=== PATIENT | female | born 1950 | race Caucasian/White ===

== ENCOUNTER → 2018-03-15 15:01 | Outpatient (CLI) | payer MEDICARE, OTHER, SELFPAY ==
--- NOTE | 2018-03-15 | DI.US.S_ITS ---
PROCEDURE: US CAROTID DOPPLER BI INDICATIONS: TRANSIENT VISION LOSS IN RIGHT EYE TECHNIQUE: Color and pulse Doppler interrogation was performed of both carotid systems, with image documentation and velocity measurements. COMPARISON: None. FINDINGS: Stenosis calculations are based on SRU (Society of Radiologists in Ultrasound) criteria. Right side: Brachial blood pressure: 118/75 mm Hg. Common carotid artery peak systolic velocity: 104 cm/sec. Internal carotid artery peak systolic velocity: 109 cm/sec. Internal carotid artery end diastolic velocity: 35 cm/sec. External carotid artery peak systolic velocity: 75 cm/sec. ICA/CCA peak systolic ratio: 1.04. Peter scale imaging description: No plaque Percent internal carotid artery stenosis: None. Vertebral artery: Flow direction is antegrade. Left side: Brachial blood pressure: 119/70 mm Hg. Common carotid artery peak systolic velocity: 88 cm/sec. Internal carotid artery peak systolic velocity: 108 cm/sec. Internal carotid artery end diastolic velocity: 28 cm/sec. External carotid artery peak systolic velocity: 94 cm/sec. ICA/CCA peak systolic ratio: 1.22. Peter scale imaging description: No plaque Percent internal carotid artery stenosis: None. Vertebral artery: Flow direction is antegrade. IMPRESSION: No ICA stenosis. Dictated by: Johnathan Orta M.D. on 03/15/2018 at 16:11 Approved by: Johnathan Orta M.D. on 03/15/2018 at 16:13
== END ==
PROVIDERS: Family Provider Family Medicine; PCP Family Medicine; Visit Provider Ophthalmology
DX: H53.121 Transient visual loss, right eye (principal)
CPT/HCPCS: 93880

== ENCOUNTER 2018-03-21 10:08 | Emergency (ER) | payer MEDICARE, OTHER, SELFPAY ==
[2018-03-21 10:10] VITALS: BP 127/70; PULSE 67; RESP 14; TEMP 36.1; O2SAT 100; BMI 22.1
--- NOTE | 2018-03-21 10:23 | PC.NURSE ---
Called Dr. Novoa office ([facility] [phone]) for more information. Spoke Cheo FAUSTIN: Elevated D-Dimer 1.47 (normal < 0.5).
[2018-03-21 10:30] VITALS: BP 118/69; O2SAT 100
--- NOTE | 2018-03-21 11:08 | PC.NURSE ---
Discussed w/ Dr. Gipson. No indicated for ultrasound / labs at this time. Indication is for head CT. Discussed w/ patient who agreed w/ plan of care. Pt continues w/ no acute distress, pain complaints.
--- NOTE | 2018-03-21 11:12 | DI.CT.S_ITS ---
PROCEDURE: CT HEAD/BRAIN WO CON INDICATIONS: headache on Left side, vision loss on Right 3 days ago, now resolved TECHNIQUE: Noncontrast 4.5 mm thick angled axial sections acquired from the foramen magnum to the vertex, with coronal and sagittal reformats. For radiation dose reduction, the following was used: automated exposure control, adjustment of mA and/or kV according to patient size. COMPARISON: None. FINDINGS: Image quality: Excellent. CSF spaces: Basal cisterns are patent. No extra-axial fluid collections. Ventricles are normal in size and shape. Brain: No midline shift. No intracranial masses or hemorrhage. Peter-white matter interface is normal. Skull and face: Calvarium and visualized facial bones are intact, without suspicious lesions. Sinuses: Visualized sinuses and mastoids are clear. IMPRESSION: Normal for age, source of current headache and vision change symptoms is not seen. Dictated by: Ted Weldon M.D. on 03/21/2018 at 11:22 Approved by: Ted Weldon M.D. on 03/21/2018 at 11:23
[2018-03-21 12:00] VITALS: BP 114/70; PULSE 62; O2SAT 100
--- NOTE | 2018-03-21 12:49 | ED.RECABL ---
HPI - Recheck/Abnormal Lab/Rx General Chief Complaint: Recheck/Abnormal Lab/Rx Stated Complaint: HIGH DVT, STATES NEED TO BE EVAL FOR STROKE Time Seen by Provider: 03/21/18 10:56 Source: patient Mode of arrival: ambulatory Limitations: no limitations History of Present Illness HPI narrative: Patient comes to the emergency department after experiencing acute visual loss about a week and half ago. She states that at the time, it was so a curtain came down part way over her right visual field superiorly. She states that she could still see except for that portion of her vision. She states the symptoms lasted about 4 min and then resolved spontaneously. She states that she spoke to her as soon as the symptoms started, and that her initial words stuttered. However, after that, she was able to speak normally. Patient denies any other neurologic symptoms same time. She did not have a headache at that time, though she has had intermittent stabbing headaches in her left adventist. She states that she has not been ill with anything else and has had no other symptoms since. She has been out hiking with her and has feeling good. She has a history of retinal detachment, and when saw her client relationship executive who examined her and felt that her exam was normal. This was the day after the incident. Patient states that the following day, she went saw her primary doctor, and labs were drawn. She also got a carotid Doppler per order of her client relationship executive, and that this was negative. Patient states she was called by her doctor today, stating that her D-dimer was elevated and she should come to the emergency department get checked out. Patient denies any pain in her calves. No swelling. She has not been short of breath and has had no chest pain. The patient has no DVT history. She is not a smoker and has had no long periods of immobilization recently. She has been active in hiking, as noted above. Patient states she occasionally feels a little irregularity to her heart rhythm, sometimes for as long as 10 or 20 min, but then this goes away on its own. She is not known to be in atrial fibrillation chronically. No other complaints at this time. Patient is not a diabetic and has no history of hypertension or hyperlipidemia. Related Data Home Medications Medication Instructions Recorded Confirmed mirtazapine 45 mg PO QPM 03/21/18 03/21/18 multivit with min-folic acid 1 tab PO DAILY 03/21/18 03/21/18 [Adult Multivitamin Gummies] Allergies Allergy/AdvReac Type Severity Reaction Status Date / Time meperidine [From Demerol] Allergy Intermediate Vomiting Verified 03/21/18 10:15 prednisone AdvReac Intermediate Shakiness Verified 03/21/18 10:15 Review of Systems Constitutional Denies chills, Denies fever(s), Reports headache(s), Denies lethargy and Denies weakness Eyes Denies change in vision, Denies eye discharge, Denies irritation and Denies loss of vision ENT Ears, Nose, Mouth, and Throat: Denies change in voice, Reports headache(s), Denies neck pain and Denies sore throat Cardiovascular Denies chest pain, Denies irregular heart rhythm, Denies lightheadedness, Denies palpitations, Denies dyspnea, Denies dyspnea on exertion and Denies orthopnea Respiratory Denies cough, Denies dyspnea, Denies dyspnea on exertion and Denies wheezing Gastrointestinal Gastrointestinal: Denies abdominal pain, Denies change in bowel habits, Denies diarrhea, Denies nausea and Denies vomiting Genitourinary Denies hematuria, Denies flank pain, Denies urinary incontinence and Denies urinary urgency Musculoskeletal Denies neck pain Integumentary/Breasts Denies pruritus, Denies erythema, Denies rash and Denies wounds Neurologic Denies confusion, Reports headache(s), Denies loss of vision and Denies weakness Psychiatric Denies anxiety, Denies confusion, Denies depression, Denies homicidal ideation and Denies suicidal ideation Endocrine Denies palpitations Hematologic/Lymphatic Denies easy bruising Allergic/Immunologic Denies wheezing [facility] Medical History Emphysema of lung (Acute) Epilepsy with partial complex seizures (Acute) Social History Smoking Status: Never smoker Exam Initial Vital Signs Initial Vital Signs: Vital Signs Temperature 96.9 F L 03/21/18 10:10 Pulse Rate 67 03/21/18 10:10 Respiratory Rate 14 03/21/18 10:10 Blood Pressure 127/70 03/21/18 10:10 Pulse Oximetry 100 03/21/18 10:10 Const General: cooperative and well developed Nutritional Appearance: well nourished Orientation: alert, awake, oriented x3 and not confused [facility] Head: normocephalic and atraumatic Ears: external ears normal Nose: external nose normal and No nasal discharge Face and sinus: face symmetric and No dry mucous membranes Mouth: oral mucosae normal and moist mucous membranes Teeth and gingiva: dentition normal Eyes General: appearance normal, both eyes and all related structures Eyelids: eyelids normal Conjunctivae: conjunctivae normal Sclera: sclerae normal Pupils: PERRL EOM: EOM intact bilaterally Neck Neck: normal visual inspection, trachea midline, No lymphadenopathy, No midline deformity and No JVD Lymphatic: No lymphedema Chest Chest: normal inspection of the chest Resp Effort & Inspection: normal respiratory effort, able to speak in complete sentences, no respiratory distress and no use of accessory muscles Auscultation: clear to auscultation bilaterally, no rales, no rhonchi and no wheezes Cardio Rate: regular rate Rhythm: regular rhythm Heart Sounds: no click, no gallops, no murmurs and no rubs Pulses: normal peripheral pulses GI Inspection: non-distended Palpation: soft, no hepatosplenomegaly, No guarding, No pulsatile mass and No tender Auscultation: normal bowel sounds Back/Spine/Pelvis Back: No CVA tenderness Cervical Spine: cervical ROM normal and No pain with cervical ROM Thoracic/Lumbar Spine: thoracic and lumbar spine normal to inspection Skin General: no rashes or lesions noted, No jaundice and No petechiae Neuro General: alert, oriented x3, gait normal and no focal motor deficits Speech: speech normal Extrem General: full ROM, no clubbing, cyanosis or edema, no pedal edema and no calf tenderness Psych Appearance: well kempt Mental Status: mental status grossly normal Attitude: cooperative Thought Content: normal and suicidality Judgment: judgment good Course Course Narrative: The patient was completely asymptomatic here in the emergency department. She did not have any symptoms whatsoever indicative of a DVT, and I did not feel that the mildly elevated D-dimer at 1.47, from her primary doctor's office, needed to be clarified at this time. I did send the patient for CT scan of the brain, which was unremarkable. I discussed at length with the patient and her the approach to the question of a TIA, mainly with attempting to find a potential source, and prevented further events. She has already had her carotid Doppler, which was unremarkable, and she has a normal heart rhythm on examination. Patient should follow up for an echocardiogram however to complete the appropriate workup. I have also discussed with her that I would it would be advisable, at least for now, to start a baby aspirin daily for prevention of further ischemic events, if that is what this episode represents. Patient is overall extremely low risk, and I feel she is stable for discharge home. Patient will follow up with her primary care physician as an outpatient. We have discussed the usual indications for return. Orders Ordered: ED Orders 03/21/18 11:12 CT head/brain wo con Stat Vital Signs - 8 hr 03/21/18 10:10 03/21/18 10:30 03/21/18 12:00 Temperature 96.9 F L Pulse Rate 67 62 Respiratory Rate 14 Blood Pressure 127/70 Blood Pressure [Left Arm] 118/69 114/70 Pulse Oximetry 100 100 100 MDM - Recheck/Abnormal Lab/Rx Medical Records Attestation: I reviewed the patient's medical records. Imaging Data CT scan - head: Attestation: I personally reviewed and interpreted this imaging study as follows: My impression: Negative Radiologist's impression: [place] [address] CT Scan Report Signed Patient: LYLE MCCULOLUGH R#: [id number] : 1950cct:[id number] Age/Sex: 68 / FDate of Service: 03/21/18 Loc: ED Accession Number: [id number] Procedure: CT head/brain wo con Ordering Provider: Janice Gipson MD PROCEDURE: CT HEAD/BRAIN WO CON INDICATIONS: headache on Left side, vision loss on Right 3 days ago, now resolved TECHNIQUE: Noncontrast 4.5 mm thick angled axial sections acquired from the foramen magnum to the vertex, with coronal and sagittal reformats. For radiation dose reduction, the following was used: automated exposure control, adjustment of mA and/or kV according to patient size. COMPARISON: None. FINDINGS: Image quality: Excellent. CSF spaces: Basal cisterns are patent. No extra-axial fluid collections. Ventricles are normal in size and shape. Brain: No midline shift. No intracranial masses or hemorrhage. Peter-white matter interface is normal. Skull and face: Calvarium and visualized facial bones are intact, without suspicious lesions. Sinuses: Visualized sinuses and mastoids are clear. IMPRESSION: Normal for age, source of current headache and vision change symptoms is not seen. Dictated by: Ted Weldon M.D. on 03/21/2018 at 11:22 Approved by: Ted Weldon M.D. on 03/21/2018 at 11:23 Discharge Plan Departure Patient Disposition: Home Clinical Impression: Headache, Visual changes Discharge Date/Time: 03/21/18 12:58 Instructions: DI for Headache, DI for Visual Field Disturbances Activity Restrictions/Additional Instructions: Your head CT looks good. There is no evidence of a stroke or other abnormality. It is not clear what caused your visual changes last week. This could represent a transient stroke, or could be unrelated to any kind of stroke. As we have discussed, the most important aspects to address in the question of stroke are any potential underlying cause, and prevention of further events. You have already had the carotid ultrasound, which looks good. You should talk to your doctor about having an echocardiogram done. This is an ultrasound which in part can tell us whether you have any clot or plaque along the wall of the heart which could break off and caused your to have further strokes. For prevention, an aspirin a day would be effective. If you have further episodes like this, please return to the Emergency Department without delay. Prescriptions: No Action mirtazapine 45 mg Tablet 45 mg PO QPM RF: 0 multivit with min-folic acid [Adult Multivitamin Gummies] 200 mcg Tablet,Chewable 1 tab PO DAILY RF: 0 Referrals: Micheal Bynum MD [Primary Care Provider] -
== END 2018-03-21 12:58 | disposition home or self-care (01) ==
PROVIDERS: Emergency Provider Emergency Medicine; Family Provider Family Medicine; PCP Family Medicine
DX: R51 Headache (principal); H53.9 Unspecified visual disturbance
CPT/HCPCS: 70450; 99282; 99284

== ENCOUNTER → 2018-04-05 08:52 | Outpatient (CLI) | payer MEDICARE, OTHER, SELFPAY ==
--- NOTE | 2018-04-05 | DI.ECHO.S_ITS ---
[facility] +---------+ : : [address] [place] [address] : : : : [id number] : : : : Phone: [phone] Echocardiogram Report + + :Name: LYLE MCCULLOUGH Study Date: 04/05/2018 Height: 69 in : :[facility] Weight: 150 lb : : Gender: Female BSA: 1.8 m2 : :: 1950 Age: 68 yrs BP: 128/70 mmHg: :Reason For Study: TIA : : Performed By: Shania Chung : :Referring: PORSCHE HAMPTON G : + + Interpretation Summary Normal sinus rhythm. Normal LV size, wall thickness, wall motion and LV systolic function. Aortic sclerosis without stenosis. Otherwise no significant valvular abnormalities. Normal chamber sizes. No evidence of PFO; no source of embolism identirifed. Procedure: A two-dimensional transthoracic echocardiogram with color flow and Doppler was performed. The study quality was technically good. There is no prior echocardiogram noted for this patient. The patient was in normal sinus rhythm during the exam. The patient had occasional PVCs during the exam. Left Ventricle: The left ventricle is normal in size, wall thickness, and systolic function without any focal wall motion abnormalities. The ejection fraction is estimated to be 60-65%. Diastolic parameters suggest probable normal left ventricular diastolic function and normal filling pressures. Right Ventricle: The right ventricle grossly appears normal in size with probable normal systolic function. Atria: The left atrial size is normal. Right atrial size is normal. Injection of contrast documented no interatrial shunt. Mitral Valve: The mitral valve is normal in structure but abnormal in function. There is mild to moderate mitral regurgitation. Aortic Valve: The aortic valve is trileaflet. The aortic valve opens well. The aortic valve is mildly calcified. No aortic regurgitation is present. Tricuspid Valve: The tricuspid valve is normal in structure and function. There is a trace or physiologic amount of tricuspid regurgitation. The right ventricular systolic pressure is estimated to be at least 27 mmHg based on an estimated right atrial pressure of 8 mm Hg. Pulmonic Valve: The pulmonic valve is normal in structure and function. There is trace pulmonic regurgitation. Great Vessels: The aortic root is normal size. The ascending aorta is normal in size. The IVC is dilated (diameter is greater than 2.1 cm) yet it collapses greater than 50% with a sniff. This suggests a right atrial pressure of 8 mm Hg. Pericardium/ Pleura There is a trivial pericardial effusion noted. There is no pleural effusion. MMode/2D Measurements & Calculations LVIDd: 5.5 cm Ao root diam: 3.3 cm LVIDs: 3.7 cm Aortic Jxn: 2.8 cm FS: 32.0 % asc Aorta Diam: 3.4 cm EPSS: 0.49 cm IVSd: 0.61 cm LVPWd: 0.85 cm LV freitas. diameter/BSA (cm/m^2): 3.0 LV sys. diameter/BSA (cm/m^2): 2.0 LA dimension: 3.7 cm RA long axis: 5.2 cm LA A2 area: 20.5 cm2 RA area: 20.2 cm2 LA A4 area: 20.0 cm2 RA vol: 66.7 ml LA length (vol): 5.5 cm RA : 36.5 ml/m2 LA vol: 63.5 ml IVC diam: 2.1 cm LA vol index: 34.7 ml/m2 Doppler Measurements & Calculations Ao V2 max: 172.6 cm/sec MV E max dick: 86.5 cm/sec Ao V2 mean: 116.2 cm/sec MV A max dick: 61.8 cm/sec Ao max P.9 mmHg MV E/A: 1.4 Ao mean P.2 mmHg Med Peak E' Dick: 8.5 cm/sec Ao V2 VTI: 39.9 cm E/E' med: 10.1 Lat Peak E' Dick: 14.4 cm/sec E/E' lat: 6.0 E/e' average: 8.1 MV dec time: 0.18 sec MV P1/2t: 54.0 msec MR ERO: 0.16 cm2 TR max dick: 218.4 cm/sec MV P1/2t max dick: 86.0 cm/sec TR max P.1 mmHg MVA(P1/2t): 4.1 cm2 PA V2 max: 84.7 cm/sec PA V2 mean: 55.2 cm/sec PA mean P.5 mmHg PA Accel Time: 0.16 sec MR flow rate: 86.2 cm3/sec MR PISA radius: 0.59 cm Electronically signed by: Keisha Dunn M.D. on Reading Physician:04/06/2018 07:58 AM
== END ==
PROVIDERS: Family Provider Family Medicine; PCP Family Medicine; Visit Provider Family Medicine
DX: I08.0 Rheumatic disorders of both mitral and aortic valves (principal); G45.9 Transient cerebral ischemic attack, unspecified; R00.2 Palpitations
CPT/HCPCS: 93306

== ENCOUNTER → 2018-04-11 11:27 | Outpatient (CLI) | payer MEDICARE, OTHER, SELFPAY ==
--- NOTE | 2018-04-11 | DI.MG.S_ITS ---
BILATERAL DIGITAL SCREENING MAMMOGRAM 3D/2D WITH CAD: 04/11/2018 CLINICAL: Routine screening. Comparison is made to exam dated: 02/21/2017 mammogram - [facility]. The tissue of both breasts is heterogeneously dense. This may lower the sensitivity of mammography. Current study was also evaluated with a Computer Aided Detection (CAD) system. No significant masses, calcifications, or other findings are seen in either breast. There has been no significant interval change. IMPRESSION: NEGATIVE There is no mammographic evidence of malignancy. A 1 year screening mammogram is recommended. This exam was interpreted at Station ID: [id number]. NOTE: For mammograms, a report in lay terms will be sent to the patient. Approximately 15% of breast malignancies will not be visualized mammographically. In the management of a palpable breast mass, a negative mammogram must not discourage biopsy of a clinically suspicious lesion. Electronically Signed By: Nohemi llamas/bo:04/11/2018 13:19:08 letter sent: Normal Exam ACR BI-RADS Category 1: Negative [id number]
== END ==
PROVIDERS: PCP Family Medicine; Visit Provider Family Medicine
DX: Z12.31 Encounter for screening mammogram for malignant neoplasm of breast (principal)
CPT/HCPCS: 77063; 77067

== ENCOUNTER 2018-11-03 06:28 | Emergency (ER) | payer MEDICARE, OTHER, SELFPAY ==
[2018-11-03 06:39] VITALS: BP 140/61; PULSE 82; RESP 17; TEMP 36.6; O2SAT 100; BMI 22.1
[2018-11-03 07:04] LABS: Add Manual Diff / Slide Review NO; Basophils Absolute Auto 0 /uL (0-100); Basophils Percent Auto 0.6 % (0-2); Eosinophils Absolute Auto 200 /uL (0-450); Eosinophils Percent Auto 3.1 % (2-4); Hematocrit 40.1 % (36-46); Hemoglobin 13.9 g/dL (12.0-16.0); Lymphocytes Absolute Auto 1000 /uL (1100-4500); Lymphocytes Percent Auto 20.1 % (25-40); Mean Corpuscular HGB Conc 34.7 % (30-36); Mean Corpuscular Hemoglobin 30.2 PG (26-34); Mean Corpuscular Volume 87.1 fL (80-100); Monocytes Absolute Auto 300 /uL (0-900); Monocytes Percent Auto 5.1 % (3-14); Neutrophils Absolute Auto 3700 /uL (1500-7000); Neutrophils Percent Auto 71.1 % (50-75); Platelet Count 213 X10^3/uL (150-400); Red Blood Cell Count 4.61 X10^6/uL (4.0-5.2); Red Cell Distribution Width 13.7 % (11.6-14.8); White Blood Cell Count 5.1 X10^3/uL (4.5-11.0)
--- NOTE | 2018-11-03 07:09 | ED_ITS ---
HPI - Arrhythmia/Palpitations General Chief Complaint: Arrhythmia/Palpitations Stated Complaint: heart flutterings, HBP Time Seen by Provider: 11/03/18 06:37 Source: patient Mode of arrival: ambulatory Limitations: no limitations History of Present Illness HPI narrative: The patient is a 68-year-old female with history of TIA who presents with heart palpitations. She says she woke up around 3:00 a.m. feeling fluttering in her chest. She had no shortness of breath no dizziness no lightheadedness no pain no nausea no weakness numbness or tingling. She says it lasted for a few hours and stopped just prior to her arrival in the emergency department. She says she has previously had a Holter monitor but nothing was found. She was worried because her blood pressure was elevated with a systolic of 160 at home. It has now come down to 140 in the emergency department. She denies any other symptoms and overall feels back to normal. MD complaint: palpitations Duration: now resolved Context: occurred during rest Related Data Home Medications Medication Instructions Recorded Confirmed mirtazapine 45 mg PO QPM 03/21/18 03/21/18 multivit with min-folic acid 1 tab PO DAILY 03/21/18 03/21/18 [Adult Multivitamin Gummies] albuterol sulfate 90 mcg/actuation 1 puff INHALATION Q6H PRN 10/23/18 10/23/18 aerosol inhaler aspirin 81 mg tablet,delayed 81 mg PO DAILY 10/23/18 10/23/18 release Previous Rx's Medication Instructions Recorded varicella-zoster [id number] (PF) 50 0.5 ml IM ONCE #1 each 10/23/18 mcg/0.5 mL IM susp, kit Allergies Allergy/AdvReac Type Severity Reaction Status Date / Time meperidine [From Demerol] Allergy Intermediate Vomiting Verified 03/21/18 10:15 lactase [From Dairy Aid] AdvReac Intermediate Gastrointestinal Verified 10/23/18 09:44 Upset prednisone AdvReac Intermediate Shakiness Verified 03/21/18 10:15 Review of Systems Review of Systems Narrative: GENERAL: Denies chills, fatigue, malaise, fever, sweats, travel HEENT: Denies sinus pain, ear pain, sore throat, difficulty swallowing, neck pain RESPIRATORY: Denies dyspnea, cough, wheezing, hemoptysis, sputum. CARDIOVASCULAR: She HPI GASTROINTESTINAL: Denies nausea, vomiting, abdominal pain, diarrhea, constipation, melena. : Denies dysuria, frequency, incontinence, hematuria, urinary retention, flank pain. MUSCULOSKELETAL: Denies weakness, joint pain, or bony pain SKIN: No rash, no erythema, no pruritus NEUROLOGIC: Denies weakness, dizziness, headache, numbness, change in speech, confusion PSYCHIATRIC: No concerning psychosocial issues. 12 point review of systems is negative except for those stated above and HPI [facility], [facility] Medical History Emphysema of lung (Acute) Epilepsy with partial complex seizures (Resolved) TIA (transient ischemic attack) (Acute) Social History Smoking Status: Never smoker Social History Smoking Status: Never smoker Exam Initial Vital Signs Initial Vital Signs: Vital Signs Temperature 97.9 F 11/03/18 06:39 Pulse Rate 82 11/03/18 06:39 Respiratory Rate 17 11/03/18 06:39 Blood Pressure 140/61 11/03/18 06:39 Pulse Oximetry 100 11/03/18 06:39 GENERAL: [Well-appearing, well-nourished] and in [no acute] distress. HEENT: Head atraumatic,EOMI, pupils reactive, face symmetric, [moist] mucous membranes CARDIOVASCULAR: Regular rate and rhythm without murmurs, rubs or gallops. RESPIRATORY: Breath sounds equal bilaterally, no wheezes rales or rhonchi. ABDOMEN: Soft, nontender. Normoactive bowel sounds all 4 quadrants. No guarding or rebound. : No CVA tenderness EXTREMITIES: Normal range of motion, no clubbing or edema. Neurovascularly intact NEUROLOGICAL: Alert and oriented x4.Normal gait and speech. Cranial nerves II through XII grossly intact. SKIN: Warm, dry, no laceration, no petechiae, no rashes or lesions. Course Orders Ordered: ED Orders 11/03/18 06:35 EKG-12 Lead Stat 11/03/18 06:47 Basic Metabolic Panel Stat Complete Blood Count AUTO DIFF Stat Magnesium Stat Thyroid Stimulating Hormone Stat Troponin & CK Cardiac Panel Stat Vital Signs Vital signs: Vital Signs - 8 hr 11/03/18 06:39 11/03/18 08:05 Temperature 97.9 F Pulse Rate 82 66 Respiratory Rate 17 18 Blood Pressure 140/61 116/68 Pulse Oximetry 100 100 MDM - Arrhythmia/Palpitations Lab Data Attestation: I reviewed the patient's lab results. Result diagrams: 11/03/18 06:47 11/03/18 06:47 Labs: Lab Results 11/03/18 11/03/18 11/03/18 Range/Units 06:47 06:47 06:47 WBC 5.1 (4.5-11.0) X10^3/uL RBC 4.61 (4.0-5.2) X10^6/uL Hgb 13.9 (12.0-16.0) g/dL Hct 40.1 (36-46) % MCV 87.1 (80-100) fL MCH 30.2 (26-34) PG MCHC 34.7 (30-36) % RDW 13.7 (11.6-14.8) % Plt Count 213 (150-400) X10^3/uL Neut % (Auto) 71.1 (50-75) % Lymph % (Auto) 20.1 L (25-40) % [place] % (Auto) 5.1 (3-14) % Eos % (Auto) 3.1 (2-4) % Baso % (Auto) 0.6 (0-2) % Neut # (Auto) 3700 (8517-0455) /uL Lymph # (Auto) 1000 L (6512-5171) /uL [place] # (Auto) 300 (0-900) /uL Eos # (Auto) 200 (0-450) /uL Baso # (Auto) 0 (0-100) /uL Sodium 143 (137-145) mmol/L Potassium 4.1 (3.4-5.1) mmol/L Chloride 106 (98-107) mmol/L Carbon Dioxide 29 (22-32) mmol/L BUN 13 (7-17) mg/dL Creatinine 0.80 (0.52-1.04) mg/dL Estimated GFR > 60.0 (>60) mL/min BUN/Creatinine Ratio 16.3 (6-22) Glucose 108 (80-110) mg/dL Calcium 9.4 (8.4-10.2) mg/dL Magnesium 1.9 (1.6-2.3) mg/dL Total Creatine Kinase 48 (30-135) U/L CK-MB (CK-2) TNP CK-MB (CK-2) Rel Index TNP Troponin I < 0.012 (0.01-0.034) ng/mL TSH 6.26 H (0.47-4.68) uIU/mL ECG Data Attestation: I personally reviewed and interpreted this ECG as follows: Prior ECG tracings: not available for review Interpretation: Normal sinus rhythm rate 72 p.r. interval [address] changes artifact noted in V4 and V5 MDM Narrative Medical decision making narrative: Patient no longer has symptoms. Her electrolytes and blood work are reassuring. I did recommend that with history of TIA and possible paroxysmal atrial fibrillation she continue her aspirin and have a Holter monitor. Discharge Plan Departure Patient Disposition: Home Clinical Impression: Palpitations Discharge Date/Time: 11/03/18 08:05 Instructions: DI for Palpitations Activity Restrictions/Additional Instructions: *You have been diagnosed with palpitations *What to do: With history of TIA and symptoms of palpitations. I do strongly recommend that you talk to her PCP about a Holter monitor to monitor your heart rhythm. *Continue to take medications as directed *Follow up with your primary care provider in 2-3 days *Return to ER if you should have palpitations, dizziness, lightheadedness, weakness or any new, worsening or concerning symptoms Prescriptions: No Action aspirin [Aspirin Low Dose] 81 mg tablet,delayed release (DR/EC) 81 mg PO DAILY RF: 0 albuterol sulfate [ProAir HFA] 90 mcg/actuation HFA aerosol inhaler 1 puff INHALATION Q6H PRNRF: 0 Shingrix (PF) 50 mcg/0.5 mL suspension for reconstitution 0.5 ml IM ONCE Qty: 1 RF: 1 mirtazapine 45 mg Tablet 45 mg PO QPM RF: 0 multivit with min-folic acid [Adult Multivitamin Gummies] 200 mcg Tablet,Chewable 1 tab PO DAILY RF: 0 Referrals: Michaelle Willingham MD [Primary Care Provider] -
[2018-11-03 07:12] LABS: BUN Creatinine Ratio 16.3 (6-22); Blood Urea Nitrogen 13 mg/dL (7-17); Calcium 9.4 mg/dL (8.4-10.2); Carbon Dioxide 29 mmol/L (22-32); Chloride 106 mmol/L (98-107); Creatine Kinase 48 U/L (30-135); Estimated Glomerular Filt Rate > 60.0 mL/min (>60); Glucose 108 mg/dL (80-110); HEMOLYSIS < 15 (0-50); Magnesium 1.9 mg/dL (1.6-2.3); Potassium 4.1 mmol/L (3.4-5.1); Sodium 143 mmol/L (137-145)
[2018-11-03 07:29] LABS: Troponin I < 0.012 ng/mL (0.01-0.034)
[2018-11-03 07:50] LABS: Thyroid Stimulating Hormone 6.26 uIU/mL (0.47-4.68)
--- NOTE | 2018-11-03 08:04 | PC.NURSE ---
Patient reports my blood pressure is normal now and I'm not having any palpitations any more. She requests to go home, I let her know we are awaiting bloodwork.
[2018-11-03 08:05] VITALS: BP 116/68; PULSE 66; RESP 18; O2SAT 100
== END 2018-11-03 08:05 | disposition home or self-care (01) ==
PROVIDERS: Emergency Medicine; Emergency Provider Emergency Medicine; PCP Hospitalist
DX: R00.2 Palpitations (principal)
CPT/HCPCS: 36415; 80048; 82550; 83735; 84443; 84484; 85025; 93005; 99283; 99284

== ENCOUNTER → 2019-01-07 07:13 | Outpatient (CLI) | payer MEDICARE, OTHER, SELFPAY ==
[2019-01-07 08:13] LABS: Add Manual Diff / Slide Review NO; Basophils Absolute Auto 0 /uL (0-100); Basophils Percent Auto 0.5 % (0-2); Eosinophils Absolute Auto 100 /uL (0-450); Eosinophils Percent Auto 2.7 % (2-4); Hematocrit 40.3 % (36-46); Hemoglobin 13.6 g/dL (12.0-16.0); Lymphocytes Absolute Auto 1200 /uL (1100-4500); Mean Corpuscular HGB Conc 33.7 % (30-36); Mean Corpuscular Hemoglobin 29.6 PG (26-34); Mean Corpuscular Volume 87.7 fL (80-100); Monocytes Absolute Auto 300 /uL (0-900); Monocytes Percent Auto 5.7 % (3-14); Neutrophils Absolute Auto 3000 /uL (1500-7000); Neutrophils Percent Auto 65.1 % (50-75); Platelet Count 217 X10^3/uL (150-400); Red Cell Distribution Width 13.7 % (11.6-14.8); White Blood Cell Count 4.6 X10^3/uL (4.5-11.0)
[2019-01-07 08:31] LABS: Alanine Aminotransferase 17 IU/L (<35); Albumin 4.1 g/dL (3.5-5.0); Albumin Globulin Ratio 1.5 (1.0-2.8); Alkaline Phosphatase 102 U/L (38-126); Aspartate Aminotransferase 26 IU/L (14-36); BUN Creatinine Ratio 15.6 (6-22); Bilirubin Total 0.6 mg/dL (0.2-1.3); Blood Urea Nitrogen 14 mg/dL (7-17); Calcium 9.4 mg/dL (8.4-10.2); Carbon Dioxide 34 mmol/L (22-32); Chloride 104 mmol/L (98-107); Cholesterol 183 mg/dL (140-199); Estimated Glomerular Filt Rate > 60.0 mL/min (>60); Globulin 2.8 g/dL (1.7-4.1); Glucose 94 mg/dL (80-110); HDL Cholesterol 51 mg/dL (40-60); HEMOLYSIS < 15 (0-50); LDL Cholesterol Calculated 118 mg/dL (<100); Potassium 4.1 mmol/L (3.4-5.1); Sodium 141 mmol/L (137-145); Total Protein 6.9 g/dL (6.3-8.2); Triglycerides 68 mg/dL (35-150)
== END ==
PROVIDERS: PCP Hospitalist; Visit Provider Hospitalist
DX: G62.9 Polyneuropathy, unspecified (principal)
CPT/HCPCS: 36415; 80053; 80061; 84443; 85025

== ENCOUNTER → 2019-01-28 15:31 | Outpatient (CLI) | payer MEDICARE, OTHER, SELFPAY ==
--- NOTE | 2019-01-28 15:34 | DI.RAD.S_ITS ---
PROCEDURE: XR ANKLE LT MIN 3V INDICATIONS: s/p fall, r/o fracture left foot TECHNIQUE: 3 views of the ankle were acquired. COMPARISON: None. FINDINGS: Bones: No fractures or dislocations. Ankle mortise is normally aligned. No suspicious bony lesions. Soft tissues: No tibiotalar joint effusion. Achilles tendon appears normal. IMPRESSION: No trauma found, source of pain is not seen. Dictated by: Ted Weldon M.D. on 01/28/2019 at 16:23 Approved by: Ted Weldon M.D. on 01/28/2019 at 16:23
== END ==
PROVIDERS: Visit Provider Nurse Practitioner
DX: M79.672 Pain in left foot (principal)
CPT/HCPCS: 73610

== ENCOUNTER → 2019-01-31 06:30 | Outpatient (CLI) | payer MEDICARE, OTHER, SELFPAY ==
--- NOTE | 2019-01-31 06:33 | DI.MRI.S_ITS ---
PROCEDURE: MR FOOT LT WO/W CON INDICATIONS: ankle sprain, foot pain, edema and bruising s/p fall TECHNIQUE: Noncontrast sagittal T1 spin echo and T2 fast spin echo with fat saturation, long-axis T1 spin echo and T2 fast spin echo with fat saturation; short-axis T1 spin echo, proton density fast spin echo, and T2 fast spin echo with fat saturation through the forefoot. Post-contrast short axis, long axis, and sagittal T1 spin echo with fat saturation through the forefoot. COMPARISON: None. FINDINGS: Image quality: Excellent. Bones and joints: There is marrow edema involving the visualized portion of the distal and inferior portion of the talus, adjacent lateral portion of navicular bone, distal and superior portion of the calcaneus and superior portion of adjacent cuboid bone. No evidence of marrow edema is seen in the metatarsal bones phalanges. No discrete fracture lines are seen in the above area of edema. No suspicious intraosseous lesion. Mild forefoot joint osteoarthritic changes are seen. No suspicious osseous enhancement. Soft tissues: There is mild soft tissue edema involving dorsal and lateral aspect of mid foot and hindfoot as well as visualized portion of the ankle soft tissue. No discrete drainable fluid collection is seen. No suspicious soft tissue enhancement. The visualized plantar foot muscles demonstrate normal signal and bulk. Visualized flexor and extensor tendons appear intact, without tenosynovitis. The distal insertions of the peroneus brevis and longus tendons appear intact. The principal Lisfranc ligament appears intact. No soft tissue ganglion cysts or bursal fluid collections. Sagittal images demonstrate no evidence for plantar plate tears. IMPRESSION: 1. No definite fracture or dislocation is seen in forefoot and visualized portion of mid foot. 2. Suggestion of bony contusion involving the visualized portion of distal talus and calcaneus as well as adjacent navicular bone and the proximal cuboid. 3. Soft tissue swelling along dorsal aspect of mid foot and hindfoot. No drainable fluid collection. No soft tissue mass or area of abnormal enhancement. 4. Mild forefoot joint osteoarthritis. Lisfranc ligament and joint is intact. Dictated by: Aakash Henning M.D. on 01/31/2019 at 9:09 Approved by: Aakash Henning M.D. on 01/31/2019 at 9:20
--- NOTE | 2019-01-31 06:33 | DI.MRI.S_ITS ---
PROCEDURE: MR ANKLE LT WO/W CON INDICATIONS: ankle edema, pain and bruising s/p fall TECHNIQUE: Noncontrast sagittal T1 spin echo and T2 fast spin echo with fat saturation, axial proton density fast spin echo and T2 fast spin echo with fat saturation, axial T1 spin echo with fat saturation, coronal T1 spin echo and T2 fast spin echo with fat saturation through the ankle/hindfoot. Post-contrast axial, coronal, and sagittal T1 spin echo with fat saturation through the ankle/hindfoot. COMPARISON: [facility], CR, XR ANKLE LT MIN 3V, 01/28/2019, 15:39. FINDINGS: Image quality: Excellent. Bones and joints: No suspicious osseous enhancement. There is marrow edema involving distal portion of superior and inferior talus adjacent to talonavicular joint. Mild edema involving distal and superior portion of calcaneus adjacent to the subtalar joint is also seen. There is also mild marrow edema involving proximal and superior portion of the cuboid and proximal/inferior portion of navicular bone. There is linear calcified fragment adjacent to superior and lateral aspect of distal talus suggestive of avulsion injury in this area. No other fracture line or displaced fragment is seen. Ankle soft tissue swelling is noted particularly over anterior lateral aspect of ankle joint. No discrete drainable fluid collection. Medial structures: The posterior tibialis, flexor digitorum longus, and flexor hallucis longus tendons are intact. The posterior tibial neurovascular bundle appears normal within the tarsal tunnel, without extrinsic mass effect. The deep layer (anterior and posterior tibiotalar ligaments) and superficial layer (tibionavicular, tibiospring, and tibiocalcaneal ligaments) of the deltoid ligament appear normal. The spring ligament components (superomedial calcaneonavicular, medioplantar oblique calcaneonavicular, and inferoplantar longitudinal ligaments) are intact. Lateral structures: The anterior talofibular, calcaneofibular, and posterior talofibular ligaments appear intact. More superiorly, the anterior and posterior tibiofibular ligaments appear intact, as is the intermalleolar ligament. The tibiofibular syndesmosis is normal in width at 2 mm or less. The peroneus longus and brevis tendons demonstrate normal location and morphology. Adjacent bony peroneal tubercle and retrotrochlear prominence are normal in size. The sinus tarsi demonstrates normal fatty signal, without edema, fibrosis, or cyst formation. Visualized sinus tarsi components (cervical ligament, interosseous talocalcaneal ligament, roots of the inferior extensor retinaculum) appear normal. The calcaneonavicular and calcaneocuboid components of the bifurcate ligament appear intact. The dorsal calcaneocuboid ligament appears intact. Anterior structures: The tibialis anterior, extensor hallucis longus, and extensor digitorum longus tendons appear intact. The dorsal talonavicular ligament is attenuated and thickened in appearance with surrounding edema suggestive of sprain/partial thickness tear. Posterior and plantar structures: Achilles tendon is intact. Medial and lateral bands of the plantar fascia are of normal thickness. No abductor digiti quinti muscle atrophy to suggest Mullins neuropathy. IMPRESSION: 1. Finding is suggestive of bony contusion involving osseous structures adjacent to anterior portion of the subtalar joint as well as talonavicular joint and calcaneocuboid joint. Suggestion of avulsion injury involving superior and lateral periphery of distal talus with a slightly displaced curvilinear fragment. Adjacent soft tissue edema and swelling is also seen. 2. Suggestion of sprain/low to moderate grade partial-thickness tear involving the dorsal talonavicular ligament. 3. No other fracture or dislocation is seen. Rest of the ankle tendons and ligaments are grossly intact Dictated by: Aakash Henning M.D. on 01/31/2019 at 9:20 Approved by: Aakash Henning M.D. on 01/31/2019 at 9:40
== END ==
PROVIDERS: PCP Orthopaedic Surgery Foot and Ankle Surgery; Visit Provider Nurse Practitioner
DX: S93.402A Sprain of unspecified ligament of left ankle, initial encounter (principal); S90.32XA Contusion of left foot, initial encounter; M79.672 Pain in left foot; M19.072 Primary osteoarthritis, left ankle and foot; M79.89 Other specified soft tissue disorders; W19.XXXA Unspecified fall, initial encounter
CPT/HCPCS: 73720; 73723; A9579

== ENCOUNTER 2019-02-22 20:42 | Emergency (ER) | payer MEDICARE, OTHER, SELFPAY ==
[2019-02-22 20:42] VITALS: BP 121/84; PULSE 64; RESP 18; TEMP 36.7; O2SAT 98
--- NOTE | 2019-02-22 20:51 | DI.RAD.S_ITS ---
PROCEDURE: XR ANKLE LT MIN 3V INDICATIONS: pain after injury, known recent fracture TECHNIQUE: 3 views of the ankle were acquired. COMPARISON: [facility], CR, XR FOOT 3 VIEWS WEIGHT BEARING LEFT, 02/05/2019, 14:23. [facility], CR, XR FOOT LT MIN 3V, 02/22/2019, 21:00. [facility], MR, MR ANKLE LT WO/W CON, 01/31/2019, 7:27. [facility], CR, XR ANKLE LT MIN 3V, 01/28/2019, 15:39. FINDINGS: Bones: There is an avulsion fracture of the superior aspect of the distal talus with interval partial healing. No dislocations. Ankle mortise is normally aligned. No suspicious bony lesions. Soft tissues: No tibiotalar joint effusion. Achilles tendon appears normal. IMPRESSION: 1. No acute abnormalities. 2. Healing fracture of superior aspect of the distal talus. Dictated by: Mike Leslie M.D. on 02/22/2019 at 21:46 Approved by: Mike Leslie M.D. on 02/22/2019 at 21:51
--- NOTE | 2019-02-22 20:51 | DI.RAD.S_ITS ---
PROCEDURE: XR FOOT LT MIN 3V INDICATIONS: pain, recent fracture TECHNIQUE: 3 views of the foot were acquired. COMPARISON: [facility], MR, MR FOOT LT WO/W CON, 01/31/2019, 7:03. [facility], MR, MR ANKLE LT WO/W CON, 01/31/2019, 7:27. [facility], CR, XR ANKLE LT MIN 3V, 02/22/2019, 21:08. [facility], CR, XR FOOT 3 VIEWS WEIGHT BEARING LEFT, 02/05/2019, 14:23. FINDINGS: Bones: No acute fractures or dislocations. Mild cortical thickening in the medial aspect of the second tarsal, suspicious for an old bob stress fracture. Mild degenerative joint disease in first tarsometatarsal joint multiple interphalangeal joints. No suspicious bony lesions. Soft tissues: No tibiotalar joint effusion. Achilles tendon appears normal. IMPRESSION: 1. No acute fracture or dislocation. 2. Probably old bob stress fracture of the second metatarsal shaft. 3. Degenerative joint disease. Dictated by: Mike Lelsie M.D. on 02/22/2019 at 21:39 Approved by: Mike Leslie M.D. on 02/22/2019 at 21:46
[2019-02-22 20:53] VITALS: PULSE 78
--- NOTE | 2019-02-23 06:19 | ED.LOWEXIN ---
HPI - Extremity Injury (Lower) General Chief Complaint: Extremity Injury, Lower Stated Complaint: LEFT FOOT INJURY Time Seen by Provider: 02/22/19 20:44 Source: patient Mode of arrival: other Limitations: no limitations History of Present Illness HPI Narrative: 69-year-old female nonsmoker with a history of GERD presents with her and a chief complaint of left foot pain after stepping awkwardly on some stairs just prior to arrival. Five weeks ago the patient suffered a nondisplaced talar fracture and has been in a walking boot. She was walking up steep steps and was unable to lead with her right foot as she was instructed, in doing so she put significant force through her left foot and now has pain. She denies any high velocity traumas. She denies any knee or hip pain. She denies any numbness, tingling or weakness. Her pain is worse with ambulation MD complaint: foot injury Type of Injury: unknown Place: home Severity: moderate Relieving factors: immobilization Exacerbating factors: weight bearing Context: walking Associated symptoms: able to partially bear weight Related Data Home Medications Medication Instructions Recorded Confirmed mirtazapine 45 mg PO QPM 03/21/18 01/28/19 multivit with min-folic acid 1 tab PO DAILY 03/21/18 01/28/19 [Adult Multivitamin Gummies] albuterol sulfate 90 mcg/actuation 1 puff INHALATION Q6H PRN 10/23/18 01/28/19 aerosol inhaler aspirin 81 mg tablet,delayed 81 mg PO DAILY 10/23/18 01/28/19 release Previous Rx's Medication Instructions Recorded varicella-zoster gE-AS01B (PF) 50 0.5 ml IM ONCE #1 each 10/23/18 mcg/0.5 mL IM susp, kit dexlansoprazole 30 mg 30 mg PO DAILY #30 cap 01/28/19 capsule,biphase delayed release esomeprazole magnesium 20 mg 20 mg PO DAILY #30 cap 01/28/19 capsule,delayed release Allergies Allergy/AdvReac Type Severity Reaction Status Date / Time meperidine [From Demerol] Allergy Intermediate Vomiting Verified 02/22/19 20:52 lactase [From Dairy Aid] AdvReac Intermediate Gastrointestinal Verified 02/22/19 20:52 Upset prednisone AdvReac Intermediate Shakiness Verified 02/22/19 20:52 Review of Systems Constitutional Constitutional: Denies chills, Denies fatigue, Denies fever(s), Denies frequent falls, Denies lethargy and Denies weakness Eyes Eyes: Denies change in vision, Denies eye discharge, Denies irritation and Denies loss of vision ENT Ears, Nose, Mouth, and Throat: Denies change in voice, Denies dizziness, Denies neck pain, Denies sore throat and Denies throat swelling Cardiovascular Cardiovascular: Denies chest pain, Denies irregular heart rhythm, Denies lightheadedness, Denies palpitations, Denies dyspnea, Denies dyspnea on exertion and Denies orthopnea Respiratory Respiratory: Denies cough, Denies dyspnea, Denies dyspnea on exertion and Denies wheezing Gastrointestinal Gastrointestinal: Denies abdominal pain, Denies change in bowel habits, Denies diarrhea, Denies nausea and Denies vomiting Genitourinary Genitourinary: Denies hematuria, Denies flank pain, Denies urinary incontinence and Denies urinary urgency Musculoskeletal Musculoskeletal: Denies back pain, Reports joint swelling, Reports limited range of motion, Denies muscle weakness, Denies neck pain, Denies numbness and Denies tingling Integumentary/Breasts Skin/Breast: Denies pruritus, Denies erythema, Denies rash and Denies wounds Neurologic Neurologic: Denies behavioral changes, Denies confusion, Denies dizziness, Denies frequent falls, Denies loss of vision, Denies numbness, Denies tingling and Denies weakness Psychiatric Psychiatric: Denies anxiety, Denies behavioral changes, Denies confusion, Denies depression, Denies homicidal ideation and Denies suicidal ideation Endocrine Endocrine: Denies fatigue, Denies flushing and Denies palpitations Hematologic/Lymphatic Hematologic/Lymphatic: Denies easy bruising Allergic/Immunologic Allergic/Immunologic: Denies urticaria, Denies throat swelling and Denies wheezing Patient History Medical History Chicken pox (Resolved) Dairy allergy (Chronic ~2013) Depression (Chronic ~2011) Emphysema of lung (Chronic ~2009) Epilepsy with partial complex seizures (Resolved) Gastric ulcer (Resolved) GERD (gastroesophageal reflux disease) (Acute) Measles (Resolved) Mumps (Resolved) Ovarian cyst (Chronic ~1978) Retinal detachment (Chronic) Seizures (Inactive ~1989) Skin cancer (Chronic ~1989) TIA (transient ischemic attack) (Acute) Surgical History Anesthesia (Resolved) History of Achilles tendon repair (Resolved ~1963) History of appendectomy (Resolved) History of section (Resolved ~1980) History of hysterectomy (Resolved) History of tonsillectomy (Resolved) Family History Father Congestive heart failure History of heart disease Stroke Mother Cancer Mental health problem Grandmother Congestive heart failure History of heart disease Stroke Social History Smoking Status: Never smoker Smoking Status: Never smoker alcohol intake frequency: 0-2 drinks per day Substance Use Type: does not use Exam Narrative Exam Narrative: GEN: AOx3 and in mild distress EYES: Pupils are equal, round, and reactive to light and accommodation. Extraoccular muscles are intact bilaterally. There is no subconjunctival hemorrhage or exudate. CHEST: Lungs are clear to auscultation bilaterally and free of wheezes, rales, or rhonchi. Heart rate is regular rhythm, there are no murmurs, clicks, rubs, or gallops. There is no chest wall tenderness. ABD: Abdomen is soft and nontender. There is no guarding or rebound. Bowel sounds are normal in all 4 quadrants. There is no mass or organomegaly. EXT: full but painful range of motion of left foot and ankle with mild swelling. Closed, isolated a neurovascularly intact. Cap refill less than 2 seconds SKIN: Warm, pink, and dry. No erythema or rash Initial Vital Signs Initial Vital Signs: Vital Signs Temperature 98.1 F 02/22/19 20:42 Pulse Rate 64 02/22/19 20:42 Respiratory Rate 18 02/22/19 20:42 Blood Pressure 121/84 02/22/19 20:42 Pulse Oximetry 98 02/22/19 20:42 MDM - Extremity Injury (Lower) Imaging Data Extremity x-ray #1: Radiologist's Impression: Luz Maria Cason 69 F [address] [address] XRay Report Signed Patient: Luz Maria Cason#: [id number] : [id number]:[id number] Age/Sex: 69 / FDate of Service: 02/22/19 Loc: ED Accession Number: [id number] Procedure: XR foot LT min 3V Ordering Provider: Kenyon Holland D.O. PROCEDURE: XR FOOT LT MIN 3V INDICATIONS: pain, recent fracture TECHNIQUE: 3 views of the foot were acquired. COMPARISON: [facility], MR, MR FOOT LT WO/W CON, 01/31/2019, 7:03. [facility], MR, MR ANKLE LT WO/W CON, 01/31/2019, 7:27. [facility], CR, XR ANKLE LT MIN 3V, 02/22/2019, 21:08. [facility], CR, XR FOOT 3 VIEWS WEIGHT BEARING LEFT, 02/05/2019, 14:23. FINDINGS: Bones: No acute fractures or dislocations. Mild cortical thickening in the medial aspect of the second tarsal, suspicious for an old bob stress fracture. Mild degenerative joint disease in first tarsometatarsal joint multiple interphalangeal joints. No suspicious bony lesions. Soft tissues: No tibiotalar joint effusion. Achilles tendon appears normal. IMPRESSION: 1. No acute fracture or dislocation. 2. Probably old bob stress fracture of the second metatarsal shaft. 3. Degenerative joint disease. Dictated by: Mike Leslie M.D. on 02/22/2019 at 21:39 Approved by: Mike Leslie M.D. on 02/22/2019 at 21:46 Extremity x-ray #2: Radiologist's Impression: Chart Viewer Diagnostics DATE TYPE STATUS AUTHOR Hx 02/22/19 20:51 Leonidas Leslie 02/22/19 20:51 Leonidas Leslie 01/31/19 06:33 Aakash Henning 01/31/19 06:33 Aakash Henning 01/28/19 15:34 Ted Weldon 04/11/18 00:00 Nohemi Negro 04/05/18 00:00 Keisha Dunn 03/21/18 11:12 Ted Wledon 03/15/18 00:00 Johnathan Orta Barbara J 69, 1950 [facility], [facility] 70.307kg Extremity Injury, Lower Search Chart No Data to Display Vomiting Gastrointestinal Upset Shakiness ONSET ~2013 ~2011 ~1978 ~2019 ~1989 ~200902/22/19 20:53 Luz Maria Cason 69 F [address] [address] XRay Report Signed Patient: Luz Maria Cason JMR#: [id number] : [id number]:[id number] Age/Sex: 69 / FDate of Service: 02/22/19 Loc: ED Accession Number: [id number] Procedure: XR ankle LT min 3V Ordering Provider: Kenyon Holland D.O. PROCEDURE: XR ANKLE LT MIN 3V INDICATIONS: pain after injury, known recent fracture TECHNIQUE: 3 views of the ankle were acquired. COMPARISON: [facility], CR, XR FOOT 3 VIEWS WEIGHT BEARING LEFT, 02/05/2019, 14:23. [facility], CR, XR FOOT LT MIN 3V, 02/22/2019, 21:00. [facility], MR, MR ANKLE LT WO/W CON, 01/31/2019, 7:27. [facility], CR, XR ANKLE LT MIN 3V, 01/28/2019, 15:39. FINDINGS: Bones: There is an avulsion fracture of the superior aspect of the distal talus with interval partial healing. No dislocations. Ankle mortise is normally aligned. No suspicious bony lesions. Soft tissues: No tibiotalar joint effusion. Achilles tendon appears normal. IMPRESSION: 1. No acute abnormalities. 2. Healing fracture of superior aspect of the distal talus. Dictated by: Mike Leslie M.D. on 02/22/2019 at 21:46 Approved by: Mike Leslie M.D. on 02/22/2019 at 21:51 Discharge Plan Departure Patient Disposition: Home Clinical Impression: Ankle pain Qualifiers: Chronicity: acute Laterality: left Qualified Code(s): M25.572 - Pain in left ankle and joints of left foot Discharge Date/Time: 02/22/19 22:39 Activity Restrictions/Additional Instructions: *You have been diagnosed with [ankle pain, likely soft tissue injury] *What to do: *Take medications as directed *Follow up with your orthopedic provider in 2-3 days, call for an appointment. Let them know you were seen in the Emergency Department and that we ask that you be seen in follow up *Return to ER if you should have any new, worsening or concerning symptoms Prescriptions: No Action aspirin [Aspirin Low Dose] 81 mg tablet,delayed release (DR/EC) 81 mg PO DAILY RF: 0 albuterol sulfate [ProAir HFA] 90 mcg/actuation HFA aerosol inhaler 1 puff INHALATION Q6H PRNRF: 0 Shingrix (PF) 50 mcg/0.5 mL suspension for reconstitution 0.5 ml IM ONCE Qty: 1 RF: 1 dexlansoprazole 30 mg capsule,biphase delayed releas 30 mg PO DAILY Qty: 30 RF: 2 esomeprazole magnesium 20 mg capsule,delayed release(DR/EC) 20 mg PO DAILY Qty: 30 RF: 2 mirtazapine 45 mg Tablet 45 mg PO QPM RF: 0 multivit with min-folic acid [Adult Multivitamin Gummies] 200 mcg Tablet,Chewable 1 tab PO DAILY RF: 0 Referrals: Estefania Zuniga MD [Primary Care Provider] -
== END 2019-02-22 22:39 | disposition home or self-care (01) ==
PROVIDERS: Emergency Provider Emergency Medicine; PCP Orthopaedic Surgery Foot and Ankle Surgery
DX: M25.572 Pain in left ankle and joints of left foot (principal); X50.1XXA Overexertion from prolonged static or awkward postures, initial encounter
CPT/HCPCS: 73610; 73630; 99282; 99283

== ENCOUNTER → 2019-03-06 06:36 | Outpatient (CLI) | payer MEDICARE, OTHER, SELFPAY ==
--- NOTE | 2019-03-06 06:39 | DI.MRI.S_ITS ---
PROCEDURE: MR ANKLE LT WO CON INDICATIONS: Progression and left ankle and foot pain after traumatic inj TECHNIQUE: Noncontrast sagittal T1 spin echo and T2 fast spin echo with fat saturation, axial proton density fast spin echo and T2 fast spin echo with fat saturation, coronal T1 spin echo and T2 fast spin echo with fat saturation through the ankle/hindfoot. COMPARISON: [facility], MR, MR ANKLE LT WO/W CON, 01/31/2019, 7:27. FINDINGS: Image quality: Excellent. Bones and joints: No discrete fracture line however marrow edema is present within the anterior calcaneal process. Tibiotalar joint degeneration. There is also subtalar mild degenerative change. Osteochondral defect no evidence of hindfoot coalition. Small tibiotalar and subtalar joint effusions. Medial structures: The posterior tibialis, flexor digitorum longus, and flexor hallucis longus tendons are intact. There is minimal fluid adjacent to tibialis and flexor digitorum longus tendons The posterior tibial neurovascular bundle appears normal within the tarsal tunnel, without extrinsic mass effect. The deep layer (anterior and posterior tibiotalar ligaments) and superficial layer (tibionavicular, tibiospring, and tibiocalcaneal ligaments) of the deltoid ligament appear normal. The spring ligament components (superomedial calcaneonavicular, medioplantar oblique calcaneonavicular, and inferoplantar longitudinal ligaments) are intact. Circumferential subcutaneous edema about the hindfoot and midfoot. Lateral structures: The anterior talofibular, calcaneofibular, and posterior talofibular ligaments appear intact. More superiorly, the anterior and posterior tibiofibular ligaments appear intact, as is the intermalleolar ligament. The tibiofibular syndesmosis is normal in width at 2 mm or less. The peroneus longus and brevis tendons demonstrate normal location and morphology. There is minimal peroneal tenosynovitis Adjacent bony peroneal tubercle and retrotrochlear prominence are normal in size. The sinus tarsi demonstrates normal fatty signal, without edema, fibrosis, or cyst formation. Visualized sinus tarsi components (cervical ligament, interosseous talocalcaneal ligament, roots of the inferior extensor retinaculum) appear normal. The calcaneonavicular and calcaneocuboid components of the bifurcate ligament appear intact. The dorsal calcaneocuboid ligament appears intact. Anterior structures: The tibialis anterior, extensor hallucis longus, and extensor digitorum longus tendons appear intact. The dorsal talonavicular ligament appears less thickened. Posterior and plantar structures: Mild distal Achilles tendinopathy at the insertion. These findings are age-indeterminate Medial and lateral bands of the plantar fascia are of normal thickness. Mild isolated abductor digiti quinti muscle atrophy to suggest Mullins neuropathy. IMPRESSION: Mild edema within the anterior calcaneus as before. No discrete fracture line seen. Overall, this remains mildly improved and there could be superimposed reactive marrow edema to chronic hindfoot joint degeneration (versus resolving acute injury) Decreased thickening of the dorsal talonavicular ligament since the prior study Circumferential subcutaneous cellulitis and edema but the hindfoot and midfoot. 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 Dictated by: Johnathan Orta M.D. on 03/06/2019 at 10:25 Approved by: Johnathan Orta M.D. on 03/06/2019 at 10:39
== END ==
PROVIDERS: PCP Family Medicine; Visit Provider Family Medicine
DX: M25.572 Pain in left ankle and joints of left foot (principal); M65.872 Other synovitis and tenosynovitis, left ankle and foot; L03.116 Cellulitis of left lower limb; R60.0 Localized edema
CPT/HCPCS: 73721

== ENCOUNTER → 2019-03-25 16:19 | Outpatient (CLI) | payer MEDICARE, OTHER, SELFPAY ==
--- NOTE | 2019-03-25 | DI.MRI.S_ITS ---
PROCEDURE: MRFOOT LT WO CON INDICATIONS: Pain in left foot TECHNIQUE: Noncontrast sagittal T1 spin echo and T2 fast spin echo with fat saturation, long-axis T1 spin echo and T2 fast spin echo with fat saturation, short-axis T1 spin echo and T2 fast spin echo with fat saturation through the forefoot. COMPARISON: [facility], MR, MR ANKLE LT WO/W CON, 01/31/2019, 7:27. [facility], MR, MR FOOT LT WO/W CON, 01/31/2019, 7:03. [facility], CR, XR FOOT LT MIN 3V, 02/22/2019, 21:00. FINDINGS: Image quality: Excellent. Bones and joints: No bone marrow contusions or metatarsal stress fractures. Previously described hindfoot marrow edema appears improved. There is perhaps minimal residual edema present within the anterior process of the calcaneus. The sesamoid bones appear in expected positions, without internal edema. Diffuse interphalangeal and first metatarsophalangeal joint degeneration. No intraosseous lesions. Soft tissues: Plantar subcutaneous edema present at the level of the first metatarsal head There is improved appearance of the dorsal talonavicular ligament in keeping with resolved sprain. Hindfoot and midfoot joint degeneration, chronic. Diffuse chronic atrophy of the intrinsic muscles of the feet. Circumferential hindfoot subcutaneous edema, nonspecific. Visualized flexor and extensor tendons appear intact, without tenosynovitis. The distal insertions of the peroneus brevis and longus tendons appear intact. The principal Lisfranc ligament appears intact. Sagittal images demonstrate no evidence for plantar plate tears. IMPRESSION: Improved appearance of the dorsal talonavicular ligament in keeping with resolved sprain. Nonspecific mild circumferential subcutaneous edema. Plantar subcutaneous edema present at the level of the first metatarsal head, potentially this could represent an adventitial bursitis. This may be stable to slightly progressed since the prior study. Dictated by: Johnathan Orta M.D. on 03/26/2019 at 11:12 Approved by: Johnathan Orta M.D. on 03/26/2019 at 11:23
== END ==
PROVIDERS: PCP Family Medicine; Visit Provider Orthopaedic Surgery Foot and Ankle Surgery
DX: M79.672 Pain in left foot (principal); M25.475 Effusion, left foot
CPT/HCPCS: 73718

== ENCOUNTER → 2019-05-23 18:13 | Outpatient (CLI) | payer MEDICARE, OTHER, SELFPAY | PROVIDERS: PCP Family Medicine; Visit Provider Physician Assistant | DX: R30.0 Dysuria (principal) | CPT/HCPCS: 87086 ==

== ENCOUNTER → 2019-07-01 13:38 | Outpatient (CLI) | payer MEDICARE, OTHER, SELFPAY ==
[2019-07-01 14:47] LABS: Alanine Aminotransferase 14 IU/L (<35); Albumin 4.4 g/dL (3.5-5.0); Albumin Globulin Ratio 1.4 (1.0-2.8); Alkaline Phosphatase 84 U/L (38-126); Aspartate Aminotransferase 22 IU/L (14-36); BUN Creatinine Ratio 17.1 (6-22); Bilirubin Total 0.3 mg/dL (0.2-1.3); Blood Urea Nitrogen 14 mg/dL (7-17); Calcium 9.6 mg/dL (8.4-10.2); Carbon Dioxide 29 mmol/L (22-32); Chloride 102 mmol/L (98-107); Creatine Kinase 24 U/L (30-135); Estimated Glomerular Filt Rate > 60.0 mL/min (>60); Globulin 3.1 g/dL (1.7-4.1); Glucose 145 mg/dL (80-110); HEMOLYSIS < 15 (0-50); Potassium 4.5 mmol/L (3.4-5.1); Sodium 139 mmol/L (137-145); Total Protein 7.5 g/dL (6.3-8.2)
[2019-07-01 14:50] LABS: Erythrocyte Sedimentation Rate 5 MM/HR (0-20)
[2019-07-01 15:10] LABS: Free T4, Direct Thyroxine 1.04 ng/dL (0.78-2.19)
[2019-07-01 15:24] LABS: Thyroid Stimulating Hormone 2.37 uIU/mL (0.47-4.68)
== END ==
PROVIDERS: PCP Family Medicine; Referring Provider Family Medicine; Visit Provider Family Medicine
DX: M62.81 Muscle weakness (generalized) (principal)
CPT/HCPCS: 36415; 80053; 82550; 84439; 84443; 85651

== ENCOUNTER → 2019-07-08 15:01 | Outpatient (CLI) | payer MEDICARE, OTHER, SELFPAY ==
--- NOTE | 2019-07-08 15:03 | DI.CT.S_ITS ---
PROCEDURE: CT HEAD/BRAIN WO CON INDICATIONS: Back Pain, Hand Tremors TECHNIQUE: Noncontrast 4.5 mm thick angled axial sections acquired from the foramen magnum to the vertex, with coronal and sagittal reformats. For radiation dose reduction, the following was used: automated exposure control, adjustment of mA and/or kV according to patient size. COMPARISON: [facility], CT, CT HEAD/BRAIN WO CON, 03/21/2018, 11:05. FINDINGS: Image quality: Excellent. CSF spaces: Basal cisterns are patent. No extra-axial fluid collections. The ventricles are symmetric in size and shape. Brain: No intracranial bleeds or masses. There is cerebral volume loss for age, with resultant ventricular and sulcal prominence. There are periventricular and deep white matter chronic small vessel ischemic changes. There is intracranial internal carotid artery atherosclerosis. Skull and face: Calvarium and visualized facial bones appear intact, without suspicious lesions. Sinuses: Visualized sinuses and mastoids are clear. IMPRESSION: Unremarkable intracranial study for age. Stable from prior. Dictated by: Lei Hoff M.D. on 07/08/2019 at 14:17 Approved by: Lei Hoff M.D. on 07/08/2019 at 14:18
== END ==
PROVIDERS: PCP Family Medicine; Referring Provider Family Medicine; Visit Provider Family Medicine
DX: R25.1 Tremor, unspecified (principal); M54.9 Dorsalgia, unspecified; I65.29 Occlusion and stenosis of unspecified carotid artery
CPT/HCPCS: 70450

== ENCOUNTER → 2019-09-25 15:19 | Outpatient (CLI) | payer MEDICARE, OTHER, SELFPAY ==
[2019-09-25 16:38] LABS: Free T4, Direct Thyroxine 0.83 ng/dL (0.78-2.19)
[2019-09-25 16:52] LABS: Thyroid Stimulating Hormone 3.87 uIU/mL (0.47-4.68)
[2019-09-25 17:10] LABS: Vitamin B12 Reflex MMA if <400 707 pg/mL (239-931)
[2019-09-27 12:11] LABS: Albumin 3.5 g/dL (2.9-4.4); Alpha-1-Globulin 0.2 g/dL (0.0-0.4); Alpha-2-Globulin 0.7 g/dL (0.4-1.0); Gamma Globulin 1.1 g/dL (0.4-1.8); Protein, Total 6.5 g/dL (6.0-8.5)
== END ==
PROVIDERS: PCP Family Medicine; Referring Provider Psychiatry & Neurology Neurology; Visit Provider Psychiatry & Neurology Neurology
DX: G60.9 Hereditary and idiopathic neuropathy, unspecified (principal)
CPT/HCPCS: 36415; 82607; 84155; 84165; 84439; 84443

== ENCOUNTER → 2020-01-02 14:23 | Outpatient (CLI) | payer MEDICARE, OTHER, SELFPAY ==
--- NOTE | 2020-01-02 | DI.MG.S_ITS ---
BILATERAL DIGITAL SCREENING MAMMOGRAM 3D/2D WITH CAD: 01/02/2020 CLINICAL: Routine screening. Family history of breast cancer. Comparison is made to exams dated: 04/11/2018 mammogram - [facility], 02/21/2017 mammogram, and 11/25/2015 mammogram - [facility]. The tissue of both breasts is heterogeneously dense. This may lower the sensitivity of mammography. Current study was also evaluated with a Computer Aided Detection (CAD) system. No significant masses, calcifications, or other findings are seen in either breast. There has been no significant interval change. IMPRESSION: NEGATIVE There is no mammographic evidence of malignancy. A 1 year screening mammogram is recommended. This exam was interpreted at Station ID: [id number]. NOTE: For mammograms, a report in lay terms will be sent to the patient. Approximately 15% of breast malignancies will not be visualized mammographically. In the management of a palpable breast mass, a negative mammogram must not discourage biopsy of a clinically suspicious lesion. Electronically Signed By: Olga Lidia thomas/bo:01/02/2020 15:11:01 letter sent: Normal Exam ACR BI-RADS Category 1: Negative [id number]
== END ==
PROVIDERS: PCP Family Medicine; Referring Provider Family Medicine; Visit Provider Family Medicine
DX: Z12.31 Encounter for screening mammogram for malignant neoplasm of breast (principal); Z80.3 Family history of malignant neoplasm of breast
CPT/HCPCS: 77063; 77067

== ENCOUNTER 2020-06-24 10:22 | Observation (INO) | payer MEDICARE, OTHER, SELFPAY ==
[2020-06-24] VITALS (9 sets, daily range): BP systolic 102–153; BP diastolic 58–72; PULSE 63–80; RESP 16–20; TEMP 36.5–37.4; O2SAT 97–99; BMI 23.5
--- NOTE | 2020-06-24 | DI.ECHO.S_ITS ---
[facility] +---------+ : : [address] : : : : [id number] : : : : Phone: [phone]+ Echocardiogram Report + + :Name: LYLE MCCULLOUGH Study Date: 06/25/2020 Height: 69 in : :[facility] ReadingLocation: Weight: 159 lb : : Gender: Female BSA: 1.9 m2 : :: 1950 Age: 70 yrs BP: 125/66 mmHg: :Reason For Study: R/O EMBOLIC SOURCE : :Ordering Physician: ESPERANZA, : :GEOVANNA Performed By: Sybil Lowe : :Referring: GEOVANNA MATA : + + Interpretation Summary The ejection fraction is estimated to be 50-55%. There is mild mitral regurgitation. The right ventricular systolic pressure is estimated to be at least 27 mmHg based on an estimated right atrial pressure of 3 mm Hg. The ascending aorta is mildly enlarged. Procedure: A two-dimensional transthoracic echocardiogram with color flow and Doppler was performed. The study quality was technically adequate. Comparison is made with the echocardiogram of 04/05/2018. The patient was in sinus rhythm with heart rates between 59-73 bpm during the exam. Left Ventricle: The left ventricle is normal in size and wall thickness. The ejection fraction is estimated to be 50-55%. Left ventricular wall motion is normal. Diastolic parameters suggest probable normal left ventricular diastolic function and normal filling pressures. Right Ventricle: The right ventricle is normal in size and function. Atria: Both atria are normal in size. There is no Doppler evidence for an interatrial shunt. Mitral Valve: The mitral valve leaflets appear borderline thickened, but open well. There is mild mitral regurgitation. Aortic Valve: The aortic valve is slightly calcified. The aortic valve opens well. There is no aortic valve stenosis. No aortic regurgitation is present. Tricuspid Valve: The tricuspid valve is normal in structure and function. There is trace tricuspid regurgitation. The right ventricular systolic pressure is estimated to be at least 27 mmHg based on an estimated right atrial pressure of 3 mm Hg. Pulmonic Valve: The pulmonic valve is not well seen, but is grossly normal. There is no pulmonic valvular regurgitation. Great Vessels: The aortic root is normal size. The ascending aorta is mildly enlarged. The IVC is of normal diameter and collapses greater than 50% with a sniff. This suggests a low right atrial pressure of 3 mm Hg. Pericardium/ Pleura There is no pericardial effusion. There is no pleural effusion. MMode/2D Measurements & Calculations LVIDd: 5.1 cm LVOT diam: 2.0 cm LVIDs: 3.8 cm Ao root diam: 3.1 cm FS: 24.5 % asc Aorta Diam: 3.6 cm EPSS: 0.25 cm IVSd: 0.60 cm LVPWd: 0.76 cm LV rfeitas. diameter/BSA (cm/m^2): 2.7 LV sys. diameter/BSA (cm/m^2): 2.0 LA A2 area: 21.2 cm2 RA long axis: 5.5 cm LA A4 area: 19.5 cm2 RA area: 20.5 cm2 LA length (vol): 6.2 cm RA vol: 64.7 ml LA vol: 56.6 ml RA : 34.6 ml/m2 LA vol index: 30.2 ml/m2 IVC diam: 1.6 cm RVD1 (basal): 2.7 cm TAPSE: 2.5 cm Doppler Measurements & Calculations Ao V2 max: 130.3 cm/sec LVOT Max Dick: 115.9 cm/sec Ao V2 mean: 97.5 cm/sec LV V1 max P.4 mmHg Ao max P.8 mmHg LV V1 VTI: 27.5 cm Ao mean P.1 mmHg ZEE(I,D): 2.7 cm2 Ao V2 VTI: 32.3 cm ZEE(V,D): 2.8 cm2 sev ratio: 0.85 ZEE indexed to BSA (cm^2/m^2): 1.5 MV E max dick: 72.8 cm/sec TR max dick: 244.3 cm/sec MV A max dick: 80.5 cm/sec TR max P.9 mmHg MV E/A: 0.91 PA V2 max: 90.6 cm/sec Med Peak E' Dick: 5.5 cm/sec PA V2 mean: 61.9 cm/sec E/E' med: 13.2 PA mean P.8 mmHg Lat Peak E' Dick: 10.7 cm/sec PA pr(Accel): 27.6 mmHg E/E' lat: 6.8 E/e' average: 10.0 MV dec time: 0.14 sec SV(LVOT): 88.0 ml Reading Physician:09:02 AM
--- NOTE | 2020-06-24 10:34 | DI.CT.S_ITS ---
PROCEDURE: CT HEAD/BRAIN WO CON INDICATIONS: neuro, vision change TECHNIQUE: Noncontrast 4.5 mm thick angled axial sections acquired from the foramen magnum to the vertex, with coronal and sagittal reformats. For radiation dose reduction, the following was used: automated exposure control, adjustment of mA and/or kV according to patient size. COMPARISON: None. FINDINGS: Image quality: Excellent. CSF spaces: Basal cisterns are patent. No extra-axial fluid collections. Ventricles are normal in size and shape. Brain: No midline shift. No intracranial masses or hemorrhage. Peter-white matter interface is normal. Skull and face: Calvarium and visualized facial bones are intact, without suspicious lesions. Sinuses: Visualized sinuses and mastoids are clear. IMPRESSION: No acute intracranial finding. Dictated by: Vasile Faria M.D. on 06/24/2020 at 10:46 Approved by: Vasile Faria M.D. on 06/24/2020 at 10:50
[2020-06-24 11:01] LABS: Add Manual Diff / Slide Review NO; Basophils Absolute Auto 0 /uL (0-100); Basophils Percent Auto 0.6 % (0-2); Eosinophils Absolute Auto 100 /uL (0-450); Eosinophils Percent Auto 2.1 % (2-4); Hematocrit 38.1 % (36-46); Hemoglobin 13.1 g/dL (12.0-16.0); Lymphocytes Absolute Auto 1400 /uL (1100-4500); Lymphocytes Percent Auto 29.4 % (25-40); Mean Corpuscular HGB Conc 34.5 % (30-36); Mean Corpuscular Hemoglobin 30.4 PG (26-34); Mean Corpuscular Volume 88.2 fL (80-100); Monocytes Absolute Auto 300 /uL (0-900); Monocytes Percent Auto 5.6 % (3-14); Neutrophils Absolute Auto 2900 /uL (1500-7000); Neutrophils Percent Auto 62.3 % (50-75); Platelet Count 242 X10^3/uL (150-400); Red Blood Cell Count 4.32 X10^6/uL (4.0-5.2); Red Cell Distribution Width 13.7 % (11.6-14.8); White Blood Cell Count 4.7 X10^3/uL (4.5-11.0)
[2020-06-24 11:08] LABS: Prothrombin Time 11.4 SECONDS (10.1-12.7)
[2020-06-24 11:11] LABS: PTT Partial Thromboplastin Tim 33 SECONDS (26.4-36.2)
--- NOTE | 2020-06-24 11:12 | PC.NURSE ---
pt reports that she got a wave in my head and then she suddenly lost vision in 1/2 of her right eye. states it resolved in 30 seconds. reports history of tia.
[2020-06-24 11:14] LABS: BUN Creatinine Ratio 13.8 (6-22); Blood Urea Nitrogen 11 mg/dL (7-17); Calcium 9.3 mg/dL (8.4-10.2); Carbon Dioxide 32 mmol/L (22-32); Chloride 104 mmol/L (98-107); Creatine Kinase 30 U/L (30-135); Estimated Glomerular Filt Rate > 60.0 mL/min (>60); Glucose 133 mg/dL (80-110); HEMOLYSIS < 15 (0-50); Potassium 3.9 mmol/L (3.4-5.1); Sodium 139 mmol/L (137-145)
[2020-06-24 11:25] LABS: Troponin I < 0.012 ng/mL (0.01-0.034)
--- NOTE | 2020-06-24 11:42 | ED.NEUROSD ---
HPI - Neuro Symptoms/Deficit General Chief Complaint: Neuro Symptoms/Deficit Stated Complaint: TIA IN RIGHT EYE 25 MIN AGO Time Seen by Provider: 06/24/20 10:35 Source: patient Mode of arrival: Ambulatory Limitations: no limitations History of Present Illness HPI Narrative: 70-year-old female here for evaluation of vision disturbance of the right eye. States that approximately 30 minutes prior to arrival here in the emergency department she had a complete loss of vision in the upper middle portion of her right eye. States that it lasted a few minutes and then completely resolved. She has had similar symptoms in the past. The 1st time was about 3 years ago where she lost complete vision in her upper vision of her right eye. She was seen here in the emergency department and had what sounds like an outpatient workup for TIA and was told everything was okay. She is not taking any medications because of that. Several times since then she has had very similar symptoms that brought her to the emergency department today. The only difference is that today she had a headache associated with the symptoms. At the time my evaluation her vision and her headache have all returned to normal. She is afebrile. No neck pain. The last episode that happened was about 5 weeks ago. She saw her human resources file clerk. The human resources file clerk recommended she come to the emergency department which she declined to come. On Anticoagulants: No Related Data Home Medications Medication Instructions Recorded Confirmed multivit with min-folic acid 1 tab PO DAILY 03/21/18 06/24/20 [Adult Multivitamin Gummies] albuterol sulfate 90 mcg/actuation 1 puff INHALATION Q6H PRN 10/23/18 06/24/20 aerosol inhaler aspirin 81 mg tablet,delayed 81 mg PO DAILY 10/23/18 06/24/20 release pregabalin 50 mg capsule 50 mg PO DAILY 09/25/19 06/24/20 acetaminophen 325 mg tablet 325 mg PO Q4-6H PRN tab 06/02/20 06/24/20 cholecalciferol (vitamin D3) 25 25 mcg PO DAILY 06/02/20 06/24/20 mcg (1,000 unit) capsule diclofenac sodium 1 % topical gel 1 ea TOPICAL DIRECTED PRN 06/02/20 06/24/20 Previous Rx's Medication Instructions Recorded mirtazapine 45 mg tablet 45 mg PO BEDTIME #90 tab 06/02/20 Allergies Allergy/AdvReac Type Severity Reaction Status Date / Time fluoxetine Allergy Severe muscle Verified 09/25/19 14:55 weakness codeine Allergy Intermediate Painful Verified 06/05/20 11:05 Bloating meperidine [From Demerol] Allergy Intermediate Vomiting Verified 09/25/19 14:54 lactase [From Dairy Aid] AdvReac Intermediate Gastrointestinal Verified 09/25/19 14:54 Upset prednisone AdvReac Intermediate Shakiness Verified 09/25/19 14:54 Review of Systems Constitutional Constitutional: Denies fatigue, Denies fever(s), Denies frequent falls and Reports headache(s) Eyes Eyes: Reports change in vision, Denies diplopia and Denies eye pain ENT Ears, Nose, Mouth, and Throat: Denies vertigo, Denies dizziness, Reports headache(s), Denies disequilibrium and Denies sore throat Cardiovascular Cardiovascular: Denies chest pain, Denies syncope and Denies dyspnea Respiratory Respiratory: Denies cough and Denies dyspnea Gastrointestinal Gastrointestinal: Denies abdominal pain, Denies nausea and Denies vomiting Genitourinary Genitourinary: Denies dysuria Genitourinary: Denies dysuria Musculoskeletal Musculoskeletal: Denies arthralgias and Denies myalgias Integumentary/Breasts Skin/Breast: Denies rash Neurologic Neurologic: Denies behavioral changes, Denies vertigo, Denies dizziness, Denies syncope, Denies frequent falls, Reports headache(s), Denies convulsions and Denies disequilibrium Psychiatric Psychiatric: Denies anxiety and Denies behavioral changes Endocrine Endocrine: Denies fatigue Hematologic/Lymphatic On Anticoagulants: No Allergic/Immunologic Allergic/Immunologic: Denies urticaria Patient History Medical History Actinic keratosis Chicken pox Dairy allergy (~2013) Depression (~2011) Emphysema of lung (~2009) Epilepsy with partial complex seizures Gastric ulcer GERD (gastroesophageal reflux disease) Measles Mumps Muscle weakness (generalized) Ovarian cyst (~1978) Retinal detachment Seborrheic keratosis Seizures (~1989) Skin cancer (~1989) TIA (transient ischemic attack) Surgical History Anesthesia History of Achilles tendon repair (~1963) History of appendectomy History of section (~1980) History of hysterectomy History of tonsillectomy Family History Father Congestive heart failure History of heart disease Stroke Mother Cancer Mental health problem Grandmother Congestive heart failure History of heart disease Stroke Social History household members: spouse Smoking Status: Never smoker second hand exposure: Yes (ages 0-18 ) alcohol intake: former substance use type: does not use Smoking Status: Never smoker alcohol intake frequency: 0-2 drinks per day Substance Use Type: does not use Exam Initial Vital Signs Initial Vital Signs: Vital Signs Temperature 97.7 F 06/24/20 10:25 Pulse Rate 80 06/24/20 10:25 Respiratory Rate 18 06/24/20 10:25 Blood Pressure 144/70 H 06/24/20 10:25 Pulse Oximetry 98 06/24/20 10:25 Const General: cooperative, comfortable, well developed and well groomed Limitations: mental status not altered HENMT Head: normal to inspection and normocephalic Eyes General: appearance normal, both eyes and all related structures Eyelids: eyelids normal Conjunctivae: conjunctivae normal Pupils: PERRL EOM: EOM intact bilaterally Neck Lymphatic: No lymphadenopathy Chest Chest: No tenderness Resp Effort & Inspection: normal respiratory effort Auscultation: clear to auscultation bilaterally Cardio Rate: regular rate Rhythm: regular rhythm GI Inspection: non-distended Palpation: soft Skin Lesions: no lesions Rashes: no rashes Neuro General: patient alert, patient awake and patient oriented x3 Cranial Nerves: CN's II-XI intact bilaterally Cognition: normal cognition Speech: speech normal Gait: normal gait Motor: muscle tone normal throughout Sensory Exam: no sensory deficits noted Extrem General: normal to inspection and capillary refill normal Psych Appearance: grossly normal and well kempt Scores GCS [place] coma scale eye opening: Spontaneous [place] coma scale verbal response: Orientated [place] coma scale motor response: Obey commands [place] coma scale total score: 15 Course Orders Ordered: ED Orders 06/24/20 10:34 CT head/brain wo con Stat 06/24/20 10:36 EKG-12 Lead Stat 06/24/20 10:50 Basic Metabolic Panel Stat Complete Blood Count AUTO DIFF Stat Partial Thromboplastin Time Stat Prothrombin Time INR Stat Troponin & CK Cardiac Panel Stat 06/24/20 12:30 COVID19 - ADMIT (BREAD AND PASTRY BAKER swab/PCR) Stat Discontinued Medications Aspirin (Aspirin 81 Mg Chew Tab) 324 mg PO NOW ONE Stop: 06/24/20 12:25 Last Admin: 06/24/20 12:38 Dose: 324 mg Documented by: NEAL Vital Signs Vital signs: Vital Signs - 8 hr 06/24/20 10:25 06/24/20 11:56 06/24/20 11:57 Temperature 97.7 F Pulse Rate 80 63 Respiratory Rate 18 Blood Pressure 144/70 H 144/65 H Pulse Oximetry 98 97 98 06/24/20 12:00 06/24/20 12:30 06/24/20 13:00 Temperature Pulse Rate 68 69 71 Respiratory Rate 20 18 Blood Pressure 153/71 H 152/72 H 131/64 Pulse Oximetry 99 98 97 MDM - Neuro Symptoms/Deficit Lab Data Attestation: I reviewed the patient's lab results. Result diagrams: 06/24/20 10:50 06/24/20 10:50 Labs: Lab Results 06/24/20 06/24/20 06/24/20 Range/Units 10:50 10:50 10:50 WBC 4.7 (4.5-11.0) X10^3/uL RBC 4.32 (4.0-5.2) X10^6/uL Hgb 13.1 (12.0-16.0) g/dL Hct 38.1 (36-46) % MCV 88.2 (80-100) fL MCH 30.4 (26-34) PG MCHC 34.5 (30-36) % RDW 13.7 (11.6-14.8) % Plt Count 242 (150-400) X10^3/uL Neut % (Auto) 62.3 (50-75) % Lymph % (Auto) 29.4 (25-40) % [place] % (Auto) 5.6 (3-14) % Eos % (Auto) 2.1 (2-4) % Baso % (Auto) 0.6 (0-2) % Neut # (Auto) 2900 (5765-4826) /uL Lymph # (Auto) 1400 (6219-3970) /uL [place] # (Auto) 300 (0-900) /uL Eos # (Auto) 100 (0-450) /uL Baso # (Auto) 0 (0-100) /uL PT 11.4 (10.1-12.7) SECONDS INR 1.0 (0.9-1.3) APTT 33 (26.4-36.2) SECONDS Sodium 139 (137-145) mmol/L Potassium 3.9 (3.4-5.1) mmol/L Chloride 104 (98-107) mmol/L Carbon Dioxide 32 (22-32) mmol/L BUN 11 (7-17) mg/dL Creatinine 0.80 (0.52-1.04) mg/dL Estimated GFR > 60.0 (>60) mL/min BUN/Creatinine Ratio 13.8 (6-22) Glucose 133 H (80-110) mg/dL Calcium 9.3 (8.4-10.2) mg/dL Total Creatine Kinase 30 (30-135) U/L CK-MB (CK-2) TNP CK-MB (CK-2) Rel Index TNP Troponin I < 0.012 (0.01-0.034) ng/mL SARS-CoV-2 (PCR) (Negative) 06/24/20 Range/Units 12:30 WBC (4.5-11.0) X10^3/uL RBC (4.0-5.2) X10^6/uL Hgb (12.0-16.0) g/dL Hct (36-46) % MCV (80-100) fL MCH (26-34) PG MCHC (30-36) % RDW (11.6-14.8) % Plt Count (150-400) X10^3/uL Neut % (Auto) (50-75) % Lymph % (Auto) (25-40) % [place] % (Auto) (3-14) % Eos % (Auto) (2-4) % Baso % (Auto) (0-2) % Neut # (Auto) (7341-2353) /uL Lymph # (Auto) (4880-2451) /uL [place] # (Auto) (0-900) /uL Eos # (Auto) (0-450) /uL Baso # (Auto) (0-100) /uL PT (10.1-12.7) SECONDS INR (0.9-1.3) APTT (26.4-36.2) SECONDS Sodium (137-145) mmol/L Potassium (3.4-5.1) mmol/L Chloride (98-107) mmol/L Carbon Dioxide (22-32) mmol/L BUN (7-17) mg/dL Creatinine (0.52-1.04) mg/dL Estimated GFR (>60) mL/min BUN/Creatinine Ratio (6-22) Glucose (80-110) mg/dL Calcium (8.4-10.2) mg/dL Total Creatine Kinase (30-135) U/L CK-MB (CK-2) CK-MB (CK-2) Rel Index Troponin I (0.01-0.034) ng/mL SARS-CoV-2 (PCR) Negative (Negative) Imaging Data CT scan - head: Radiologist's Impression: [address] [id number] Scan ReportSigned Patient: Luz Maria Cason JMR#: [id number]: 1950cct:[id number]/Sex: 70 / FDate of Service: 06/24/20Loc: EDAccession Number: [id number] Procedure: CT head/brain wo con Ordering Provider: Thomas Puga D.O. PROCEDURE: CT HEAD/BRAIN WO CON INDICATIONS: neuro, vision change TECHNIQUE: Noncontrast 4.5 mm thick angled axial sections acquired from the foramen magnum to the vertex, with coronal and sagittal reformats. For radiation dose reduction, the following was used: automated exposure control, adjustment of mA and/or kV according to patient size. COMPARISON: None. FINDINGS: Image quality: Excellent. CSF spaces: Basal cisterns are patent. No extra-axial fluid collections. Ventricles are normal in size and shape. Brain: No midline shift. No intracranial masses or hemorrhage. Peter-white matter interface is normal. Skull and face: Calvarium and visualized facial bones are intact, without suspicious lesions. Sinuses: Visualized sinuses and mastoids are clear. IMPRESSION: No acute intracranial finding. Dictated by: Vasile Faria M.D. on 06/24/2020 at 10:46 Approved by: Vasile Faria M.D. on 06/24/2020 at 10:50 ECG Data Attestation: I personally reviewed and interpreted this ECG as follows: Prior ECG tracings: not available for review Interpretation: Sinus rhythm Ventricular rate of 68 Normal axis Normal QRS Normal QTC No ST T wave changes MDM Narrative Medical decision making narrative: Patient is completely asymptomatic. I did discuss the case with Dr. Smith who is her human resources file clerk to remembers the patient and stated that he did recommend she come to the emergency department when the symptoms happened several weeks ago. I do have concern for TIA given her presentation. Discussed the case with Dr. vaca with Internal Medicine who will admit for further evaluation and treatment. Discussed the admission with the patient. She expressed understanding as well. Discharge Plan Departure Patient Disposition: Admitted as Observation Clinical Impression: TIA (transient ischemic attack) Admit Date/Time: 06/24/20 13:49 Admit Provider: Darleen Vaca
[2020-06-24] MEDS: ASPIRIN 81 MG CHEW TAB 324 MG PO (12:38)
[2020-06-24 13:26] LABS: COVID19 - ADMIT (NP swab/PCR) Negative (Negative)
--- NOTE | 2020-06-24 15:31 | PC.NURSE ---
Shift Summary Patient received up to the unit at 1410, alert and oriented, ambulatory. Denies any visual deficits. NIH score of zero. Vital signs stable, lung and heart sounds WDL.
--- NOTE | 2020-06-24 16:20 | DI.MRI.S_ITS ---
PROCEDURE: MR STROKE Pre- and post-contrast brain MRI, non-contrast brain MR angiogram, pre- and postcontrast neck MR angiogram INDICATIONS: r/o stroke TECHNIQUE: Brain: Noncontrast axial T1 spin echo, axial T2 fast spin echo, sagittal and axial FLAIR, coronal T2 fast spin echo, axial gradient echo, axial diffusion and ADC through the brain. After the administration of contrast, axial 3D VIBE of the cranial vasculature and brain. Brain MRA: Non-contrast 3-D time of flight MR angiogram, with multiple ndazqlq-lefjsizft-axbqosxlrs (MIP) reformats performed. Neck MRA: Axial and sagittal TruFISP through the neck. Coronal dynamic MR angiogram during administration of contrast in the arterial and venous phases, with 3-dimenstional kvhxcyv-kmfevfiip-lbxfqpsxab (MIP) reformats constructed from subtraction images. COMPARISON: None. FINDINGS: BRAIN: CSF spaces: Ventricles are grossly unremarkable. Basal cisterns are patent. No extra-axial fluid collections. Brain: No midline shift. No intracranial bleeds or masses. Peter-white matter interface appears intact. No acute ischemia. No abnormal enhancement. Skull and face: Calvarium and facial bones appear intact. Orbits appear normal. Sinuses: Sinuses and mastoids are clear. HEAD MR ANGIOGRAPHY: Anterior circulation: Intracranial internal carotid arteries (ICA): Patent. Anterior cerebral arteries (MAURICE): Patent. Middle cerebral arteries (MCA): Patent. No aneurysms are seen. Posterior circulation: Visualized portions of the vertebral arteries: Patent. Basilar artery: Patent. Posterior cerebral arteries (STACK CLERK): Patent. No aneurysms are seen. NECK MR ANGIOGRAPHY: Carotid system: Origins of the common carotid arteries (CCA) appear patent. Common carotid arteries (CCA): Patent. Internal carotid arteries (ICA): Patent. Posterior circulation: The origins of the vertebral arteries both appear widely patent. Extracranial portions of both vertebral arteries: Patent. Basilar artery: Patent. Soft tissues: Visualized neck soft tissues demonstrate no suspicious abnormalities. Bones: No suspicious bony lesions. Cervical spondylosis and facet arthropathy. IMPRESSION: BRAIN MRI: No evidence of acute ischemia. No acute intracranial signal abnormality or enhancement. BRAIN MR ANGIOGRAM: No focal intracranial stenosis or occlusion NECK MR ANGIOGRAM: Negative examination as above Dictated by: Johnathan Orta M.D. on 06/25/2020 at 12:04 Approved by: Johnathan Orta M.D. on 06/25/2020 at 12:10
[2020-06-24 16:46] LABS: Cholesterol 185 mg/dL (140-199); HDL Cholesterol 45 mg/dL (40-60); LDL Cholesterol Calculated 99 mg/dL (<100); Triglycerides 207 mg/dL (35-150)
--- NOTE | 2020-06-24 18:03 | P.HP_ITS ---
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 The patient had an episode several years ago where she lost vision like a curtain coming down over her eye about 5 years ago that completely resolved. Five weeks ago she had another episode where she had blurring of the vision which then resolved. This was communicated to her television news producer who recommended that she come into the hospital for evaluation. The patient deferred evaluation at that time. Today she noted when standing she lost vision out of the left upper quadrant of the right eye. The patient had a shooting electrical pain over the eye with some mild headache associated which made her afraid such that she came into the hospital for evaluation she denies any blurring of her vision, double vision, speech abnormality, slurred speech, weakness, numbness or tingling. The patient presented to the emergency room for evaluation. At the time she arrived to the emergency room her NIH stroke scale score was 0. She had a head CT which was negative. Of note the patient previously was placed on a baby aspirin daily for treatment of her TIA. This was discontinued 2 weeks ago following her most surgery on her nose that she had excessive bleeding. The patient is admitted to this hospital at this time for evaluation of a probable TIA. Patient History Medical History Actinic keratosis Chicken pox Dairy allergy (~2013) Depression (~2011) Emphysema of lung (~2009) Epilepsy with partial complex seizures Gastric ulcer GERD (gastroesophageal reflux disease) Measles Mumps Muscle weakness (generalized) Ovarian cyst (~1978) Retinal detachment Seborrheic keratosis Seizures (~1989) Skin cancer (~1989) TIA (transient ischemic attack) Surgical History Anesthesia History of Achilles tendon repair (~1963) History of appendectomy History of section (~1980) History of hysterectomy History of tonsillectomy Family & Social History Family History Father Congestive heart failure History of heart disease Stroke Mother Cancer Mental health problem Grandmother Congestive heart failure History of heart disease Stroke Social History: household members spouse Prior Living Arrangements House Safety & Behavioral: Feels Safe in Current Yes Environment Been Physically Hurt or No Threatened By a Person Suicidal Ideation Description None Suicide Plan Description No Plan Tobacco & Substance use: Smoking Status Never smoker alcohol intake former alcohol intake frequency 0-2 drinks per day Substance Use Type does not use Meds Home Medications and Allergies Home Medications Medication Instructions Recorded Confirmed Type multivit with min-folic acid 1 tab PO DAILY 03/21/18 06/24/20 History [Adult Multivitamin Gummies] albuterol sulfate 90 mcg/actuation 1 puff INHALATION Q6H PRN 10/23/18 06/24/20 History aerosol inhaler aspirin 81 mg tablet,delayed 81 mg PO DAILY 10/23/18 06/24/20 History release pregabalin 50 mg capsule 50 mg PO DAILY 09/25/19 06/24/20 History acetaminophen 325 mg tablet 325 mg PO Q4-6H PRN tab 06/02/20 06/24/20 History cholecalciferol (vitamin D3) 25 25 mcg PO DAILY 06/02/20 06/24/20 History mcg (1,000 unit) capsule diclofenac sodium 1 % topical gel 1 ea TOPICAL DIRECTED PRN 06/02/20 06/24/20 History mirtazapine 45 mg tablet 45 mg PO BEDTIME #90 tab 06/02/20 06/24/20 Rx Allergies Allergy/AdvReac Type Severity Reaction Status Date / Time fluoxetine Allergy Severe muscle Verified 09/25/19 14:55 weakness codeine Allergy Intermediate Painful Verified 06/05/20 11:05 Bloating meperidine [From Demerol] Allergy Intermediate Vomiting Verified 09/25/19 14:54 lactase [From Dairy Aid] AdvReac Intermediate Gastrointestinal Verified 09/25/19 14:54 Upset prednisone AdvReac Intermediate Shakiness Verified 09/25/19 14:54 Review of Systems Review of Systems ROS: Yes All systems reviewed with the patient and are negative except as otherwise documented Exam Vital Signs (past 8 hours): - 06/24/20 10:25 06/24/20 11:56 06/24/20 11:57 Temperature 97.7 F Pulse Rate 80 63 Respiratory Rate 18 Blood Pressure 144/70 H 144/65 H Pulse Oximetry 98 97 98 06/24/20 12:00 06/24/20 12:30 06/24/20 13:00 Temperature Pulse Rate 68 69 71 Respiratory Rate 20 18 Blood Pressure 153/71 H 152/72 H 131/64 Pulse Oximetry 99 98 97 06/24/20 14:10 06/24/20 16:02 Temperature 99.3 F 98.6 F Pulse Rate 69 65 Respiratory Rate 20 16 Blood Pressure 115/63 129/62 Pulse Oximetry 98 97 Oxygen Delivery Method Room Air Oxygen Flow Rate 0 Narrative Exam Narrative: Pleasant female lying in bed in no obvious distress HEENT: Normocephalic atraumatic, extraocular muscles are intact, oropharynx is clear, neck is supple, there is no adenopathy, no carotid bruits noted Lungs: Clear to auscultation Cardiac exam: Regular rate and rhythm normal S1-S2 with a 2/6 systolic ejection Abdomen: Soft nontender nondistended Extremities: No edema Neuro exam: Cranial nerves 2-12 are intact, strength is symmetric and equal, sensations grossly intact, [id number] is intact gait is not assessed Patient's NIH stroke scale score is 0 Psychiatric exam: Patient is awake alert she has no delusions, and no hallucination Objective Labs Result Diagrams: 06/24/20 10:50 06/24/20 10:50 Labs: Laboratory Results - last 24 hr 06/24/20 06/24/20 06/24/20 10:50 10:50 10:50 WBC 4.7 RBC 4.32 Hgb 13.1 Hct 38.1 MCV 88.2 MCH 30.4 MCHC 34.5 RDW 13.7 Plt Count 242 Neut % (Auto) 62.3 Lymph % (Auto) 29.4 [place] % (Auto) 5.6 Eos % (Auto) 2.1 Baso % (Auto) 0.6 Neut # (Auto) 2900 Lymph # (Auto) 1400 [place] # (Auto) 300 Eos # (Auto) 100 Baso # (Auto) 0 PT 11.4 INR 1.0 APTT 33 Sodium 139 Potassium 3.9 Chloride 104 Carbon Dioxide 32 BUN 11 Creatinine 0.80 Estimated GFR > 60.0 BUN/Creatinine Ratio 13.8 Glucose 133 H Calcium 9.3 Total Creatine Kinase 30 CK-MB (CK-2) TNP CK-MB (CK-2) Rel Index TNP Troponin I < 0.012 Triglycerides Cholesterol LDL Cholesterol, Calc HDL Cholesterol SARS-CoV-2 (PCR) 06/24/20 06/24/20 10:50 12:30 WBC RBC Hgb Hct MCV MCH MCHC RDW Plt Count Neut % (Auto) Lymph % (Auto) [place] % (Auto) Eos % (Auto) Baso % (Auto) Neut # (Auto) Lymph # (Auto) [place] # (Auto) Eos # (Auto) Baso # (Auto) PT INR APTT Sodium Potassium Chloride Carbon Dioxide BUN Creatinine Estimated GFR BUN/Creatinine Ratio Glucose Calcium Total Creatine Kinase CK-MB (CK-2) CK-MB (CK-2) Rel Index Troponin I Triglycerides 207 H Cholesterol 185 LDL Cholesterol, Calc 99 HDL Cholesterol 45 SARS-CoV-2 (PCR) Negative Assessment & Plan Assessment & Plan narrative: Impression 1. 70-year-old female admitted to the hospital for abrupt onset visual field cut out of the right eye. History is highly suggestive of a TIA -patient with prior history of TIA previously on aspirin which was discontinued 2 weeks ago -head CT in the emergency department is negative for any intracranial abnormality -patient's blood pressure is well controlled -will start her on a statin, atorvastatin 20 mg at night -patient will continue on an aspirin 81 mg per day, in addition to Plavix 75 mg per day, given her NIH score is less than 4 -will obtain a brain MRI tomorrow to rule out stroke -will obtain a cardiac echo to rule out embolic focus -patient will be referred to Cardiology for a ZIO patch as an outpatient to look for arrhythmias 2. Left foot neuropathy -will continue her Lyrica 3. Patient indicates she is DNR DNI, will note that her record, her as noted in her record is her current surrogate decision maker Patient is admitted under observation status as it is expected she will be discharged tomorrow following the results of her test Quality VTE Deep Vein Thrombosis/Pulmonary Embolism Present on Admission: No MIPS - Admit I confirm the patient?s Advance Care Plan is present, Code status is documented, Surrogate decision maker is in patient?s record [If Yes, STOP here]: Yes
[2020-06-24] MEDS: ATORVASTATIN 20 MG TABLET PO (20:08)
[2020-06-25 00:09] VITALS: BP 131/67; PULSE 85; RESP 16; TEMP 35.8; O2SAT 97
[2020-06-25 04:57] VITALS: BP 125/66; RESP 16; TEMP 35.9; O2SAT 99
[2020-06-25 08:00] VITALS: BP 128/64; PULSE 75; RESP 16; TEMP 37.2; O2SAT 100
[2020-06-25] MEDS: ENOXAPARIN 40 MG/0.4 ML SYRINGE SUBCUT (09:06)
[2020-06-25] MEDS: CLOPIDOGREL 75 MG TABLET PO (09:08)
[2020-06-25] MEDS: ASPIRIN EC 81 MG TABLET PO (09:09)
--- NOTE | 2020-06-25 09:21 | CM.DANOTE ---
DCP: Case received, EMR reviewed and met with patient. Introduced self and role. Was able to obtain information from patient regarding her baseline activity status and some medical history prior to hospitalization. DCP assessment completed with information currently available. Patient is a 70 year old female who admitted yesterday afternoon to the care of the hospitalist team. PCP: Dr. Burgos. Payer: confirmed: Medicare/[facility]. Patient came to the hospital via private vehicle secondary to having some visual loss in her right eye. Patient is here for a TIA work up. Her opthomologist encouraged patient to come to the hospital. Met with patient in her room. She is alert and oriented, pleasant. She was sitting up in bed. Patient indicated, this has happened to her before, not the first time. She indicated that she is not having the symptoms now. Patient is independent at her baseline. She resides in [place] with her spouse, [place]. Patient will be having an MRI today. P: DCP to continue to follow for any needs. Patient will be working with P.T, O.T, as well as speech, and getting an MRI today. Vi Mondragon RN/Body And Fender Mechanic Apprentice
--- NOTE | 2020-06-25 10:04 | ST.IPSCREEN ---
Order received for ST. Nursing reported pt is able to eat meals without difficulty and is speaking clearly without s/sx of dysarthria or aphasia. Visited with pt who confirmed the same. Pt reported that her only symptom was visual, which has apparently resolved. Pt declined ST assessment. Will discharge order
--- NOTE | 2020-06-25 12:03 | PT-IP ANOTE ---
Spoke with RN and with pt and her . Pt has been mobilizing independently in her room. She does report one fall while hiking recently but denies any other falls. Occulomotor and vestibular screen were grossly normal. NIH score has been stable at zero since admit. PT discussed with hospitalist who agreed no need for skilled therapy. Will discharge orders.
--- NOTE | 2020-06-25 12:14 | OT.IP.EVAL ---
Past Medical History (Last Reviewed 06/24/20 @ 18:08 by Darleen Vaca MD) Actinic keratosis Chicken pox Dairy allergy (~2013) Depression (~2011) Emphysema of lung (~2009) Epilepsy with partial complex seizures Gastric ulcer GERD (gastroesophageal reflux disease) Measles Mumps Muscle weakness (generalized) Ovarian cyst (~1978) Retinal detachment Seborrheic keratosis Seizures (~1989) Skin cancer (~1989) TIA (transient ischemic attack) Surgical History (Last Reviewed 06/24/20 @ 18:08 by Darleen Vaca MD) Anesthesia History of Achilles tendon repair (~1963) History of appendectomy History of section (~1980) History of hysterectomy History of tonsillectomy Occupational Therapy Inpatient Evaluation/Re-Eval M1 PT/OT-IP Prior Functional Status Start: 06/25/20 17:31 Freq: NEEDED Status: Active Protocol: Document 06/25/20 17:31 [facility] (Rec: 06/25/20 17:49 [facility] [id number]) Medical Review Prior Functional Status Diet/Fluid Consistency Regular Communication Independent. Mobility and Gait Independent with no devices. Activities of Daily Living and IADL's Pt states was completely independent with all ADl , IADl and drives. Social History Household Members spouse Living Arrangements House Number of Stairs To Enter/Railing? Zero steps to get into the house. Home Environment Standard Height Toilet,Walk in Shower Home Equipment Front Wheel Walker,Straight Cane,Crutches,Manual Wheelchair M2 OT-IP Current Condition Start: 06/25/20 17:31 Freq: Status: Active Protocol: Document 06/25/20 17:31 [facility] (Rec: 06/25/20 17:49 [facility] [id number]) Occupational Therapy Current Condition Current Condition Evaluation Date 06/25/20 Treatment Diagnosis TIA Diagnosis Onset Date 06/24/20 M3 OT- IP Subjective and Pain Start: 06/25/20 17:31 Freq: Status: Active Protocol: Document 06/25/20 17:31 [facility] (Rec: 06/25/20 17:49 [facility] [id number]) OT- Subjective Occupational Therapy Visit Type Type Initial Evaluation Visit Start Time 11:44 Visit Stop Time 12:14 Total Visit Minutes 30 Occupational Therapy Visit Comments Patient Comments Pt initially not wanting to do OT eval and then after encouragement from her agreed. Patient/Caregiver Goals To go home. OT Pain Assessment Pain When Pain Assessed At Rest Pain Present Pain Present Denied Pain M4 OT- IP ADL's Start: 06/25/20 17:31 Freq: Status: Active Protocol: Document 06/25/20 17:31 [facility] (Rec: 06/25/20 17:49 [facility] [id number]) OT ADL-Grooming General Evaluation Grooming Ability Independent OT ADL-Dressing General Eval Upper Body Dressing Ability Independent OT ADL-Toileting General Evaluation Toileting Ability Independent OT ADL-Bathing Comments OT Bathing Comments Pt states to shower at home. M5 OT- IP IADL's Start: 06/25/20 17:31 Freq: Status: Active Protocol: Document 06/25/20 17:31 [facility] (Rec: 06/25/20 17:49 [facility] [id number]) OT-Instrumental Activities of Daily Living Home Safety Awareness Awareness of Need for Assistance at Home Good Awareness Ability to Problem Solve Emergency Able to Problem Solve Situations Medication Management Medication Management Comments Pt's states to provide supervision as needed. Money Management Money Management Comments Pt's states to provide supervision as needed. Driving Driving Concerns Identified Regarding Safety M6 OT- IP Functional Cognition Start: 06/25/20 17:31 Freq: Status: Active Protocol: Document 06/25/20 17:31 [facility] (Rec: 06/25/20 17:49 [facility] [id number]) Cognitive Factors Limiting Selfcare Function Cognitive Ability Level of Alertness Alert Patient Orientation Name,Age,Birthday,Month,Date, Year,Day of Week,Place, Situation Attention Span Ability Capable of Focused Attention, Capable of Sustained Attention Ability to Follow Commands Able to Follow Multi-Step Commands Memory Description No Deficits Noted Safety Awareness No Deficits Noted Problem Solving Ability Unable to Identify Errors Executive Function Ability Unable to Switch Focus,Unable to Filter Distractions,Unable to Remember Details Cognitive Comments Cognitive Assessment Comments Pt tends to get distracted and needing cues to focus. Pt having difficulty to read chart with 4 variables to look up her percentile for 9 hole peg test and needing cues for accuracy. Pt scored 98 second on [place] [employer] Part B and also 2 cues to recall the directions, pt score is below 20% for her age. Pt score indicated moderate impairment for visual attention, speed of processing, executive functioning, and mental flexibility. Pt states did not sleep well last night which may also be affecting her mental abilities. Pt's aware of suggestion to hold off on driving until feeling better . OT- Vision and Hearing OT- Hearing Assessment OT- Hearing Assessment WFL OT- Vision Assessment Visual Acuity WFL Visual Attentiveness WFL Occular Pursuits WFL Visual Convergence WFL Visual Parker WFL M7 OT- IP Mobility and Balance Start: 06/25/20 17:31 Freq: Status: Active Protocol: Document 06/25/20 17:31 [facility] (Rec: 06/25/20 17:49 [facility] [id number]) OT-Transfer Assessment Sit to and From Stand Sit to and from Stand Independent OT- Gait Assessment Gait Gait Assistance Required: Independent OT- Balance Assessment Sitting Balance and Reactions Static Sitting Balance Ability Normal Dynamic Sitting Balance Ability Normal Standing Balance and Reactions Static Standing Balance Ability Normal Dynamic Standing Balance Ability Good M8 OT- IP Objective Assessments Start: 06/25/20 17:31 Freq: Status: Active Protocol: Document 06/25/20 17:31 [facility] (Rec: 06/25/20 17:49 [facility] [id number]) OT Gross Range of Motion Upper Extremity Range of Motion Assessment Within Functional Limits OT Strength Upper Extremity Strength Assessment Within Functional Limits OT- Coordination Assessment Upper Extremity Finger to Nose Test Right UE Impaired Comments Coordination Comments Slightly impaired due to not wanting to touch the surgical site on her nose with her right index, however able to do so accurately with her left index finger. Right hand 20 seconds and left hand 22.5 seconds for 9 hole Peg Test which is the 75th percentile. OT-Muscle Tone Assessment Muscle Tone WNL Yes M9 OT- IP Assessment and Plan Start: 06/25/20 17:31 Freq: Status: Active Protocol: Document 06/25/20 17:31 [facility] (Rec: 06/25/20 17:49 [facility] [id number]) OT Summary Assessment and Plan Potential Rehabilitation Potential Excellent Analytic Complexity at Evaluation Low Summary OT Impairments Functional Cognition Progress Towards Goals Progressing Toward Goals Assessment Summary Pt low complexity and main barriers are decreased focus and trouble with high level cognitive function. Pt educated to try to stay more focus, be more accurate in her information given to help with her overall safety. Pt and have good understanding for all needs and looking to go home today. Discharge Recommendations OT Discharge Recommendations Home with Assistance Transportation Needs at Discharge Private Vehicle
--- NOTE | 2020-06-25 12:48 | PM.DS.1 ---
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 The patient had an episode several years ago where she lost vision like a curtain coming down over her eye about 5 years ago that completely resolved. Five weeks ago she had another episode where she had blurring of the vision which then resolved. This was communicated to her bilingual recruiter who recommended that she come into the hospital for evaluation. The patient deferred evaluation at that time. Today she noted when standing she lost vision out of the left upper quadrant of the right eye. The patient had a shooting electrical pain over the eye with some mild headache associated which made her afraid such that she came into the hospital for evaluation she denies any blurring of her vision, double vision, speech abnormality, slurred speech, weakness, numbness or tingling. The patient presented to the emergency room for evaluation. At the time she arrived to the emergency room her NIH stroke scale score was 0. She had a head CT which was negative. Of note the patient previously was placed on a baby aspirin daily for treatment of her TIA. This was discontinued 2 weeks ago following her most surgery on her nose that she had excessive bleeding. The patient is admitted to this hospital at this time for evaluation of a probable TIA. Discharge Providers Provider Date of admission: 06/24/20 13:49 Discharge Date: 06/25/20 Primary care physician: Chip Burgos DO Consults: 06/24/20 16:20 Consult to Discharge Planning Routine Comment: Consult to Occupational Therapy Evaluate & Treat Comment: Physician Instructions: Evaluate and treat Consult to Physical Therapy Evaluate & Treat Comment: Physician Instructions: Evaluate and Treat Consult to Speech Therapy Evaluate & Treat Comment: Physician Instructions: Evaluate and treat Discharge provider: Darleen Vaca MD Summary Hospital Course Discharge Diagnosis: 1. Transient ischemic attack 2. Recent Mohs surgery Hospital Course: Patient was admitted to the hospital for evaluation of a right eye left field cut. She underwent head MRI which was negative for an acute stroke. BRAIN MRI: No evidence of acute ischemia. No acute intracranial signal abnormality or enhancement. BRAIN MR ANGIOGRAM: No focal intracranial stenosis or occlusion NECK MR ANGIOGRAM: Negative examination as above Cardiac echo was obtained which revealed he ejection fraction is estimated to be 50-55%. There is mild mitral regurgitation. The right ventricular systolic pressure is estimated to be at least 27 mmHg based on an estimated right atrial pressure of 3 mm Hg. The ascending aorta is mildly enlarged. Patient was placed on aspirin and Plavix. She was also placed on a statin. She had no further visual symptoms. Her NIH stroke scale score remained in 0. The patient did have elevated blood pressure on admission. Subsequent blood pressures were within normal limit. Patient was advised to follow-up with her primary care provider. She will check her blood pressures at home and will follow-up regarding further treatment if indicated. She is deemed appropriate for discharge and discharged home. Status at Discharge Cognitive/behavioral status at discharge: oriented Functional status at discharge: independent ambulation Overall status at discharge: patient is back to baseline Exam Vital Signs (past 8 hours): - 06/25/20 04:57 06/25/20 08:00 Temperature 96.6 F L 98.9 F Pulse Rate 75 Respiratory Rate 16 16 Blood Pressure 125/66 128/64 Pulse Oximetry 99 100 Oxygen Delivery Method Room Air Oxygen Flow Rate 0 Narrative Exam Narrative: Pleasant female resting comfortably in no obvious distress Lungs: Clear to auscultation Cardiac exam: Regular rate and rhythm normal S1-S2 NIH stroke scale score is 0 Objective Labs Result Diagrams: 06/24/20 10:50 06/24/20 10:50 Labs: Laboratory Results - last 24 hr 06/24/20 06/24/20 10:50 12:30 Triglycerides 207 H Cholesterol 185 LDL Cholesterol, Calc 99 HDL Cholesterol 45 SARS-CoV-2 (PCR) Negative [facility] Medical History Actinic keratosis Chicken pox Dairy allergy (~2013) Depression (~2011) Emphysema of lung (~2009) Epilepsy with partial complex seizures Gastric ulcer GERD (gastroesophageal reflux disease) Measles Mumps Muscle weakness (generalized) Ovarian cyst (~1978) Retinal detachment Seborrheic keratosis Seizures (~1989) Skin cancer (~1989) TIA (transient ischemic attack) Surgical History Anesthesia History of Achilles tendon repair (~1963) History of appendectomy History of section (~1980) History of hysterectomy History of tonsillectomy Family History Father Congestive heart failure History of heart disease Stroke Mother Cancer Mental health problem Grandmother Congestive heart failure History of heart disease Stroke Social History household members: spouse Smoking Status: Never smoker second hand exposure: Yes (ages 0-18 ) alcohol intake: former substance use type: does not use Discharge Assessment & Plan Assessment and Plan Assessment: Transient ischemic attack, resolved Plan of Treatment: Medications as prescribed Follow-up with Dr. Alvarado in as an output to discuss repeat ZIO or loop recorder Discharge Plan Discharge Plan Patient Disposition: Home Discharge orders & Medications Prescriptions: New atorvastatin [Lipitor] 20 mg Tablet 20 mg PO BEDTIME Qty: 30 RF: 0 clopidogrel 75 mg Tablet 75 mg PO DAILY Qty: 21 RF: 0 Continued diclofenac sodium 1 % gel 1 ea topical DIRECTED PRN (Reason: Pain (Scale Score 1-3)) RF: 0 acetaminophen [Tylenol] 325 mg tablet 325 mg PO Q4-6H PRN (Reason: Pain (Scale Score 1-3)) RF: 0 cholecalciferol (vitamin D3) 25 mcg (1,000 unit) capsule 25 mcg PO DAILY RF: 0 mirtazapine 45 mg tablet 45 mg PO BEDTIME Qty: 90 RF: 0 aspirin [Aspirin Low Dose] 81 mg tablet,delayed release (DR/EC) 81 mg PO DAILY RF: 0 albuterol sulfate [ProAir HFA] 90 mcg/actuation HFA aerosol inhaler 1 puff INHALATION Q6H PRN (Reason: Shortness Of Breath) RF: 0 pregabalin 50 mg capsule 50 mg PO DAILY RF: 0 Adult Multivitamin Gummies 200 mcg Tablet,Chewable 1 tab PO DAILY RF: 0 Follow up/Referrals: Chip Burgos DO [Primary Care Provider] - Discharge Health Status Multidrug resistant organism: No MDRO Diet/Activity/Treatments Diet: Low-sodium and Low-cholesterol Discharge Data Primary Care Provider: Chip Burgos Attending Provider: Darleen Vaca VTE Deep Vein Thrombosis/Pulmonary Embolism Present on Admission: No
--- NOTE | 2020-06-25 13:38 | PC.NURSE ---
pt discharged to home following mri and review of new rx- discharged to home at this time
== END 2020-06-25 13:30 | disposition home or self-care (01) ==
LOC: ED 12:45 → ICU 14:17
PROVIDERS: Admitting Provider Internal Medicine; Emergency Provider Emergency Medicine; PCP Family Medicine; Referring Provider Emergency Medicine; Visit Provider Internal Medicine
DX: G45.9 Transient cerebral ischemic attack, unspecified (principal); G62.9 Polyneuropathy, unspecified; J45.909 Unspecified asthma, uncomplicated; Z20.822 Contact with and (suspected) exposure to COVID-19
CPT/HCPCS: 36415; 70450; 70548; 70553; 80048; 80061; 82550; 84484; 85025; 85610; 85730; 87635; 93005; 93306; 96372; 97165; 97530; 99284; 99285; C9803; G0378; J1650

== ENCOUNTER → 2020-07-01 15:05 | Outpatient (CLI) | payer MEDICARE, OTHER, SELFPAY ==
[2020-06-24 14:04] VITALS: BMI 23.5
[2020-07-01 16:58] LABS: Cholesterol 124 mg/dL (140-199); HDL Cholesterol 54 mg/dL (40-60); LDL Cholesterol Calculated 61 mg/dL (<100); Triglycerides 46 mg/dL (35-150)
== END ==
PROVIDERS: PCP Family Medicine; Referring Provider Registered Nurse; Visit Provider Registered Nurse
DX: E78.5 Hyperlipidemia, unspecified (principal)
CPT/HCPCS: 36415; 80061

== ENCOUNTER → 2020-07-22 11:36 | Outpatient (CLI) | payer MEDICARE, OTHER, SELFPAY ==
[2020-06-24 14:04] VITALS: BMI 23.5
--- NOTE | 2020-08-26 09:47 | P.HOLT.S_ITS ---
Freelance Web Designer Report Referral & Results Date Patient Seen: 07/22/20 Requesting provider: Chip Burgos Indication: Arrhythmia Duration of monitoring (days): 10 Diary information: There were 11 patient triggered events and 9 patient diary entries All of these patient events were associated variably with sinus rhythm, PACs, atrial fibrillation, and SVT Data: Minimum heart rate identified was 44 beats per minute at 01:00 on 08/04/2020 Maximum sinus heart rate was 96 beats per minute at 19:14 on 08/01/2020 Maximum overall heart rate was 171 beats per minute at 11:59 on 07/31/2020 during a run of ventricular tachycardia Approximately 6.3% of identified beats were supraventricular ectopic in origin which would classify them as frequent Less than 1% of identified beats were ventricular ectopic in origin which would classify them as rare Atrial fibrillation was present comprising about 3% of identified beats. Heart rate during these events 56-130 beats per minute There were 39 runs of SVT, some of these may be atrial fibrillation instead with artifact affecting the ability to differentiate. The longest run of SVT was 17 beats at a rate of 104 beats per minute which suggest perhaps atrial tachycardia rather than true SVT There is also 1 episode of a 4 beat run of nonsustained monomorphic ventricular tachycardia Impression: 10 day monitor tech showing rare nonsustained ventricular tachycardia as well as a limited burden of atrial fibrillation with at times inadequate rate control. Patient also with fairly rare and very brief runs of SVT
== END ==
PROVIDERS: PCP Family Medicine; Referring Provider Family Medicine; Visit Provider Family Medicine
DX: I49.9 Cardiac arrhythmia, unspecified (principal); G45.9 Transient cerebral ischemic attack, unspecified
CPT/HCPCS: 93246; 93248

== ENCOUNTER 2020-09-25 00:24 | Emergency (ER) | payer MEDICARE, OTHER, SELFPAY ==
[2020-06-24 14:04] VITALS: BMI 23.5
[2020-09-25 00:34] VITALS: BP 138/81; PULSE 134; RESP 20; O2SAT 99; BMI 23.3
--- NOTE | 2020-09-25 00:34 | DI.RAD.S_ITS ---
PROCEDURE: XR CHEST 1V INDICATIONS: chest pain TECHNIQUE: One view of the chest was acquired. COMPARISON: None. FINDINGS: Surgical changes and devices: None. Lungs and pleura: Lungs are clear. No pleural effusions or pneumothorax. Mediastinum: Mediastinal contours appear normal. Heart size is normal. Bones and chest wall: No suspicious bony lesions. Overlying soft tissues appear unremarkable. IMPRESSION: Normal for age, source of current chest pain symptoms is not seen. Dictated by: Ted Weldon M.D. on 09/25/2020 at 8:24 Approved by: Ted Weldon M.D. on 09/25/2020 at 8:24
[2020-09-25 01:00] VITALS: BP 134/64; PULSE 73; RESP 10; O2SAT 98
[2020-09-25 01:09] LABS: Add Manual Diff / Slide Review NO; Basophils Absolute Auto 0 /uL (0-100); Basophils Percent Auto 0.6 % (0-2); Eosinophils Absolute Auto 200 /uL (0-450); Eosinophils Percent Auto 4.2 % (2-4); Hematocrit 40.4 % (36-46); Hemoglobin 13.2 g/dL (12.0-16.0); Lymphocytes Absolute Auto 2200 /uL (1100-4500); Lymphocytes Percent Auto 38.9 % (25-40); Mean Corpuscular HGB Conc 32.8 % (30-36); Mean Corpuscular Hemoglobin 29.4 PG (26-34); Mean Corpuscular Volume 89.6 fL (80-100); Monocytes Absolute Auto 400 /uL (0-900); Monocytes Percent Auto 6.9 % (3-14); Neutrophils Absolute Auto 2700 /uL (1500-7000); Neutrophils Percent Auto 49.4 % (50-75); Platelet Count 196 X10^3/uL (150-400); Red Cell Distribution Width 13.6 % (11.6-14.8); White Blood Cell Count 5.5 X10^3/uL (4.5-11.0)
[2020-09-25 01:18] LABS: Alanine Aminotransferase 27 IU/L (<35); Albumin 3.9 g/dL (3.5-5.0); Albumin Globulin Ratio 1.3 (1.0-2.8); Alkaline Phosphatase 129 U/L (38-126); Aspartate Aminotransferase 32 IU/L (14-36); Bilirubin Total 0.4 mg/dL (0.2-1.3); Blood Urea Nitrogen 16 mg/dL (7-17); Calcium 9.7 mg/dL (8.4-10.2); Carbon Dioxide 28 mmol/L (22-32); Chloride 108 mmol/L (98-107); Creatine Kinase 55 U/L (30-135); Estimated Glomerular Filt Rate > 60.0 mL/min (>60); Glucose 106 mg/dL (80-110); HEMOLYSIS 16 (0-50); Lipase 64 U/L (23-300); Sodium 141 mmol/L (137-145); Total Protein 6.9 g/dL (6.3-8.2)
[2020-09-25 01:29] LABS: Troponin I < 0.012 ng/mL (0.01-0.034)
[2020-09-25 01:30] VITALS: BP 119/69; PULSE 75; RESP 14; O2SAT 94
[2020-09-25 02:04] LABS: COVID19 - ADMIT (NP swab/PCR) Negative (Negative)
--- NOTE | 2020-09-25 02:42 | ED.ARRPALP ---
HPI - Arrhythmia/Palpitations General Chief Complaint: Arrhythmia/Palpitations Stated Complaint: AFIB Time Seen by Provider: 09/25/20 02:21 Source: patient Mode of arrival: Ambulatory Limitations: no limitations History of Present Illness HPI narrative: 70-year-old woman presents after developing an abrupt pain in her left side at 10:00 p.m. this night followed by ?a roiling heart?. She is suspected of having paroxysmal atrial fibrillation however this is never been actually documented. She is currently on baby aspirin. 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 She has an appointment scheduled with her regulatory compliance specialist on October 01 to discuss all of these issues. At this point she complains that her heart feels like it is palpitating but it does not actually hurt. She has got no orthopnea, dyspnea, vomiting, nausea, diaphoresis, cough, diarrhea. Related Data Home Medications Medication Instructions Recorded Confirmed multivitamin with minerals-folic 1 tab PO DAILY 03/21/18 06/24/20 acid 200 mcg chewable tablet (Adult Multivitamin Gummies) albuterol sulfate 90 mcg/actuation 1 puff INHALATION Q6H PRN 10/23/18 06/24/20 aerosol inhaler (ProAir HFA) aspirin 81 mg tablet,delayed 81 mg PO DAILY 10/23/18 06/24/20 release (Aspirin Low Dose) pregabalin 50 mg capsule 50 mg PO DAILY 09/25/19 06/24/20 acetaminophen 325 mg tablet 325 mg PO Q4-6H PRN tab 06/02/20 06/24/20 (Tylenol) cholecalciferol (vitamin D3) 25 25 mcg PO DAILY 06/02/20 06/24/20 mcg (1,000 unit) capsule diclofenac sodium 1 % topical gel 1 ea TOPICAL DIRECTED PRN 06/02/20 06/24/20 Previous Rx's Medication Instructions Recorded clopidogrel 75 mg tablet 75 mg PO DAILY #21 tab 06/25/20 atorvastatin 20 mg tablet (Lipitor) 20 mg PO BEDTIME #30 tab 08/19/20 mirtazapine 45 mg tablet 45 mg PO BEDTIME #90 tab 09/21/20 Allergies Allergy/AdvReac Type Severity Reaction Status Date / Time fluoxetine Allergy Severe muscle Verified 09/25/20 00:33 weakness codeine Allergy Intermediate Painful Verified 09/25/20 00:33 Bloating meperidine [From Demerol] Allergy Intermediate Vomiting Verified 09/25/20 00:33 lactase [From Dairy Aid] AdvReac Intermediate Gastrointestinal Verified 09/25/20 00:33 Upset prednisone AdvReac Intermediate Shakiness Verified 09/25/20 00:33 Review of Systems Review of Systems Narrative: Remainder of complete review of systems is otherwise unremarkable except for that included in the HPI. Patient History Medical History Actinic keratosis Arrhythmia Chicken pox Dairy allergy (~2013) Depression (~2011) Emphysema of lung (~2009) Epilepsy with partial complex seizures Gastric ulcer GERD (gastroesophageal reflux disease) Measles Mumps Muscle weakness (generalized) Ovarian cyst (~1978) Retinal detachment Seborrheic keratosis Seizures (~1989) Skin cancer (~1989) TIA (transient ischemic attack) Surgical History Anesthesia History of Achilles tendon repair (~1963) History of appendectomy History of section (~1980) History of hysterectomy History of tonsillectomy Family History Father Congestive heart failure History of heart disease Stroke Mother Cancer Mental health problem Grandmother Congestive heart failure History of heart disease Stroke Social History household members: spouse Smoking Status: Never smoker second hand exposure: Yes (ages 0-18 ) alcohol intake: former substance use type: does not use Smoking Status: Never smoker alcohol intake frequency: 0-2 drinks per day Substance Use Type: does not use Exam Narrative Exam Narrative: General: Healthy appearing, in no acute distress. Able to give a complete and coherent history. Well-nourished well-developed HEENT: Moist mucous membranes, normal sclera with reactive pupils, Neck: No JVD, supple Respiratory: Lungs are clear to auscultation, no wheezing no rales no rhonchi. Full and symmetrical air movement Cardiac: Regular rate and rhythm no murmurs no bruits Abdomen: Soft, nontender, good bowel tones, no flank pain Skin: Warm and dry, no rashes Neurologic: Grossly neurologically intact with no obvious asymmetries or abnormalities Extremities: No trauma, well perfused Psych: Cooperative, appropriate insight and affect Initial Vital Signs Initial Vital Signs: Vital Signs Pulse Rate 134 H 09/25/20 00:34 Respiratory Rate 20 09/25/20 00:34 Blood Pressure 138/81 09/25/20 00:34 Pulse Oximetry 99 09/25/20 00:34 Course Orders Ordered: ED Orders 09/25/20 00:34 XR chest 1V Stat EKG-12 Lead Stat 09/25/20 00:45 Complete Blood Count AUTO DIFF Stat Comprehensive Metabolic Panel Stat Lipase Stat Magnesium Stat Troponin & CK Cardiac Panel Stat 09/25/20 00:50 COVID19 - ADMIT (CAREER GUIDANCE COUNSELOR swab/PCR) Stat Vital Signs Vital signs: Vital Signs - 8 hr 09/25/20 00:34 Pulse Rate 134 H Respiratory Rate 20 Blood Pressure 138/81 Pulse Oximetry 99 MDM - Arrhythmia/Palpitations Medical Records Medical records narrative: 70-year-old woman with atrial flutter at a rate of 129 beats per minute. At 1:00 a.m. she has another abrupt pain on the left side and spontaneously converts to sinus rhythm. Repeat EKG shows sinus rhythm with no acute ischemic changes. Labs are reassuring no evidence of acute coronary disease. We did discuss anticoagulation. She has had this discussion with doctors previously. This point will have her continue with aspirin and continue the anticoagulation discussion with her regulatory compliance specialist in a week. No additional changes to medications at this time. She is safe for home discharge Lab Data Result diagrams: 09/25/20 00:45 09/25/20 00:45 Labs: Lab Results 09/25/20 09/25/20 09/25/20 Range/Units 00:45 00:45 00:50 WBC 5.5 (4.5-11.0) X10^3/uL RBC 4.50 (4.0-5.2) X10^6/uL Hgb 13.2 (12.0-16.0) g/dL Hct 40.4 (36-46) % MCV 89.6 (80-100) fL MCH 29.4 (26-34) PG MCHC 32.8 (30-36) % RDW 13.6 (11.6-14.8) % Plt Count 196 (150-400) X10^3/uL Neut % (Auto) 49.4 L (50-75) % Lymph % (Auto) 38.9 (25-40) % [place]hin % (Auto) 6.9 (3-14) % Eos % (Auto) 4.2 H (2-4) % Baso % (Auto) 0.6 (0-2) % Neut # (Auto) 2700 (3613-4474) /uL Lymph # (Auto) 2200 (2453-9259) /uL [place] # (Auto) 400 (0-900) /uL Eos # (Auto) 200 (0-450) /uL Baso # (Auto) 0 (0-100) /uL Sodium 141 (137-145) mmol/L Potassium 4.0 (3.4-5.1) mmol/L Chloride 108 H (98-107) mmol/L Carbon Dioxide 28 (22-32) mmol/L BUN 16 (7-17) mg/dL Creatinine 0.84 (0.52-1.04) mg/dL Estimated GFR > 60.0 (>60) mL/min BUN/Creatinine Ratio 19.0 (6-22) Glucose 106 (80-110) mg/dL Calcium 9.7 (8.4-10.2) mg/dL Magnesium 2.0 (1.6-2.3) mg/dL Total Bilirubin 0.4 (0.2-1.3) mg/dL AST 32 (14-36) IU/L ALT 27 (<35) IU/L Alkaline Phosphatase 129 H (38-126) U/L Total Creatine Kinase 55 (30-135) U/L CK-MB (CK-2) TNP CK-MB (CK-2) Rel Index TNP Troponin I < 0.012 (0.01-0.034) ng/mL Total Protein 6.9 (6.3-8.2) g/dL Albumin 3.9 (3.5-5.0) g/dL Globulin 3.0 (1.7-4.1) g/dL Albumin/Globulin Ratio 1.3 (1.0-2.8) Lipase 64 (23-300) U/L SARS-CoV-2 (PCR) Negative (Negative) MDM Narrative Medical decision making narrative: 70-year-old woman with history of TIA x3 involving her right eye only with of suspected history of paroxysmal atrial fibrillation presents with palpitations and atrial flutter appreciated on EKG at a rate of 140. It was an abrupt onset at 10:00 p.m. and an abrupt auto conversion at 12:57 a.m.. She felt a twinge of pain along her left side concurrent with conversion back to sinus rhythm. Labs and chest x-ray are reassuring. No evidence of ischemia. Her VENKATESH score is 2. That is because of the I involved TIA. With previous discussions with primary care physician's decision has been to continue with aspirin. She had been on Plavix but had excessive bleeding with this and would prefer not go back to that. She does have an already scheduled appointment with a regulatory compliance specialist on October 01 to discuss possibility/probability now confirmed presence of paroxysmal atrial fibrillation. Will give her copies of lab work as well as atrial fibrillation EKG, telemetry strips with conversion and post-conversion EKG for her to share with her regulatory compliance specialist. She is safe for home discharge Discharge Plan Departure Patient Disposition: Home Clinical Impression: Atrial flutter, paroxysmal Instructions: DI for Atrial Flutter Activity Restrictions/Additional Instructions: Thank you for coming in today It looks like urine atrial flutter for approximately 3 hours at a rate of 140 today. You spontaneously converted back to normal sinus rhythm and remained in normal sinus rhythm at this time. Your lab work was very reassuring and there is no evidence of infection, anemia, heart attack or other concerning findings. I have given you copies of your lab work and EKGs along with the telemetry strips showing your spontaneous cardioversion. Please share all of these with your regulatory compliance specialist your appointment on October 01. At this time, please continue your aspirin and you will need to discuss with your regulatory compliance specialist your stroke risk and which type of anticoagulation is going to be most appropriate for you to continue to keep your stroke risk as low as possible If you notice recurrent episodes of atrial fibrillation that last longer than an hour to, please return to the ER for further evaluation I wish you the best Prescriptions: No Action atorvastatin [Lipitor] 20 mg tablet 20 mg PO BEDTIME Qty: 30 RF: 2 mirtazapine 45 mg tablet 45 mg PO BEDTIME Qty: 90 RF: 2 diclofenac sodium 1 % gel 1 ea topical DIRECTED PRN (Reason: Pain (Scale Score 1-3)) RF: 0 acetaminophen [Tylenol] 325 mg tablet 325 mg PO Q4-6H PRN (Reason: Pain (Scale Score 1-3)) RF: 0 cholecalciferol (vitamin D3) 25 mcg (1,000 unit) capsule 25 mcg PO DAILY RF: 0 aspirin [Aspirin Low Dose] 81 mg tablet,delayed release (DR/EC) 81 mg PO DAILY RF: 0 albuterol sulfate [ProAir HFA] 90 mcg/actuation HFA aerosol inhaler 1 puff INHALATION Q6H PRN (Reason: Shortness Of Breath) RF: 0 pregabalin 50 mg capsule 50 mg PO DAILY RF: 0 Adult Multivitamin Gummies 200 mcg Tablet,Chewable 1 tab PO DAILY RF: 0 clopidogrel 75 mg Tablet 75 mg PO DAILY Qty: 21 RF: 0 Referrals: Chip Burgos, [Primary Care Provider] -
[2020-09-25 02:55] VITALS: BP 115/67; PULSE 71; RESP 16; O2SAT 94
== END 2020-09-25 03:30 | disposition home or self-care (01) ==
PROVIDERS: Emergency Provider Emergency Medicine; PCP Family Medicine
DX: I48.92 Unspecified atrial flutter (principal); R07.9 Chest pain, unspecified; Z20.822 Contact with and (suspected) exposure to COVID-19
CPT/HCPCS: 36415; 71045; 80053; 82550; 83690; 83735; 84484; 85025; 87635; 93005; 99284; C9803

== ENCOUNTER → 2020-10-02 07:29 | Outpatient (CLI) | payer MEDICARE, OTHER, SELFPAY ==
[2020-06-24 14:04] VITALS: BMI 23.5
[2020-10-02 09:35] LABS: Cholesterol 126 mg/dL (140-199); HDL Cholesterol 59 mg/dL (40-60); LDL Cholesterol Calculated 55 mg/dL (<100); Triglycerides 62 mg/dL (35-150)
[2020-10-02 10:08] LABS: TSH w/ Reflex to FT4 3.12 uIU/mL (0.47-4.68)
== END ==
PROVIDERS: PCP Family Medicine; Referring Provider Internal Medicine Cardiovascular Disease; Visit Provider Internal Medicine Cardiovascular Disease
DX: R00.2 Palpitations (principal); E78.5 Hyperlipidemia, unspecified; I48.0 Paroxysmal atrial fibrillation
CPT/HCPCS: 36415; 80061; 84443

== ENCOUNTER → 2021-02-17 07:12 | Outpatient (CLI) | payer MEDICARE, OTHER, SELFPAY ==
[2020-06-24 14:04] VITALS: BMI 23.5
--- NOTE | 2021-02-17 | DI.MG.S_ITS ---
BILATERAL DIGITAL SCREENING MAMMOGRAM 3D/2D WITH CAD: 02/17/2021 CLINICAL: Routine screening. Family history of breast cancer. Comparison is made to exams dated: 01/02/2020 mammogram, 04/11/2018 mammogram - [facility], and 02/21/2017 mammogram - [facility]. The tissue of both breasts is heterogeneously dense. This may lower the sensitivity of mammography. Current study was also evaluated with a Computer Aided Detection (CAD) system. No significant masses, calcifications, or other findings are seen in either breast. There has been no significant interval change. IMPRESSION: NEGATIVE There is no mammographic evidence of malignancy. A 1 year screening mammogram is recommended. This exam was interpreted at Station ID: [id number]. NOTE: For mammograms, a report in lay terms will be sent to the patient. Approximately 15% of breast malignancies will not be visualized mammographically. In the management of a palpable breast mass, a negative mammogram must not discourage biopsy of a clinically suspicious lesion. Electronically Signed By: Vasile Faria M.D., jr/bo:02/17/2021 12:09:09 letter sent: Normal Exam ACR BI-RADS Category 1: Negative 3341F
== END ==
PROVIDERS: PCP Family Medicine; Referring Provider Family Medicine; Visit Provider Family Medicine
DX: Z12.31 Encounter for screening mammogram for malignant neoplasm of breast (principal); Z80.3 Family history of malignant neoplasm of breast
CPT/HCPCS: 77063; 77067

== ENCOUNTER → 2021-05-17 09:41 | Outpatient (CLI) | payer MEDICARE, OTHER, SELFPAY ==
[2020-06-24 14:04] VITALS: BMI 23.5
--- NOTE | 2021-05-27 16:56 | P.HOLT.S_ITS ---
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 Referral & Results Date Patient Seen: 05/17/21 Requesting provider: Chip Burgos Indication: SVT Duration of monitoring (days): 7 Diary information: There were no patient events to review Data: Minimum heart rate identified was 43 beats per minute at 05:50 on 05/21/2021 Maximum sinus heart rate was 113 beats per minute at 14:08 on 05/18/2021 Maximum overall heart rate was 141 beats per minute at 18:34 on 05/22/2021 during a run of SVT Approximately 8.2% of identified beats were supraventricular ectopic in origin which would classify them as frequent Less than 1% of identified beats were ventricular ectopic in origin which would classify them as rare There were no pauses of 3 seconds or longer or episodes of atrial fibrillation were identified There were 16 runs of SVT fastest being a 15 beat run at a rate of 141 beats per minute which was also the longest run 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
== END ==
PROVIDERS: PCP Family Medicine; Referring Provider Family Medicine; Visit Provider Family Medicine
DX: I47.1 Supraventricular tachycardia (principal)
CPT/HCPCS: 93242; 93244

== ENCOUNTER → 2021-07-05 07:35 | Outpatient (CLI) | payer MEDICARE, OTHER, SELFPAY ==
[2020-06-24 14:04] VITALS: BMI 23.5
[2021-07-05 09:06] LABS: BUN Creatinine Ratio 12.2 (6-22); Blood Urea Nitrogen 12 mg/dL (7-17); Calcium 8.9 mg/dL (8.4-10.2); Carbon Dioxide 31 mmol/L (22-32); Chloride 105 mmol/L (98-107); Estimated Glomerular Filt Rate > 60 mL/min (>60); Glucose 94 mg/dL (80-110); HEMOLYSIS < 15 (0-50); Magnesium 1.9 mg/dL (1.6-2.3); Sodium 140 mmol/L (137-145)
== END ==
PROVIDERS: PCP Family Medicine; Referring Provider Internal Medicine Cardiovascular Disease; Visit Provider Internal Medicine Cardiovascular Disease
DX: I48.0 Paroxysmal atrial fibrillation (principal)
CPT/HCPCS: 36415; 80048; 83735

== ENCOUNTER → 2021-09-03 07:07 | Outpatient (CLI) | payer MEDICARE, OTHER, SELFPAY ==
[2020-06-24 14:04] VITALS: BMI 23.5
[2021-09-03 08:19] LABS: Alanine Aminotransferase 14 IU/L (<35); Albumin 3.8 g/dL (3.5-5.0); Albumin Globulin Ratio 1.5 (1.0-2.8); Alkaline Phosphatase 114 U/L (38-126); Aspartate Aminotransferase 23 IU/L (14-36); BUN Creatinine Ratio 11.8 (6-22); Bilirubin Total 0.5 mg/dL (0.2-1.3); Blood Urea Nitrogen 11 mg/dL (7-17); Calcium 8.9 mg/dL (8.4-10.2); Carbon Dioxide 31 mmol/L (22-32); Chloride 105 mmol/L (98-107); Cholesterol 174 mg/dL (140-199); Estimated Glomerular Filt Rate > 60 mL/min (>60); Globulin 2.6 g/dL (1.7-4.1); Glucose 91 mg/dL (80-110); HDL Cholesterol 48 mg/dL (40-60); HEMOLYSIS < 15 (0-50); LDL Cholesterol Calculated 106 mg/dL (<100); Potassium 3.7 mmol/L (3.4-5.1); Sodium 141 mmol/L (137-145); Total Protein 6.4 g/dL (6.3-8.2); Triglycerides 98 mg/dL (35-150)
== END ==
PROVIDERS: PCP Family Medicine; Referring Provider Internal Medicine Cardiovascular Disease; Visit Provider Internal Medicine Cardiovascular Disease
DX: G45.9 Transient cerebral ischemic attack, unspecified (principal); I48.0 Paroxysmal atrial fibrillation
CPT/HCPCS: 36415; 80053; 80061

== ENCOUNTER → 2021-11-15 07:10 | Outpatient (CLI) | payer MEDICARE, OTHER, SELFPAY ==
[2020-06-24 14:04] VITALS: BMI 23.5
== END ==
PROVIDERS: PCP Family Medicine; Visit Provider Student in an Organized Health Care Education/Training Program
DX: R30.0 Dysuria (principal)
CPT/HCPCS: 87086

== ENCOUNTER 2021-11-15 07:40 | Emergency (ER) | payer MEDICARE, OTHER, SELFPAY ==
[2020-06-24 14:04] VITALS: BMI 23.5
[2021-11-15 07:45] VITALS: BP 141/65; PULSE 81; RESP 18; TEMP 36.6; O2SAT 98; BMI 21.8
[2021-11-15 07:52] VITALS: BP 141/65; PULSE 79; O2SAT 98
--- NOTE | 2021-11-15 07:54 | DI.CT.S_ITS ---
PROCEDURE: CT ABDOMEN PELVIS W CON INDICATIONS: RIGHT LOWER QUADRANT PAIN TECHNIQUE: After the administration of intravenous contrast, axial sections acquired from the lung bases to the pubic symphysis. Coronal and sagittal reformats were performed. For radiation dose reduction, the following was used: automated exposure control, adjustment of mA and/or kV according to patient size. COMPARISON: None. FINDINGS: Image quality: Excellent. Lung bases: Minor right lung base scarring. Heart: Normal size heart. Small pericardial effusion. ABDOMEN: Liver: Unremarkable. Gallbladder: Surgically absent. Biliary ducts: Appropriate post cholecystectomy. Pancreas: Diminutive. Normal contour. Spleen: Normal size with two subcentimeter hypodensities, likely cysts. Adrenal Glands: No nodules. Kidneys and Ureters: Symmetric enhancement. No nephrolithiasis or hydronephrosis. No hydroureter. Stomach and Bowel: Increased quantity of solid stool throughout the redundant colon. Large quantity of solid stool in the rectum. There is moderate length segment of circumferential wall thickening in the proximal sigmoid colon without significant surrounding inflammatory change. No small bowel dilatation. The stomach is decompressed. Peritoneum: Trace fluid in the right posterior adnexa. No free intraperitoneal air. Ventral Wall: Tiny fat containing umbilical hernia. Abdominal Nodes: No retroperitoneal or mesenteric adenopathy by size criteria. Vessels: Aorta and inferior vena cava are normal in size. PELVIS: Pelvic Organs: Uterus and ovaries are absent. Bladder: Normal wall thickness. No stones. Pelvic Nodes: No enlarged lymph nodes. Miscellaneous: No hernias are seen. Bones: Mild L5-S1 disc degeneration. IMPRESSION: 1. Moderate colonic and rectal obstipation. 2. Circumferential wall thickening in the proximal sigmoid colon may indicate colitis, acute or chronic. No significant surrounding inflammatory change. Dictated by: Nohemi Negro M.D. on 11/15/2021 at 8:47 Approved by: Nohemi Negro M.D. on 11/15/2021 at 8:59
--- NOTE | 2021-11-15 07:58 | ED_ITS ---
HPI - General Adult General Chief complaint: Abdominal Pain Stated complaint: stomach pain x30 days [facility] sent her Time Seen by Provider: 11/15/21 07:45 Source: patient Mode of arrival: Ambulatory Limitations: no limitations History of Present Illness HPI narrative: Patient is a 71-year-old female who is here for evaluation of was initially described as right lower quadrant abdominal pain however after discussing with the patient seems to be more generalized abdominal pain. States it has been going on for the past month. Has had it every day. No change in bowel habits. No urinary symptoms. Symptoms do not change with having bowel movements or urinating. She is not having any nausea or vomiting. No fevers. States eating does help the symptoms somewhat. She does have a history of ?chronic ulcers? before a diagnosis of a specific food allergy. She went to the walk-in clinic because she thought maybe this was a urinary tract infection and was sent to the emergency department further evaluation Related Data Home Medications Medication Instructions Recorded Confirmed acetaminophen 325 mg tablet 325 mg PO Q4-6H PRN Pain (Scale 06/02/20 11/15/21 (Tylenol) Score 1-3) cholecalciferol (vitamin D3) 25 25 mcg PO DAILY 06/02/20 11/15/21 mcg (1,000 unit) capsule apixaban 5 mg tablet (Eliquis) 5 mg PO BID 10/02/20 11/15/21 multivit with 1 tab PO DAILY 11/23/20 11/15/21 pdogvtfl-xeto-ND-lutein 8 mg iron-400 mcg-300 mcg tablet (Centrum Silver Women) dexlansoprazole 60 mg 60 mg PO DAILY 11/15/21 11/15/21 capsule,biphase delayed release (Dexilant) Previous Rx's Medication Instructions Recorded albuterol sulfate 90 mcg/actuation 1 puff inhalation Q6H PRN 04/26/21 aerosol inhaler (ProAir HFA) Shortness Of Breath #8.5 grams mirtazapine 45 mg tablet See Rx Instructions .Route 09/09/21 .COMPLEX #90 tabs Allergies Allergy/AdvReac Type Severity Reaction Status Date / Time fluoxetine Allergy Severe muscle Verified 11/15/21 07:18 weakness codeine Allergy Intermediate Painful Verified 11/15/21 07:18 Bloating meperidine [From Demerol] Allergy Intermediate Vomiting Verified 11/15/21 07:18 lactase [From Dairy Aid] AdvReac Intermediate Gastrointestinal Verified 11/15/21 07:18 Upset prednisone AdvReac Intermediate Shakiness Verified 11/15/21 07:18 Review of Systems Constitutional Constitutional: Denies fever(s) Cardiovascular Cardiovascular: Denies chest pain and Denies dyspnea Respiratory Respiratory: Denies dyspnea Gastrointestinal Gastrointestinal: Reports abdominal pain, Denies change in bowel habits, Denies cramping, Denies diarrhea and Denies nausea Genitourinary Genitourinary: Denies dysuria Musculoskeletal Musculoskeletal: Reports back pain Integumentary/Breasts Skin/Breast: Denies rash Neurologic Neurologic: Reports system reviewed and no additional complaints, except as documented Hematologic/Lymphatic On Anticoagulants: No Patient History Medical History Actinic keratosis Arrhythmia Chicken pox Dairy allergy (~2013) Depression (~2011) Emphysema of lung (~2009) Epilepsy with partial complex seizures Gastric ulcer GERD (gastroesophageal reflux disease) Measles Mumps Muscle weakness (generalized) Ovarian cyst (~1978) Retinal detachment Seborrheic keratosis Seizures (~1989) Skin cancer (~1989) TIA (transient ischemic attack) Well adult exam Surgical History Anesthesia History of Achilles tendon repair (~1963) History of appendectomy History of section (~1980) History of hysterectomy History of tonsillectomy Family History Father Congestive heart failure History of heart disease Stroke Mother Cancer Mental health problem Grandmother Congestive heart failure History of heart disease Stroke Social History household members: spouse Smoking Status: Never smoker second hand exposure: Yes (ages 0-18 ) alcohol intake: former substance use type: does not use Smoking Status: Never smoker alcohol intake frequency: 0-2 drinks per day Substance Use Type: does not use Exam Initial Vital Signs Initial Vital Signs: Vital Signs Temperature 97.9 F 11/15/21 07:45 Pulse Rate 81 11/15/21 07:45 Respiratory Rate 18 11/15/21 07:45 Blood Pressure 141/65 H 11/15/21 07:45 Pulse Oximetry 98 11/15/21 07:45 Oxygen Delivery Method 11/15/21 07:45 Const General: cooperative and comfortable HENMT Head: normal to inspection and normocephalic Resp Effort & Inspection: normal respiratory effort Auscultation: clear to auscultation bilaterally Cardio Rate: regular rate Rhythm: regular rhythm GI Inspection: normal to inspection Palpation: soft, No firm and No guarding Back/Spine/Pelvis Back: No CVA tenderness Skin General: no rashes or lesions noted Neuro General: patient alert, patient awake and moves all extremities Extrem General: normal to inspection and capillary refill normal Psych Appearance: grossly normal and well kempt Course Orders Ordered: ED Orders 11/15/21 07:54 CT abdomen pelvis w con Stat 11/15/21 08:00 Complete Blood Count AUTO DIFF Stat Comprehensive Metabolic Panel Stat Lipase Stat Sodium Chloride (Normal Saline 0.9%) 1,000 mls @ 500 mls/hr IV BOLUS ONE Stop: 11/15/21 09:44 Last Admin: 11/15/21 08:33 Dose: 500 mls/hr Documented By: JOLIE Vital Signs Vital signs: Vital Signs - 8 hr 11/15/21 07:45 11/15/21 07:52 11/15/21 07:52 Temperature 97.9 F Pulse Rate 81 79 Respiratory Rate 18 Blood Pressure 141/65 H 141/65 H Pulse Oximetry 98 98 Oxygen Delivery Method Room Air 11/15/21 08:29 11/15/21 08:30 11/15/21 08:45 Temperature Pulse Rate 74 73 71 Respiratory Rate Blood Pressure Pulse Oximetry 98 99 99 Oxygen Delivery Method 11/15/21 08:45 11/15/21 09:00 11/15/21 09:00 Temperature Pulse Rate 70 Respiratory Rate Blood Pressure 124/62 121/64 Pulse Oximetry 99 Oxygen Delivery Method Medical Decision Making Lab Data Lab results reviewed: Yes I reviewed the patient's lab results. Result diagrams: 11/15/21 08:00 11/15/21 08:00 Labs: Lab Results 11/15/21 11/15/21 Range/Units 08:00 08:00 WBC 4.4 L (4.5-11.0) X10^3/uL RBC 4.40 (4.0-5.2) X10^6/uL Hgb 12.9 (12.0-16.0) g/dL Hct 37.7 (36-46) % MCV 85.7 (80-100) fL MCH 29.4 (26-34) PG MCHC 34.3 (30-36) % RDW 13.8 (11.6-14.8) % Plt Count 222 (150-400) X10^3/uL Neut % (Auto) 58.8 (50-75) % Lymph % (Auto) 31.1 (25-40) % [place] % (Auto) 6.0 (3-14) % Eos % (Auto) 3.1 (2-4) % Baso % (Auto) 1.0 (0-2) % Neut # (Auto) 2600 (7942-0721) /uL Lymph # (Auto) 1400 (9886-8972) /uL [place] # (Auto) 300 (0-900) /uL Eos # (Auto) 100 (0-450) /uL Baso # (Auto) 0 (0-100) /uL Sodium 138 (137-145) mmol/L Potassium 4.3 (3.4-5.1) mmol/L Chloride 104 (98-107) mmol/L Carbon Dioxide 27 (22-32) mmol/L BUN 10 (7-17) mg/dL Creatinine 0.86 (0.52-1.04) mg/dL Estimated GFR > 60 (>60) mL/min BUN/Creatinine Ratio 11.6 (6-22) Glucose 123 H (80-110) mg/dL Calcium 8.8 (8.4-10.2) mg/dL Total Bilirubin 0.6 (0.2-1.3) mg/dL AST 23 (14-36) IU/L ALT 14 (<35) IU/L Alkaline Phosphatase 100 (38-126) U/L Total Protein 6.9 (6.3-8.2) g/dL Albumin 3.8 (3.5-5.0) g/dL Globulin 3.1 (1.7-4.1) g/dL Albumin/Globulin Ratio 1.2 (1.0-2.8) Lipase 24 (23-300) U/L Imaging Data CT scan - abdomen/pelvis: Radiologist's Impression: [address] [address] [address] Scan Report Signed Patient: Luz Maria Cason MR#: [id number] : 1950 Acct:[id number] Age/Sex: 71 / F Date of Service: 11/15/21 Loc: ED Accession Number: [id number] ?? Procedure: CT abdomen pelvis w con Ordering Provider: Thomas Puga D.O. PROCEDURE:? CT ABDOMEN PELVIS W CON ? INDICATIONS:? RIGHT LOWER QUADRANT PAIN ? TECHNIQUE:? After the administration of intravenous contrast, axial sections acquired from the lung bases to the pubic symphysis.? Coronal and sagittal reformats were performed.? For radiation dose reduction, the following was used:? automated exposure control, adjustment of mA and/or kV according to patient size.? ? COMPARISON:? None. ? FINDINGS:? Image quality:? Excellent.? ? Lung bases:? Minor right lung base scarring. Heart:? Normal size heart.? Small pericardial effusion. ? ABDOMEN: Liver:? Unremarkable.? ? Gallbladder:? Surgically absent. Biliary ducts:? Appropriate post cholecystectomy. Pancreas:? Diminutive.? Normal contour. Spleen:? Normal size with two subcentimeter hypodensities, likely cysts. Adrenal Glands:? No nodules. Kidneys and Ureters: Symmetric enhancement.? No nephrolithiasis or hydronephrosis.? No hydroureter. ? Stomach and Bowel:? Increased quantity of solid stool throughout the redundant colon.? Large quantity of solid stool in the rectum.? There is moderate length segment of circumferential wall thickening in the proximal sigmoid colon without signif icant surrounding inflammatory change.? No small bowel dilatation.? The stomach is decompressed. Peritoneum:? Trace fluid in the right posterior adnexa.? No free intraperitoneal air. ? Ventral Wall: Tiny fat containing umbilical hernia.? Abdominal Nodes:? No retroperitoneal or mesenteric adenopathy by size criteria.? Vessels:? Aorta and inferior vena cava are normal in size.? ? PELVIS: Pelvic Organs:? Uterus and ovaries are absent. Bladder:? Normal wall thickness.? No stones. Pelvic Nodes: No enlarged lymph nodes.? Miscellaneous: No hernias are seen. ? ? ? Bones:? Mild L5-S1 disc degeneration. ? ? IMPRESSION:? ? 1. Moderate colonic and rectal obstipation. ? 2. Circumferential wall thickening in the proximal sigmoid colon may indicate colitis, acute or chronic.? No significant surrounding inflammatory change.? ? ? Dictated by: Nohemi Negro M.D. on 11/15/2021 at 8:47 ? ? Approved by: Nohemi Negro M.D. on 11/15/2021 at 8:59 MDM Narrative Medical decision making narrative: The CT scan today did not show any obvious cause of the patient's discomfort. She states she is having normal bowel movements. She is on a current GI regimen secondary to ulcerations in the past. We did discuss that this still could pote ntially be the cause of her issues. There is no indication for any antibiotics. No indication for surgical consultation. She has a follow-up with her primary doctor on Monday of this week. She was given return precautions. She expressed understanding and agreement. Discharge Plan Departure Patient Disposition: Home Clinical Impression: Abdominal pain Instructions: DI for Abdominal Pain-Adult Activity Restrictions/Additional Instructions: I do recommend that you continue to take all of your medications as directed and keep your follow-up appointment that you have with her primary doctor on Monday. Return to the emergency department for any new symptoms. Prescriptions: No Action dexlansoprazole [Dexilant] 60 mg capsule,biphase delayed releas 60 mg PO DAILY Eliquis 5 mg tablet 5 mg PO BID albuterol sulfate [ProAir HFA] 90 mcg/actuation HFA aerosol inhaler 1 puff INHALATION Q6H PRN (Reason: Shortness Of Breath) Qty: 8.5 1RF mirtazapine 45 mg tablet See Rx Instructions .ROUTE .COMPLEX Qty: 90 0RF Dose Instruction: TAKE ONE TABLET BY MOUTH AT BEDTIME Rx Instructions: TAKE ONE TABLET BY MOUTH AT BEDTIME acetaminophen [Tylenol] 325 mg tablet 325 mg PO Q4-6H PRN (Reason: Pain (Scale Score 1-3)) Rx Instructions: TAKES 1 TAB 3 TIMES DAILY cholecalciferol (vitamin D3) 25 mcg (1,000 unit) capsule 25 mcg PO DAILY Centrum Silver Women 8 mg iron-400 mcg-300 mcg tablet 1 tab PO DAILY Referrals: Chip Burgos DO [Primary Care Provider] -
[2021-11-15 08:04] LABS: Add Manual Diff / Slide Review NO; Basophils Absolute Auto 0 /uL (0-100); Eosinophils Absolute Auto 100 /uL (0-450); Eosinophils Percent Auto 3.1 % (2-4); Hematocrit 37.7 % (36-46); Hemoglobin 12.9 g/dL (12.0-16.0); Lymphocytes Absolute Auto 1400 /uL (1100-4500); Lymphocytes Percent Auto 31.1 % (25-40); Mean Corpuscular HGB Conc 34.3 % (30-36); Mean Corpuscular Hemoglobin 29.4 PG (26-34); Mean Corpuscular Volume 85.7 fL (80-100); Monocytes Absolute Auto 300 /uL (0-900); Neutrophils Absolute Auto 2600 /uL (1500-7000); Neutrophils Percent Auto 58.8 % (50-75); Platelet Count 222 X10^3/uL (150-400); Red Cell Distribution Width 13.8 % (11.6-14.8); White Blood Cell Count 4.4 X10^3/uL (4.5-11.0)
[2021-11-15 08:21] LABS: Alanine Aminotransferase 14 IU/L (<35); Albumin 3.8 g/dL (3.5-5.0); Albumin Globulin Ratio 1.2 (1.0-2.8); Alkaline Phosphatase 100 U/L (38-126); Aspartate Aminotransferase 23 IU/L (14-36); BUN Creatinine Ratio 11.6 (6-22); Bilirubin Total 0.6 mg/dL (0.2-1.3); Blood Urea Nitrogen 10 mg/dL (7-17); Calcium 8.8 mg/dL (8.4-10.2); Carbon Dioxide 27 mmol/L (22-32); Chloride 104 mmol/L (98-107); Estimated Glomerular Filt Rate > 60 mL/min (>60); Globulin 3.1 g/dL (1.7-4.1); Glucose 123 mg/dL (80-110); HEMOLYSIS 27 (0-50); Lipase 24 U/L (23-300); Potassium 4.3 mmol/L (3.4-5.1); Sodium 138 mmol/L (137-145); Total Protein 6.9 g/dL (6.3-8.2)
[2021-11-15 08:29] VITALS: PULSE 74; O2SAT 98
[2021-11-15 08:30] VITALS: PULSE 73; O2SAT 99
[2021-11-15] MEDS: SODIUM CHLORIDE 0.9% 1,000 ML 500 ML IV (08:33)
[2021-11-15 08:45] VITALS: BP 124/62; PULSE 71; O2SAT 99
[2021-11-15 09:00] VITALS: BP 121/64; PULSE 70; O2SAT 99
== END 2021-11-15 09:27 | disposition home or self-care (01) ==
PROVIDERS: Emergency Provider Emergency Medicine; PCP Family Medicine
DX: R10.84 Generalized abdominal pain (principal); R30.0 Dysuria
CPT/HCPCS: 36415; 74177; 80053; 83690; 85025; 87086; 99284

== ENCOUNTER 2022-01-03 13:51 | Emergency (ER) | payer MEDICARE, OTHER, SELFPAY ==
[2020-06-24 14:04] VITALS: BMI 23.5
[2022-01-03] VITALS (9 sets, daily range): BP systolic 127–146; BP diastolic 63–76; PULSE 62–81; RESP 13–29; TEMP 36.6; O2SAT 97–100; BMI 21.8
[2022-01-03 14:22] LABS: Add Manual Diff / Slide Review NO; Basophils Absolute Auto 0 /uL (0-100); Basophils Percent Auto 0.5 % (0-2); Eosinophils Absolute Auto 0 /uL (0-450); Eosinophils Percent Auto 0.2 % (2-4); Hematocrit 38.7 % (36-46); Hemoglobin 13.1 g/dL (12.0-16.0); Lymphocytes Absolute Auto 1500 /uL (1100-4500); Mean Corpuscular HGB Conc 33.9 % (30-36); Mean Corpuscular Hemoglobin 29.5 PG (26-34); Mean Corpuscular Volume 86.9 fL (80-100); Monocytes Absolute Auto 300 /uL (0-900); Neutrophils Absolute Auto 3600 /uL (1500-7000); Neutrophils Percent Auto 67.3 % (50-75); Platelet Count 239 X10^3/uL (150-400); Red Blood Cell Count 4.46 X10^6/uL (4.0-5.2); Red Cell Distribution Width 13.8 % (11.6-14.8); White Blood Cell Count 5.4 X10^3/uL (4.5-11.0)
[2022-01-03 14:28] LABS: INR 1.1 (0.9-1.3); Prothrombin Time 12.1 SECONDS (10.1-12.7)
[2022-01-03 14:33] LABS: Alanine Aminotransferase 17 IU/L (<35); Albumin 4.2 g/dL (3.5-5.0); Albumin Globulin Ratio 1.3 (1.0-2.8); Alkaline Phosphatase 119 U/L (38-126); Aspartate Aminotransferase 22 IU/L (14-36); BUN Creatinine Ratio 10.5 (6-22); Bilirubin Total 0.3 mg/dL (0.2-1.3); Blood Urea Nitrogen 9 mg/dL (7-17); Calcium 9.1 mg/dL (8.4-10.2); Carbon Dioxide 30 mmol/L (22-32); Chloride 102 mmol/L (98-107); Estimated Glomerular Filt Rate > 60 mL/min (>60); Globulin 3.2 g/dL (1.7-4.1); Glucose 133 mg/dL (80-110); HEMOLYSIS < 15 (0-50); Lipase 34 U/L (23-300); Potassium 3.8 mmol/L (3.4-5.1); Sodium 141 mmol/L (137-145); Total Protein 7.4 g/dL (6.3-8.2)
--- NOTE | 2022-01-03 15:23 | DI.CT.S_ITS ---
PROCEDURE: CT ABDOMEN PELVIS W CON INDICATIONS: Lower abd pain TECHNIQUE: After the administration of intravenous contrast, axial sections acquired from the lung bases to the pubic symphysis. Coronal and sagittal reformats were performed. For radiation dose reduction, the following was used: automated exposure control, adjustment of mA and/or kV according to patient size. COMPARISON: [facility], CT, CT ABDOMEN PELVIS W CON, 11/15/2021, 8:07. FINDINGS: Image quality: Excellent. Lung bases: Mild bibasilar scarring/atelectasis is again seen. Heart: No significant findings. ABDOMEN: Liver: Unremarkable. Gallbladder: Surgically absent. Biliary ducts: Unremarkable. Pancreas: Unremarkable. Spleen: Normal size with 2 tiny hypodensities unchanged from prior study and likely represent splenic cysts. Adrenal Glands: Unremarkable. Kidneys and Ureters: Bilateral kidneys are normal in size. No hydronephrosis or hydroureter. Stomach and Bowel: There is a small hiatal hernia. Diffuse gastric wall thickening is seen which may be due to under distension. Gastritis cannot be excluded. No definite gastric wall mass. There is no small bowel or colon wall thickening. No mesenteric fat stranding. Appendix is surgically absent. Moderate fecal stasis throughout the colon is seen extending to distal sigmoid colon. Peritoneum: No abnormal intraperitoneal fluid. No free air. Ventral Wall: No hernias. Abdominal Nodes: No retroperitoneal or mesenteric adenopathy by size criteria. Vessels: Aorta and inferior vena cava are normal in size. PELVIS: Pelvic Organs: Unremarkable. Bladder: Unremarkable. Pelvic Nodes: No enlarged lymph nodes. Miscellaneous: No hernias are seen. Bones: No suspicious bony lesions. No acute vertebral body compression fractures. Benign-appearing scar attic foci are noted in bilateral iliac bones unchanged from prior studies. IMPRESSION: 1. Moderate constipation. No gross small bowel or colon wall thickening is seen on the current study. No abscess collection. No free fluid or free air. 2. Small hiatal hernia with diffuse gastric wall thickening concerning for infectious or inflammatory gastritis. No definite gastric wall mass. 3. Other findings as above, not significantly changed from prior study. Dictated by: Aakash Henning M.D. on 01/03/2022 at 15:51 Approved by: Aakash Henning M.D. on 01/03/2022 at 15:58
--- NOTE | 2022-01-03 15:40 | ED.ABDPAIN ---
HPI - Abdominal Pain <Peggy Winkler PA-C - Last Filed: 01/03/22 16:45> General Chief Complaint: Abdominal Pain Stated Complaint: DR Burgos sent her for a scan of stomach Time Seen by Provider: 01/03/22 14:16 Mode of arrival: Family Vehicle History of Present Illness HPI narrative: 71-year-old female with past medical history peptic ulcer, cardiac arrhythmias, TIA, presents to the ED with 6 weeks of lower abdominal pain. Patient was seen in the ED 6 weeks ago for the same symptoms, CT showed constipation and colitis, discharged home. Patient was seen by a GI specialist last week, who asked her to follow-up with her PCP. Patient states that she is here today due to worsening lower abdominal pain since seeing the GI specialist last week, states that she is extremely constipated, had only 1 small bowel movement yesterday. Patient has tried MiraLax for 3 days with limited success. Patient denies fever, chills, nausea, vomiting, chest pain, shortness of breath, dysuria, lightheadedness, dizziness, syncope. Patient also endorses burning in the lower back. Patient spoke with her PCP Dr. Burgos earlier today, who advised her to come to the ED for a CT scan. Related Data Home Medications Medication Instructions Recorded Confirmed acetaminophen 325 mg tablet 325 mg PO Q4-6H PRN Pain (Scale 06/02/20 11/15/21 (Tylenol) Score 1-3) cholecalciferol (vitamin D3) 25 25 mcg PO DAILY 06/02/20 11/15/21 mcg (1,000 unit) capsule apixaban 5 mg tablet (Eliquis) 5 mg PO BID 10/02/20 11/15/21 multivit with 1 tab PO DAILY 11/23/20 11/15/21 [id number] 8 mg iron-400 mcg-300 mcg tablet (Centrum Silver Women) Previous Rx's Medication Instructions Recorded albuterol sulfate 90 mcg/actuation 1 puff inhalation Q6H PRN 04/26/21 aerosol inhaler (ProAir HFA) Shortness Of Breath #8.5 grams dexlansoprazole 60 mg 60 mg PO DAILY #90 caps 11/17/21 capsule,biphase delayed release (Dexilant) mirtazapine 45 mg tablet See Rx Instructions .Route 11/29/21 .COMPLEX #90 tabs Allergies Allergy/AdvReac Type Severity Reaction Status Date / Time fluoxetine Allergy Severe muscle Verified 01/03/22 14:03 weakness codeine Allergy Intermediate Painful Verified 01/03/22 14:03 Bloating meperidine [From Demerol] Allergy Intermediate Vomiting Verified 01/03/22 14:03 lactase [From Dairy Aid] AdvReac Intermediate Gastrointestinal Verified 01/03/22 14:03 Upset prednisone AdvReac Intermediate Shakiness Verified 01/03/22 14:03 Review of Systems <Peggy Winkler PA-C - Last Filed: 01/03/22 16:45> Review of Systems ROS Unobtainable: All systems reviewed & are unremarkable except as noted in HPI and below Constitutional Constitutional: Denies chills, Denies fatigue, Denies fever(s), Denies frequent falls, Denies lethargy and Denies weakness Eyes Eyes: Denies change in vision, Denies eye discharge, Denies irritation and Denies loss of vision ENT Ears, Nose, Mouth, and Throat: Denies change in voice, Denies dizziness, Denies neck pain, Denies sore throat and Denies throat swelling Cardiovascular Cardiovascular: Denies chest pain, Denies irregular heart rhythm, Denies lightheadedness, Denies palpitations, Denies dyspnea, Denies dyspnea on exertion and Denies orthopnea Respiratory Respiratory: Denies cough, Denies dyspnea, Denies dyspnea on exertion and Denies wheezing Gastrointestinal Gastrointestinal: Reports abdominal pain, Denies change in bowel habits, Reports constipation, Denies diarrhea, Denies nausea and Denies vomiting Genitourinary Genitourinary: Denies hematuria, Denies flank pain, Denies urinary incontinence and Denies urinary urgency Musculoskeletal Musculoskeletal: Denies back pain, Denies muscle weakness, Denies neck pain, Denies numbness and Denies tingling Integumentary/Breasts Skin/Breast: Denies pruritus, Denies erythema, Denies rash and Denies wounds Neurologic Neurologic: Denies behavioral changes, Denies confusion, Denies dizziness, Denies frequent falls, Denies loss of vision, Denies numbness, Denies tingling and Denies weakness Psychiatric Psychiatric: Denies anxiety, Denies behavioral changes, Denies confusion, Denies depression, Denies homicidal ideation and Denies suicidal ideation Endocrine Endocrine: Denies fatigue, Denies flushing and Denies palpitations Hematologic/Lymphatic Hematologic/Lymphatic: Denies easy bruising Allergic/Immunologic Allergic/Immunologic: Denies urticaria, Denies throat swelling and Denies wheezing Patient History <Peggy Winkler PA-C - Last Filed: 01/03/22 16:45> Medical History Actinic keratosis Arrhythmia Chicken pox Dairy allergy (~2013) Depression (~2011) Emphysema of lung (~2009) Epilepsy with partial complex seizures Gastric ulcer GERD (gastroesophageal reflux disease) Measles Mumps Muscle weakness (generalized) Ovarian cyst (~1978) Retinal detachment Seborrheic keratosis Seizures (~1989) Skin cancer (~1989) TIA (transient ischemic attack) Well adult exam Surgical History Anesthesia History of Achilles tendon repair (~1963) History of appendectomy History of section (~1980) History of hysterectomy History of tonsillectomy Family History Father Congestive heart failure History of heart disease Stroke Mother Cancer Mental health problem Grandmother Congestive heart failure History of heart disease Stroke Social History household members: spouse Smoking Status: Never smoker second hand exposure: Yes (ages 0-18 ) alcohol intake: former substance use type: does not use Smoking Status: Never smoker alcohol intake frequency: 0-2 drinks per day Substance Use Type: does not use Exam <Peggy Winkler PA-C - Last Filed: 01/03/22 16:45> Narrative Exam Narrative: Const General:?cooperative, healthy appearing and comfortable [facility] Head:?normal to inspection Ears:?hearing grossly normal bilaterally Nose:?external nose normal Face and sinus:?normal facial exam and sinuses nontender Mouth:?oral mucosae normal Throat:?posterior oropharynx normal Eyes General:?appearance normal, both eyes and all related structures Neck Neck:?normal visual inspection and no lymphadenopathy noted Resp Effort & Inspection:?normal respiratory effort Auscultation:?clear to auscultation bilaterally Cardio Rate:?regular rate Rhythm:?regular rhythm GI Abdomen is soft, nondistended, nontender to palpation. Mild right-sided CVA tenderness. Neuro General:?patient alert, patient awake and patient oriented x3 Initial Vital Signs Initial Vital Signs: Vital Signs Temperature 98 F 01/03/22 13:59 Pulse Rate 81 01/03/22 13:59 Respiratory Rate 16 01/03/22 13:59 Blood Pressure 131/76 01/03/22 13:59 Pulse Oximetry 100 01/03/22 13:59 Oxygen Delivery Method 01/03/22 13:59 <Thomas Puga DO - Last Filed: 01/03/22 17:55> Initial Vital Signs Initial Vital Signs: Vital Signs Temperature 98 F 01/03/22 13:59 Pulse Rate 81 01/03/22 13:59 Respiratory Rate 16 01/03/22 13:59 Blood Pressure 131/76 01/03/22 13:59 Pulse Oximetry 100 01/03/22 13:59 Oxygen Delivery Method 01/03/22 13:59 Course <Peggy Winkler PA-C - Last Filed: 01/03/22 16:45> Orders Ordered: ED Orders 01/03/22 14:03 EKG-12 Lead Stat 01/03/22 14:15 Complete Blood Count AUTO DIFF Stat Comprehensive Metabolic Panel Stat Lactate (Lactic Acid) Stat Lipase Stat Prothrombin Time INR Stat 01/03/22 15:23 CT abdomen pelvis w con Stat Discontinued Medications Ketorolac Tromethamine (Ketorolac 30 Mg/Ml Vial) 15 mg IV NOW ONE Stop: 01/03/22 15:28 Last Admin: 01/03/22 15:51 Dose: 15 mg Documented By: SB Vital Signs Vital signs: Vital Signs - 8 hr 01/03/22 13:59 01/03/22 14:38 01/03/22 14:39 Temperature 98 F Pulse Rate 81 72 Respiratory Rate 16 Blood Pressure 131/76 129/63 Pulse Oximetry 100 98 Oxygen Delivery Method Room Air 01/03/22 14:39 01/03/22 15:00 01/03/22 15:08 Temperature Pulse Rate 70 73 71 Respiratory Rate 29 H Blood Pressure Pulse Oximetry 98 100 100 Oxygen Delivery Method 01/03/22 15:08 01/03/22 15:30 01/03/22 15:30 Temperature Pulse Rate 65 Respiratory Rate Blood Pressure 142/75 H 127/67 Pulse Oximetry 97 Oxygen Delivery Method 01/03/22 15:55 01/03/22 15:55 01/03/22 16:00 Temperature Pulse Rate 62 Respiratory Rate 13 Blood Pressure 136/64 134/63 Pulse Oximetry 99 Oxygen Delivery Method 01/03/22 16:00 01/03/22 16:30 01/03/22 16:30 Temperature Pulse Rate 66 77 Respiratory Rate 27 H Blood Pressure 146/65 H Pulse Oximetry 99 98 Oxygen Delivery Method <Thomas Puga DO - Last Filed: 01/03/22 17:55> Orders Ordered: ED Orders 01/03/22 14:03 EKG-12 Lead Stat 01/03/22 14:15 Complete Blood Count AUTO DIFF Stat Comprehensive Metabolic Panel Stat Lactate (Lactic Acid) Stat Lipase Stat Prothrombin Time INR Stat 01/03/22 15:23 CT abdomen pelvis w con Stat Discontinued Medications Ketorolac Tromethamine (Ketorolac 30 Mg/Ml Vial) 15 mg IV NOW ONE Stop: 01/03/22 15:28 Last Admin: 01/03/22 15:51 Dose: 15 mg Documented By: SB Vital Signs Vital signs: Vital Signs - 8 hr 01/03/22 13:59 01/03/22 14:38 01/03/22 14:39 Temperature 98 F Pulse Rate 81 72 Respiratory Rate 16 Blood Pressure 131/76 129/63 Pulse Oximetry 100 98 Oxygen Delivery Method Room Air 01/03/22 14:39 01/03/22 15:00 01/03/22 15:08 Temperature Pulse Rate 70 73 71 Respiratory Rate 29 H Blood Pressure Pulse Oximetry 98 100 100 Oxygen Delivery Method 01/03/22 15:08 01/03/22 15:30 01/03/22 15:30 Temperature Pulse Rate 65 Respiratory Rate Blood Pressure 142/75 H 127/67 Pulse Oximetry 97 Oxygen Delivery Method 01/03/22 15:55 01/03/22 15:55 01/03/22 16:00 Temperature Pulse Rate 62 Respiratory Rate 13 Blood Pressure 136/64 134/63 Pulse Oximetry 99 Oxygen Delivery Method 01/03/22 16:00 01/03/22 16:30 01/03/22 16:30 Temperature Pulse Rate 66 77 Respiratory Rate 27 H Blood Pressure 146/65 H Pulse Oximetry 99 98 Oxygen Delivery Method MDM - Abdominal Pain <Peggy Winkler PA-C - Last Filed: 01/03/22 16:45> Lab Data Result diagrams: 01/03/22 14:15 01/03/22 14:15 Labs: Lab Results 01/03/22 01/03/22 01/03/22 Range/Units 14:15 14:15 14:15 WBC 5.4 (4.5-11.0) X10^3/uL RBC 4.46 (4.0-5.2) X10^6/uL Hgb 13.1 (12.0-16.0) g/dL Hct 38.7 (36-46) % MCV 86.9 (80-100) fL MCH 29.5 (26-34) PG MCHC 33.9 (30-36) % RDW 13.8 (11.6-14.8) % Plt Count 239 (150-400) X10^3/uL Neut % (Auto) 67.3 (50-75) % Lymph % (Auto) 27.0 (25-40) % [place] % (Auto) 5.0 (3-14) % Eos % (Auto) 0.2 L (2-4) % Baso % (Auto) 0.5 (0-2) % Neut # (Auto) 3600 (9860-0989) /uL Lymph # (Auto) 1500 (3083-5074) /uL [place] # (Auto) 300 (0-900) /uL Eos # (Auto) 0 (0-450) /uL Baso # (Auto) 0 (0-100) /uL PT 12.1 (10.1-12.7) SECONDS INR 1.1 (0.9-1.3) Sodium 141 (137-145) mmol/L Potassium 3.8 (3.4-5.1) mmol/L Chloride 102 (98-107) mmol/L Carbon Dioxide 30 (22-32) mmol/L BUN 9 (7-17) mg/dL Creatinine 0.86 (0.52-1.04) mg/dL Estimated GFR > 60 (>60) mL/min BUN/Creatinine Ratio 10.5 (6-22) Glucose 133 H (80-110) mg/dL Lactate (0.7-2.1) mmol/L Calcium 9.1 (8.4-10.2) mg/dL Total Bilirubin 0.3 (0.2-1.3) mg/dL AST 22 (14-36) IU/L ALT 17 (<35) IU/L Alkaline Phosphatase 119 (38-126) U/L Total Protein 7.4 (6.3-8.2) g/dL Albumin 4.2 (3.5-5.0) g/dL Globulin 3.2 (1.7-4.1) g/dL Albumin/Globulin Ratio 1.3 (1.0-2.8) Lipase 34 (23-300) U/L 01/03/22 Range/Units 14:15 WBC (4.5-11.0) X10^3/uL RBC (4.0-5.2) X10^6/uL Hgb (12.0-16.0) g/dL Hct (36-46) % MCV (80-100) fL MCH (26-34) PG MCHC (30-36) % RDW (11.6-14.8) % Plt Count (150-400) X10^3/uL Neut % (Auto) (50-75) % Lymph % (Auto) (25-40) % [place] % (Auto) (3-14) % Eos % (Auto) (2-4) % Baso % (Auto) (0-2) % Neut # (Auto) (9357-0107) /uL Lymph # (Auto) (9476-4493) /uL [place] # (Auto) (0-900) /uL Eos # (Auto) (0-450) /uL Baso # (Auto) (0-100) /uL PT (10.1-12.7) SECONDS INR (0.9-1.3) Sodium (137-145) mmol/L Potassium (3.4-5.1) mmol/L Chloride (98-107) mmol/L Carbon Dioxide (22-32) mmol/L BUN (7-17) mg/dL Creatinine (0.52-1.04) mg/dL Estimated GFR (>60) mL/min BUN/Creatinine Ratio (6-22) Glucose (80-110) mg/dL Lactate 1.3 (0.7-2.1) mmol/L Calcium (8.4-10.2) mg/dL Total Bilirubin (0.2-1.3) mg/dL AST (14-36) IU/L ALT (<35) IU/L Alkaline Phosphatase (38-126) U/L Total Protein (6.3-8.2) g/dL Albumin (3.5-5.0) g/dL Globulin (1.7-4.1) g/dL Albumin/Globulin Ratio (1.0-2.8) Lipase (23-300) U/L Point of care testing: Urine Dip Bedside Urine Glucose Negative Bedside Urine Bilirubin - Negative Bedside Urine Ketone - Negative Urine Specific [place] 1.005 Bedside Urine Occult Blood - Negative Bedside Urine pH 7.0 Bedside Urine Protein - Negative Bedside Urine Urobilinogen - Negative Bedside Urine Nitrite - Negative Bedside Urine Leukocytes - Negative Esterase Imaging Data CT scan - abdomen/pelvis: Radiologist's Impression: PROCEDURE:? CT ABDOMEN PELVIS W CON ? INDICATIONS:? Lower abd pain ? TECHNIQUE:? After the administration of intravenous contrast, axial sections acquired from the lung bases to the pubic symphysis.? Coronal and sagittal reformats were performed.? For radiation dose reduction, the following was used:? automated exposure control, adjustment of mA and/or kV according to patient size.? ? COMPARISON:? [facility], CT, CT ABDOMEN PELVIS W CON, 11/15/2021, 8:07. ? FINDINGS:? Image quality:? Excellent.? ? Lung bases:? Mild bibasilar scarring/atelectasis is again seen. Heart:? No significant findings. ? ABDOMEN: Liver:? Unremarkable.? ? Gallbladder:? Surgically absent. Biliary ducts:? Unremarkable.? ? Pancreas:? Unremarkable.? ? Spleen:? Normal size with 2 tiny hypodensities unchanged from prior study and likely represent splenic cysts.? ? Adrenal Glands:? Unremarkable.? ? Kidneys and Ureters:? Bilateral kidneys are normal in size.? No hydronephrosis or hydroureter. ? Stomach and Bowel:? There is a small hiatal hernia.? Diffuse gastric wall thickening is seen which may be due to under distension.? Gastritis cannot be excluded.? No definite gastric wall mass.? There is no small bowel or colon wall thickening.? No mesenteric fat stranding.? Appendix is surgically absent.? Moderate fecal stasis throughout the colon is seen extending to distal sigmoid colon. Peritoneum:? No abnormal intraperitoneal fluid.? No free air.? ? Ventral Wall: ? No hernias.? Abdominal Nodes:? No retroperitoneal or mesenteric adenopathy by size criteria.? Vessels:? Aorta and inferior vena cava are normal in size.? ? PELVIS: Pelvic Organs:? Unremarkable.? ? Bladder:? Unremarkable.? ? Pelvic Nodes: No enlarged lymph nodes.? Miscellaneous: No hernias are seen. ? ? ? Bones:? No suspicious bony lesions.? No acute vertebral body compression fractures.? Benign-appearing scar attic foci are noted in bilateral iliac bones unchanged from prior studies. ? ? IMPRESSION:? 1.? Moderate constipation.? No gross small bowel or colon wall thickening is seen on the current study.? No abscess collection.? No free fluid or free air. 2. Small hiatal hernia with diffuse gastric wall thickening concerning for infectious or inflammatory gastritis.? No definite gastric wall mass. 3. Other findings as above, not significantly changed from prior study.? ? ? Dictated by: Aakash Henning M.D. on 01/03/2022 at 15:51 ? ? Approved by: Aakash Henning M.D. on 01/03/2022 at 15:58 ? MDM Narrative Medical decision making narrative: 71-year-old female with past medical history peptic ulcer, cardiac arrhythmias, TIA, presents to the ED with 6 weeks of lower abdominal pain. Concern for constipation versus diverticulitis versus other intra-abdominal pathology versus UTI versus other. Will obtain labs, lactate, lipase, UA, CT abdomen pelvis. Will treat pain with ketorolac. Will reassess. Labs, urine within normal limits. CT shows moderate constipation, inguinal hernia, gastritis. Patient's symptoms likely due to the constipation. Recommend magnesium citrate, MiraLax for bowel regimen. ED return precautions discussed with patient. Patient verbalized understanding. <Thomas Puga DO - Last Filed: 01/03/22 17:55> Lab Data Labs: Lab Results 01/03/22 01/03/22 01/03/22 Range/Units 14:15 14:15 14:15 WBC 5.4 (4.5-11.0) X10^3/uL RBC 4.46 (4.0-5.2) X10^6/uL Hgb 13.1 (12.0-16.0) g/dL Hct 38.7 (36-46) % MCV 86.9 (80-100) fL MCH 29.5 (26-34) PG MCHC 33.9 (30-36) % RDW 13.8 (11.6-14.8) % Plt Count 239 (150-400) X10^3/uL Neut % (Auto) 67.3 (50-75) % Lymph % (Auto) 27.0 (25-40) % [place] % (Auto) 5.0 (3-14) % Eos % (Auto) 0.2 L (2-4) % Baso % (Auto) 0.5 (0-2) % Neut # (Auto) 3600 (9845-7637) /uL Lymph # (Auto) 1500 (5206-6499) /uL [place] # (Auto) 300 (0-900) /uL Eos # (Auto) 0 (0-450) /uL Baso # (Auto) 0 (0-100) /uL PT 12.1 (10.1-12.7) SECONDS INR 1.1 (0.9-1.3) Sodium 141 (137-145) mmol/L Potassium 3.8 (3.4-5.1) mmol/L Chloride 102 (98-107) mmol/L Carbon Dioxide 30 (22-32) mmol/L BUN 9 (7-17) mg/dL Creatinine 0.86 (0.52-1.04) mg/dL Estimated GFR > 60 (>60) mL/min BUN/Creatinine Ratio 10.5 (6-22) Glucose 133 H (80-110) mg/dL Lactate (0.7-2.1) mmol/L Calcium 9.1 (8.4-10.2) mg/dL Total Bilirubin 0.3 (0.2-1.3) mg/dL AST 22 (14-36) IU/L ALT 17 (<35) IU/L Alkaline Phosphatase 119 (38-126) U/L Total Protein 7.4 (6.3-8.2) g/dL Albumin 4.2 (3.5-5.0) g/dL Globulin 3.2 (1.7-4.1) g/dL Albumin/Globulin Ratio 1.3 (1.0-2.8) Lipase 34 (23-300) U/L 01/03/22 Range/Units 14:15 WBC (4.5-11.0) X10^3/uL RBC (4.0-5.2) X10^6/uL Hgb (12.0-16.0) g/dL Hct (36-46) % MCV (80-100) fL MCH (26-34) PG MCHC (30-36) % RDW (11.6-14.8) % Plt Count (150-400) X10^3/uL Neut % (Auto) (50-75) % Lymph % (Auto) (25-40) % [place] % (Auto) (3-14) % Eos % (Auto) (2-4) % Baso % (Auto) (0-2) % Neut # (Auto) (2439-2851) /uL Lymph # (Auto) (2943-9578) /uL [place] # (Auto) (0-900) /uL Eos # (Auto) (0-450) /uL Baso # (Auto) (0-100) /uL PT (10.1-12.7) SECONDS INR (0.9-1.3) Sodium (137-145) mmol/L Potassium (3.4-5.1) mmol/L Chloride (98-107) mmol/L Carbon Dioxide (22-32) mmol/L BUN (7-17) mg/dL Creatinine (0.52-1.04) mg/dL Estimated GFR (>60) mL/min BUN/Creatinine Ratio (6-22) Glucose (80-110) mg/dL Lactate 1.3 (0.7-2.1) mmol/L Calcium (8.4-10.2) mg/dL Total Bilirubin (0.2-1.3) mg/dL AST (14-36) IU/L ALT (<35) IU/L Alkaline Phosphatase (38-126) U/L Total Protein (6.3-8.2) g/dL Albumin (3.5-5.0) g/dL Globulin (1.7-4.1) g/dL Albumin/Globulin Ratio (1.0-2.8) Lipase (23-300) U/L Point of care testing: Urine Dip Bedside Urine Glucose Negative Bedside Urine Bilirubin - Negative Bedside Urine Ketone - Negative Urine Specific [place] 1.005 Bedside Urine Occult Blood - Negative Bedside Urine pH 7.0 Bedside Urine Protein - Negative Bedside Urine Urobilinogen - Negative Bedside Urine Nitrite - Negative Bedside Urine Leukocytes - Negative Esterase Discharge Plan Departure Patient Disposition: Home Clinical Impression: Abdominal pain Instructions: DI for Abdominal Pain-Adult, DI for Constipation Activity Restrictions/Additional Instructions: You were evaluated in the ED today for abdominal pain and constipation. Your labs, urine were normal. Your CT abdomen pelvis shows mild constipation, which may contribute her symptoms. CT also shows a hiatal hernia with some inflammation of the stomach which is gastritis, however this is not the cause of your symptoms. You may treat your constipation with magnesium citrate 300 mg. Please also continue taking the MiraLax daily. Please follow-up with your PCP and GI specialist for the hernia and gastritis. Return to the ED if your symptoms worsen, you experience uncontrollable vomiting, chest pain, shortness of breath. Prescriptions: No Action Eliquis 5 mg tablet 5 mg PO BID albuterol sulfate [ProAir HFA] 90 mcg/actuation HFA aerosol inhaler 1 puff INHALATION Q6H PRN (Reason: Shortness Of Breath) Qty: 8.5 1RF mirtazapine 45 mg tablet See Rx Instructions .ROUTE .COMPLEX Qty: 90 0RF Dose Instruction: TAKE ONE TABLET BY MOUTH AT BEDTIME Rx Instructions: TAKE ONE TABLET BY MOUTH AT BEDTIME acetaminophen [Tylenol] 325 mg tablet 325 mg PO Q4-6H PRN (Reason: Pain (Scale Score 1-3)) Rx Instructions: TAKES 1 TAB 3 TIMES DAILY cholecalciferol (vitamin D3) 25 mcg (1,000 unit) capsule 25 mcg PO DAILY dexlansoprazole [Dexilant] 60 mg capsule,biphase delayed releas 60 mg PO DAILY Qty: 90 3RF Centrum Silver Women 8 mg iron-400 mcg-300 mcg tablet 1 tab PO DAILY Referrals: Chip Burgos DO [Primary Care Provider] - Visit Report Forms: Patient Portal/API <Thomas Puga DO - Last Filed: 01/03/22 17:55> [facility] Dr Puga Co-Sign Statement: I was available for consultation during this patient's emergency department visit. This chart is signed by myself for administrative purposes only. I did not have direct contact with this patient during this visit. They were seen independently by the APC.
[2022-01-03] MEDS: KETOROLAC 30 MG/ML VIAL 15 MG IV (15:51)
[2022-01-03 16:00] LABS: Lactate (Lactic Acid) 1.3 mmol/L (0.7-2.1)
== END 2022-01-03 16:50 | disposition home or self-care (01) ==
PROVIDERS: Emergency Medicine; Emergency Provider Student in an Organized Health Care Education/Training Program; PCP Family Medicine
DX: R10.30 Lower abdominal pain, unspecified (principal); R94.31 Abnormal electrocardiogram [ECG] [EKG]
CPT/HCPCS: 36415; 74177; 80053; 81003; 83605; 83690; 85025; 85610; 93005; 93010; 96374; 99284; J1885; Q9967

== ENCOUNTER → 2022-02-08 09:09 | Outpatient (CLI) | payer MEDICARE, OTHER, SELFPAY ==
[2020-06-24 14:04] VITALS: BMI 23.5
[2022-02-08 11:02] LABS: COVID19 -Nasal RAPID Negative (Negative)
== END ==
PROVIDERS: PCP Family Medicine; Visit Provider Surgery
DX: Z01.812 Encounter for preprocedural laboratory examination (principal); Z20.822 Contact with and (suspected) exposure to COVID-19
CPT/HCPCS: 87635; C9803

== ENCOUNTER 2022-02-09 11:50 | Day surgery (SDC) | payer MEDICARE, OTHER, SELFPAY ==
[2020-06-24 14:04] VITALS: BMI 23.5
--- NOTE | 2022-02-09 | PATH_ITS ---
[facility] Accession Number: [id number] . 01 Material submitted: . cecum - CECAL POLYP . 01 Diagnosis: Cecal Polyp, Biopsy: Tubular adenoma. [facility] 02/11/2022 1431 Local . 01 Electronically signed: . Elizabeth Amaya MD, Pathologist NPI- [id number] . 01 Gross description: . CECAL POLYP: Received in formalin is 1 fragment(s) of flynn, soft tissue measuring 0.2 x 0.2 x 0.2 cm submitted entirely in 1 cassette(s) /DANIEL 02/10/2022 1833 Local . 01 Pathologist provided ICD-10: D12.0 . 01 CPT . 722056 Specimen Comment: A courtesy copy of this report has been sent to [phone] Performed at: 01 [facility] [address] [place] [address] [id number] MD Magnus Barrett MD Phone: [phone]
[2022-02-09 12:29] VITALS: BMI 20.5
[2022-02-09 12:33] VITALS: BP 115/71; PULSE 68; RESP 12; TEMP 36.5; O2SAT 100
[2022-02-09] MEDS: LACTATED RINGERS 1,000 ML 42 ML IV (12:56)
--- NOTE | 2022-02-09 13:22 | PM.HP.1 ---
History of Present Illness History of Present Illness Chief complaint: DX COLONOSCOPY W/POSS BX Narrative: Abdominal pain, history of gastric ulcers, abnormal CT Patient History Medical History Actinic keratosis Arrhythmia Chicken pox Dairy allergy (~2013) Depression (~2011) Emphysema of lung (~2009) Epilepsy with partial complex seizures Gastric ulcer GERD (gastroesophageal reflux disease) Measles Mumps Muscle weakness (generalized) Ovarian cyst (~1978) Retinal detachment Seborrheic keratosis Seizures (~1989) Skin cancer (~1989) TIA (transient ischemic attack) Well adult exam Surgical History Anesthesia History of Achilles tendon repair (~1963) History of appendectomy History of section (~1980) History of hysterectomy History of tonsillectomy Family & Social History Family History Father Congestive heart failure History of heart disease Stroke Mother Cancer Mental health problem Grandmother Congestive heart failure History of heart disease Stroke Social History: household members spouse Tobacco & Substance use: Smoking Status Never smoker alcohol intake former alcohol intake frequency 0-2 drinks per day Substance Use Type does not use Meds Home Medications and Allergies Home Medications Medication Instructions Recorded Confirmed Type acetaminophen 325 mg tablet 325 mg PO Q4-6H PRN Pain (Scale 06/02/20 02/09/22 History (Tylenol) Score 1-3) cholecalciferol (vitamin D3) 25 25 mcg PO DAILY 06/02/20 02/09/22 History mcg (1,000 unit) capsule apixaban 5 mg tablet (Eliquis) 5 mg PO BID 10/02/20 02/09/22 History multivit with 1 tab PO DAILY 11/23/20 02/09/22 History mexjpsce-ihdn-DE-lutein 8 mg iron-400 mcg-300 mcg tablet (Centrum Silver Women) albuterol sulfate 90 mcg/actuation 1 puff inhalation Q6H PRN 04/26/21 02/09/22 Rx aerosol inhaler (ProAir HFA) Shortness Of Breath #8.5 grams mirtazapine 45 mg tablet 45 mg PO DAILY 02/09/22 02/09/22 History Allergies Allergy/AdvReac Type Severity Reaction Status Date / Time fluoxetine Allergy Severe muscle Verified 02/09/22 12:27 weakness codeine Allergy Intermediate Painful Verified 02/09/22 12:27 Bloating meperidine [From Demerol] Allergy Intermediate Vomiting Verified 02/09/22 12:27 lactase [From Dairy Aid] AdvReac Intermediate Gastrointestinal Verified 02/09/22 12:27 Upset prednisone AdvReac Intermediate Shakiness Verified 02/09/22 12:27 Review of Systems Review of Systems Narrative: Negative Exam Vital Signs (past 8 hours): - 02/09/22 12:33 Temperature 97.7 F Pulse Rate 68 Respiratory Rate 12 Blood Pressure 115/71 Pulse Oximetry 100 Oxygen Delivery Method Room Air Oxygen Delivery Method Room Air Narrative Exam Narrative: Awake alert and oriented x3, pupils equal round reactive to light, oropharynx clear, heart regular rate and rhythm, lungs clear to auscultation bilaterally, abdomen nontender and nondistended, extremities without edema, no gross neurologic deficits noted Assessment & Plan Assessment & Plan narrative: History of gastric ulcers, abdominal pain, abnormal CT with thickening of sigmoid colon wall, change in bowel habits for EGD and colonoscopy today Time Spent With Patient Critical Care time: I spent a total of [] minutes of critical care time on this patient's care today; this time is exclusive of procedural time.
--- NOTE | 2022-02-09 13:30 | PM.OP.EGD ---
Operative Date/Time/Diagnoses Date of procedure: 02/09/22 Procedure & Clinicians Study performed: Diagnostic EGD Indications: Abdominal pain. History of gastric ulcers. Procedure Notes Procedure in detail: Prior to the procedure, history and physical was performed, and patient medications and allergies were reviewed. Preprocedure nursing history and assessment was reviewed. Patient identification and proposed procedure were verified by the physician and nurse in the procedure room. The physical status of the patient was reassessed after the procedure. After informed consent was obtained including risks, benefits, and alternatives, the scope was passed under direct vision. Throughout the procedure, the patient's blood pressure, pulse, and oxygen saturations were monitored continuously. The upper endoscope was introduced through the mouth and advanced to the 2nd portion of the duodenum. Retroflexion was performed in the stomach. The patient tolerated the procedure well. The entire examined esophagus was normal appearing. Z-line was regular and was located at 37 cm from the incisors. Hill grade II GE flap configuration. The entire examined stomach was normal appearing. First and 2nd portions of the duodenum were normal appearing. Impression: Normal appearing esophagus. Regular Z-line. Normal appearing stomach. Normal-appearing examined duodenum Complications: other (No complications. EBL 0) Post-procedure Plan for aftercare: Proceed with colonoscopy today Follow anti-reflux precautions
--- NOTE | 2022-02-09 13:49 | P.OP.COLON_ITS ---
Operative Date/Time/Diagnoses Date of procedure: 02/09/22 Procedure & Clinicians Study performed: Colonoscopy with snare polypectomy Indications: Abnormal CT scan colonic wall thickening at the sigmoid colon. History of constipation. Personal history of colon polyps. Last colonoscopy was done in 2017. Procedure Notes Procedure in detail: Prior to the procedure, history and physical was performed, and patient medications and allergies were reviewed. Preprocedure nursing history and assessment was reviewed. Patient identification and proposed procedure were verified by the physician and nurse in the procedure room. The physical status of the patient was reassessed after the procedure. After informed consent was obtained including risks, benefits, and alternatives, the scope was passed under direct vision. Throughout the procedure, the patient's blood pressure, pulse, and oxygen saturations were monitored continuously. The colonoscope was introdu jaleesa through the anus and advanced to the cecum as identified by the appendiceal orifice and ileocecal valve. The patient tolerated the procedure well. Bowel prep was deemed adequate to detect polyps greater than 5 mm. ANNA and perianal examinations were unremarkable. Retroflexion in the rectum revealed grade 1 internal hemorrhoids A 5 mm sessile polyp was detected in the cecum and was resected and retrieved Impression: Internal hemorrhoids 5 mm sessile polyp removed from the cecum Complications: other (EBL minimal. No complications) Post-procedure Plan for aftercare: Follow-up pathology results Repeat colonoscopy at a date to be determined based on pathology results Resume home medications Resume previous diet Patient has a contact number available for emergencies. The signs and symptoms of potential delayed complications were discussed with the patient. Return to normal activities tomorrow. Written discharge instructions were provided to the patient. Discharge home with escort
[2022-02-09 13:56] VITALS: BP 114/60; PULSE 54; RESP 12; O2SAT 99
[2022-02-09 14:01] VITALS: BP 122/63; PULSE 57; RESP 12; O2SAT 100
[2022-02-09 14:06] VITALS: BP 100/55; PULSE 58; RESP 14; TEMP 36.3; O2SAT 100
[2022-02-09 14:07] VITALS: BP 118/55; PULSE 56; RESP 14; TEMP 36.2; O2SAT 100
[2022-02-09 14:18] VITALS: BP 128/72; PULSE 59; RESP 12; TEMP 36.5; O2SAT 97
== END 2022-02-09 15:11 | disposition home or self-care (01) ==
PROVIDERS: PCP Family Medicine; Referring Provider Internal Medicine; Visit Provider Internal Medicine
PROC: 0DJD8ZZ Inspection of Lower Intestinal Tract, Via Natural or Artificial Opening Endoscopic (ICD-10-PCS; CPT 45378; principal; 2022-02-09 13:00)
PROC: 0DJ08ZZ Inspection of Upper Intestinal Tract, Via Natural or Artificial Opening Endoscopic (ICD-10-PCS; CPT 43235; 2022-02-09 13:00)
DX: R93.3 Abnormal findings on diagnostic imaging of other parts of digestive tract (principal); Z86.010 Personal history of colon polyps; K64.0 First degree hemorrhoids; D12.0 Benign neoplasm of cecum
CPT/HCPCS: 45385; J2704; J3010

== ENCOUNTER → 2022-02-18 10:57 | Outpatient (CLI) | payer MEDICARE, OTHER, SELFPAY ==
[2020-06-24 14:04] VITALS: BMI 23.5
--- NOTE | 2022-02-18 10:58 | DI.MG.S_ITS ---
BILATERAL DIGITAL SCREENING MAMMOGRAM 3D/2D WITH CAD: 02/18/2022 CLINICAL: Routine screening. Family history of breast cancer. Comparison is made to exams dated: 02/17/2021 mammogram, 01/02/2020 mammogram, 04/11/2018 mammogram - [facility], and 02/21/2017 mammogram - [facility]. Both breasts are heterogeneously dense, which may obscure small masses (category c / 51-75% glandular tissue). Current study was also evaluated with a Computer Aided Detection (CAD) system. No significant masses, calcifications, or other findings are seen in either breast. There has been no significant interval change. IMPRESSION: NEGATIVE There is no mammographic evidence of malignancy. A 1 year screening mammogram is recommended. Based on the Tyrer Cuzick model (a risk assessment model) the patient's lifetime risk is 10.0% and her 10 year risk is 6.9%. According to the ACR, ACS, and NCCN guidelines, an annual breast MRI exam along with mammogram is recommended if the patient's lifetime risk is 20% or greater. This exam was interpreted at Station ID: [id number]. NOTE: For mammograms, a report in lay terms will be sent to the patient. Approximately 15% of breast malignancies will not be visualized mammographically. In the management of a palpable breast mass, a negative mammogram must not discourage biopsy of a clinically suspicious lesion. Electronically Signed By: Isak [email or web address]/bo:02/18/2022 11:54:29 letter sent: Normal Exam ACR BI-RADS Category 1: Negative 3341F
== END ==
PROVIDERS: PCP Family Medicine; Referring Provider Family Medicine; Visit Provider Family Medicine
DX: Z12.31 Encounter for screening mammogram for malignant neoplasm of breast (principal); Z80.3 Family history of malignant neoplasm of breast
CPT/HCPCS: 77063; 77067

== ENCOUNTER → 2022-06-23 15:22 | Outpatient (CLI) | payer MEDICARE, OTHER, SELFPAY ==
[2020-06-24 14:04] VITALS: BMI 23.5
--- NOTE | 2022-07-05 07:58 | PM.PFT.1 ---
Pulmonary Function Test Referral & Results Date Patient Seen: 06/23/22 Results: The spirometry demonstrates an FVC of 3.70 L which is 103% of predicted. The FEV1 was measured at 2.35 L which is 86% of predicted. The FEV1/FVC ratio was 64 which is 83% of predicted. Following the administration of bronchodilator there was 34% improvement in FEF 25-75%. Lung volumes show an SVC of 3.66 L which is 109% of predicted. The diffusing capacity was measured at 22.07 which is 71% of predicted. No hemoglobin value was provided, so no correction for potential anemia could be made, if appropriate. The maximum voluntary ventilation was minimally reduced Interpretation: This study demonstrates possibly very mild obstructive lung disease based on reduction FEV1 as well as FEV1/FVC ratio. There is evidence of minimal benefit particularly small airway flow following bronchodilator administration Lung volumes are normal There is a mild reduction in diffusing capacity, suggesting the possibility of disease at the capillary alveolar level Clinical correlation suggested
== END ==
PROVIDERS: PCP Family Medicine; Referring Provider Family Medicine; Visit Provider Family Medicine
DX: J44.9 Chronic obstructive pulmonary disease, unspecified (principal); J98.8 Other specified respiratory disorders
CPT/HCPCS: 94060; 94726; 94729

== ENCOUNTER → 2022-10-17 10:26 | Outpatient (CLI) | payer MEDICARE, OTHER, SELFPAY ==
[2022-09-06 10:15] VITALS: BMI 23.5
--- NOTE | 2022-10-17 10:28 | DI.CT.S_ITS ---
PROCEDURE: CT CHEST WO CON INDICATIONS: emphysema TECHNIQUE: Noncontrast 5 mm thick sections acquired from the pulmonary apices to the posterior costophrenic angles. 1 mm lung window, 5 mm thick coronal and sagittal and 7 mm axial MIP reformats were then acquired. For radiation dose reduction, the following was used: automated exposure control, adjustment of mA and/or kV according to patient size. COMPARISON: None. FINDINGS: Image quality: Excellent. Lungs and pleura: Bibasilar atelectasis. Irregular nodularity in the right upper lobe measuring 1.1 cm (3/36). Additional sub 6 mm scattered pulmonary nodules, for example in the right upper lobe 3 mm nodule (3/90, MIP image 46), right upper lobe 2 mm nodule (3/97, MIP image 50), and left upper lobe 4 mm nodule (3/62, MIP image 30). No pleural effusions or pneumothorax. Central and peripheral airways are patent and normal in caliber. Mediastinum: Heart size is normal. No pericardial effusion. No mediastinal adenopathy by size criteria. Thoracic aorta and central pulmonary arteries are normal in size. Esophagus is normal in caliber. No hiatal hernia. Bones and chest wall: No suspicious bony lesions. Hyperdense focus in the T4 vertebral body, likely a bone island (6/37). No vertebral body compression fractures. No axillary or supraclavicular adenopathy by size criteria. Subcentimeter right thyroid gland nodule. No imaging follow-up is recommended. Abdomen: Visualized upper abdominal solid organs and bowel loops appear normal in the absence of contrast. IMPRESSION: No CT evidence of emphysematous changes in the lungs. Right upper lobe 1.1 cm irregular nodule. Additional sub 6 mm scattered pulmonary nodules as above. Recommend follow-up CT in 3 months to demonstrate stability. Approved by: Simi Fan M.D. on 10/17/2022 at 16:28
[2022-10-17 12:30] LABS: Hemoglobin A1C% w Est Avg Glu 5.2 % (4.0-6.0)
[2022-10-17 12:39] LABS: Alanine Aminotransferase 17 IU/L (<35); Albumin Globulin Ratio 1.5 (1.0-2.8); Alkaline Phosphatase 123 U/L (38-126); Aspartate Aminotransferase 24 IU/L (14-36); Bilirubin Total 0.5 mg/dL (0.2-1.3); Blood Urea Nitrogen 10 mg/dL (7-17); Calcium 9.4 mg/dL (8.4-10.2); Carbon Dioxide 28 mmol/L (22-32); Chloride 103 mmol/L (98-107); Estimated Glomerular Filt Rate > 60 mL/min (>60); Globulin 2.6 g/dL (1.7-4.1); Glucose 91 mg/dL (80-110); HEMOLYSIS < 15 (0-50); Potassium 4.1 mmol/L (3.4-5.1); Sodium 139 mmol/L (137-145); Total Protein 6.6 g/dL (6.3-8.2)
== END ==
PROVIDERS: PCP Family Medicine; Referring Provider Internal Medicine Sleep Medicine; Visit Provider Internal Medicine Sleep Medicine
DX: R73.9 Hyperglycemia, unspecified (principal); R91.8 Other nonspecific abnormal finding of lung field; C44.90 Unspecified malignant neoplasm of skin, unspecified; J45.909 Unspecified asthma, uncomplicated; Z86.010 Personal history of colon polyps
CPT/HCPCS: 36415; 71250; 80053; 83036

== ENCOUNTER → 2023-01-05 07:44 | Outpatient (CLI) | payer MEDICARE, OTHER, SELFPAY ==
[2022-09-06 10:15] VITALS: BMI 23.5
--- NOTE | 2023-01-05 07:45 | DI.CT.S_ITS ---
PROCEDURE: CT CHEST WO CON INDICATIONS: emphysema TECHNIQUE: Noncontrast 5 mm thick sections acquired from the pulmonary apices to the posterior costophrenic angles. 1 mm lung window, 5 mm thick coronal and sagittal and 7 mm axial MIP reformats were then acquired. For radiation dose reduction, the following was used: automated exposure control, adjustment of mA and/or kV according to patient size. COMPARISON: [facility], CT, CT CHEST WO CON, 10/17/2022, 10:47. FINDINGS: Image quality: Excellent. Lungs and pleura: Stable curvilinear nodule in the right upper lobe (series 3, image 30). Remaining sub 6 mm solid pulmonary nodules are unchanged. These include: -3 mm solid nodule, lateral right upper lobe (series 3, image 87). -3 mm solid nodule, anterior left upper lobe (series 3, image 62). Mediastinum: Heart size is normal. No pericardial effusion. No mediastinal adenopathy by size criteria. Thoracic aorta and central pulmonary arteries are normal in size. Esophagus is normal in caliber. No hiatal hernia. Bones and chest wall: No suspicious bony lesions. No vertebral body compression fractures. No axillary or supraclavicular adenopathy by size criteria. No thyroid nodules which require sonographic evaluation. Stable bone island in the T4 vertebral body. Abdomen: Visualized upper abdominal solid organs and bowel loops appear normal in the absence of contrast. IMPRESSION: Stable pulmonary nodules, including the curvilinear nodule within the right upper lobe. While this probably represents a developing scar complex, underlying malignancy still not excluded. Recommend follow-up in 6 months. Remaining remaining solid pulmonary nodules are also stable. Dictated by: Devendra Santana M.D. on 01/05/2023 at 9:18 Approved by: Devendra Santana M.D. on 01/05/2023 at 9:27
== END ==
PROVIDERS: PCP Family Medicine; Referring Provider Family Medicine; Visit Provider Family Medicine
DX: J43.9 Emphysema, unspecified (principal); R91.8 Other nonspecific abnormal finding of lung field
CPT/HCPCS: 71250

== ENCOUNTER 2023-02-21 22:40 | Emergency (ER) | payer MEDICARE, OTHER, SELFPAY ==
[2022-09-06 10:15] VITALS: BMI 23.5
[2023-02-21 22:45] VITALS: BP 156/67; PULSE 80; RESP 20; TEMP 37.1; O2SAT 96; BMI 22.8
--- NOTE | 2023-02-21 22:59 | DI.RAD.S_ITS ---
PROCEDURE: XR CHEST 1V INDICATIONS: cough with SBO TECHNIQUE: One view of the chest was acquired. COMPARISON: [facility], CR, XR CHEST 1V, 09/25/2020, 1:14. FINDINGS: Surgical changes and devices: None. Lungs and pleura: Streaky opacities in the right mid lung. No pleural effusions or pneumothorax. Mediastinum: Mediastinal contours appear normal. Heart size is normal. Bones and chest wall: No suspicious bony lesions. Overlying soft tissues appear unremarkable. IMPRESSION: Right mid lung streaky opacities may represent atelectasis versus aspiration. Dictated by: Simi Fan M.D. on 02/22/2023 at 0:05 Approved by: Simi Fan M.D. on 02/22/2023 at 0:06
[2023-02-21 23:42] LABS: Influenza A - CEPHEID Flu A NEGATIVE (NEGATIVE); Influenza B - CEPHEID Flu B NEGATIVE (NEGATIVE); Respiratory Syncytial Virus Negative (Negative)
[2023-02-21 23:45] LABS: COVID-19 CEPHEID 4-PLEX PCR Negative (Negative)
--- NOTE | 2023-02-22 00:39 | ED_ITS ---
HPI - General Adult General Chief complaint: Upper Respiratory Symptoms Stated complaint: cough Time Seen by Provider: 02/21/23 22:59 Source: patient Mode of arrival: Ambulatory History of Present Illness HPI narrative: Patient is a 73-year-old female. Has a history of COPD. Uses inhalers at home. 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 For the past 10 days she has had a productive cough. No fevers. Has had to use her inhalers multiple times at home without improvement. No recent travel. No chest pain. She is reporting more shortness of breath above baseline. Does not use home oxygen. Related Data Home Medications Medication Instructions Recorded Confirmed cholecalciferol (vitamin D3) 25 25 mcg PO DAILY 06/02/20 12/08/22 mcg (1,000 unit) capsule apixaban 5 mg tablet (Eliquis) 5 mg PO BID 10/02/20 12/08/22 cabkjlin-eesi-xvrm 8 mg-folic 400 1 tab PO DAILY 11/23/20 12/08/22 mcg-K 50 mcg-lutein 300 mcg tablet (Centrum Silver Women) lidocaine 4 % topical patch 1 patch topical DAILY PRN 06/16/22 12/08/22 Previous Rx's Medication Instructions Recorded levalbuterol tartrate 45 2 puff inhalation Q4-6H PRN 04/21/22 mcg/actuation aerosol inhaler shortness of breath or wheezing (Xopenex HFA) #15 grams mirtazapine 45 mg tablet 45 mg PO DAILY #90 tabs 08/29/22 inhalational spacing device #1 ea 01/03/23 benzonatate 100 mg capsule 200 mg (2 x 100 mg) PO BID PRN 02/18/23 cough #20 caps fluticasone propionate 50 1 spray intranasal Q12H #16 grams 02/18/23 mcg/actuation nasal spray,suspension (Flonase Allergy Relief) ipratropium bromide 42 mcg (0.06 2 spray intranasal TID 4 days #15 02/18/23 %) nasal spray mL azithromycin 250 mg tablet 250 mg PO DAILY 4 days #4 tabs 02/22/23 Allergies Allergy/AdvReac Type Severity Reaction Status Date / Time fluoxetine Allergy Severe muscle Verified 02/18/23 07:45 weakness codeine Allergy Intermediate Painful Verified 02/18/23 07:45 Bloating meperidine [From Demerol] Allergy Intermediate Vomiting Verified 02/18/23 07:45 lactase [From Dairy Aid] AdvReac Intermediate Gastrointestinal Verified 02/18/23 07:45 Upset prednisone AdvReac Intermediate Shakiness Verified 02/18/23 07:45 Review of Systems Constitutional Constitutional: Reports system reviewed and no additional complaints, except as documented Cardiovascular Cardiovascular: Reports system reviewed and no additional complaints, except as documented Respiratory Respiratory: Reports system reviewed and no additional complaints, except as documented Gastrointestinal Gastrointestinal: Reports system reviewed and no additional complaints, except as documented Integumentary/Breasts Skin/Breast: Reports system reviewed and no additional complaints, except as documented Hematologic/Lymphatic On Anticoagulants: No Patient History Medical History Lung nodule seen on imaging study History of colon polyps Hyperglycemia Well adult exam Arrhythmia Seborrheic keratosis Actinic keratosis Muscle weakness (generalized) GERD (gastroesophageal reflux disease) Dairy allergy (~2013) Depression (~2011) Seizures (~1989) Mumps Measles Chicken pox Retinal detachment Ovarian cyst (~1978) Gastric ulcer Skin cancer (~1989) TIA (transient ischemic attack) Emphysema of lung (~2009) Epilepsy with partial complex seizures Surgical History Anesthesia History of appendectomy History of Achilles tendon repair (~1963) History of section (~1980) History of tonsillectomy History of hysterectomy Family History Father Congestive heart failure History of heart disease Stroke Mother Cancer Mental health problem Grandmother Congestive heart failure History of heart disease Stroke Social History household members: spouse Smoking Status: Never smoker second hand exposure: Yes (ages 0-18 ) alcohol intake: former substance use type: does not use Smoking Status: Never smoker alcohol intake frequency: 0-2 drinks per day Substance Use Type: does not use Exam Initial Vital Signs Initial Vital Signs: Vital Signs Temperature 98.8 F 02/21/23 22:45 Pulse Rate 80 02/21/23 22:45 Respiratory Rate 20 02/21/23 22:45 Blood Pressure 156/67 H 02/21/23 22:45 Pulse Oximetry 96 02/21/23 22:45 Oxygen Delivery Method Room Air 02/21/23 22:45 Const General: cooperative and No ill appearing [facility] Head: normal to inspection Resp Effort & Inspection: cough, not labored and no respiratory distress Auscultation: rales, rhonchi and no wheezes Cardio Rate: regular rate Skin General: no rashes or lesions noted Neuro General: patient alert and patient awake Extrem General: No edema Course Orders Ordered: ED Orders 02/21/23 22:55 Covid-19 + FLU A/B + RSV - PCR Stat 02/21/23 22:59 XR chest 1V Stat Discontinued Medications Azithromycin (Azithromycin 250 Mg Tablet) 500 mg PO NOW ONE Stop: 02/22/23 00:39 Last Admin: 02/22/23 00:51 Dose: 500 mg Documented By: KATY Vital Signs Vital signs: Vital Signs - 8 hr 02/21/23 22:45 02/22/23 01:00 Temperature 98.8 F Pulse Rate 80 78 Respiratory Rate 20 18 Blood Pressure 156/67 H 148/64 H Pulse Oximetry 96 98 Oxygen Delivery Method Room Air Room Air Medical Decision Making Lab Data Lab results reviewed: Yes I reviewed the patient's lab results. Labs: Lab Results 02/21/23 Range/Units 22:55 SARS-CoV-2 (PCR) Negative (Negative) Influenza A (RT-PCR) Flu a negative (NEGATIVE) Influenza B (RT-PCR) Flu b negative (NEGATIVE) RSV (PCR) Negative (Negative) Imaging Data Chest x-ray: Radiologist's Impression: PROCEDURE: XR CHEST 1V INDICATIONS: cough with SBO TECHNIQUE: One view of the chest was acquired. COMPARISON: [facility], , XR CHEST 1V, 09/25/2020, 1:14. FINDINGS: Surgical changes and devices: None. Lungs and pleura: Streaky opacities in the right mid lung. No pleural effusions or pneumothorax. Mediastinum: Mediastinal contours appear normal. Heart size is normal. Bones and chest wall: No suspicious bony lesions. Overlying soft tissues appear unremarkable. IMPRESSION: Right mid lung streaky opacities may represent atelectasis versus aspiration. [facility] Narrative Medical decision making narrative: COVID/flu/RSV are negative. She does have a history of COPD. Has very coarse breath sounds. Subjective fevers, productive cough. Chest x-ray does not show a definitive consolidation however there were streaky opacities in the right lung. This is where most of her coarse breath sounds are located. She was unable to produce a sputum culture here in the ER. Given her presenting symptoms she clinically has pneumonia. Will treat with antibiotics. First dose given here in the ER. Will discharge patient home with return precautions. She expressed understanding and agreement. Discharge Plan Departure Patient Disposition: Home Clinical Impression: Pneumonia Instructions: DI for Pneumonia -- Adult Activity Restrictions/Additional Instructions: I do recommend that you take the antibiotics as directed. You can try [id number] expectorants to try to help with your cough. Contact your primary care doctor for a follow-up. Return to the emergency department for new symptoms. Prescriptions: New azithromycin 250 mg tablet 250 mg PO DAILY 4 Days Qty: 4 0RF Rx Instructions: start on day 2 of therapy No Action ipratropium bromide 42 mcg (0.06 %) spray,non-aerosol 2 spray intranasal TID 4 Days Qty: 15 0RF Rx Instructions: administer into each nostril fluticasone propionate [Flonase Allergy Relief] 50 mcg/actuation spray,suspension 1 spray intranasal Q12H Qty: 16 0RF Rx Instructions: administer into each nostril benzonatate 100 mg capsule 200 mg PO BID PRN (Reason: cough) Qty: 20 0RF Eliquis 5 mg tablet 5 mg PO BID levalbuterol tartrate [Xopenex HFA] 45 mcg/actuation HFA aerosol inhaler 2 puff inhalation Q4-6H PRN (Reason: shortness of breath or wheezing) Qty: 15 3RF mirtazapine 45 mg tablet 45 mg PO DAILY Qty: 90 1RF (DME) inhalational spacing device Spacer See Rx Instructions .Route Qty: 1 2RF Rx Instructions: Use spacer with albuterol inhaler cholecalciferol (vitamin D3) 25 mcg (1,000 unit) capsule 25 mcg PO DAILY Centrum Silver Women 8 mg iron-400 mcg-300 mcg tablet 1 tab PO DAILY lidocaine 4 % adhesive patch,medicated 1 patch topical DAILY PRN Referrals: Chip Burgos DO [Primary Care Provider] - Stand Alone Forms: Patient Portal/API
[2023-02-22] MEDS: AZITHROMYCIN 250 MG TABLET 500 MG PO (00:51)
[2023-02-22 01:00] VITALS: BP 148/64; PULSE 78; RESP 18; O2SAT 98
== END 2023-02-22 01:01 | disposition home or self-care (01) ==
PROVIDERS: Emergency Provider Emergency Medicine; PCP Family Medicine
DX: J18.9 Pneumonia, unspecified organism (principal); Z20.822 Contact with and (suspected) exposure to COVID-19
CPT/HCPCS: 0241U; 71045; 99283

== ENCOUNTER → 2023-02-24 13:51 | Outpatient (CLI) | payer MEDICARE, OTHER, SELFPAY ==
[2022-09-06 10:15] VITALS: BMI 23.5
--- NOTE | 2023-02-24 13:52 | DI.MG.S_ITS ---
BILATERAL DIGITAL SCREENING MAMMOGRAM 3D/2D WITH CAD: 02/24/2023 CLINICAL: Routine screening. Family history of breast cancer. Comparison is made to exams dated: 02/18/2022 mammogram, 02/17/2021 mammogram, and 01/02/2020 mammogram - [facility]. Both breasts are heterogeneously dense, which may obscure small masses (category c / 51-75% glandular tissue). Current study was also evaluated with a Computer Aided Detection (CAD) system. No significant masses, calcifications, or other findings are seen in either breast. There has been no significant interval change. IMPRESSION: NEGATIVE There is no mammographic evidence of malignancy. A 1 year screening mammogram is recommended. Based on the Tyrer Cuzick model (a risk assessment model) the patient's lifetime risk is 9.4% and her 10 year risk is 7.1%. According to the ACR, ACS, and NCCN guidelines, an annual breast MRI exam along with mammogram is recommended if the patient's lifetime risk is 20% or greater. This exam was interpreted at Station ID: [id number]. NOTE: For mammograms, a report in lay terms will be sent to the patient. Approximately 15% of breast malignancies will not be visualized mammographically. In the management of a palpable breast mass, a negative mammogram must not discourage biopsy of a clinically suspicious lesion. Electronically Signed By: Nakul rodas/bo:02/24/2023 14:22:20 letter sent: Normal Exam ACR BI-RADS Category 1: Negative [id number]
== END ==
PROVIDERS: PCP Family Medicine; Referring Provider Family Medicine; Visit Provider Family Medicine
DX: Z12.31 Encounter for screening mammogram for malignant neoplasm of breast (principal); Z80.3 Family history of malignant neoplasm of breast
CPT/HCPCS: 77063; 77067

== ENCOUNTER → 2023-05-17 07:05 | Outpatient (CLI) | payer MEDICARE, OTHER, SELFPAY ==
[2022-09-06 10:15] VITALS: BMI 23.5
[2023-05-17 08:13] LABS: BUN Creatinine Ratio 14.9 (6-22); Blood Urea Nitrogen 13 mg/dL (7-17); Calcium 9.1 mg/dL (8.4-10.2); Carbon Dioxide 30 mmol/L (22-32); Chloride 107 mmol/L (98-107); Estimated Glomerular Filt Rate > 60 mL/min (>60); Glucose 92 mg/dL (80-110); HEMOLYSIS < 15 (0-50); Potassium 4.3 mmol/L (3.4-5.1); Sodium 138 mmol/L (137-145)
== END ==
PROVIDERS: PCP Family Medicine; Referring Provider Internal Medicine Cardiovascular Disease; Visit Provider Internal Medicine Cardiovascular Disease
DX: I48.0 Paroxysmal atrial fibrillation (principal)
CPT/HCPCS: 36415; 80048

== ENCOUNTER → 2023-05-26 08:00 | Outpatient (CLI) | payer MEDICARE, OTHER, SELFPAY ==
[2022-09-06 10:15] VITALS: BMI 23.5
[2023-05-26 10:00] LABS: Glucose Fasting 101 mg/dL (80-110)
[2023-05-26 10:22] LABS: Glucose 1 Hour 209 mg/dL (70-170)
[2023-05-26 11:31] LABS: Glucose Tol Interpretation INTERPRETATION
[2023-05-26 11:56] LABS: Glucose 2 Hour 130 mg/dL (70-140)
[2023-05-26 12:35] LABS: Glucose 3 Hour 84 mg/dL (70-115)
[2023-05-27 08:15] LABS: Insulin Level Total 7.3 uIU/mL (2.6-24.9)
== END ==
PROVIDERS: PCP Family Medicine; Referring Provider Family Medicine; Visit Provider Family Medicine
DX: E16.2 Hypoglycemia, unspecified (principal)
CPT/HCPCS: 36415; 82951; 82952; 83525

== ENCOUNTER → 2023-06-06 12:49 | Outpatient (CLI) | payer OTHER, SELFPAY ==
[2022-09-06 10:15] VITALS: BMI 23.5
--- NOTE | 2023-06-12 10:36 | DIET.OUTPTC ---
Dietary Outpatient Consultation Note Consultation Date: 06/06/2023 Assessment: 73 y F experiencing hypoglycemia during and after exercise. Onelia reports hx of hypoglycemia for last 30 years, but episodes occurred with s/s and she was able to prevent and more easily treat incidences. Recently, she had sudden hypoglycemic episode at pulmonary rehab x2 resulting in change in consciousness/lightheadedness. PMH of COPD and asthma. In Feb 2023 she had pneumonia for 1 month. She reports being told to eat every 2 hours to help prevent hypo episodes, but this leaves her feeling bloated/overly full with feeling of recent weight gain. Experiences s/s of hypoglycemia when BG drops below 80 mg/dL. She uses meter to test BG: provided hx of episode for 05/23: -Morning fastin mg/dl -2 hours after breakfast: 102 mg/dl -22 minutes later 0.6 miles into hike- 65 mg/dl -s/s of hypoglycemia present -6 minutes later - 79 mg/dl -4 minutes later - 84 mg/dl -11 minutes later at conclusion of 1.3 mile hike - 102 mg/dl Dietary recall: 630a: 2 fruit servings, egg 830a: oatmeal, raisins, nuts OR toast and applesauce During 1st hike snack: 2 tbsp peanut butter, small beef stick, smoothie squeeze with 5 g fiber Lunch: meat sandwich w/ lettuce, 1/2 apple, handful of nuts, fruit During 2nd hike snack: same as 1st hike OR if no 2nd hike: no snack/no meals until dinner Dinner: various, cooks, meals with pro, carb, and veg or fruit Night snack: spoonful peanut butter Beverage: only water Noted in past when she has ice cream for dessert she experiences hyperglycemia, feels ill, and shortly after experienced s/s of hypoglycemia before returning to normal BG wo/ additional intake -similar to how she felt during glucose tolerance test. Physical Activity: 1 hike between 1-1.5 miles long- daily, 2nd hike similar in length or walk around block Allergies: Gluten-sensitivity and casein GI symptoms: denies N/V/C/D Ht: 5 ft 9 in Wt: 152 lb BMI: 23.5 UBW: 160-107# (73-77 kg) per pt report Labs: Glucose Tolerance Test: Fasting- 101/ 1h 209/ 2h 130/ 3h 84 on 05/26/23; pt reports s/s of hypoglycemia between hour 2 and 3. A1c: 5.2 10/17/22 Nutrition Diagnosis: Nutrition related knowledge deficit r/t increased severity and occurrence of hypoglycemia episodes as evidenced by pt report, diet recall, and BG log Interventions: 1. Provided MNT for prevention and treatment of hypoglycemia episodes during exercise and prevention of rapid spikes and drops with high CHO intake. -Including educ on types of CHO and actions of protein, fiber, and fat r/t to BG Goals: 1. Have a 4-8 oz drink of caloric sports drink, juice, or 1 glucose tablet (for 15-30 g carb) 10 minutes before beginning exercise. 2. Including protein and fiber source at breakfast 3. Incidences of hypoglycemia to be treated with 15 g of fast acting CHO, check of BG 15 minutes later, repeat if still <80 mg/dL, when BG return to >80 mg/dL, follow by protein based snack. Monitoring/Evaluations: hypoglycemic incidences, f/u with trial CGM if appropriate Electronically Signed by: Alla Troy 06/12/23 10:36 Clinical Dietitian [address] [address]
== END ==
PROVIDERS: PCP Family Medicine
DX: E16.2 Hypoglycemia, unspecified (principal); Z71.3 Dietary counseling and surveillance; Z68.23 Body mass index [BMI] 23.0-23.9, adult
CPT/HCPCS: 97802

== ENCOUNTER 2023-06-15 17:19 | Emergency (ER) | payer OTHER, SELFPAY ==
[2022-09-06 10:15] VITALS: BMI 23.5
[2023-06-15] VITALS (9 sets, daily range): BP systolic 116–144; BP diastolic 71–102; PULSE 70–136; RESP 10–28; TEMP 36.7; O2SAT 97–100; BMI 24.2
--- NOTE | 2023-06-15 17:33 | DI.RAD.S_ITS ---
PROCEDURE: XR CHEST 1V INDICATIONS: AFib TECHNIQUE: One view of the chest was acquired. COMPARISON: [facility], CR, XR CHEST 1V, 02/21/2023, 23:04. [facility], CR, XR CHEST 1V, 09/25/2020, 1:14. FINDINGS: Surgical changes and devices: None. Lungs and pleura: Lungs are clear. No pleural effusions or pneumothorax. Mediastinum: Mediastinal contours appear normal. Heart size is normal. Bones and chest wall: No suspicious bony lesions. Overlying soft tissues appear unremarkable. IMPRESSION: No acute cardiopulmonary abnormality is seen. Approved by: Sotero Alcaraz M.D. on 06/15/2023 at 18:34
[2023-06-15 18:07] LABS: Add Manual Diff / Slide Review NO; Basophils Absolute Auto 0 /uL (0-100); Basophils Percent Auto 0.5 % (0-2); Eosinophils Absolute Auto 100 /uL (0-450); Eosinophils Percent Auto 1.7 % (2-4); Hematocrit 39.4 % (36-46); Hemoglobin 13.3 g/dL (12.0-16.0); Lymphocytes Absolute Auto 1500 /uL (1100-4500); Lymphocytes Percent Auto 25.5 % (25-40); Mean Corpuscular HGB Conc 33.7 % (30-36); Mean Corpuscular Hemoglobin 29.6 PG (26-34); Mean Corpuscular Volume 87.9 fL (80-100); Monocytes Absolute Auto 300 /uL (0-900); Monocytes Percent Auto 5.2 % (3-14); Neutrophils Absolute Auto 3800 /uL (1500-7000); Neutrophils Percent Auto 67.1 % (50-75); Platelet Count 194 X10^3/uL (150-400); Red Blood Cell Count 4.48 X10^6/uL (4.0-5.2); Red Cell Distribution Width 14.6 % (11.6-14.8); White Blood Cell Count 5.7 X10^3/uL (4.5-11.0)
[2023-06-15 18:10] LABS: Alanine Aminotransferase 15 IU/L (<35); Albumin 4.3 g/dL (3.5-5.0); Albumin Globulin Ratio 1.6 (1.0-2.8); Alkaline Phosphatase 112 U/L (38-126); Aspartate Aminotransferase 24 IU/L (14-36); BUN Creatinine Ratio 17.8 (6-22); Bilirubin Total 0.4 mg/dL (0.2-1.3); Blood Urea Nitrogen 16 mg/dL (7-17); Calcium 9.3 mg/dL (8.4-10.2); Carbon Dioxide 31 mmol/L (22-32); Chloride 107 mmol/L (98-107); Creatine Kinase 55 U/L (30-135); Estimated Glomerular Filt Rate > 60 mL/min (>60); Globulin 2.7 g/dL (1.7-4.1); Glucose 121 mg/dL (80-110); HEMOLYSIS 19 (0-50); Lipase 52 U/L (23-300); Potassium 3.7 mmol/L (3.4-5.1); Sodium 140 mmol/L (137-145)
[2023-06-15] MEDS: SODIUM CHLORIDE 0.9% 1,000 ML 125 ML IV (18:17)
[2023-06-15] MEDS: dilTIAZem 5 MG/ML SDV 10 MG IV (18:18)
[2023-06-15 18:22] LABS: Troponin I < 0.012 ng/mL (0.01-0.034)
[2023-06-15 18:26] LABS: Bacteria Urine None Seen; Culture Indicated Urine Cult Not Indicated; RBC Urine None Seen (0-5/HPF); Squamous Epithelial Cell Urine None Seen (0-5/HPF); Urine Volume 10mL (spun); WBC Urine None Seen (0-5/HPF)
--- NOTE | 2023-06-15 18:33 | ED_ITS ---
HPI - Arrhythmia/Palpitations General Chief Complaint: Arrhythmia/Palpitations Stated Complaint: AFIB Time Seen by Provider: 06/15/23 17:33 Source: patient Mode of arrival: Ambulatory History of Present Illness HPI narrative: 73-year-old woman with a history of paroxysmal atrial fibrillation currently on apixaban presents complaining that she is in atrial fibrillation. Additional medical problems include COPD/asthma. She and her went for a hike this morning, she was doing some yd work this afternoon. She came in because she felt particularly tired and about 2:00 p.m. this afternoon noted that her heart was rapid and irregular. Aside from mild fatigue she isn't noticing any additional problems. Has not recently been having significant palpitations, edema, orthopnea. No recent viral infections. She has a follow up scheduled with her pharmaceutical scientist in 3 weeks. Related Data Home Medications Medication Instructions Recorded Confirmed cholecalciferol (vitamin D3) 25 25 mcg PO DAILY 06/02/20 05/19/23 mcg (1,000 unit) capsule apixaban 5 mg tablet (Eliquis) 5 mg PO BID 10/02/20 05/19/23 dedpawqh-arys-aksu 8 mg-folic 400 1 tab PO DAILY 11/23/20 05/19/23 mcg-K 50 mcg-lutein 300 mcg tablet (Centrum Silver Women) lidocaine 4 % topical patch 1 patch topical DAILY PRN 06/16/22 05/19/23 Previous Rx's Medication Instructions Recorded inhalational spacing device #1 ea 01/03/23 fluticasone propionate 50 1 spray intranasal Q12H #16 grams 02/18/23 mcg/actuation nasal spray,suspension (Flonase Allergy Relief) benzonatate 200 mg capsule 200 mg PO TID PRN cough #15 caps 02/28/23 prednisone 20 mg tablet 20 mg PO DAILY #5 tabs 02/28/23 mirtazapine 45 mg tablet 45 mg PO DAILY #90 tabs 03/10/23 levalbuterol tartrate 45 2 puff inhalation Q4-6H PRN 05/08/23 mcg/actuation aerosol inhaler shortness of breath or wheezing (Xopenex HFA) #15 grams Allergies Allergy/AdvReac Type Severity Reaction Status Date / Time fluoxetine Allergy Severe muscle Verified 05/19/23 11:53 weakness codeine Allergy Intermediate Painful Verified 05/19/23 11:53 Bloating meperidine [From Demerol] Allergy Intermediate Vomiting Verified 05/19/23 11:53 lactase [From Dairy Aid] AdvReac Intermediate Gastrointestinal Verified 05/19/23 11:53 Upset prednisone AdvReac Intermediate Shakiness Verified 05/19/23 11:53 Review of Systems Review of Systems Narrative: Pertinent positive and negative findings as per HPI Patient History Medical History (Updated 06/15/23 @ 21:35 by Yamileth Neff RN) Paroxysmal atrial fibrillation Allergy to perfume Hypoglycemia Lung nodule seen on imaging study History of colon polyps Hyperglycemia Well adult exam Seborrheic keratosis Actinic keratosis Muscle weakness (generalized) GERD (gastroesophageal reflux disease) Dairy allergy (~2013) Depression (~2011) Seizures (~1989) Mumps Measles Chicken pox Retinal detachment Ovarian cyst (~1978) Gastric ulcer Skin cancer (~1989) TIA (transient ischemic attack) Emphysema of lung (~2009) Epilepsy with partial complex seizures Surgical History Anesthesia History of appendectomy History of Achilles tendon repair (~1963) History of section (~1980) History of tonsillectomy History of hysterectomy Family History Father Congestive heart failure History of heart disease Stroke Mother Cancer Mental health problem Grandmother Congestive heart failure History of heart disease Stroke Social History household members: spouse Smoking Status: Never smoker second hand exposure: Yes (ages 0-18 ) alcohol intake: former substance use type: does not use Smoking Status: Never smoker alcohol intake frequency: 0-2 drinks per day Substance Use Type: does not use Exam Initial Vital Signs Initial Vital Signs: Vital Signs Temperature 98.1 F 06/15/23 17:32 Pulse Rate 134 H 06/15/23 17:32 Respiratory Rate 18 06/15/23 17:32 Blood Pressure 144/102 H 06/15/23 17:32 Pulse Oximetry 100 06/15/23 17:32 Oxygen Delivery Method Room Air 06/15/23 17:32 General: Healthy appearing, anxious and tearful but in no significant physical distress. Well-nourished well-developed HEENT: Moist mucous membranes, normal sclera with reactive pupils, Neck: No JVD, supple Respiratory: Lungs are clear to auscultation, no wheezing no rales no rhonchi. Full and symmetrical air movement Cardiac: Regular rate and rhythm no murmurs no bruits -patient converted to sinus rhythm as I walked into the room and we began our discussion Abdomen: Soft, nontender, good bowel tones, no flank pain Skin: Warm and dry, no rashes Neurologic: Grossly neurologically intact with no obvious asymmetries or abnormalities Extremities: No trauma, well perfused Psych: Cooperative, appropriate insight and affect Course Orders Ordered: ED Orders 06/15/23 20:38 EKG-12 Lead Stat Discontinued Medications Apixaban (Apixaban 5 Mg Tablet) 5 mg PO NOW ONE Stop: 06/15/23 20:39 Last Admin: 06/15/23 20:46 Dose: 5 mg Documented By: Diltiazem HCl (Diltiazem 5 Mg/Ml Sdv) 10 mg IV NOW ONE Stop: 06/15/23 17:35 Last Admin: 06/15/23 18:18 Dose: 10 mg Documented By: NORAH Sodium Chloride (Normal Saline 0.9%) 1,000 mls @ 125 mls/hr IV CONT CATHERINE Last Infusion: 06/15/23 21:34 Dose: Infused Documented By: Admin: 06/15/23 18:17 Dose: 125 mls/hr Documented By: NORAH Vital Signs Vital signs: Vital Signs - 8 hr 06/15/23 20:00 06/15/23 20:30 06/15/23 21:00 Pulse Rate 98 H 74 70 Respiratory Rate 22 28 H 14 Pulse Oximetry 99 99 97 Oxygen Delivery Method Room Air Room Air Room Air MDM - Arrhythmia/Palpitations Lab Data 06/15/23 17:29 06/15/23 17:29 Labs: Lab Results 06/15/23 06/15/23 Range/Units 17:29 18:00 WBC 5.7 (4.5-11.0) X10^3/uL RBC 4.48 (4.0-5.2) X10^6/uL Hgb 13.3 (12.0-16.0) g/dL Hct 39.4 (36-46) % MCV 87.9 (80-100) fL MCH 29.6 (26-34) PG MCHC 33.7 (30-36) % RDW 14.6 (11.6-14.8) % Plt Count 194 (150-400) X10^3/uL Neut % (Auto) 67.1 (50-75) % Lymph % (Auto) 25.5 (25-40) % Bath % (Auto) 5.2 (3-14) % Eos % (Auto) 1.7 L (2-4) % Baso % (Auto) 0.5 (0-2) % Neut # (Auto) 3800 (7905-2776) /uL Lymph # (Auto) 1500 (0420-2793) /uL Bath # (Auto) 300 (0-900) /uL Eos # (Auto) 100 (0-450) /uL Baso # (Auto) 0 (0-100) /uL Sodium 140 (137-145) mmol/L Potassium 3.7 (3.4-5.1) mmol/L Chloride 107 (98-107) mmol/L Carbon Dioxide 31 (22-32) mmol/L BUN 16 (7-17) mg/dL Creatinine 0.90 (0.52-1.04) mg/dL Estimated GFR > 60 (>60) mL/min BUN/Creatinine Ratio 17.8 (6-22) Glucose 121 H (80-110) mg/dL Calcium 9.3 (8.4-10.2) mg/dL Total Bilirubin 0.4 (0.2-1.3) mg/dL AST 24 (14-36) IU/L ALT 15 (<35) IU/L Alkaline Phosphatase 112 (38-126) U/L Total Creatine Kinase 55 (30-135) U/L Troponin I < 0.012 (0.01-0.034) ng/mL Total Protein 7.0 (6.3-8.2) g/dL Albumin 4.3 (3.5-5.0) g/dL Globulin 2.7 (1.7-4.1) g/dL Albumin/Globulin Ratio 1.6 (1.0-2.8) Lipase 52 (23-300) U/L Urine RBC None seen (0-5/HPF) Urine WBC None seen (0-5/HPF) Ur Squamous Epith Cells None seen (0-5/HPF) Urine Bacteria None seen (None) Ur Culture Indicated? Cult not indicated Vol Urine Centrifuged 10ml (spun) Point of Care Testing Glucose POC 94 Urine Dip Bedside Urine Glucose Negative Bedside Urine Bilirubin - Negative Bedside Urine Ketone - Negative Urine Specific [place] 1.010 Bedside Urine Occult Blood + Bedside Urine pH 6.0 Bedside Urine Protein - Negative Bedside Urine Urobilinogen - Negative Bedside Urine Nitrite - Negative Bedside Urine Leukocytes - Negative Esterase MDM Narrative Medical decision making narrative: CC: Recurrent atrial fibrillation Complicating co-morbidities: Currently on Eliquis, history of COPD, paroxysmal atrial fibrillation Data collected from: patient, Medical records reviewed: Primary care notes from May 18 and February 28 of this year are reviewed Differential considered: Recurrent paroxysmal atrial fibrillation, sinus tachycardia with unexplained etiology, acute coronary syndrome, pulmonary embolism, COPD exacerbation Exam documented above, pertinent findings include: Patient converted to sinus rhythm spontaneously at approximately 8:30 this evening. Her exam is otherwise benign Lab Test results independently reviewed as above. Pertinent findings: CBC is unremarkable with no evidence of leukocytosis or anemia Chemistries are reassuring. Normal renal function Troponin is undetectable Urine Independently reviewed EKG: EKG at 5:30 p.m. and repeat at 8:17 p.m. both show atrial fibrillation with rate at 125 and 101 respectively. No significant ischemic changes 21:24 sinus rhythm with PACs. No acute ischemic changes appreciated Imaging studies independently reviewed: Chest x-ray is unremarkable Treatments: Spontaneous conversion 8:30 p.m. Discussion: 73-year-old woman with a history of paroxysmal atrial fibrillation, anticoagulated. Symptoms started around 2 today converted spontaneously around 830 today. We will have her continue with all current medications including her apixaban. Repeat EKG shows sinus arrhythmia. No evidence of electrolyte abnormalities or acute coronary syndrome. No indication for additional workup, imaging studies or hospitalization today. Findings reviewed with the patient and her . She is safe for discharge at this Discharge Plan Departure Patient Disposition: Home Clinical Impression: AF (paroxysmal atrial fibrillation), Transient ischemic attack Instructions: DI for Atrial Fibrillation Activity Restrictions/Additional Instructions: Thank you for coming in today Your workup was actually quite reassuring. There was no evidence of heart attack, electrolyte abnormalities or other fixable reason for the approximately 6 hours of atrial fibrillation you experienced this afternoon. You did convert spontaneously to sinus rhythm with an occasional PAC. You need to continue your anticoagulation and I encourage you to keep your follow up with your pharmaceutical scientist as scheduled. If you find that you are getting worse or develop any new symptoms, please feel free to return to the emergency department for further evaluation. Prescriptions: No Action fluticasone propionate [Flonase Allergy Relief] 50 mcg/actuation spray,suspension 1 spray intranasal Q12H Qty: 16 0RF Rx Instructions: administer into each nostril Eliquis 5 mg tablet 5 mg PO BID (DME) inhalational spacing device Spacer See Rx Instructions .Route Qty: 1 2RF Rx Instructions: Use spacer with albuterol inhaler mirtazapine 45 mg tablet 45 mg PO DAILY Qty: 90 1RF levalbuterol tartrate [Xopenex HFA] 45 mcg/actuation HFA aerosol inhaler 2 puff inhalation Q4-6H PRN (Reason: shortness of breath or wheezing) Qty: 15 3RF cholecalciferol (vitamin D3) 25 mcg (1,000 unit) capsule 25 mcg PO DAILY Centrum Silver Women 8 mg iron-400 mcg-300 mcg tablet 1 tab PO DAILY lidocaine 4 % adhesive patch,medicated 1 patch topical DAILY PRN prednisone 20 mg tablet 20 mg PO DAILY Qty: 5 0RF Rx Instructions: take once daily for 5 days benzonatate 200 mg capsule 200 mg PO TID PRN (Reason: cough) Qty: 15 1RF Referrals: Chip Burgos DO [Primary Care Provider] - Stand Alone Forms: Patient Portal/API
[2023-06-15] MEDS: APIXABAN 5 MG TABLET PO (20:46)
== END 2023-06-15 21:35 | disposition home or self-care (01) ==
PROVIDERS: Emergency Medicine; Emergency Provider Emergency Medicine; PCP Family Medicine
DX: I48.0 Paroxysmal atrial fibrillation (principal); G45.9 Transient cerebral ischemic attack, unspecified; Z79.01 Long term (current) use of anticoagulants
CPT/HCPCS: 36415; 71045; 80053; 81003; 81015; 82550; 82962; 83690; 84484; 85025; 93005; 96374; 99284

== ENCOUNTER → 2024-02-12 13:53 | Outpatient (CLI) | payer OTHER, SELFPAY ==
[2023-08-04 18:36] VITALS: BMI 23.5
--- NOTE | 2024-02-20 08:32 | DIET.OUTPTC ---
Dietary Outpatient Consultation Note Consultation Date: 02/12/2024 Assessment: 74 y F referred to dietitian for hypoglycemia. Onelia reports continued struggles with BG. Visited the car manager who told her she is experiencing highs and then sudden drops within 30 minutes of eating to low 60s. Endo informed her to choose low glycemic index carbs and have balanced, small freq meals. Pt reports her vacuum tester cans want her to identify if she is having hypoglycemia at night that is contributing to her a-fib at night by using a CGM and doing a snack before bedtime. Note reviewed in chart. Dietary recall: B-oatmeal w/ water and nuts snack: smoothie squeeze with 5 g fiber OR nuts Lunch: meat sandwich w/ lettuce, 1/2 apple Dinner: various, cooks, soup with lots of vegetables but low in protein (<2 oz) Night snack: banana Beverage: only water Physical Activity: 1 hike between 1-1.5 miles long- daily Allergies: Gluten-sensitivity and casein Ht: 5 ft 9 in Wt: 160 lb BMI: 23.63 Labs: A1c: 5.2 10/17/22 Nutrition Diagnosis: Food and nutrition related knowledge deficit r/t needing help managing/preventing highs and drops in BG as evidenced by pt report Interventions: 1. Discussed meal components to help prevent highs and then BG drops including fibrous carbs, using range of 2-3 CHO servings at meals and 1-2 CHO servings at snacks, and appropriate protein intake at meals -Including label reading -Protein portion sized and grams protein appropriate daily and at meals/snacks 2. To help pt identify BG patterns and trends and prevent highs and subsequent drops in BG- Placed a sample CGM and reviewed all instructions -*emphasized to pt that when BG drops, can take BG using meter and if below 55, how to treat with rule of 15s. Discussed what to do if BG is in 60s. Reports that endo suspects that when her BG is in the 60s, it self corrects, and pt should avoid over treatment that leads to high BG again. Emphasized this with pt. Also discussed compression lows with CGM at night, pt can check with BG meter if CGM reading less than 55 and pt has no symptoms. 3. Brainstormed appropriate snack ideas for bedtime with 15-30 g CHO and protein pairing Monitoring/Evaluations: hypoglycemic incidences, f/u Feb. Electronically Signed by: Alla Troy 02/20/24 08:[address] [address]
== END ==
PROVIDERS: PCP Family Medicine; Referring Provider Family Medicine
DX: E16.2 Hypoglycemia, unspecified (principal); Z68.23 Body mass index [BMI] 23.0-23.9, adult; Z71.3 Dietary counseling and surveillance; I48.91 Unspecified atrial fibrillation
CPT/HCPCS: 97803

== ENCOUNTER → 2024-03-15 08:02 | Outpatient (CLI) | payer OTHER, MEDICARE, SELFPAY ==
[2023-08-04 18:36] VITALS: BMI 23.5
[2024-03-15 09:12] LABS: Add Manual Diff / Slide Review NO; Basophils Absolute Auto 0 /uL (0-100); Basophils Percent Auto 0.5 % (0-2); Eosinophils Absolute Auto 100 /uL (0-450); Eosinophils Percent Auto 2.3 % (2-4); Hematocrit 37.9 % (36-46); Hemoglobin 12.6 g/dL (12.0-16.0); Lymphocytes Absolute Auto 1300 /uL (1100-4500); Lymphocytes Percent Auto 26.9 % (25-40); Mean Corpuscular HGB Conc 33.2 % (30-36); Mean Corpuscular Hemoglobin 29.4 PG (26-34); Mean Corpuscular Volume 88.5 fL (80-100); Monocytes Absolute Auto 300 /uL (0-900); Monocytes Percent Auto 5.4 % (3-14); Neutrophils Absolute Auto 3100 /uL (1500-7000); Neutrophils Percent Auto 64.9 % (50-75); Platelet Count 220 X10^3/uL (150-400); Red Blood Cell Count 4.28 X10^6/uL (4.0-5.2); Red Cell Distribution Width 14.2 % (11.6-14.8); White Blood Cell Count 4.8 X10^3/uL (4.5-11.0)
[2024-03-15 09:15] LABS: Hemoglobin A1C% w Est Avg Glu 5.4 % (4.0-6.0)
[2024-03-15 09:28] LABS: Alanine Aminotransferase 18 IU/L (<35); Albumin 3.7 g/dL (3.5-5.0); Albumin Globulin Ratio 1.5 (1.0-2.8); Alkaline Phosphatase 95 U/L (38-126); Aspartate Aminotransferase 24 IU/L (14-36); BUN Creatinine Ratio 20.8 (6-22); Bilirubin Total 0.5 mg/dL (0.2-1.3); Blood Urea Nitrogen 21 mg/dL (7-17); Carbon Dioxide 28 mmol/L (22-32); Chloride 105 mmol/L (98-107); Cholesterol 156 mg/dL (140-199); Estimated Glomerular Filt Rate 59 mL/min (>60); Globulin 2.4 g/dL (1.7-4.1); Glucose 91 mg/dL (80-110); HDL Cholesterol 50 mg/dL (40-60); HEMOLYSIS < 15 (0-50); LDL Cholesterol Calculated 98 mg/dL (<100); Potassium 4.5 mmol/L (3.4-5.1); Sodium 138 mmol/L (137-145); Total Protein 6.1 g/dL (6.3-8.2); Triglycerides 40 mg/dL (35-150)
== END ==
LOC: LAB 08:04
PROVIDERS: PCP Family Medicine; Referring Provider Family Medicine; Visit Provider Family Medicine
DX: I49.9 Cardiac arrhythmia, unspecified (principal); E16.2 Hypoglycemia, unspecified; E78.5 Hyperlipidemia, unspecified
CPT/HCPCS: 36415; 80053; 80061; 83036; 85025

== ENCOUNTER → 2024-03-22 08:29 | Outpatient (CLI) | payer MEDICARE, OTHER, SELFPAY ==
[2023-08-04 18:36] VITALS: BMI 23.5
--- NOTE | 2024-03-22 08:31 | DI.MG.S_ITS ---
BILATERAL DIGITAL SCREENING MAMMOGRAM 3D/2D WITH CAD: 03/22/2024 CLINICAL: Routine screening. Family history of breast cancer. Comparison is made to exams dated: 02/24/2023 mammogram, 02/18/2022 mammogram, and 02/17/2021 mammogram - [facility]. The breasts are heterogeneously dense, which may obscure small masses (category c / 51-75% glandular tissue). Current study was also evaluated with a Computer Aided Detection (CAD) system. No significant masses, calcifications, or other findings are seen in either breast. There has been no significant interval change. IMPRESSION: NEGATIVE There is no mammographic evidence of malignancy. A 1 year screening mammogram is recommended. Based on the Tyrer Cuzick model (a risk assessment model) the patient's lifetime risk is 8.9% and her 10 year risk is 7.3%. According to the ACR, ACS, and NCCN guidelines, an annual breast MRI exam along with mammogram is recommended if the patient's lifetime risk is 20% or greater. This exam was interpreted at Station ID: [id number]. NOTE: For mammograms, a report in lay terms will be sent to the patient. Approximately 15% of breast malignancies will not be visualized mammographically. In the management of a palpable breast mass, a negative mammogram must not discourage biopsy of a clinically suspicious lesion. Electronically Signed By: Simi Fan M.D., Ph.D. maisha/bo:03/22/2024 13:38:54 letter sent: Normal Exam ACR BI-RADS Category 1: Negative
== END ==
PROVIDERS: PCP Family Medicine; Referring Provider Family Medicine; Visit Provider Family Medicine
DX: Z12.31 Encounter for screening mammogram for malignant neoplasm of breast (principal); Z80.3 Family history of malignant neoplasm of breast
CPT/HCPCS: 77063; 77067

== ENCOUNTER → 2024-03-25 09:40 | Outpatient (CLI) | payer MEDICARE, OTHER, SELFPAY ==
[2023-08-04 18:36] VITALS: BMI 23.5
--- NOTE | 2024-03-25 09:42 | DI.RAD.S_ITS ---
PROCEDURE: XR DEXA AXIAL SKELETON INDICATIONS: Osteoporosis screening COMPARISON: None. FINDINGS: Lumbar Spine: Bone mineral density 0.71 g/cm2, T score -3.1, Left Femoral Neck: Bone mineral density 0.59 g/cm2, T score -2.3. Left Hip: Bone mineral density 0.68 g/cm2, T score -2.2,. Fracture Risk Calculation (when applicable): Not applicable due to osteoporosis (T score greater or equal to -1.0 to: NORMAL) (T score from -1.1 to -2.4: OSTEOPENIA) (T score less than or equal to -2.5: OSTEOPOROSIS) IMPRESSION: Osteoporosis. Fracture risk is significantly increased. Follow-up guidelines as follows: Osteoporosis: Consider a repeat DEXA and Vertebral Fracture Assessment (VFA) exam in 2 years or sooner if medically necessary, to reassess this patient's status. Osteopenia: Consider a repeat DEXA in 2-3 years to reassess this patient's status, or if there is a new clinical indication. Normal: Consider a repeat DEXA in 5 years or sooner, or if there is a new clinical indication. All treatment decisions require clinical judgment and consideration of individual patient factors, including patient preferences, comorbidities, previous drug use, risk factors not captured in the FRAX model (e.g., frailty, falls, vitamin D deficiency, increased bone turnover, interval significant decline in bone density ) and possible under- or over-estimation of fracture risk by FRAX. In addition, the NOF Guide recommends that FDA-approved medical therapies be considered in postmenopausal women and men age >= 50 years with a: * Hip or vertebral (clinical or morphometric) fracture * T-score of <=-2.5 at the spine or hip * Ten-year fracture probability by FRAX of >= 3% for hip fracture or >=20% for major osteoporotic fracture. Dictated by: Nakul Smith M.D. on 03/25/2024 at 12:26 Approved by: Nakul Smith M.D. on 03/25/2024 at 12:27
== END ==
PROVIDERS: PCP Family Medicine; Referring Provider Family Medicine; Visit Provider Family Medicine
DX: M81.0 Age-related osteoporosis without current pathological fracture (principal); Z78.0 Asymptomatic menopausal state
CPT/HCPCS: 77080

== ENCOUNTER → 2024-06-20 08:17 | Outpatient (CLI) | payer MEDICARE, OTHER, SELFPAY ==
[2023-08-04 18:36] VITALS: BMI 23.5
[2024-06-20 10:45] LABS: Thyroid Stimulating Hormone 4.47 uIU/mL (0.47-4.68)
== END ==
PROVIDERS: PCP Family Medicine; Referring Provider Family Medicine; Visit Provider Family Medicine
DX: R93.89 Abnormal findings on diagnostic imaging of other specified body structures (principal)
CPT/HCPCS: 36415; 84443

== ENCOUNTER → 2024-06-24 09:39 | Outpatient (CLI) | payer MEDICARE, OTHER, SELFPAY ==
[2023-08-04 18:36] VITALS: BMI 23.5
[2024-06-24 10:32] LABS: Add Manual Diff / Slide Review NO; Basophils Absolute Auto 0 /uL (0-100); Basophils Percent Auto 0.6 % (0-2); Eosinophils Absolute Auto 100 /uL (0-450); Hematocrit 40.8 % (36-46); Hemoglobin 13.8 g/dL (12.0-16.0); Lymphocytes Absolute Auto 900 /uL (1100-4500); Lymphocytes Percent Auto 14.3 % (25-40); Mean Corpuscular HGB Conc 33.8 % (30-36); Mean Corpuscular Volume 88.7 fL (80-100); Monocytes Absolute Auto 200 /uL (0-900); Monocytes Percent Auto 3.7 % (3-14); Neutrophils Absolute Auto 5000 /uL (1500-7000); Neutrophils Percent Auto 79.4 % (50-75); Platelet Count 226 X10^3/uL (150-400); Red Blood Cell Count 4.59 X10^6/uL (4.0-5.2); Red Cell Distribution Width 13.8 % (11.6-14.8); White Blood Cell Count 6.3 X10^3/uL (4.5-11.0)
[2024-06-24 10:56] LABS: Alanine Aminotransferase 19 IU/L (<35); Albumin 4.2 g/dL (3.5-5.0); Albumin Globulin Ratio 1.4 (1.0-2.8); Alkaline Phosphatase 111 U/L (38-126); Aspartate Aminotransferase 27 IU/L (14-36); BUN Creatinine Ratio 13.5 (6-22); Bilirubin Total 0.4 mg/dL (0.2-1.3); Blood Urea Nitrogen 13 mg/dL (7-17); Calcium 9.2 mg/dL (8.4-10.2); Carbon Dioxide 25 mmol/L (22-32); Chloride 105 mmol/L (98-107); Estimated Glomerular Filt Rate > 60 mL/min (>60); Globulin 2.9 g/dL (1.7-4.1); Glucose 107 mg/dL (70-99); HEMOLYSIS < 15 (0-50); Potassium 4.4 mmol/L (3.4-5.1); Sodium 137 mmol/L (137-145); Total Protein 7.1 g/dL (6.3-8.2)
[2024-06-24 11:15] LABS: Vitamin D 25 Hydroxy (D3) 69.2 ng/mL (30.0-100.0)
[2024-06-25 11:43] LABS: Appearance Urine UA CLEAR; Bilirubin Urine UA NEGATIVE (NEGATIVE); Color Urine UA YELLOW; Glucose Urine UA NEGATIVE (Negative); Ketones Urine UA NEGATIVE (NEGATIVE); Leukocyte Esterase Urine UA NEGATIVE (NEGATIVE); Nitrite Urine UA NEGATIVE (Negative); Occult Blood Urine UA NEGATIVE (Negative); Protein Urine UA NEGATIVE (Negative); Specific Gravity Urine UA <=1.005 (1.000-1.035); Urobilinogen Urine UA 0.2 E.U./dL (0.2)
[2024-06-25 11:53] LABS: Bacteria Urine None Seen; Culture Indicated Urine Cult Not Indicated; RBC Urine 0-1/HPF (0-5/HPF); Squamous Epithelial Cell Urine None Seen (0-5/HPF); Urine Volume 10mL (spun); WBC Urine None Seen (0-5/HPF); pH Urine UA 5.5 (4.5-8.0)
== END ==
PROVIDERS: PCP Family Medicine; Referring Provider Family Medicine; Visit Provider Family Medicine
DX: I48.0 Paroxysmal atrial fibrillation (principal); M81.0 Age-related osteoporosis without current pathological fracture; E16.2 Hypoglycemia, unspecified; M62.81 Muscle weakness (generalized)
CPT/HCPCS: 36415; 80053; 81001; 82306; 85025

== ENCOUNTER → 2024-06-26 08:40 | Outpatient (CLI) | payer MEDICARE, OTHER, SELFPAY ==
[2023-08-04 18:36] VITALS: BMI 23.5
--- NOTE | 2024-06-26 08:41 | DI.US.S_ITS ---
PROCEDURE: US ABDOMEN COMPLETE INDICATIONS: hx ulcer TECHNIQUE: Real-time scanning was performed of the abdominal and retroperitoneal organs, with image documentation. COMPARISON: [facility], CT, CT ABDOMEN PELVIS W CON, 07/02/2024, 1:13. FINDINGS: Liver: Liver is normal in size and homogeneous in echotexture. Gallbladder: Surgically absent. Biliary ducts: Intrahepatic bile ducts are non-dilated. Extrahepatic bile duct caliber measures 4.9 mm. Normal is 6-7 mm or less in diameter, or 10 mm or less post-cholecystectomy. Pancreas: Pancreatic body cyst measuring 1.5 x 0.8 x 0.9 cm. Spleen: Spleen is normal in size and homogeneous in echotexture. Kidneys: Kidneys are normal in size and echotexture. Right kidney measures 9.8 cm long; left kidney measures 9.0 cm long. No hydronephrosis or nephrolithiasis. No solid masses. Aorta: Visualized aorta is normal in caliber at less than 3 cm. Iliacs: Proximal common iliac arteries are normal in caliber at less than 2.5 cm. IVC: Intrahepatic inferior vena cava is patent. Miscellaneous: No free abdominal fluid. IMPRESSION: Cyst in the body of the pancreas measuring up to 1.5 cm. May represent an IPMN. Recommend pancreatic protocol MRI for further evaluation. Dictated by: Kam La M.D. on 07/02/2024 at 9:58 Approved by: Kam La M.D. on 07/02/2024 at 10:01
== END ==
PROVIDERS: PCP Family Medicine; Referring Provider Family Medicine; Visit Provider Family Medicine
DX: K86.2 Cyst of pancreas (principal); R10.9 Unspecified abdominal pain; Z87.11 Personal history of peptic ulcer disease; Z90.49 Acquired absence of other specified parts of digestive tract
CPT/HCPCS: 76700

== ENCOUNTER 2024-06-26 16:20 | Emergency (ER) | payer MEDICARE, OTHER, SELFPAY ==
[2023-08-04 18:36] VITALS: BMI 23.5
[2024-06-26] VITALS (8 sets, daily range): BP systolic 114–146; BP diastolic 57–67; PULSE 62–76; RESP 9–26; TEMP 37.1; O2SAT 95–99; BMI 22.9
--- NOTE | 2024-06-26 16:34 | EKG_ITS ---
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
[2024-06-26 16:54] LABS: Add Manual Diff / Slide Review NO; Basophils Absolute Auto 0 /uL (0-100); Basophils Percent Auto 0.6 % (0-2); Eosinophils Absolute Auto 200 /uL (0-450); Eosinophils Percent Auto 2.9 % (2-4); Hematocrit 39.6 % (36-46); Hemoglobin 13.6 g/dL (12.0-16.0); Lymphocytes Absolute Auto 1800 /uL (1100-4500); Lymphocytes Percent Auto 28.3 % (25-40); Mean Corpuscular HGB Conc 34.3 % (30-36); Mean Corpuscular Hemoglobin 30.1 PG (26-34); Mean Corpuscular Volume 87.9 fL (80-100); Monocytes Absolute Auto 400 /uL (0-900); Monocytes Percent Auto 5.6 % (3-14); Neutrophils Absolute Auto 4000 /uL (1500-7000); Neutrophils Percent Auto 62.6 % (50-75); Platelet Count 241 X10^3/uL (150-400); Red Blood Cell Count 4.51 X10^6/uL (4.0-5.2); White Blood Cell Count 6.4 X10^3/uL (4.5-11.0)
[2024-06-26 17:03] LABS: Alanine Aminotransferase 18 IU/L (<35); Albumin 4.1 g/dL (3.5-5.0); Albumin Globulin Ratio 1.4 (1.0-2.8); Alkaline Phosphatase 106 U/L (38-126); Aspartate Aminotransferase 25 IU/L (14-36); Bilirubin Total 0.2 mg/dL (0.2-1.3); Blood Urea Nitrogen 16 mg/dL (7-17); Calcium 9.2 mg/dL (8.4-10.2); Carbon Dioxide 28 mmol/L (22-32); Chloride 105 mmol/L (98-107); Estimated Glomerular Filt Rate > 60 mL/min (>60); Globulin 2.9 g/dL (1.7-4.1); Glucose 110 mg/dL (70-99); HEMOLYSIS < 15 (0-50); Lipase 55 U/L (23-300); Potassium 4.3 mmol/L (3.4-5.1); Sodium 139 mmol/L (137-145)
[2024-06-26 19:23] LABS: Bacteria Urine Few (2-10); Culture Indicated Urine Cult Not Indicated; RBC Urine None Seen (0-5/HPF); Squamous Epithelial Cell Urine 1-5 /HPF (0-5/HPF); Urine Volume 10mL (spun); WBC Urine 0-1/HPF (0-5/HPF)
--- NOTE | 2024-06-26 19:32 | ED_ITS ---
HPI - Abdominal Pain General Chief Complaint: Abdominal Pain Stated Complaint: abd px Time Seen by Provider: 06/26/24 19:13 Source: patient Mode of arrival: Ambulatory History of Present Illness HPI narrative: 74-year-old female reports intermittent central abdominal discomfort, reported to her primary doctor who did outpatient labs and urinalysis and ordered ultrasound as an outpatient that was performed earlier today, during ultrasound apparently there was considerable discomfort left lateral abdomen, left lower quadrant. They are unaware of any specific diagnosis from the study. She is having increased pain. She does take Eliquis chronic anticoagulation. No black or red stools. Last bowel movement earlier today seemed unremarkable. No nausea or vomiting. No dysuria or frequency of urination. Denies injury falls new activities. Related Data Home Medications Medication Instructions Recorded Confirmed cholecalciferol (vitamin D3) 25 25 mcg PO DAILY 06/02/20 06/21/24 mcg (1,000 unit) capsule apixaban 5 mg tablet (Eliquis) 5 mg PO BID 10/02/20 06/21/24 ayikuona-qicl-wdxo 8 mg-folic 400 1 tab PO DAILY 11/23/20 06/21/24 mcg-K 50 mcg-lutein 300 mcg tablet (Centrum Silver Women) lidocaine 4 % topical patch 1 patch topical DAILY PRN 06/16/22 06/21/24 dexlansoprazole 30 mg 30 mg PO DAILY PRN 03/14/24 06/21/24 capsule,biphase delayed release lansoprazole 15 mg capsule,delayed 15 mg PO DAILY PRN 03/14/24 06/21/24 release metoprolol succinate 25 mg 25 mg PO DAILY 03/14/24 06/21/24 tablet,extended release 24 hr Previous Rx's Medication Instructions Recorded inhalational spacing device #1 ea 01/03/23 mirtazapine 45 mg tablet 45 mg PO DAILY #90 tabs 03/14/24 alendronate 70 mg tablet 70 mg PO QWEEK #30 tabs 04/01/24 levalbuterol tartrate 45 2 puff inhalation Q4-6H PRN 05/27/24 mcg/actuation aerosol inhaler shortness of breath or wheezing (Xopenex HFA) #15 grams Allergies Allergy/AdvReac Type Severity Reaction Status Date / Time fluoxetine Allergy Severe muscle Verified 06/21/24 07:24 weakness codeine Allergy Intermediate Painful Verified 06/21/24 07:24 Bloating meperidine [From Demerol] Allergy Intermediate Vomiting Verified 06/21/24 07:24 lactase [From Dairy Aid] AdvReac Intermediate Gastrointestinal Verified 06/21/24 07:24 Upset prednisone AdvReac Intermediate Shakiness Verified 06/21/24 07:24 Patient History Medical History (Updated 06/26/24 @ 22:12 by Arthur Chris MD) Left foot pain Left ankle pain Paroxysmal atrial fibrillation Allergy to perfume Hypoglycemia Lung nodule seen on imaging study History of colon polyps Hyperglycemia Seborrheic keratosis Actinic keratosis Muscle weakness (generalized) GERD (gastroesophageal reflux disease) Dairy allergy (~2013) Depression (~2011) Seizures (~1989) Mumps Measles Chicken pox Retinal detachment Ovarian cyst (~1978) Gastric ulcer Skin cancer (~1989) TIA (transient ischemic attack) Emphysema of lung (~2009) Epilepsy with partial complex seizures Surgical History Anesthesia History of appendectomy History of Achilles tendon repair (~1963) History of section (~1980) History of tonsillectomy History of hysterectomy Family History Father Congestive heart failure History of heart disease Stroke Mother Cancer Mental health problem Grandmother Congestive heart failure History of heart disease Stroke Social History household members: spouse Smoking Status: Never smoker second hand exposure: Yes (ages 0-18 ) alcohol intake: former substance use type: does not use Smoking Status: Never smoker alcohol intake frequency: 0-2 drinks per day Exam Narrative Exam Narrative: GENERAL: Well-developed patient, in mild distress. HEAD: Atraumatic. Normocephalic. EYES: Pupils equal round and reactive. Extraocular motions intact. No scleral icterus. No injection or drainage. ENT: Nose without bleeding, purulent drainage. Throat without erythema, tonsillar hypertrophy or exudate. Airway patent. NECK: Trachea midline. Non tender CARDIOVASCULAR: Regular rate and rhythm without murmurs, gallops, or rubs. RESPIRATORY: Clear to auscultation. Breath sounds equal bilaterally. No wheezes, rales, or rhonchi. GASTROINTESTINAL: Abdomen with some tenderness left lower quadrant left lateral mid axillary line, no skin rash vesicle changes. No ventral or lateral hernias visible or palpable. Nondistended. Active bowel tones without rushes or tinkles. EXTREMITIES: No edema or joint tenderness. BACK: Nontender without deformity or crepitance. No flank tenderness. NEURO: AOx3. Motor functions grossly nonfocal SKIN: No rash or erythema of visible areas Initial Vital Signs Initial Vital Signs: Vital Signs Temperature 98.7 F 06/26/24 16:27 Pulse Rate 74 06/26/24 16:27 Respiratory Rate 18 06/26/24 16:27 Blood Pressure 146/67 H 06/26/24 16:27 Pulse Oximetry 99 06/26/24 16:27 Oxygen Delivery Method Room Air 06/26/24 16:27 Course Orders Ordered: ED Orders 06/26/24 18:39 Urine Microscopic Stat 06/26/24 19:48 CT abdomen pelvis w con Stat Discontinued Medications Ketorolac Tromethamine (Ketorolac 30 Mg/Ml Vial) 15 mg IV NOW ONE Stop: 06/26/24 20:15 Last Admin: 06/26/24 20:33 Dose: 15 mg Documented By: ANAI Ondansetron HCl (Ondansetron 4 Mg/2 Ml Inj) 4 mg IV NOW PRN PRN Reason: Nausea And Vomiting Ondansetron HCl (Ondansetron 4 Mg Odt) 4 mg PO NOW PRN PRN Reason: Nausea And Vomiting Vital Signs Vital signs: Vital Signs - 8 hr 06/26/24 20:03 06/26/24 20:04 06/26/24 20:04 Pulse Rate 64 76 Respiratory Rate 26 H 19 Blood Pressure 139/67 Pulse Oximetry 98 98 Oxygen Delivery Method Room Air 06/26/24 20:30 06/26/24 20:30 06/26/24 21:02 Pulse Rate 67 Respiratory Rate 16 Blood Pressure 121/57 L 132/65 Pulse Oximetry 97 Oxygen Delivery Method 06/26/24 21:02 06/26/24 21:30 06/26/24 21:30 Pulse Rate 64 62 Respiratory Rate 18 15 Blood Pressure 125/65 Pulse Oximetry 98 96 Oxygen Delivery Method 06/26/24 22:00 06/26/24 22:00 06/26/24 22:12 Pulse Rate 62 Respiratory Rate 9 L Blood Pressure 114/65 124/67 Pulse Oximetry 95 Oxygen Delivery Method 06/26/24 22:12 Pulse Rate 73 Respiratory Rate 24 Blood Pressure Pulse Oximetry 97 Oxygen Delivery Method Room Air MDM - Abdominal Pain Lab Data Attestation: I reviewed the patient's lab results. Lab results narrative: White blood cell count 6400, hemoglobin 13.6, platelets adequate. Glucose 110 normal. Renal function normal. Electrolytes normal. Serum CO2 28 normal. Liver functions and lipase normal. UA negative. 06/26/24 16:40 06/26/24 16:40 Labs: Lab Results 06/26/24 06/26/24 Range/Units 16:40 18:39 WBC 6.4 (4.5-11.0) X10^3/uL RBC 4.51 (4.0-5.2) X10^6/uL Hgb 13.6 (12.0-16.0) g/dL Hct 39.6 (36-46) % MCV 87.9 (80-100) fL MCH 30.1 (26-34) PG MCHC 34.3 (30-36) % RDW 14.0 (11.6-14.8) % Plt Count 241 (150-400) X10^3/uL Neut % (Auto) 62.6 (50-75) % Lymph % (Auto) 28.3 (25-40) % Elliott % (Auto) 5.6 (3-14) % Eos % (Auto) 2.9 (2-4) % Baso % (Auto) 0.6 (0-2) % Neut # (Auto) 4000 (4966-2200) /uL Lymph # (Auto) 1800 (5097-6682) /uL Elliott # (Auto) 400 (0-900) /uL Eos # (Auto) 200 (0-450) /uL Baso # (Auto) 0 (0-100) /uL Sodium 139 (137-145) mmol/L Potassium 4.3 (3.4-5.1) mmol/L Chloride 105 (98-107) mmol/L Carbon Dioxide 28 (22-32) mmol/L BUN 16 (7-17) mg/dL Creatinine 0.89 (0.52-1.04) mg/dL Estimated GFR > 60 (>60) mL/min BUN/Creatinine Ratio 18.0 (6-22) Glucose 110 H (70-99) mg/dL Calcium 9.2 (8.4-10.2) mg/dL Total Bilirubin 0.2 (0.2-1.3) mg/dL AST 25 (14-36) IU/L ALT 18 (<35) IU/L Alkaline Phosphatase 106 (38-126) U/L Total Protein 7.0 (6.3-8.2) g/dL Albumin 4.1 (3.5-5.0) g/dL Globulin 2.9 (1.7-4.1) g/dL Albumin/Globulin Ratio 1.4 (1.0-2.8) Lipase 55 (23-300) U/L Urine RBC None seen (0-5/HPF) Urine WBC 0-1/hpf (0-5/HPF) Ur Squamous Epith Cells 1-5 /hpf (0-5/HPF) Urine Bacteria Few (2-10) H (None) Ur Culture Indicated? Cult not indicated Vol Urine Centrifuged 10ml (spun) Point of care testing: Urine Dip Bedside Urine Glucose Negative Bedside Urine Bilirubin - Negative Bedside Urine Ketone - Negative Urine Specific [place] 1.010 Bedside Urine Occult Blood +/- Bedside Urine pH 6.0 Bedside Urine Protein - Negative Bedside Urine Urobilinogen - Negative Bedside Urine Nitrite - Negative Bedside Urine Leukocytes - Negative Esterase Imaging Data CT scan - abdomen/pelvis: Radiologist's Impression: [place] [address] CT Scan Report Signed Patient: Luz Maria Cason MR#: [id number] : 1950 Acct:[id number] Age/Sex: 74 / F Date of Service: 06/26/24 Loc: ED Accession Number: [id number] Procedure: CT abdomen pelvis w con Ordering Provider: Arthur Chris MD PROCEDURE: CT ABDOMEN PELVIS W CON INDICATIONS: LLQ pain TECHNIQUE: After the administration of intravenous contrast, axial sections acquired from the lung bases to the pubic symphysis. Coronal and sagittal reformats were performed. For radiation dose reduction, the following was used: automated exposure control, adjustment of mA and/or kV according to patient size. COMPARISON: [facility], CT, CT CHEST WO CON, 01/05/2023, 8:03. [facility], CT, CT ABDOMEN PELVIS W CON, 01/03/2022, 16:37. FINDINGS: Image quality: Diagnostic. Lower Chest: Trace pericardial fluid. ABDOMEN: Liver: No solid mass. Gallbladder: Absent. Biliary ducts: No biliary dilation. Pancreas: Atrophic. Small cyst at the neck of the pancreas measuring 1 cm, (2/36), previously 0.6 cm in 2021. No ductal dilation. Spleen: Size is within normal limits. Small cysts or hemangiomas. Adrenal Glands: No adrenal nodules. Kidneys and Ureters: No hydronephrosis. No solid mass. No complex renal cystic lesion which requires follow up. Stomach and Bowel: Normal colonic caliber, without significant wall thickening. Prominent stool in the colon. The appendix is not seen. No diverticulitis. Peritoneum: No abnormal intraperitoneal fluid. No free air. Mass in the left abdomen anterior to the left kidney measuring 3.2 x 3.1 cm, (2/48), previously not seen. Question central necrosis. Ventral Wall: No significant ventral hernia. Abdominal Nodes: No retroperitoneal or mesenteric adenopathy by size criteria. Vessels: Aorta and inferior vena cava are normal in size. PELVIS: Pelvic Organs: Uterus is absent. Bladder: No bladder wall thickening, accounting for underdistention. Pelvic Nodes: No enlarged lymph nodes. Miscellaneous: No inguinal hernias are seen. Bones: No aggressive osseous abnormality. IMPRESSION: 1. No acute inflammatory process is identified. No free fluid. No diverticulitis. 2. Mass in the left abdomen measuring 3.2 cm. Suspicious for malignancy. Etiology is uncertain. 3. Prominent stool in the colon raises the possibility of constipation. 4. Small cyst at the neck of the pancreas measuring 1 cm, slightly increased. This could represent a small IPMN. Dictated by: Isak Stein M.D. on 06/26/2024 at 20:21 Approved by: Isak Stein M.D. on 06/26/2024 at 20:33 ECG Data Attestation: I personally reviewed and interpreted this ECG as follows: Interpretation: Normal sinus rhythm with PACs. Ventricular rate 71. No obvious ST segment elevation or depression changes. TX 150, QRS 68, QTC 436. [facility] Narrative Medical decision making narrative: 74-year-old female with intermittent central abdominal pain, prior hysterectomy and oophorectomy, left lateral abdominal pain, reportedly had ultrasound abdomen done here this morning but we could not locate any report, having left-sided discomfort at the time of the examination. Afebrile, sirs screen negative. Some tenderness left lower quadrant on my examination, without guarding or rebound tenderness, nondistended. DDx consider diverticulitis, colitis, ureteral stone, UTI, musculoskeletal, other. Screening labs unremarkable, urine dip negative. GFR favorable, patient would like to proceed with advanced imaging. CT abdomen and pelvis with IV contrast ordered. She would like pain medications, IV morphine/Zofran. Keep NPO. Records review: Attempted to find ultrasound abdomen reportedly done earlier today as an outpatient here, no report located. Patient was informed. Screening labs today CBC, CMP, lipase, urinalysis negative. CT abdomen and pelvis done, results pending CT shows no acute inflammatory change. Incidental mass left abdomen 3.2 cm suspicious for malignancy noted. Etiology unclear. Stool prominence noted, possible constipation. Small cysts neck of the pancreas 1 cm, slightly increased from comparison study. See radiology report. Copy of the report provided to patient and family. Abdominal mass discussed. Pancreatic cyst discussed. Unclear that either finding is related to her pain. Constipation noted on imaging, advised trial of OTC MiraLax for now. Follow up with PCP advised. Return precautions discussed. Discharged home with family. Discharge Plan Departure Patient Disposition: Home Clinical Impression: Abdominal pain, Constipation, Abdominal mass, Pancreas cyst Instructions: DI for Abdominal Pain-Adult Activity Restrictions/Additional Instructions: Abdominal pain predominantly left-sided with discomfort on examination. Screening labs including urinalysis negative. No fever. CT abdomen and pelvis was performed, no acute inflammatory process identified. Incidental finding noted of 3.2 cm mass in the left side of the abdomen, the radiologist's is concerned that this might look like it is a type of cancer, but unclear if so where it might be coming from, unclear if this is causing your pain but it is left-sided, no associated acute changes within the small mass within the mass or adjacent structures. Incidental finding also of small cyst in the neck of the pancreas, this is quite small 1 cm diameter, seems unlikely this is cause of your discomfort. There is prominent stool in the colon, constipation maybe a component of your discomfort. Trial of [id number] MiraLax laxative for now. Follow up with your regular doctor for follow up of the abdominal mass and cyst structures. And to review your symptoms after course of laxatives. Return earlier to this/nearest emergency department for any change worsening symptoms or any concerns prior. Prescriptions: No Action Eliquis 5 mg tablet 5 mg PO BID (DME) inhalational spacing device Spacer See Rx Instructions .Route Qty: 1 2RF Rx Instructions: Use spacer with albuterol inhaler levalbuterol tartrate [Xopenex HFA] 45 mcg/actuation HFA aerosol inhaler 2 puff inhalation Q4-6H PRN (Reason: shortness of breath or wheezing) Qty: 15 3RF cholecalciferol (vitamin D3) 25 mcg (1,000 unit) capsule 25 mcg PO DAILY alendronate 70 mg tablet 70 mg PO QWEEK Qty: 30 0RF Centrum Silver Women 8 mg iron-400 mcg-300 mcg tablet 1 tab PO DAILY lidocaine 4 % adhesive patch,medicated 1 patch topical DAILY PRN metoprolol succinate 25 mg tablet extended release 24 hr 25 mg PO DAILY dexlansoprazole 30 mg capsule,biphase delayed releas 30 mg PO DAILY PRN lansoprazole 15 mg capsule,delayed release(DR/EC) 15 mg PO DAILY PRN mirtazapine 45 mg tablet 45 mg PO DAILY Qty: 90 3RF Referrals: Gisselle Villafana DO [Primary Care Provider] - Stand Alone Forms: Patient Portal/API/Survey
--- NOTE | 2024-06-26 19:48 | DI.CT.S_ITS ---
PROCEDURE: CT ABDOMEN PELVIS W CON INDICATIONS: LLQ pain TECHNIQUE: After the administration of intravenous contrast, axial sections acquired from the lung bases to the pubic symphysis. Coronal and sagittal reformats were performed. For radiation dose reduction, the following was used: automated exposure control, adjustment of mA and/or kV according to patient size. COMPARISON: [facility], CT, CT CHEST WO CON, 01/05/2023, 8:03. [facility], CT, CT ABDOMEN PELVIS W CON, 01/03/2022, 16:37. FINDINGS: Image quality: Diagnostic. Lower Chest: Trace pericardial fluid. ABDOMEN: Liver: No solid mass. Gallbladder: Absent. Biliary ducts: No biliary dilation. Pancreas: Atrophic. Small cyst at the neck of the pancreas measuring 1 cm, (2/36), previously 0.6 cm in 2021. No ductal dilation. Spleen: Size is within normal limits. Small cysts or hemangiomas. Adrenal Glands: No adrenal nodules. Kidneys and Ureters: No hydronephrosis. No solid mass. No complex renal cystic lesion which requires follow up. Stomach and Bowel: Normal colonic caliber, without significant wall thickening. Prominent stool in the colon. The appendix is not seen. No diverticulitis. Peritoneum: No abnormal intraperitoneal fluid. No free air. Mass in the left abdomen anterior to the left kidney measuring 3.2 x 3.1 cm, (2/48), previously not seen. Question central necrosis. Ventral Wall: No significant ventral hernia. Abdominal Nodes: No retroperitoneal or mesenteric adenopathy by size criteria. Vessels: Aorta and inferior vena cava are normal in size. PELVIS: Pelvic Organs: Uterus is absent. Bladder: No bladder wall thickening, accounting for underdistention. Pelvic Nodes: No enlarged lymph nodes. Miscellaneous: No inguinal hernias are seen. Bones: No aggressive osseous abnormality. IMPRESSION: 1. No acute inflammatory process is identified. No free fluid. No diverticulitis. 2. Mass in the left abdomen measuring 3.2 cm. Suspicious for malignancy. Etiology is uncertain. 3. Prominent stool in the colon raises the possibility of constipation. 4. Small cyst at the neck of the pancreas measuring 1 cm, slightly increased. This could represent a small IPMN. Dictated by: Isak Stein M.D. on 06/26/2024 at 20:21 Approved by: Isak Stein M.D. on 06/26/2024 at 20:33
[2024-06-26] MEDS: KETOROLAC 30 MG/ML VIAL 15 MG IV (20:33)
== END 2024-06-26 22:31 | disposition home or self-care (01) ==
PROVIDERS: Emergency Medicine; Emergency Provider Emergency Medicine; PCP Family Medicine
DX: R10.32 Left lower quadrant pain (principal); K59.00 Constipation, unspecified; R19.09 Other intra-abdominal and pelvic swelling, mass and lump; K86.2 Cyst of pancreas; Z79.01 Long term (current) use of anticoagulants
CPT/HCPCS: 36415; 74177; 76700; 80053; 81003; 81015; 83690; 85025; 93005; 96374; 99284; J1885; Q9967

== ENCOUNTER 2024-07-01 19:42 | Observation (INO) | payer MEDICARE, OTHER, SELFPAY ==
[2023-08-04 18:36] VITALS: BMI 23.5
[2024-07-01 19:50] VITALS: BP 120/77; PULSE 80; RESP 18; TEMP 36.1; O2SAT 97; BMI 22.9
--- NOTE | 2024-07-01 20:07 | EKG_ITS ---
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
[2024-07-01 20:12] LABS: Add Manual Diff / Slide Review NO; Basophils Absolute Auto 0 /uL (0-100); Basophils Percent Auto 0.6 % (0-2); Eosinophils Absolute Auto 200 /uL (0-450); Eosinophils Percent Auto 3.4 % (2-4); Hematocrit 38.3 % (36-46); Hemoglobin 12.9 g/dL (12.0-16.0); Lymphocytes Absolute Auto 1900 /uL (1100-4500); Lymphocytes Percent Auto 29.4 % (25-40); Mean Corpuscular HGB Conc 33.7 % (30-36); Mean Corpuscular Hemoglobin 29.7 PG (26-34); Mean Corpuscular Volume 88.3 fL (80-100); Monocytes Absolute Auto 400 /uL (0-900); Monocytes Percent Auto 6.2 % (3-14); Neutrophils Absolute Auto 3900 /uL (1500-7000); Neutrophils Percent Auto 60.4 % (50-75); Platelet Count 234 X10^3/uL (150-400); Red Blood Cell Count 4.34 X10^6/uL (4.0-5.2); Red Cell Distribution Width 13.8 % (11.6-14.8); White Blood Cell Count 6.4 X10^3/uL (4.5-11.0)
[2024-07-01 20:18] LABS: Alanine Aminotransferase 19 IU/L (<35); Albumin 4.1 g/dL (3.5-5.0); Albumin Globulin Ratio 1.5 (1.0-2.8); Alkaline Phosphatase 95 U/L (38-126); Aspartate Aminotransferase 26 IU/L (14-36); BUN Creatinine Ratio 14.9 (6-22); Bilirubin Total 0.3 mg/dL (0.2-1.3); Blood Urea Nitrogen 15 mg/dL (7-17); Calcium 9.3 mg/dL (8.4-10.2); Carbon Dioxide 26 mmol/L (22-32); Chloride 104 mmol/L (98-107); Estimated Glomerular Filt Rate 59 mL/min (>60); Globulin 2.7 g/dL (1.7-4.1); Glucose 111 mg/dL (70-99); HEMOLYSIS < 15 (0-50); Lipase 55 U/L (23-300); Potassium 4.2 mmol/L (3.4-5.1); Sodium 136 mmol/L (137-145); Total Protein 6.8 g/dL (6.3-8.2)
[2024-07-01 23:36] VITALS: BP 143/65; PULSE 73; O2SAT 100
[2024-07-01] MEDS: HYDROMORPHONE 1 MG INJ IV (23:50)
--- NOTE | 2024-07-01 23:55 | ED_ITS ---
HPI - Abdominal Pain General Chief Complaint: Abdominal Pain Stated Complaint: abd pain Time Seen by Provider: 07/01/24 23:43 Source: patient and family Mode of arrival: Wheelchair History of Present Illness HPI narrative: 74-year-old female history of appendectomy, , hysterectomy, seizure, atrial fibrillation on Eliquis, presents with intermittent abdominal pain for few months now seen by the PCP recently for which he ordered an ultrasound. Pt continued to have increasing pain and then seen in the ER here most recently on June 26 for which abdominal mass was seen on ct scan. Patient had follow up with PCP who referred to surgery and now is referred as outpatient to [facility] for further workup. Patient last had a bowel movement 2 days ago with Dulcolax but has since had worsening pain today despite being on tramadol as needed for pain control. Pt is on eliquis for anticoagulation. Other than what is stated 14 point review of system is negative. Related Data Home Medications Medication Instructions Recorded Confirmed cholecalciferol (vitamin D3) 25 25 mcg PO DAILY 06/02/20 06/21/24 mcg (1,000 unit) capsule apixaban 5 mg tablet (Eliquis) 5 mg PO BID 10/02/20 06/21/24 [id number] 8 mg-folic 400 1 tab PO DAILY 11/23/20 06/21/24 mcg-K 50 mcg-lutein 300 mcg tablet (Centrum Silver Women) lidocaine 4 % topical patch 1 patch topical DAILY PRN 06/16/22 06/21/24 dexlansoprazole 30 mg 30 mg PO DAILY PRN 03/14/24 06/21/24 capsule,biphase delayed release lansoprazole 15 mg capsule,delayed 15 mg PO DAILY PRN 03/14/24 06/21/24 release metoprolol succinate 25 mg 25 mg PO DAILY 03/14/24 06/21/24 tablet,extended release 24 hr Previous Rx's Medication Instructions Recorded inhalational spacing device #1 ea 01/03/23 mirtazapine 45 mg tablet 45 mg PO DAILY #90 tabs 03/14/24 alendronate 70 mg tablet 70 mg PO QWEEK #30 tabs 04/01/24 levalbuterol tartrate 45 2 puff inhalation Q4-6H PRN 05/27/24 mcg/actuation aerosol inhaler shortness of breath or wheezing (Xopenex HFA) #15 grams Allergies Allergy/AdvReac Type Severity Reaction Status Date / Time fluoxetine AdvReac Severe muscle Verified 07/01/24 19:50 weakness codeine AdvReac Intermediate Painful Verified 07/01/24 19:50 Bloating lactase [From Dairy Aid] AdvReac Intermediate Gastrointestinal Verified 07/01/24 19:50 Upset meperidine [From Demerol] AdvReac Intermediate Vomiting Verified 07/01/24 19:50 prednisone AdvReac Intermediate Shakiness Verified 07/01/24 19:50 Review of Systems Review of Systems ROS Unobtainable: All systems reviewed & are unremarkable except as noted in HPI and below Patient History Medical History (Updated 07/02/24 @ 02:50 by Vishal Gonzáles DO) Left foot pain Left ankle pain Paroxysmal atrial fibrillation Allergy to perfume Hypoglycemia Lung nodule seen on imaging study History of colon polyps Hyperglycemia Seborrheic keratosis Actinic keratosis Muscle weakness (generalized) GERD (gastroesophageal reflux disease) Dairy allergy (~2013) Depression (~2011) Seizures (~1989) Mumps Measles Chicken pox Retinal detachment Ovarian cyst (~1978) Gastric ulcer Skin cancer (~1989) TIA (transient ischemic attack) Emphysema of lung (~2009) Epilepsy with partial complex seizures Surgical History Anesthesia History of appendectomy History of Achilles tendon repair (~1963) History of section (~1980) History of tonsillectomy History of hysterectomy Family History Father Congestive heart failure History of heart disease Stroke Mother Cancer Mental health problem Grandmother Congestive heart failure History of heart disease Stroke Social History household members: spouse second hand exposure: Yes (ages 0-18 ) alcohol intake: former substance use type: does not use alcohol intake frequency: 0-2 drinks per day Exam Narrative Exam Narrative: GENERAL: [74] year old patient appears stated age. Well-developed patient, in mild distress. HEAD: Atraumatic. Normocephalic. EYES: Pupils equal round and reactive. Extraocular motions intact. No scleral icterus. No injection or drainage. ENT: Nose without bleeding, purulent drainage. Throat without erythema, tonsillar hypertrophy or exudate. Airway patent. NECK: Trachea midline. Non tender CARDIOVASCULAR: Regular rate and rhythm without murmurs, gallops, or rubs. RESPIRATORY: Clear to auscultation. Breath sounds equal bilaterally. No wheezes, rales, or rhonchi. GASTROINTESTINAL: Abdomen firm, diffuse ttp but no r/r/g EXTREMITIES: No edema or joint tenderness. BACK: Nontender without deformity or crepitance. No flank tenderness. NEURO: AOx3. SKIN: No rash or erythema of visible areas Initial Vital Signs Initial Vital Signs: Vital Signs Temperature 97.0 F L 07/01/24 19:50 Pulse Rate 80 07/01/24 19:50 Respiratory Rate 18 07/01/24 19:50 Blood Pressure 120/77 07/01/24 19:50 Pulse Oximetry 97 07/01/24 19:50 Oxygen Delivery Method Room Air 07/01/24 19:50 Course Orders Ordered: ED Orders 07/01/24 19:55 EKG-12 Lead Stat 07/01/24 20:00 Complete Blood Count AUTO DIFF Stat Comprehensive Metabolic Panel Stat Lipase Stat 07/02/24 00:06 XR abdomen 3V Stat Ondansetron HCl (Ondansetron 4 Mg/2 Ml Inj) 4 mg IV NOW PRN PRN Reason: Nausea And Vomiting Ondansetron HCl (Ondansetron 4 Mg Odt) 4 mg PO NOW PRN PRN Reason: Nausea And Vomiting Discontinued Medications Hydromorphone HCl (Hydromorphone 1 Mg Inj) 1 mg IV NOW ONE Stop: 07/01/24 23:47 Last Admin: 07/01/24 23:50 Dose: 1 mg Documented By: ECHO Vital Signs Vital signs: Vital Signs - 8 hr 07/01/24 19:50 07/01/24 23:36 07/01/24 23:36 Temperature 97.0 F L Pulse Rate 80 73 Respiratory Rate 18 Blood Pressure 120/77 143/65 H Pulse Oximetry 97 100 Oxygen Delivery Method Room Air 07/02/24 00:00 07/02/24 00:00 Temperature Pulse Rate 73 Respiratory Rate 20 Blood Pressure 144/67 H Pulse Oximetry 100 Oxygen Delivery Method Room Air MDM - Abdominal Pain Lab Data 07/01/24 20:00 07/01/24 20:00 Labs: Lab Results 07/01/24 Range/Units 20:00 WBC 6.4 (4.5-11.0) X10^3/uL RBC 4.34 (4.0-5.2) X10^6/uL Hgb 12.9 (12.0-16.0) g/dL Hct 38.3 (36-46) % MCV 88.3 (80-100) fL MCH 29.7 (26-34) PG MCHC 33.7 (30-36) % RDW 13.8 (11.6-14.8) % Plt Count 234 (150-400) X10^3/uL Neut % (Auto) 60.4 (50-75) % Lymph % (Auto) 29.4 (25-40) % [place] % (Auto) 6.2 (3-14) % Eos % (Auto) 3.4 (2-4) % Baso % (Auto) 0.6 (0-2) % Neut # (Auto) 3900 (1357-5888) /uL Lymph # (Auto) 1900 (3420-2443) /uL [place] # (Auto) 400 (0-900) /uL Eos # (Auto) 200 (0-450) /uL Baso # (Auto) 0 (0-100) /uL Sodium 136 L (137-145) mmol/L Potassium 4.2 (3.4-5.1) mmol/L Chloride 104 (98-107) mmol/L Carbon Dioxide 26 (22-32) mmol/L BUN 15 (7-17) mg/dL Creatinine 1.01 (0.52-1.04) mg/dL Estimated GFR 59 L (>60) mL/min BUN/Creatinine Ratio 14.9 (6-22) Glucose 111 H (70-99) mg/dL Calcium 9.3 (8.4-10.2) mg/dL Total Bilirubin 0.3 (0.2-1.3) mg/dL AST 26 (14-36) IU/L ALT 19 (<35) IU/L Alkaline Phosphatase 95 (38-126) U/L Total Protein 6.8 (6.3-8.2) g/dL Albumin 4.1 (3.5-5.0) g/dL Globulin 2.7 (1.7-4.1) g/dL Albumin/Globulin Ratio 1.5 (1.0-2.8) Lipase 55 (23-300) U/L Point of care testing: Point of Care Testing Glucose POC 126 Urine Dip Bedside Urine Glucose Negative Bedside Urine Bilirubin - Negative Bedside Urine Ketone - Negative Urine Specific [place] 1.005 Bedside Urine Occult Blood +/- Bedside Urine pH 6.5 Bedside Urine Protein - Negative Bedside Urine Urobilinogen - Negative Bedside Urine Nitrite - Negative Bedside Urine Leukocytes - Negative Esterase Imaging Data CT scan - head: Radiologist's Impression: [place] [address] CT Scan Report Signed Patient: Luz Maria Cason MR#: [id number] : 1950 Acct:[id number] Age/Sex: 74 / F Date of Service: 07/02/24 Loc: ED Accession Number: [id number] Procedure: CT head/brain wo con Ordering Provider: Vishal Gonzáles D.O. PROCEDURE: CT HEAD/BRAIN WO CON INDICATIONS: altered mental status TECHNIQUE: Noncontrast 4.5 mm thick angled axial sections acquired from the foramen magnum to the vertex, with coronal and sagittal reformats. For radiation dose reduction, the following was used: automated exposure control, adjustment of mA and/or kV according to patient size. COMPARISON: None. FINDINGS: Image quality: Diagnostic. CSF spaces: Basal cisterns are patent. No extra-axial fluid collections. The ventricles are symmetric in size and shape. Brain: No intracranial bleeds or mass effect. There is cerebral volume loss, with resultant ventricular and sulcal prominence. There are periventricular and deep white matter chronic small vessel ischemic changes. There is intracranial internal carotid artery atherosclerosis. Skull and face: Calvarium and visualized facial bones appear intact, without suspicious lesions. Sinuses: Visualized sinuses and mastoids are clear. IMPRESSION: No acute intracranial pathology. Dictated by: Fran Soto M.D. on 07/02/2024 at 1:48 Approved by: Fran Soto M.D. on 07/02/2024 at 1:[address] [address] [address] Scan Report Signed Patient: Luz Maria Cason MR#: [id number] : 1950 Acct:[id number] Age/Sex: 74 / F Date of Service: 07/02/24 Loc: ED Accession Number: [id number] Procedure: CT abdomen pelvis w con Ordering Provider: Vishal Gonzáles D.O. PROCEDURE: CT ABDOMEN PELVIS W CON INDICATIONS: r/o pneumoperitoneum TECHNIQUE: After the administration of intravenous contrast, axial sections acquired from the lung bases to the pubic symphysis. Coronal and sagittal reformats were performed. For radiation dose reduction, the following was used: automated exposure control, adjustment of mA and/or kV according to patient size. COMPARISON: [facility], CT, CT ABDOMEN PELVIS W CON, 06/26/2024, 19:54. [facility], CT, CT ABDOMEN PELVIS W CON, 01/03/2022, 16:37. [facility], CT, CT ABDOMEN PELVIS W CON, 11/15/2021, 8:07. FINDINGS: Image quality: Diagnostic. Peritoneum: No pneumoperitoneum or ascites. Bones: No acute osseous abnormality. Diffuse osseous demineralization. No lytic or blastic lesion. Lower Chest: Left basilar subsegmental atelectasis. Liver: Normal in size and contour. Gallbladder: Surgically absent. Biliary tree: No intrahepatic or extrahepatic biliary ductal dilatation, accounting for post cholecystectomy state. Pancreas: Within normal limits. The previously mentioned pancreatic tail lesion is not well identified on this examination. Spleen: Normal in size and contour. Kidneys: No hydronephrosis or obstructive urolithiasis. Adrenals: No adrenal nodularity. Bladder: Normal in size and wall thickness. : No acute abnormality. Stomach: Normal in size and contour. Bowel: Mild stool burden. No bowel obstruction.. Appendix within normal limits. Lymph Nodes: Re-identified 2.9 cm superior mesenteric node with central hypodensity (2/76; 3/38). Otherwise, no mesenteric, retroperitoneal, or bilateral inguinal lymphadenopathy by size criteria. Vascular: No abdominal aortic aneurysm. The visualized arterial vasculature is patent. Mild atherosclerosis. Soft Tissues: No acute abnormality. IMPRESSION: 1. Pathologic 2.9 cm superior mesenteric node versus mass. The differential diagnosis would include lymphoma small as metastatic disease of unknown primary. Percutaneous sampling by interventional radiology could be considered, although the location may preclude viable sampling windows. 2. No pneumoperitoneum. 3. No other acute CT abnormality of the abdomen/pelvis. Dictated by: Fran Soto M.D. on 07/02/2024 at 1:53 Approved by: Fran Soto M.D. on 07/02/2024 at 2:02 [place] [address] CT Scan Report Signed Patient: Luz Maria Cason MR#: [id number] : 1950 Acct:[id number] Age/Sex: 74 / F Date of Service: 07/02/24 Loc: ED Accession Number: [id number] Procedure: CT head/brain wo con Ordering Provider: Vishal Gonzáles D.O. PROCEDURE: CT HEAD/BRAIN WO CON INDICATIONS: altered mental status TECHNIQUE: Noncontrast 4.5 mm thick angled axial sections acquired from the foramen magnum to the vertex, with coronal and sagittal reformats. For radiation dose reduction, the following was used: automated exposure control, adjustment of mA and/or kV according to patient size. COMPARISON: None. FINDINGS: Image quality: Diagnostic. CSF spaces: Basal cisterns are patent. No extra-axial fluid collections. The ventricles are symmetric in size and shape. Brain: No intracranial bleeds or mass effect. There is cerebral volume loss, with resultant ventricular and sulcal prominence. There are periventricular and deep white matter chronic small vessel ischemic changes. There is intracranial internal carotid artery atherosclerosis. Skull and face: Calvarium and visualized facial bones appear intact, without suspicious lesions. Sinuses: Visualized sinuses and mastoids are clear. IMPRESSION: No acute intracranial pathology. Dictated by: Fran Soto M.D. on 07/02/2024 at 1:48 Approved by: Fran Soto M.D. on 07/02/2024 at 1:48 ECG Data Interpretation: Afib HR 71 NC undetermined QRS 70 QT 422 Unchanged from 06/26/24 [facility] Narrative Medical decision making narrative: All lab work vital signs nurse triage note medication list previous ER visits and all imaging studies reviewed. CT scan abdomen and pelvis showed pathologic 2.9 cm superior mesenteric node versus mass. Differential diagnosis includes lymphoma small as metastatic disease of unknown primary. Percutaneous sampling by Interventional Cardiology to be considered. No pneumoperitoneum and no other acute CT abnormality of the abdomen pelvis. CT scan of the head showed no acute process. Patient received total of 1.5 mg Dilaudid and Tylenol p.o. here. During transfer back from Radiology suite while in the sitting position on the wheelchair patient had loss of consciousness whereby she was shaking her arms and leg very briefly but no bladder incontinence no tongue biting no rolling of the eyes as her eyes were closed. Patient was quickly placed on the stretcher with seizure pads in place and given a few sternal rubs for which she then came to but still lethargic and nonverbal briefly. On reexamination few minutes later she is now back to her baseline GCS of 15 nonfocal neuro exam. Differential diagnosis includes CVA, TIA, seizure, hypoglycemia, STEMI, NSTEMI, PE, side effect of pain medication. Case discussed with Dr. Burrell hospitalist who has graciously accepted patient for inpatient admission Discharge Plan Departure Patient Disposition: Admitted as Observation Clinical Impression: Syncope Qualifiers: Syncope type: unspecified Qualified Code(s): R55 - Syncope and collapse Abdominal mass Qualifiers: Abdominal location: generalized Qualified Code(s): R19.07 - Generalized intra- abdominal and pelvic swelling, mass and lump Prescriptions: No Action Eliquis 5 mg tablet 5 mg PO BID (DME) inhalational spacing device Spacer See Rx Instructions .Route Qty: 1 2RF Rx Instructions: Use spacer with albuterol inhaler levalbuterol tartrate [Xopenex HFA] 45 mcg/actuation HFA aerosol inhaler 2 puff inhalation Q4-6H PRN (Reason: shortness of breath or wheezing) Qty: 15 3RF cholecalciferol (vitamin D3) 25 mcg (1,000 unit) capsule 25 mcg PO DAILY alendronate 70 mg tablet 70 mg PO QWEEK Qty: 30 0RF Centrum Silver Women 8 mg iron-400 mcg-300 mcg tablet 1 tab PO DAILY lidocaine 4 % adhesive patch,medicated 1 patch topical DAILY PRN metoprolol succinate 25 mg tablet extended release 24 hr 25 mg PO DAILY dexlansoprazole 30 mg capsule,biphase delayed releas 30 mg PO DAILY PRN lansoprazole 15 mg capsule,delayed release(DR/EC) 15 mg PO DAILY PRN mirtazapine 45 mg tablet 45 mg PO DAILY Qty: 90 3RF Referrals: Gisselle Villafana, [Primary Care Provider] -
[2024-07-02] VITALS (9 sets, daily range): BP systolic 112–158; BP diastolic 58–72; PULSE 68–77; RESP 15–23; TEMP 36.2–36.4; O2SAT 92–100; BMI 22.9
--- NOTE | 2024-07-02 00:06 | DI.RAD.S_ITS ---
PROCEDURE: XR ABDOMEN 3V INDICATIONS: abd pain/nausea/mass/constipation TECHNIQUE: One view chest and two views of the abdomen were acquired. COMPARISON: [facility], CT, CT ABDOMEN PELVIS W CON, 06/26/2024, 19:54. FINDINGS: Surgical changes and devices: Implantable loop recorder device overlying the left heart silhouette. Right upper quadrant surgical clips. Chest: Lungs are clear. Heart size is normal. No pleural effusions. No pneumoperitoneum. Abdomen: Bowel gas pattern is normal. No suspicious calcifications. Visualized solid organ contours appear normal. Bones: Diffuse osseous demineralization. No suspicious bony lesions. IMPRESSION: No radiographic evidence of bowel obstruction. Evaluation for pneumoperitoneum limited in the supine position. Dictated by: Fran Soto M.D. on 07/02/2024 at 0:53 Approved by: Fran Soto M.D. on 07/02/2024 at 0:55
--- NOTE | 2024-07-02 00:53 | PC.NURSE ---
Called to room by materials technician who helped pt to BR via WC. Pt was in WC, all 4 limbs shaking, pt not responsive. at bedside reports hx seizures. Shaking stopped after approx 1 minute. Pt assisted to bed, seizure precautions initiated. Pt noted with period of decreased responsiveness, now more alert. Dr Gonzáles was called to bedside and is aware of above.
--- NOTE | 2024-07-02 01:01 | PC.NURSE ---
This nurse was told of what happened in previous note. This nurse in room after said seizure-like activity. Pt in room resting, alert and oriented x4. Says she is tired. VSS. Seizure precautions in place, no new orders at this time.
--- NOTE | 2024-07-02 01:04 | DI.CT.S_ITS ---
PROCEDURE: CT ABDOMEN PELVIS W CON INDICATIONS: r/o pneumoperitoneum TECHNIQUE: After the administration of intravenous contrast, axial sections acquired from the lung bases to the pubic symphysis. Coronal and sagittal reformats were performed. For radiation dose reduction, the following was used: automated exposure control, adjustment of mA and/or kV according to patient size. COMPARISON: [facility], CT, CT ABDOMEN PELVIS W CON, 06/26/2024, 19:54. [facility], CT, CT ABDOMEN PELVIS W CON, 01/03/2022, 16:37. [facility], CT, CT ABDOMEN PELVIS W CON, 11/15/2021, 8:07. FINDINGS: Image quality: Diagnostic. Peritoneum: No pneumoperitoneum or ascites. Bones: No acute osseous abnormality. Diffuse osseous demineralization. No lytic or blastic lesion. Lower Chest: Left basilar subsegmental atelectasis. Liver: Normal in size and contour. Gallbladder: Surgically absent. Biliary tree: No intrahepatic or extrahepatic biliary ductal dilatation, accounting for post cholecystectomy state. Pancreas: Within normal limits. The previously mentioned pancreatic tail lesion is not well identified on this examination. Spleen: Normal in size and contour. Kidneys: No hydronephrosis or obstructive urolithiasis. Adrenals: No adrenal nodularity. Bladder: Normal in size and wall thickness. : No acute abnormality. Stomach: Normal in size and contour. Bowel: Mild stool burden. No bowel obstruction.. Appendix within normal limits. Lymph Nodes: Re-identified 2.9 cm superior mesenteric node with central hypodensity (2/76; 3/38). Otherwise, no mesenteric, retroperitoneal, or bilateral inguinal lymphadenopathy by size criteria. Vascular: No abdominal aortic aneurysm. The visualized arterial vasculature is patent. Mild atherosclerosis. Soft Tissues: No acute abnormality. IMPRESSION: 1. Pathologic 2.9 cm superior mesenteric node versus mass. The differential diagnosis would include lymphoma small as metastatic disease of unknown primary. Percutaneous sampling by interventional radiology could be considered, although the location may preclude viable sampling windows. 2. No pneumoperitoneum. 3. No other acute CT abnormality of the abdomen/pelvis. Dictated by: Fran Soto M.D. on 07/02/2024 at 1:53 Approved by: Fran Soto M.D. on 07/02/2024 at 2:02
--- NOTE | 2024-07-02 01:04 | DI.CT.S_ITS ---
PROCEDURE: CT HEAD/BRAIN WO CON INDICATIONS: altered mental status TECHNIQUE: Noncontrast 4.5 mm thick angled axial sections acquired from the foramen magnum to the vertex, with coronal and sagittal reformats. For radiation dose reduction, the following was used: automated exposure control, adjustment of mA and/or kV according to patient size. COMPARISON: None. FINDINGS: Image quality: Diagnostic. CSF spaces: Basal cisterns are patent. No extra-axial fluid collections. The ventricles are symmetric in size and shape. Brain: No intracranial bleeds or mass effect. There is cerebral volume loss, with resultant ventricular and sulcal prominence. There are periventricular and deep white matter chronic small vessel ischemic changes. There is intracranial internal carotid artery atherosclerosis. Skull and face: Calvarium and visualized facial bones appear intact, without suspicious lesions. Sinuses: Visualized sinuses and mastoids are clear. IMPRESSION: No acute intracranial pathology. Dictated by: Fran Soto M.D. on 07/02/2024 at 1:48 Approved by: Fran Soto M.D. on 07/02/2024 at 1:48
--- NOTE | 2024-07-02 02:14 | EKG_ITS ---
[facility] [address] [place] [address] Test Date: 2024-07-02 Pat Name: Luz Maria Cason Department: [facility] Room: Gender: Female Laminator Preforms: PITER : 1950 Requested By: Order Number: [id number] Reading MD: Vishal Estrella MD Measurements Intervals [place] Rate: 71 P: OR: QRS: 52 QRSD: 70 T: 69 QT: 422 QTc: 458 Interpretive Statements Atrial fibrillation Nonspecific ST and T wave abnormality Electronically Signed On 07-02-2024 7:15:46 PDT by Vishal Estrella MD
[2024-07-02 02:38] LABS: Troponin I < 0.012 ng/mL (0.01-0.034)
--- NOTE | 2024-07-02 03:16 | P.HP_ITS ---
History of Present Illness History of Present Illness Chief complaint: abd pain Narrative: 74-year-old female with past medical history of appendectomy, , hysterectomy, seizure, atrial fibrillation on Eliquis presents with abdominal pain. Of note the patient had an abdominal mass per CT scan seen on June 27, 1999. Patient will be referred to surgery at [facility] for further workup and possible biopsy. The patient states that she is waiting for referral. However 24-hour the patient has been having increasing abdominal pain despite taking tramadol at home. The patient also states that she did not have a bowel monitor last 2 days despite being on Dulcolax. Otherwise the patient denies any fever, chills, nausea, vomiting, diarrhea, chest pain or shortness of breath. In the emergency room, the patient was hemodynamically stable without any signs of infection. The patient did have a repeat CT scan which showed no acute finding other than the known mass. The patient was about to be discharged on the way back from her CT the patient had a syncopal episode. No seizure-like activity per report and no postictal. However due to the syncopal episode our ER wanted to admit the patient for observation overnight. [facility] Medical History (Updated 07/02/24 @ 02:50 by Vishal Gonzáles, ) Left foot pain Left ankle pain Paroxysmal atrial fibrillation Allergy to perfume Hypoglycemia Lung nodule seen on imaging study History of colon polyps Hyperglycemia Seborrheic keratosis Actinic keratosis Muscle weakness (generalized) GERD (gastroesophageal reflux disease) Dairy allergy (~2013) Depression (~2011) Seizures (~1989) Mumps Measles Chicken pox Retinal detachment Ovarian cyst (~1978) Gastric ulcer Skin cancer (~1989) TIA (transient ischemic attack) Emphysema of lung (~2009) Epilepsy with partial complex seizures Surgical History Anesthesia History of appendectomy History of Achilles tendon repair (~1963) History of section (~1980) History of tonsillectomy History of hysterectomy Family History Father Congestive heart failure History of heart disease Stroke Mother Cancer Mental health problem Grandmother Congestive heart failure History of heart disease Stroke Social History household members: spouse second hand exposure: Yes (ages 0-18 ) alcohol intake: former substance use type: does not use Meds Home Medications and Allergies Home Medications Medication Instructions Recorded Confirmed Type cholecalciferol (vitamin D3) 25 25 mcg PO DAILY 06/02/20 06/21/24 History mcg (1,000 unit) capsule apixaban 5 mg tablet (Eliquis) 5 mg PO BID 10/02/20 06/21/24 History hbtstskq-enlc-yucw 8 mg-folic 400 1 tab PO DAILY 11/23/20 06/21/24 History mcg-K 50 mcg-lutein 300 mcg tablet (Centrum Silver Women) lidocaine 4 % topical patch 1 patch topical DAILY PRN 06/16/22 06/21/24 History inhalational spacing device #1 ea 01/03/23 06/21/24 Rx dexlansoprazole 30 mg 30 mg PO DAILY PRN 03/14/24 06/21/24 History capsule,biphase delayed release lansoprazole 15 mg capsule,delayed 15 mg PO DAILY PRN 03/14/24 06/21/24 History release metoprolol succinate 25 mg 25 mg PO DAILY 03/14/24 06/21/24 History tablet,extended release 24 hr mirtazapine 45 mg tablet 45 mg PO DAILY #90 tabs 03/14/24 06/21/24 Rx alendronate 70 mg tablet 70 mg PO QWEEK #30 tabs 04/01/24 06/21/24 Rx levalbuterol tartrate 45 2 puff inhalation Q4-6H PRN 05/27/24 06/21/24 Rx mcg/actuation aerosol inhaler shortness of breath or wheezing (Xopenex HFA) #15 grams Allergies Allergy/AdvReac Type Severity Reaction Status Date / Time fluoxetine AdvReac Severe muscle Verified 07/01/24 19:50 weakness codeine AdvReac Intermediate Painful Verified 07/01/24 19:50 Bloating lactase [From Dairy Aid] AdvReac Intermediate Gastrointestinal Verified 07/01/24 19:50 Upset meperidine [From Demerol] AdvReac Intermediate Vomiting Verified 07/01/24 19:50 prednisone AdvReac Intermediate Shakiness Verified 07/01/24 19:50 Review of Systems Review of Systems ROS: Yes All systems reviewed with the patient and are negative except as otherwise documented Exam Vital Signs (past 8 hours): - 07/01/24 19:50 07/01/24 23:36 07/01/24 23:36 Temperature 97.0 F L Pulse Rate 80 73 Respiratory Rate 18 Blood Pressure 120/77 143/65 H Pulse Oximetry 97 100 Oxygen Delivery Method Room Air 07/02/24 00:00 07/02/24 00:00 07/02/24 00:42 Temperature Pulse Rate 73 77 Respiratory Rate 20 Blood Pressure 144/67 H Pulse Oximetry 100 92 Oxygen Delivery Method Room Air 07/02/24 00:42 07/02/24 01:00 07/02/24 01:00 Temperature Pulse Rate 71 Respiratory Rate 23 Blood Pressure 158/72 H 133/63 Pulse Oximetry 93 Oxygen Delivery Method Room Air 07/02/24 01:31 07/02/24 02:00 07/02/24 02:30 Temperature Pulse Rate 71 69 Respiratory Rate 19 Blood Pressure 128/58 L Pulse Oximetry 99 100 Oxygen Delivery Method Room Air 07/02/24 02:30 07/02/24 03:00 07/02/24 03:00 Temperature Pulse Rate 70 68 Respiratory Rate 16 15 Blood Pressure 122/60 Pulse Oximetry 99 97 Oxygen Delivery Method Room Air Room Air Oxygen Delivery Method Room Air Narrative Exam Narrative: Physical Exam: GENERAL: The patient is not in any acute distressed. Awake and alert. HEENT: Nonicteric sclerae, PERRLA, EOMI. Oropharynx clear. Moist mucous membranes. Conjunctivae appear well perfused. HEART: Regular rate and rhythm without murmurs. No lower extremities edema. LUNGS: Clear to auscultation bilaterally. No wheezing, crackles or rhonchi ABDOMEN: Soft, positive bowel sounds, nontender. SKIN: No rash, no excessive bruising, petechiae, or purpura. NEUROLOGIC: AxO x 3. Cranial nerves II-XII intact without motor/sensory deficit. Objective Labs 07/01/24 20:00 07/01/24 20:00 Labs: Laboratory Results - last 24 hr 07/01/24 20:00 WBC 6.4 RBC 4.34 Hgb 12.9 Hct 38.3 MCV 88.3 MCH 29.7 MCHC 33.7 RDW 13.8 Plt Count 234 Neut % (Auto) 60.4 Lymph % (Auto) 29.4 Liberty % (Auto) 6.2 Eos % (Auto) 3.4 Baso % (Auto) 0.6 Neut # (Auto) 3900 Lymph # (Auto) 1900 [place] # (Auto) 400 Eos # (Auto) 200 Baso # (Auto) 0 Sodium 136 L Potassium 4.2 Chloride 104 Carbon Dioxide 26 BUN 15 Creatinine 1.01 Estimated GFR 59 L BUN/Creatinine Ratio 14.9 Glucose 111 H Calcium 9.3 Total Bilirubin 0.3 AST 26 ALT 19 Alkaline Phosphatase 95 Troponin I < 0.012 Total Protein 6.8 Albumin 4.1 Globulin 2.7 Albumin/Globulin Ratio 1.5 Lipase 55 Assessment & Plan Assessment & Plan narrative: 74-year-old female with past medical history of appendectomy, , hysterectomy, seizure, atrial fibrillation on Eliquis presents with abdominal pain. Of note the patient had an abdominal mass per CT scan seen on June 27, 1999. Patient will be referred to surgery at [facility] for further workup and possible biopsy. The patient states that she is waiting for referral. However 24-hour the patient has been having increasing abdominal pain despite taking tramadol at home. The patient also states that she did not have a bowel monitor last 2 days despite being on Dulcolax. Otherwise the patient denies any fever, chills, nausea, vomiting, diarrhea, chest pain or shortness of breath. In the emergency room, the patient was hemodynamically stable without any signs of infection. The patient did have a repeat CT scan which showed no acute finding other than the known mass. The patient was about to be discharged on the way back from her CT the patient had a syncopal episode. No seizure-like activity per report and no postictal. However due to the syncopal episode our ER wanted to admit the patient for observation overnight. Syncope. Admit the patient to medical telemetry under observation. No clear etiology. No arrhythmia seen. CT of the head is negative. IV fluid and monitor. For now. No seizure activity. Abdominal no abdominal mass. Continue to follow-up as outpatient as repeat CT scan of the abdomen showed no acute finding. Fluid control. Atrial fibrillation on Eliquis. Resume Eliquis and medication. DVT prophylaxis Eliquis. CODE STATUS full code. Disposition likely home in 1 to 2 days - As the provider of this telehealth evaluation, requested by the patient's evaluating physician, I attest that I introduced myself to the patient, provided my credentials and determined that telemedicine via a real-time, 2 way interactive audio and video platform is an appropriate and effective means of providing this service. - I reviewed the patient's chart and had a discussion with the member of the patient's treatment team. - The patient and I mutually agreed with continuation of this evaluation via telemedicine. The patient consented for the telemedicine evaluation. - This virtual encounter was taken place from [place]. The encounter was approximately 35 minutes. The nurse was present during the entire time of the encounter and was able to move the stethoscope in appropriate directions. The patient was evaluated at [facility]. Time-Based Coding :: [TOTAL MINUTES] spent with patient and on the chart (including review of chart, obtaining history, exam, reviewing outside data, placing orders, documenting exam and treatment plan, and counseling patient) on [DATE].
[2024-07-02] MEDS: LACTATED RINGERS 1,000 ML 75 ML IV (03:54)
[2024-07-02] MEDS: ONDANSETRON 4 MG/2 ML INJ IV (03:54)
[2024-07-02] MEDS: HYDROMORPHONE 0.5 MG INJ IV ×2 (04:02→06:59)
[2024-07-02] MEDS: HYDROCODONE/ACET 5/325 TABLET 1 TAB PO (04:20)
[2024-07-02 06:22] LABS: Add Manual Diff / Slide Review NO; Basophils Absolute Auto 0 /uL (0-100); Basophils Percent Auto 0.3 % (0-2); Eosinophils Absolute Auto 100 /uL (0-450); Eosinophils Percent Auto 1.3 % (2-4); Hematocrit 35.1 % (36-46); Lymphocytes Absolute Auto 1400 /uL (1100-4500); Lymphocytes Percent Auto 23.4 % (25-40); Mean Corpuscular Hemoglobin 30.1 PG (26-34); Mean Corpuscular Volume 88.3 fL (80-100); Monocytes Absolute Auto 400 /uL (0-900); Monocytes Percent Auto 6.4 % (3-14); Neutrophils Absolute Auto 4200 /uL (1500-7000); Neutrophils Percent Auto 68.6 % (50-75); Platelet Count 191 X10^3/uL (150-400); Red Blood Cell Count 3.98 X10^6/uL (4.0-5.2); Red Cell Distribution Width 13.5 % (11.6-14.8); White Blood Cell Count 6.1 X10^3/uL (4.5-11.0)
[2024-07-02 06:51] LABS: BUN Creatinine Ratio 14.1 (6-22); Blood Urea Nitrogen 12 mg/dL (7-17); Calcium 8.4 mg/dL (8.4-10.2); Carbon Dioxide 27 mmol/L (22-32); Chloride 106 mmol/L (98-107); Estimated Glomerular Filt Rate > 60 mL/min (>60); Glucose 97 mg/dL (70-99); HEMOLYSIS < 15 (0-50); Potassium 4.1 mmol/L (3.4-5.1); Sodium 136 mmol/L (137-145)
[2024-07-02] MEDS: APIXABAN 5 MG TABLET PO (09:33)
--- NOTE | 2024-07-02 10:05 | OT.IPNOTE ---
Per hospitalist okay to discharge therapy orders as not needed for pt at this time.
--- NOTE | 2024-07-02 10:29 | P.DS_ITS ---
History of Present Illness History of Present Illness Date Patient Seen: 07/02/24 Time Patient Seen: 10:29 Chief complaint: abd pain Narrative: Per admitting provider, 74-year-old female with past medical history of appendectomy, , hysterectomy, seizure, atrial fibrillation on Eliquis presents with abdominal pain. Of note the patient had an abdominal mass per CT scan seen on June 27, 1999. Patient will be referred to surgery at [facility] for further workup and possible biopsy. The patient states that she is waiting for referral. However 24-hour the patient has been having increasing abdominal pain despite taking tramadol at home. The patient also states that she did not have a bowel monitor last 2 days despite being on Dulcolax. Otherwise the patient denies any fever, chills, nausea, vomiting, diarrhea, chest pain or shortness of breath. In the emergency room, the patient was hemodynamically stable without any signs of infection. The patient did have a repeat CT scan which showed no acute finding other than the known mass. The patient was about to be discharged on the way back from her CT the patient had a syncopal episode. No seizure-like activity per report and no postictal. However due to the syncopal episode our ER wanted to admit the patient for observation overnight. Discharge Providers Provider Date of admission: 07/02/24 02:55 Discharge Date: 07/02/24 Primary care physician: Gisselle Villafana DO Consults: 07/02/24 02:35 Consult to Occupational Therapy Evaluate & Treat Comment: Physician Instructions: Evaluate and treat Consult to Physical Therapy Evaluate & Treat Comment: Physician Instructions: Evaluate and Treat 07/02/24 03:42 Consult to Dietitian, Adult Routine Comment: Reason For Exam: weight loss Discharge provider: Gurmeet Dominguez DO Summary Hospital Course Discharge Diagnosis: Syncope. POA. Abdominal mass, POA Chronic Atrial fibrillation on Eliquis, POA Hospital Course: 74-year-old female with past medical history of appendectomy, , hysterectomy, seizure, atrial fibrillation on Eliquis presents with abdominal pain, she has a known abdominal mass for which there is already a referral. After her CT scan she had an episode of syncope in the ER provider requested admission overnight. There was no clear etiology, but the patient did not have seizure activity. Telemetry was continued and there was no arrhythmias noted overnight. Her electrolytes were unremarkable, and the following morning she was asymptomatic with no abdominal pain and was tolerating a diet. It is suspected this was either vasovagal syncope or other benign etiology. She was discharged home, with recommendation to continue follow-up with the [facility] for ongoing evaluation and biopsy of her abdominal mass. Time Spent with Patient Time spent: Greater than 30 minutes Exam Vital Signs (past 8 hours): - 07/02/24 02:30 07/02/24 02:30 07/02/24 03:00 Temperature Pulse Rate 70 Respiratory Rate 16 Blood Pressure 128/58 L 122/60 Pulse Oximetry 99 Oxygen Delivery Method Room Air Oxygen Flow Rate 07/02/24 03:00 07/02/24 04:00 07/02/24 08:00 Temperature 97.2 F L 97.6 F Pulse Rate 68 71 72 Respiratory Rate 15 19 18 Blood Pressure 116/66 112/58 L Pulse Oximetry 97 99 99 Oxygen Delivery Method Room Air Oxygen Flow Rate 0 Oxygen Delivery Method Room Air Oxygen Flow Rate 0 Narrative Exam Narrative: Physical Exam: GENERAL: The patient is not in any acute distressed. Awake and alert. HEENT: Nonicteric sclerae, PERRLA, EOMI. Oropharynx clear. Moist mucous membranes. Conjunctivae appear well perfused. HEART: Regular rate and rhythm without murmurs. No lower extremities edema. LUNGS: Clear to auscultation bilaterally. No wheezing, crackles or rhonchi ABDOMEN: Soft, positive bowel sounds, nontender. SKIN: No rash, no excessive bruising, petechiae, or purpura. NEUROLOGIC: AxO x 3. Cranial nerves II-XII intact without motor/sensory deficit. Objective Labs 07/02/24 06:08 07/02/24 06:08 Labs: Laboratory Results - last 24 hr 07/01/24 07/02/24 20:00 06:08 WBC 6.4 6.1 RBC 4.34 3.98 L Hgb 12.9 12.0 Hct 38.3 35.1 L MCV 88.3 88.3 MCH 29.7 30.1 MCHC 33.7 34.0 RDW 13.8 13.5 Plt Count 234 191 Neut % (Auto) 60.4 68.6 Lymph % (Auto) 29.4 23.4 L George % (Auto) 6.2 6.4 Eos % (Auto) 3.4 1.3 L Baso % (Auto) 0.6 0.3 Neut # (Auto) 3900 4200 Lymph # (Auto) 1900 1400 George # (Auto) 400 400 Eos # (Auto) 200 100 Baso # (Auto) 0 0 Sodium 136 L 136 L Potassium 4.2 4.1 Chloride 104 106 Carbon Dioxide 26 27 BUN 15 12 Creatinine 1.01 0.85 Estimated GFR 59 L > 60 BUN/Creatinine Ratio 14.9 14.1 Glucose 111 H 97 Calcium 9.3 8.4 Total Bilirubin 0.3 AST 26 ALT 19 Alkaline Phosphatase 95 Troponin I < 0.012 Total Protein 6.8 Albumin 4.1 Globulin 2.7 Albumin/Globulin Ratio 1.5 Lipase 55 [facility] Medical History (Updated 07/02/24 @ 02:50 by Vishal Gonzáles DO) Left foot pain Left ankle pain Paroxysmal atrial fibrillation Allergy to perfume Hypoglycemia Lung nodule seen on imaging study History of colon polyps Hyperglycemia Seborrheic keratosis Actinic keratosis Muscle weakness (generalized) GERD (gastroesophageal reflux disease) Dairy allergy (~2013) Depression (~2011) Seizures (~1989) Mumps Measles Chicken pox Retinal detachment Ovarian cyst (~1978) Gastric ulcer Skin cancer (~1989) TIA (transient ischemic attack) Emphysema of lung (~2009) Epilepsy with partial complex seizures Surgical History Anesthesia History of appendectomy History of Achilles tendon repair (~1963) History of section (~1980) History of tonsillectomy History of hysterectomy Family History Father Congestive heart failure History of heart disease Stroke Mother Cancer Mental health problem Grandmother Congestive heart failure History of heart disease Stroke Social History household members: spouse second hand exposure: Yes (ages 0-18 ) alcohol intake: former substance use type: does not use Discharge Plan Discharge Plan Patient Disposition: Home Provider Discharge Comment: You were admitted to the hospital with abdominal pain any syncope. Reassuring evaluation with regards to syncope. Continue laxative therapies at home, continue dulcolax and miralax everyday. You can also add Sennakot (OTC) if no bowel movements. Dulcolax can be taken twice daily, miralax twice daily, and senna as well. Continue these twice per day until you start having bowel movements, then you can decrease down. Discharge orders & Medications Prescriptions: New tramadol 25 mg tablet 25 mg PO Q6H PRN (Reason: pain) 7 Days Qty: 20 0RF pantoprazole 40 mg tablet,delayed release (DR/EC) 40 mg PO BID 14 Days Qty: 28 0RF Continued Eliquis 5 mg tablet 5 mg PO BID (DME) inhalational spacing device Spacer See Rx Instructions .Route Qty: 1 2RF Rx Instructions: Use spacer with albuterol inhaler levalbuterol tartrate [Xopenex HFA] 45 mcg/actuation HFA aerosol inhaler 2 puff inhalation Q4-6H PRN (Reason: shortness of breath or wheezing) Qty: 15 3RF cholecalciferol (vitamin D3) 25 mcg (1,000 unit) capsule 25 mcg PO DAILY alendronate 70 mg tablet 70 mg PO QWEEK Qty: 30 0RF Centrum Silver Women 8 mg iron-400 mcg-300 mcg tablet 1 tab PO DAILY lidocaine 4 % adhesive patch,medicated 1 patch topical DAILY PRN metoprolol succinate 25 mg tablet extended release 24 hr 25 mg PO DAILY dexlansoprazole 30 mg capsule,biphase delayed releas 30 mg PO DAILY PRN mirtazapine 45 mg tablet 45 mg PO DAILY Qty: 90 3RF Discontinued lansoprazole 15 mg capsule,delayed release(DR/EC) 15 mg PO DAILY PRN Follow up/Referrals: Gisselle Villafana DO [Primary Care Provider] - Diet/Activity/Treatments Diet: Diet as Tolerated and Regular Activity: As tolerated, no restrictions. Visit Report/Discharge Packet Stand Alone Forms: Patient Portal/API, Stroke Signs & Symptoms Discharge Data Primary Care Provider: Gisselle Villafana Attending Provider: Jose Burrell Admit Date/Time: 07/02/24 02:55 Quality VTE Deep Vein Thrombosis/Pulmonary Embolism Present on Admission: No
--- NOTE | 2024-07-02 11:31 | PC.NURSE ---
D/c summary reviewed with pt. Discussed use of prescribed and OTC laxatives to help produce a bowel movement, and importance of staying hydrated. Discussed follow up care. IV and tele removed. Pt exited via w/c with RN to private vehicle.
--- NOTE | 2024-07-02 12:17 | CM.DANOTE ---
Initial DCP Assessment Visit Note Reviewed EMR and team rounds for status updates. VIDEO JOURNALIST was unable to meet with pt f/f, as she discharged prior to this assessment. Pt lives mod-independently with her spouse in their own home in [place]. She was medically cleared for home home d/c earlier this morning, and her spouse was able to transport her home. No CM d/c assistance needs were identified during her stay. Payor: Medicare PCP: Gisselle Villafana Pt is a 74 year-old F with a hx of seizures, Afib, presents with c/o abdominal pain. She states she has had increasing abd. pain for the last 2-months, which has become progressively worse over the last few days. She was seen here on 06/26/24 during which she had a CT scan that showed an abdominal mass. She has already been referred to the [facility] for further surgical workup/tx options. While she was being transferred from Radiology back to her room in the ED, she experienced a syncopal episode during which she was noted to have both her legs and arms shaking, however she remained continent and did not bite her tongue. The decision was made to not d/c home at the time, and to keep her in OBS overnight for further monitoring. Today pt remains at baseline, and was medically cleared to return home. [facility] will notify the TCM group of need for PCP f/u. Discharge Planning/Care Management CM Discharge Assessment Start: 07/02/24 02:57 Freq: Status: Discharge Protocol: Document 07/02/24 12:15 DPL (Rec: 07/02/24 12:17 DPL [id number]) Discharge Planning Assessment Assigned Ballistics Expert NAYELY Meyer Advance Directives? Yes Advance Directives on File Yes History Provided By Medical Record Has Patient been admitted in last 30 No days? Prior Living Arrangements House Household Members spouse Type of transporation used prior to Relies on Others admit Independent with ADL's No: modified independent Caregiver for Another No DME Already Rented / Owned Bath Bench,Elevated Toilet Seat Comment No identified home d/c needs at this time. Barriers to Discharge No Discharge Plan Home Transportation Arrangement Spouse Referrals Initiated None needed Whiteboard Updated in Patient Room with Yes name and ext. # of Ballistics Expert Review Status In Process Please Provide Date Initial DC 07/02/24 Assessment Was Performed
== END 2024-07-02 11:33 | disposition home or self-care (01) ==
LOC: ED 07-02 02:50 → AC 07-02 02:56
PROVIDERS: Admitting Provider Internal Medicine; Emergency Provider Family Medicine; PCP Family Medicine; Referring Provider Family Medicine; Visit Provider Internal Medicine
DX: R10.9 Unspecified abdominal pain (principal); I48.91 Unspecified atrial fibrillation; Z79.01 Long term (current) use of anticoagulants; R55 Syncope and collapse
CPT/HCPCS: 36415; 70450; 74021; 74177; 80048; 80053; 81003; 82962; 83690; 84484; 85025; 93005; 93010; 96374; 96375; 96376; 99284; G0378; J1171; J2405; Q9967

== ENCOUNTER 2024-07-03 12:43 | Emergency (ER) | payer MEDICARE, OTHER, SELFPAY ==
[2024-07-02 03:33] VITALS: BMI 22.9
[2024-07-03] VITALS (14 sets, daily range): BP systolic 100–150; BP diastolic 56–89; PULSE 51–91; RESP 14–30; TEMP 36.6; O2SAT 91–99; BMI 22.9
[2024-07-03 13:16] LABS: Add Manual Diff / Slide Review NO; Basophils Absolute Auto 100 /uL (0-100); Basophils Percent Auto 0.7 % (0-2); Eosinophils Absolute Auto 100 /uL (0-450); Eosinophils Percent Auto 1.2 % (2-4); Hematocrit 39.9 % (36-46); Hemoglobin 13.7 g/dL (12.0-16.0); Lymphocytes Absolute Auto 1300 /uL (1100-4500); Lymphocytes Percent Auto 16.6 % (25-40); Mean Corpuscular HGB Conc 34.4 % (30-36); Mean Corpuscular Hemoglobin 30.3 PG (26-34); Mean Corpuscular Volume 87.9 fL (80-100); Monocytes Absolute Auto 300 /uL (0-900); Monocytes Percent Auto 3.4 % (3-14); Neutrophils Absolute Auto 6000 /uL (1500-7000); Neutrophils Percent Auto 78.1 % (50-75); Platelet Count 233 X10^3/uL (150-400); Red Blood Cell Count 4.54 X10^6/uL (4.0-5.2); Red Cell Distribution Width 13.8 % (11.6-14.8); White Blood Cell Count 7.7 X10^3/uL (4.5-11.0)
[2024-07-03 13:19] LABS: Alanine Aminotransferase 43 IU/L (<35); Albumin 4.3 g/dL (3.5-5.0); Albumin Globulin Ratio 1.5 (1.0-2.8); Alkaline Phosphatase 112 U/L (38-126); Aspartate Aminotransferase 47 IU/L (14-36); BUN Creatinine Ratio 15.6 (6-22); Bilirubin Total 0.4 mg/dL (0.2-1.3); Blood Urea Nitrogen 14 mg/dL (7-17); Calcium 9.5 mg/dL (8.4-10.2); Carbon Dioxide 25 mmol/L (22-32); Chloride 103 mmol/L (98-107); Estimated Glomerular Filt Rate > 60 mL/min (>60); Globulin 2.9 g/dL (1.7-4.1); Glucose 135 mg/dL (70-99); HEMOLYSIS < 15 (0-50); Lipase 47 U/L (23-300); Potassium 4.2 mmol/L (3.4-5.1); Sodium 136 mmol/L (137-145); Total Protein 7.2 g/dL (6.3-8.2)
--- NOTE | 2024-07-03 13:21 | ED.GENADULT ---
HPI - General Adult General Chief complaint: Abdominal Pain Stated complaint: dying, possible Pancreatitis flare up Time Seen by Provider: 07/03/24 13:20 Source: patient Mode of arrival: Ambulatory History of Present Illness HPI narrative: Significant PMHx include: paroxysmal atrial fibrillation on Eliquis, depression, seizures, gastric ulcer, TIA, COPD, recent pancreatic cyst and recent 2.9cm mesenteric node vs. mass on imaging Luz Maria presented to the ER with worsening abdominal pain. She was seen two days ago for similar symptoms, and a CT scan at that time revealed a 2.9 cm nodule or mass in her abdomen. The pain is now more severe and extends across her entire left side and bilateral flank region. She reports nausea this morning but no vomiting. Her last bowel movement was 4-5 days ago, which is abnormal for her. She denies fever, diarrhea, or pain with urination. She has been taking tramadol for pain, which was prescribed during her previous visit. The severe pain has been present for two days, since June 26, but she mentions having abdominal pain for four months. Luz Maria also reports difficulty swallowing since last night, describing it as having to force the swallowing motion. She is experiencing shortness of breath, which is worse than usual and started today. She denies chest pain. Luz Maria has a history of atrial fibrillation and is currently taking Eliquis (apixaban) as a blood thinner. She is to be scheduled for a biopsy of the abdominal mass at the [facility] but has not received a callback yet. The patient expresses concern about the severity of her pain, noting it is unusual for her and has impacted her ability to hike, which she typically does daily. Related Data Home Medications Medication Instructions Recorded Confirmed cholecalciferol (vitamin D3) 25 25 mcg PO DAILY 06/02/20 06/21/24 mcg (1,000 unit) capsule apixaban 5 mg tablet (Eliquis) 5 mg PO BID 10/02/20 06/21/24 cirauthk-pxsw-jjaw 8 mg-folic 400 1 tab PO DAILY 11/23/20 06/21/24 mcg-K 50 mcg-lutein 300 mcg tablet (Centrum Silver Women) lidocaine 4 % topical patch 1 patch topical DAILY PRN 06/16/22 06/21/24 dexlansoprazole 30 mg 30 mg PO DAILY PRN 03/14/24 06/21/24 capsule,biphase delayed release metoprolol succinate 25 mg 25 mg PO DAILY 03/14/24 06/21/24 tablet,extended release 24 hr Previous Rx's Medication Instructions Recorded inhalational spacing device #1 ea 01/03/23 mirtazapine 45 mg tablet 45 mg PO DAILY #90 tabs 03/14/24 alendronate 70 mg tablet 70 mg PO QWEEK #30 tabs 04/01/24 levalbuterol tartrate 45 2 puff inhalation Q4-6H PRN 05/27/24 mcg/actuation aerosol inhaler shortness of breath or wheezing (Xopenex HFA) #15 grams pantoprazole 40 mg tablet,delayed 40 mg PO BID 14 days #28 tabs 07/02/24 release tramadol 25 mg tablet 25 mg PO Q6H PRN pain 7 days #20 07/02/24 tabs ondansetron 4 mg disintegrating 4 mg PO Q6H #12 tabs 07/03/24 tablet oxycodone-acetaminophen 5 mg-325 1 tab PO Q6H PRN pain #12 tabs 07/03/24 mg tablet (Percocet) Allergies Allergy/AdvReac Type Severity Reaction Status Date / Time fluoxetine AdvReac Severe muscle Verified 07/01/24 19:50 weakness codeine AdvReac Intermediate Painful Verified 07/01/24 19:50 Bloating lactase [From Dairy Aid] AdvReac Intermediate Gastrointestinal Verified 07/01/24 19:50 Upset meperidine [From Demerol] AdvReac Intermediate Vomiting Verified 07/01/24 19:50 prednisone AdvReac Intermediate Shakiness Verified 07/01/24 19:50 Review of Systems Review of Systems Narrative: All systems reviewed and unremarkable except as noted in the HPI Patient History Medical History (Updated 07/03/24 @ 18:18 by Bharat Parham MD) Left foot pain Left ankle pain Paroxysmal atrial fibrillation Allergy to perfume Hypoglycemia Lung nodule seen on imaging study History of colon polyps Hyperglycemia Seborrheic keratosis Actinic keratosis Muscle weakness (generalized) GERD (gastroesophageal reflux disease) Dairy allergy (~2013) Depression (~2011) Seizures (~1989) Mumps Measles Chicken pox Retinal detachment Ovarian cyst (~1978) Gastric ulcer Skin cancer (~1989) TIA (transient ischemic attack) Emphysema of lung (~2009) Epilepsy with partial complex seizures Surgical History Anesthesia History of appendectomy History of Achilles tendon repair (~1963) History of section (~1980) History of tonsillectomy History of hysterectomy Family History Father Congestive heart failure History of heart disease Stroke Mother Cancer Mental health problem Grandmother Congestive heart failure History of heart disease Stroke Social History household members: spouse second hand exposure: Yes (ages 0-18 ) alcohol intake: former substance use type: does not use alcohol intake frequency: 0-2 drinks per day Exam Narrative Exam Narrative: VS as noted above Focused physical exam as follows: General: Well developed, well nourished, no acute distress, uncomfortable appearing HEENT: pink palpebral conjunctiva, anicteric sclera, JENNIFER, moist mucous membranes, no JVD, no cervical lymphadenopathy Lungs: no respiratory distress, clear to auscultation without wheezes or crackles; equal breath sounds Heart: normal rate, regular rhythm, no appreciable murmurs Abdomen: soft, mild generalized abdominal pain, no rebound or rigidity Musculoskeletal: no gross deformities with full ROM in all extremities, no pedal edema Skin: pink, warm; no rashes Neuro: AAOx3, GCS 15, nonfocal exam Psyche: no SI/HI, normal affect Initial Vital Signs Initial Vital Signs: Vital Signs Temperature 98 F 07/03/24 12:54 Pulse Rate 51 L 07/03/24 12:54 Respiratory Rate 17 07/03/24 12:54 Blood Pressure 129/62 07/03/24 12:54 Pulse Oximetry 99 07/03/24 12:54 Oxygen Delivery Method Room Air 07/03/24 12:54 Course Course Course Narrative: Initial VS noted above. PMHx, PSHx, Medication list, social history reviewed as noted above. Differential diagnosis considered include (but not limited to) the following: abdominal neoplasm, gastritis, gastric ulcer, pancreatitis, pancreatic mass/cyst, cholelithiasis/cystitis, bowel obstruction, UTI, pyelo, ureteral calculus, diverticulitis, ACS, cardiac dysrhythmia, pneumonia, viral resp illness, CHF, symptomatic anemia, liver or kidney failure, electrolyte imbalance Pt interviewed and examined. ER notes from 06/26 and 07/01 reviewed including abd US and CT results - has pancreatic cyst and 2.9cm mesenteric mass/node - pain seems to be out of proportion to these findings. She has additional complaints of shortness of breath, difficulty swallowing, fatigue, weakness and worsening abdominal and back pain. Work up initiated. Bedside EKG showed no ST elevation or with occasional APC. Dilaudid IV ordered for pain. Labs reviewed. Pain improved. UA showed no evidence of UTI. Overall, I do not feel additional emergent imaging studies need to be performed. Will treat with pain meds and have pt see her PCP/[facility] for further evaluation of abdominal findings on recent imaging studies. Stable for discharge with return precautions. Orders Ordered: Discontinued Medications Hydromorphone HCl (Hydromorphone 0.5 Mg Inj) 0.5 mg IV NOW ONE Stop: 07/03/24 13:47 Last Admin: 07/03/24 14:29 Dose: 0.5 mg Documented By: MAVERICK Hydromorphone HCl (Hydromorphone 1 Mg Inj) 1 mg IV NOW ONE Stop: 07/03/24 15:58 Last Admin: 07/03/24 16:01 Dose: 1 mg Documented By: DEBRA Ondansetron HCl (Ondansetron 4 Mg/2 Ml Inj) 4 mg IV NOW PRN PRN Reason: Nausea And Vomiting Last Admin: 07/03/24 14:30 Dose: 4 mg Documented By: MAVERICK Ondansetron HCl (Ondansetron 4 Mg Odt) 4 mg PO NOW PRN PRN Reason: Nausea And Vomiting Vital Signs Vital signs: Vital Signs - 8 hr 07/03/24 12:54 Temperature 98 F Pulse Rate 51 L Respiratory Rate 17 Blood Pressure 129/62 Pulse Oximetry 99 Oxygen Delivery Method Room Air Medical Decision Making Lab Data 07/03/24 13:00 07/03/24 13:00 Labs: Lab Results 07/03/24 07/03/24 07/03/24 Range/Units 13:00 13:10 14:17 WBC 7.7 (4.5-11.0) X10^3/uL RBC 4.54 (4.0-5.2) X10^6/uL Hgb 13.7 (12.0-16.0) g/dL Hct 39.9 (36-46) % MCV 87.9 (80-100) fL MCH 30.3 (26-34) PG MCHC 34.4 (30-36) % RDW 13.8 (11.6-14.8) % Plt Count 233 (150-400) X10^3/uL Neut % (Auto) 78.1 H (50-75) % Lymph % (Auto) 16.6 L (25-40) % [place] % (Auto) 3.4 (3-14) % Eos % (Auto) 1.2 L (2-4) % Baso % (Auto) 0.7 (0-2) % Neut # (Auto) 6000 (7439-8572) /uL Lymph # (Auto) 1300 (8387-7445) /uL [place] # (Auto) 300 (0-900) /uL Eos # (Auto) 100 (0-450) /uL Baso # (Auto) 100 (0-100) /uL PT 14.2 H (9.4-12.5) SECONDS INR 1.3 (0.9-1.3) APTT 40 H (25.1-36.5) SECONDS D-Dimer < 215 (<500) ng/ml Sodium 136 L (137-145) mmol/L Potassium 4.2 (3.4-5.1) mmol/L Chloride 103 (98-107) mmol/L Carbon Dioxide 25 (22-32) mmol/L BUN 14 (7-17) mg/dL Creatinine 0.90 (0.52-1.04) mg/dL Estimated GFR > 60 (>60) mL/min BUN/Creatinine Ratio 15.6 (6-22) Glucose 135 H (70-99) mg/dL Calcium 9.5 (8.4-10.2) mg/dL Total Bilirubin 0.4 (0.2-1.3) mg/dL AST 47 H (14-36) IU/L ALT 43 H (<35) IU/L Alkaline Phosphatase 112 (38-126) U/L Total Creatine Kinase 69 (30-135) U/L Troponin I < 0.012 (0.01-0.034) ng/mL NT-Pro-B Natriuret Pep 235 H (<125) pg/mL Total Protein 7.2 (6.3-8.2) g/dL Albumin 4.3 (3.5-5.0) g/dL Globulin 2.9 (1.7-4.1) g/dL Albumin/Globulin Ratio 1.5 (1.0-2.8) Lipase 47 (23-300) U/L Urine RBC (0-5/HPF) Urine WBC (0-5/HPF) Ur Squamous Epith Cells (0-5/HPF) Urine Bacteria (None) Ur Culture Indicated? Vol Urine Centrifuged 07/03/24 Range/Units 17:19 WBC (4.5-11.0) X10^3/uL RBC (4.0-5.2) X10^6/uL Hgb (12.0-16.0) g/dL Hct (36-46) % MCV (80-100) fL MCH (26-34) PG MCHC (30-36) % RDW (11.6-14.8) % Plt Count (150-400) X10^3/uL Neut % (Auto) (50-75) % Lymph % (Auto) (25-40) % [place] % (Auto) (3-14) % Eos % (Auto) (2-4) % Baso % (Auto) (0-2) % Neut # (Auto) (5193-7677) /uL Lymph # (Auto) (8117-7966) /uL [place] # (Auto) (0-900) /uL Eos # (Auto) (0-450) /uL Baso # (Auto) (0-100) /uL PT (9.4-12.5) SECONDS INR (0.9-1.3) APTT (25.1-36.5) SECONDS D-Dimer (<500) ng/ml Sodium (137-145) mmol/L Potassium (3.4-5.1) mmol/L Chloride (98-107) mmol/L Carbon Dioxide (22-32) mmol/L BUN (7-17) mg/dL Creatinine (0.52-1.04) mg/dL Estimated GFR (>60) mL/min BUN/Creatinine Ratio (6-22) Glucose (70-99) mg/dL Calcium (8.4-10.2) mg/dL Total Bilirubin (0.2-1.3) mg/dL AST (14-36) IU/L ALT (<35) IU/L Alkaline Phosphatase (38-126) U/L Total Creatine Kinase (30-135) U/L Troponin I (0.01-0.034) ng/mL NT-Pro-B Natriuret Pep (<125) pg/mL Total Protein (6.3-8.2) g/dL Albumin (3.5-5.0) g/dL Globulin (1.7-4.1) g/dL Albumin/Globulin Ratio (1.0-2.8) Lipase (23-300) U/L Urine RBC None seen (0-5/HPF) Urine WBC None seen (0-5/HPF) Ur Squamous Epith Cells None seen (0-5/HPF) Urine Bacteria None seen (None) Ur Culture Indicated? Cult not indicated Vol Urine Centrifuged 10ml (spun) Urine Dip Bedside Urine Glucose Negative Bedside Urine Bilirubin - Negative Bedside Urine Ketone - Negative Urine Specific [place] 1.010 Bedside Urine Occult Blood + Bedside Urine pH 6.0 Bedside Urine Protein - Negative Bedside Urine Urobilinogen - Negative Bedside Urine Nitrite - Negative Bedside Urine Leukocytes - Negative Esterase Point of care testing: Urine Dip Bedside Urine Glucose Negative Bedside Urine Bilirubin - Negative Bedside Urine Ketone - Negative Urine Specific [place] 1.010 Bedside Urine Occult Blood + Bedside Urine pH 6.0 Bedside Urine Protein - Negative Bedside Urine Urobilinogen - Negative Bedside Urine Nitrite - Negative Bedside Urine Leukocytes - Negative Esterase ECG Data Attestation: I personally reviewed and interpreted this ECG as follows: (1340 - NSR @ 85; occasional APC; nonspecific STTW changes; QTc 435) MDM Narrative Medical decision making narrative: HPI, PMHx, PSHx, Medication list, Allergies, ROS and Focused exam were reviewed above. ?Differential diagnosis as noted below. ?Social determinants affecting care considered. ?All of these were taken into consideration warranting above listed work up. ?Consultations as deemed necessary were documented below (if listed). Labs (if ordered and noted) were independently reviewed by me. Imaging studies (if ordered and noted) were independently reviewed by me EKG (if noted) was independently reviewed by me External documents (if reviewed) are documented above Discharge Plan Departure Patient Disposition: Home Clinical Impression: Weakness Abdominal pain Qualifiers: Abdominal location: generalized Qualified Code(s): R10.84 - Generalized abdominal pain Dyspnea Qualifiers: Dyspnea type: shortness of breath Qualified Code(s): R06.02 - Shortness of breath Instructions: DI for Abdominal Pain-Adult Activity Restrictions/Additional Instructions: Work up today was generally reassuring. Use Tylenol for mild pain and Percocet for severe pain. Use Zofran for nausea. Contact the [facility] to get your biopsy scheduled. Return to the ER if with worsening symptoms. Prescriptions: New ondansetron 4 mg tablet,disintegrating 4 mg PO Q6H Qty: 12 0RF oxycodone-acetaminophen [Percocet] 5-325 mg tablet 1 tab PO Q6H PRN (Reason: pain) Qty: 12 0RF No Action Eliquis 5 mg tablet 5 mg PO BID (DME) inhalational spacing device Spacer See Rx Instructions .Route Qty: 1 2RF Rx Instructions: Use spacer with albuterol inhaler levalbuterol tartrate [Xopenex HFA] 45 mcg/actuation HFA aerosol inhaler 2 puff inhalation Q4-6H PRN (Reason: shortness of breath or wheezing) Qty: 15 3RF cholecalciferol (vitamin D3) 25 mcg (1,000 unit) capsule 25 mcg PO DAILY alendronate 70 mg tablet 70 mg PO QWEEK Qty: 30 0RF Centrum Silver Women 8 mg iron-400 mcg-300 mcg tablet 1 tab PO DAILY lidocaine 4 % adhesive patch,medicated 1 patch topical DAILY PRN metoprolol succinate 25 mg tablet extended release 24 hr 25 mg PO DAILY dexlansoprazole 30 mg capsule,biphase delayed releas 30 mg PO DAILY PRN mirtazapine 45 mg tablet 45 mg PO DAILY Qty: 90 3RF tramadol 25 mg tablet 25 mg PO Q6H PRN (Reason: pain) 7 Days Qty: 20 0RF pantoprazole 40 mg tablet,delayed release (DR/EC) 40 mg PO BID 14 Days Qty: 28 0RF Referrals: Gisselle Villafana DO [Primary Care Provider] - Stand Alone Forms: Patient Portal/API/Survey
--- NOTE | 2024-07-03 13:35 | EKG_ITS ---
[id number] [address] Test Date: 2024-07-03 Pat Name: Luz Maria Cason Department: [facility] Room: Gender: Female [place]: : 1950 Requested By: Order Number: [id number] Reading MD: Vishal Estrella MD Measurements Intervals [place] Rate: 85 P: 44 MT: 142 QRS: 59 QRSD: 78 T: 15 QT: 366 QTc: 435 Interpretive Statements Sinus rhythm with premature atrial complexes Nonspecific T wave abnormality Electronically Signed On 07-04-2024 7:23:15 PDT by Vishal Estrella MD
[2024-07-03 13:37] LABS: INR 1.3 (0.9-1.3); Prothrombin Time 14.2 SECONDS (9.4-12.5)
[2024-07-03 13:40] LABS: PTT Partial Thromboplastin Tim 40 SECONDS (25.1-36.5)
[2024-07-03 14:21] LABS: D Dimer < 215 ng/ml (<500)
[2024-07-03 14:24] LABS: Creatine Kinase 69 U/L (30-135)
[2024-07-03] MEDS: HYDROMORPHONE 0.5 MG INJ IV (14:29)
[2024-07-03] MEDS: ONDANSETRON 4 MG/2 ML INJ IV (14:30)
[2024-07-03 14:34] LABS: NT-proBNP (BNP-Adult 18+) 235 pg/mL (<125)
[2024-07-03 14:36] LABS: Troponin I < 0.012 ng/mL (0.01-0.034)
[2024-07-03] MEDS: HYDROMORPHONE 1 MG INJ IV (16:01)
[2024-07-03 18:05] LABS: Bacteria Urine None Seen; Culture Indicated Urine Cult Not Indicated; RBC Urine None Seen (0-5/HPF); Squamous Epithelial Cell Urine None Seen (0-5/HPF); Urine Volume 10mL (spun); WBC Urine None Seen (0-5/HPF)
== END 2024-07-03 18:29 | disposition home or self-care (01) ==
PROVIDERS: Emergency Provider Emergency Medicine; PCP Family Medicine
DX: R10.84 Generalized abdominal pain (principal); R06.02 Shortness of breath; R53.1 Weakness; I48.91 Unspecified atrial fibrillation; R13.10 Dysphagia, unspecified; Z79.01 Long term (current) use of anticoagulants
CPT/HCPCS: 36415; 80053; 81003; 81015; 82550; 83690; 83880; 84484; 85025; 85379; 85610; 85730; 93005; 93010; 96374; 96375; 96376; 99284; J1171; J2405

== ENCOUNTER 2024-07-08 16:54 | Emergency (ER) | payer MEDICARE, OTHER, SELFPAY ==
[2024-07-02 03:33] VITALS: BMI 22.9
[2024-07-08] VITALS (10 sets, daily range): BP systolic 106–153; BP diastolic 55–80; PULSE 60–86; RESP 16; TEMP 36.2; O2SAT 89–100
[2024-07-08] MEDS: HYDROMORPHONE 1 MG INJ IV ×2 (17:24→20:12)
--- NOTE | 2024-07-08 17:37 | PC.NURSE ---
Pt sats 72% on RA after receiving 1 mg dilaudid. Placed on 15L per NC.
[2024-07-08 18:24] LABS: Add Manual Diff / Slide Review NO; Basophils Absolute Auto 0 /uL (0-100); Basophils Percent Auto 0.6 % (0-2); Eosinophils Absolute Auto 100 /uL (0-450); Eosinophils Percent Auto 2.1 % (2-4); Hematocrit 40.2 % (36-46); Hemoglobin 13.5 g/dL (12.0-16.0); Lymphocytes Absolute Auto 1400 /uL (1100-4500); Lymphocytes Percent Auto 23.5 % (25-40); Mean Corpuscular HGB Conc 33.7 % (30-36); Mean Corpuscular Hemoglobin 29.6 PG (26-34); Mean Corpuscular Volume 87.9 fL (80-100); Monocytes Absolute Auto 500 /uL (0-900); Monocytes Percent Auto 7.8 % (3-14); Neutrophils Absolute Auto 4100 /uL (1500-7000); Platelet Count 248 X10^3/uL (150-400); Red Blood Cell Count 4.57 X10^6/uL (4.0-5.2); Red Cell Distribution Width 13.5 % (11.6-14.8); White Blood Cell Count 6.1 X10^3/uL (4.5-11.0)
[2024-07-08 18:29] LABS: Alanine Aminotransferase 45 IU/L (<35); Albumin 4.2 g/dL (3.5-5.0); Albumin Globulin Ratio 1.6 (1.0-2.8); Alkaline Phosphatase 126 U/L (38-126); Aspartate Aminotransferase 40 IU/L (14-36); BUN Creatinine Ratio 8.5 (6-22); Bilirubin Total 0.3 mg/dL (0.2-1.3); Blood Urea Nitrogen 8 mg/dL (7-17); Calcium 9.2 mg/dL (8.4-10.2); Carbon Dioxide 24 mmol/L (22-32); Chloride 103 mmol/L (98-107); Estimated Glomerular Filt Rate > 60 mL/min (>60); Globulin 2.7 g/dL (1.7-4.1); Glucose 162 mg/dL (70-99); HEMOLYSIS < 15 (0-50); Lipase 41 U/L (23-300); Potassium 4.1 mmol/L (3.4-5.1); Sodium 135 mmol/L (137-145); Total Protein 6.9 g/dL (6.3-8.2)
--- NOTE | 2024-07-08 19:05 | DI.CT.S_ITS ---
PROCEDURE: CT ABDOMEN PELVIS W CON INDICATIONS: abd pain TECHNIQUE: After the administration of intravenous contrast, axial sections acquired from the lung bases to the pubic symphysis. Coronal and sagittal reformats were performed. For radiation dose reduction, the following was used: automated exposure control, adjustment of mA and/or kV according to patient size. COMPARISON: [facility], CT, CT ABDOMEN PELVIS W CON, 07/02/2024, 1:13. FINDINGS: Image quality: Diagnostic. Lower Chest: No significant findings. ABDOMEN: Liver: No solid mass. Gallbladder: No radiopaque gallstones or wall thickening. Biliary ducts: No biliary dilation. Pancreas: No ductal dilation. Spleen: Size is within normal limits. Adrenal Glands: No adrenal nodules. Kidneys and Ureters: No hydronephrosis. No solid mass. No complex renal cystic lesion which requires follow up. Stomach and Bowel: Normal colonic caliber, without significant wall thickening. Fecal stasis throughout the colon is seen. No abscess collection. Peritoneum: No abnormal intraperitoneal fluid. No free air. Ventral Wall: No significant ventral hernia. Abdominal Nodes: Previously described 2.9 cm superior mesenteric node versus mass seen in left upper quadrant abdomen now measures 3.3 x 2.9 cm in size series 2, image 49 and is essentially unchanged compared to previous study series 2, image 76. No new mesenteric mass or lymphadenopathy is seen. No gross retroperitoneal lymphadenopathy by size criteria. Vessels: Aorta and inferior vena cava are normal in size. PELVIS: Pelvic Organs: Unremarkable. Bladder: No bladder wall thickening, accounting for underdistention. Pelvic Nodes: No enlarged lymph nodes. Miscellaneous: No inguinal hernias are seen. Bones: No aggressive osseous abnormality. IMPRESSION: 1. Stable 2.9 x 3.3 cm necrotic appearing mass versus lymphadenopathy in left upper quadrant mesentery concerning for malignant lymphadenopathy secondary to lymphoma or metastatic disease. No other mesenteric or retroperitoneal lymphadenopathy is seen. 2. [id number]-[id number] constipation. No bowel obstruction or abnormal bowel wall thickening. No abscess collection. No free fluid or free air. 3. Findings are essentially unchanged from previous study. Dictated by: Aakash Henning M.D. on 07/08/2024 at 19:57 Approved by: Aakash Henning M.D. on 07/08/2024 at 20:02
--- NOTE | 2024-07-08 19:18 | ED_ITS ---
HPI - Abdominal Pain General Chief Complaint: Abdominal Pain Stated Complaint: abd px x 4days Time Seen by Provider: 07/08/24 19:05 Source: family Mode of arrival: Wheelchair History of Present Illness HPI narrative: 74-year-old female with ongoing abdominal pain, known abdominal mass and pancreatic cyst of unclear cause, awaiting possible biopsy and further evaluation [facility], increasing abdominal pain today. No injury or trauma new activities. No fevers or chills. No painful urination or frequency of urination. She has had some nausea as well. No established diagnosis. No Port-A-Cath in place. Last bowel movement earlier today without black or red color, no change in caliber color. She has been able to urinate. Related Data Home Medications Medication Instructions Recorded Confirmed cholecalciferol (vitamin D3) 25 25 mcg PO DAILY 06/02/20 07/05/24 mcg (1,000 unit) capsule apixaban 5 mg tablet (Eliquis) 5 mg PO BID 10/02/20 07/05/24 [id number] 8 mg-folic 400 1 tab PO DAILY 11/23/20 07/05/24 mcg-K 50 mcg-lutein 300 mcg tablet (Centrum Silver Women) lidocaine 4 % topical patch 1 patch topical DAILY PRN 06/16/22 07/05/24 metoprolol succinate 25 mg 25 mg PO DAILY 03/14/24 07/05/24 tablet,extended release 24 hr tramadol 50 mg tablet 50 mg PO Q4H PRN 07/05/24 07/05/24 Previous Rx's Medication Instructions Recorded inhalational spacing device #1 ea 01/03/23 mirtazapine 45 mg tablet 45 mg PO DAILY #90 tabs 03/14/24 levalbuterol tartrate 45 2 puff inhalation Q4-6H PRN 05/27/24 mcg/actuation aerosol inhaler shortness of breath or wheezing (Xopenex HFA) #15 grams tramadol 25 mg tablet 25 mg PO Q4-6H PRN pain 7 days #20 07/04/24 tabs dexlansoprazole 30 mg 30 mg PO DAILY #60 caps 07/05/24 capsule,biphase delayed release (Dexilant) oxycodone-acetaminophen 7.5 mg-325 1 tab PO Q6H PRN pain #100 tabs 07/05/24 mg tablet (Percocet) lactulose 20 gram oral packet 20 g PO TID #30 ea 07/08/24 Allergies Allergy/AdvReac Type Severity Reaction Status Date / Time fluoxetine AdvReac Severe muscle Verified 07/08/24 17:03 weakness codeine AdvReac Intermediate Painful Verified 07/08/24 17:03 Bloating lactase [From Dairy Aid] AdvReac Intermediate Gastrointestinal Verified 07/08/24 17:03 Upset meperidine [From Demerol] AdvReac Intermediate Vomiting Verified 07/08/24 17:03 prednisone AdvReac Intermediate Shakiness Verified 07/08/24 17:03 gabapentin AdvReac unknown Verified 07/08/24 17:03 Patient History Medical History (Updated 07/08/24 @ 20:37 by Arthur Chris MD) Abdominal mass Left foot pain Left ankle pain Paroxysmal atrial fibrillation Allergy to perfume Lung nodule seen on imaging study History of colon polyps Hyperglycemia Seborrheic keratosis Actinic keratosis Muscle weakness (generalized) GERD (gastroesophageal reflux disease) Dairy allergy (~2013) Depression (~2011) Seizures (~1989) Mumps Measles Chicken pox Retinal detachment Ovarian cyst (~1978) Gastric ulcer Skin cancer (~1989) TIA (transient ischemic attack) Emphysema of lung (~2009) Epilepsy with partial complex seizures Surgical History Anesthesia History of appendectomy History of Achilles tendon repair (~1963) History of section (~1980) History of tonsillectomy History of hysterectomy Family History Father Congestive heart failure History of heart disease Stroke Mother Cancer Mental health problem Grandmother Congestive heart failure History of heart disease Stroke Social History household members: spouse second hand exposure: Yes (ages 0-18 ) alcohol intake: former substance use type: does not use alcohol intake frequency: 0-2 drinks per day Exam Narrative Exam Narrative: GENERAL: Well-developed patient, in mild distress. HEAD: Atraumatic. Normocephalic. EYES: Pupils equal round and reactive. Extraocular motions intact. No scleral icterus. No injection or drainage. ENT: Nose without bleeding, purulent drainage. Throat without erythema, tonsillar hypertrophy or exudate. Airway patent. NECK: Trachea midline. Non tender CARDIOVASCULAR: Regular rate and rhythm without murmurs, gallops, or rubs. RESPIRATORY: Clear to auscultation. Breath sounds equal bilaterally. No wheezes, rales, or rhonchi. GASTROINTESTINAL: Abdomen is soft, no left-sided tenderness. Nondistended. EXTREMITIES: No edema or joint tenderness. BACK: Nontender without deformity or crepitance. No flank tenderness. NEURO: AOx3. Motor functions grossly nonfocal SKIN: No rash or erythema of visible areas Initial Vital Signs Initial Vital Signs: Vital Signs Temperature 97.1 F L 07/08/24 16:58 Pulse Rate 86 07/08/24 16:58 Respiratory Rate 16 07/08/24 16:58 Blood Pressure 150/80 H 07/08/24 16:58 Pulse Oximetry 97 07/08/24 16:58 Oxygen Delivery Method Room Air 07/08/24 16:58 Course Orders Ordered: ED Orders 07/08/24 17:10 Complete Blood Count AUTO DIFF Stat Comprehensive Metabolic Panel Stat Lipase Stat 07/08/24 19:05 CT abdomen pelvis w con Stat Discontinued Medications Hydromorphone HCl (Hydromorphone 1 Mg Inj) 1 mg IV NOW ONE Stop: 07/08/24 17:22 Last Admin: 07/08/24 17:24 Dose: 1 mg Documented By: Hydromorphone HCl (Hydromorphone 0.5 Mg Inj) 0.5 mg IV NOW ONE Stop: 07/08/24 19:19 Last Admin: 07/08/24 19:35 Dose: 0.5 mg Documented By: Hydromorphone HCl (Hydromorphone 1 Mg Inj) 1 mg IV NOW ONE Stop: 07/08/24 20:09 Last Admin: 07/08/24 20:12 Dose: 1 mg Documented By: Sodium Chloride (Normal Saline 0.9%) 1,000 mls @ 1,000 mls/hr IV BOLUS ONE Stop: 07/08/24 20:17 Last Infusion: 07/08/24 20:19 Dose: Infused Documented By: Admin: 07/08/24 19:35 Dose: 1,000 mls/hr Documented By: Lactulose (Lactulose 20 Gm/30 Ml Solution) 20 gm PO NOW ONE Stop: 07/08/24 20:12 Last Admin: 07/08/24 20:22 Dose: 20 gm Documented By: Ondansetron HCl (Ondansetron 4 Mg/2 Ml Inj) 4 mg IV NOW ONE Stop: 07/08/24 19:19 Last Admin: 07/08/24 19:35 Dose: 4 mg Documented By: Oxycodone/Acetaminophen (Oxycodone/Apap 5/325 Prepack) 1 bottle MISC DIRECTED ONE Stop: 07/08/24 20:12 Last Admin: 07/08/24 20:22 Dose: 1 bottle Documented By: Vital Signs Vital signs: Vital Signs - 8 hr 07/08/24 16:58 07/08/24 17:07 07/08/24 17:08 Temperature 97.1 F L Pulse Rate 86 81 79 Respiratory Rate 16 Blood Pressure 150/80 H Pulse Oximetry 97 99 100 Oxygen Delivery Method Room Air 07/08/24 17:08 07/08/24 17:30 07/08/24 17:30 Temperature Pulse Rate 84 Respiratory Rate Blood Pressure 153/67 H 145/75 H Pulse Oximetry 89 L Oxygen Delivery Method 07/08/24 18:00 07/08/24 18:00 07/08/24 18:30 Temperature Pulse Rate 60 71 Respiratory Rate Blood Pressure 131/61 Pulse Oximetry 92 93 Oxygen Delivery Method 07/08/24 18:30 07/08/24 19:00 07/08/24 19:00 Temperature Pulse Rate 65 Respiratory Rate Blood Pressure 118/57 L 106/55 L Pulse Oximetry 96 Oxygen Delivery Method 07/08/24 19:33 07/08/24 20:00 07/08/24 20:30 Temperature Pulse Rate 75 82 72 Respiratory Rate Blood Pressure Pulse Oximetry 99 94 92 Oxygen Delivery Method 07/08/24 20:30 Temperature Pulse Rate Respiratory Rate Blood Pressure 122/57 L Pulse Oximetry Oxygen Delivery Method MDM - Abdominal Pain Lab Data Attestation: I reviewed the patient's lab results. Lab results narrative: White blood cell count 6100, hemoglobin 13.5, platelets adequate. Glucose 162. BUN 8 with creatinine 0.94 normal renal function. Normal carbon dioxide level. Sodium 135, potassium 4.1. Mild transaminitis, normal alkaline phosphatase and T bili noted. Lipase normal. 07/08/24 17:10 07/08/24 17:10 Labs: Lab Results 07/08/24 Range/Units 17:10 WBC 6.1 (4.5-11.0) X10^3/uL RBC 4.57 (4.0-5.2) X10^6/uL Hgb 13.5 (12.0-16.0) g/dL Hct 40.2 (36-46) % MCV 87.9 (80-100) fL MCH 29.6 (26-34) PG MCHC 33.7 (30-36) % RDW 13.5 (11.6-14.8) % Plt Count 248 (150-400) X10^3/uL Neut % (Auto) 66.0 (50-75) % Lymph % (Auto) 23.5 L (25-40) % Weber % (Auto) 7.8 (3-14) % Eos % (Auto) 2.1 (2-4) % Baso % (Auto) 0.6 (0-2) % Neut # (Auto) 4100 (9499-0822) /uL Lymph # (Auto) 1400 (6692-3041) /uL Weber # (Auto) 500 (0-900) /uL Eos # (Auto) 100 (0-450) /uL Baso # (Auto) 0 (0-100) /uL Sodium 135 L (137-145) mmol/L Potassium 4.1 (3.4-5.1) mmol/L Chloride 103 (98-107) mmol/L Carbon Dioxide 24 (22-32) mmol/L BUN 8 (7-17) mg/dL Creatinine 0.94 (0.52-1.04) mg/dL Estimated GFR > 60 (>60) mL/min BUN/Creatinine Ratio 8.5 (6-22) Glucose 162 H (70-99) mg/dL Calcium 9.2 (8.4-10.2) mg/dL Total Bilirubin 0.3 (0.2-1.3) mg/dL AST 40 H (14-36) IU/L ALT 45 H (<35) IU/L Alkaline Phosphatase 126 (38-126) U/L Total Protein 6.9 (6.3-8.2) g/dL Albumin 4.2 (3.5-5.0) g/dL Globulin 2.7 (1.7-4.1) g/dL Albumin/Globulin Ratio 1.6 (1.0-2.8) Lipase 41 (23-300) U/L Imaging Data CT scan - abdomen/pelvis: Radiologist's Impression: [address] [address] [address] Scan Report Signed Patient: Luz Maria Cason MR#: [id number] : 1950 Acct:[id number] Age/Sex: 74 / F Date of Service: 07/08/24 Loc: ED Accession Number: [id number] Procedure: CT abdomen pelvis w con Ordering Provider: Arthur Chris MD PROCEDURE: CT ABDOMEN PELVIS W CON INDICATIONS: abd pain TECHNIQUE: After the administration of intravenous contrast, axial sections acquired from the lung bases to the pubic symphysis. Coronal and sagittal reformats were performed. For radiation dose reduction, the following was used: automated exposure control, adjustment of mA and/or kV according to patient size. COMPARISON: [facility], CT, CT ABDOMEN PELVIS W CON, 07/02/2024, 1:13. FINDINGS: Image quality: Diagnostic. Lower Chest: No significant findings. ABDOMEN: Liver: No solid mass. Gallbladder: No radiopaque gallstones or wall thickening. Biliary ducts: No biliary dilation. Pancreas: No ductal dilation. Spleen: Size is within normal limits. Adrenal Glands: No adrenal nodules. Kidneys and Ureters: No hydronephrosis. No solid mass. No complex renal cystic lesion which requires follow up. Stomach and Bowel: Normal colonic caliber, without significant wall thickening. Fecal stasis throughout the colon is seen. No abscess collection. Peritoneum: No abnormal intraperitoneal fluid. No free air. Ventral Wall: No significant ventral hernia. Abdominal Nodes: Previously described 2.9 cm superior mesenteric node versus mass seen in left upper quadrant abdomen now measures 3.3 x 2.9 cm in size series 2, image 49 and is essentially unchanged compared to previous study series 2, image 76. No new mesenteric mass or lymphadenopathy is seen. No gross retroperitoneal lymphadenopathy by size criteria. Vessels: Aorta and inferior vena cava are normal in size. PELVIS: Pelvic Organs: Unremarkable. Bladder: No bladder wall thickening, accounting for underdistention. Pelvic Nodes: No enlarged lymph nodes. Miscellaneous: No inguinal hernias are seen. Bones: No aggressive osseous abnormality. IMPRESSION: 1. Stable 2.9 x 3.3 cm necrotic appearing mass versus lymphadenopathy in left upper quadrant mesentery concerning for malignant lymphadenopathy secondary to lymphoma or metastatic disease. No other mesenteric or retroperitoneal lymphadenopathy is seen. 2. Gteo-em-albmftgk constipation. No bowel obstruction or abnormal bowel wall thickening. No abscess collection. No free fluid or free air. 3. Findings are essentially unchanged from previous study. Dictated by: Aakash Henning M.D. on 07/08/2024 at 19:57 Approved by: Aakash Henning M.D. on 07/08/2024 at 20:02 [facility] Narrative Medical decision making narrative: 74-year-old female with abdominal mass and pancreatic cyst of unclear cause, awaiting follow up [facility] for possible biopsy, having increasing abdominal pain, having bowel movements, able to urinate, afebrile on triage, sirs screen negative. Mild diffuse tenderness nondistended with active normal bowel tones. Screening labs pending. CT abdomen and pelvis ordered. Patient would like pain medication, IV fluids, IV Zofran/Dilaudid. Keep NPO for now. CT abdomen and pelvis shows stable appearing 2.9 x 3.3 cm necrotic appearing mass versus lymphadenopathy in the left upper quadrant mesentery, concerning for malignant lymphadenopathy secondary to lymphoma or metastatic disease. No bowel obstruction changes. No ureteral obstruction. No acute inflammatory changes. Constipation changes also mentioned See radiology report. Still in pain, IV Dilaudid dose repeated. They have oxycodone/acetaminophen to use at home, we will add lactulose to use if needed, if constipation component of her discomfort. Further workup at [facility] as planned. Home with . Discharge Plan Departure Patient Disposition: Home Clinical Impression: Abdominal mass, Constipation Instructions: DI for Constipation Activity Restrictions/Additional Instructions: Abdominal pain with known mass awaiting possible biopsy and further evaluation via [facility]. More discomfort today, given IV pain medications for control of the pain. Repeat CT abdomen and pelvis imaging today showed unchanged appearing left-sided mesenteric abdominal mass 2.9 x 3.3 cm with central necrosis. There is no bowel obstruction or inflammatory changes of the bowel, no abscess, no perforation changes at this time. It was mentioned of colonic stool. It is possible the constipation could be some component of your discomfort. Consider use of lactulose to help move your bowels were taking your pain medications which can be constipating. Continue taking your oxycodone/acetaminophen regular scheduled doses. Follow up with [facility] for further evaluation leading to biopsy and definitive care treatment plan. Return to this/near emergency department for any change worsening symptoms or any concerns prior. Prescriptions: New lactulose 20 gram packet 20 g PO TID Qty: 30 0RF No Action Eliquis 5 mg tablet 5 mg PO BID (DME) inhalational spacing device Spacer See Rx Instructions .Route Qty: 1 2RF Rx Instructions: Use spacer with albuterol inhaler levalbuterol tartrate [Xopenex HFA] 45 mcg/actuation HFA aerosol inhaler 2 puff inhalation Q4-6H PRN (Reason: shortness of breath or wheezing) Qty: 15 3RF cholecalciferol (vitamin D3) 25 mcg (1,000 unit) capsule 25 mcg PO DAILY Centrum Silver Women 8 mg iron-400 mcg-300 mcg tablet 1 tab PO DAILY lidocaine 4 % adhesive patch,medicated 1 patch topical DAILY PRN metoprolol succinate 25 mg tablet extended release 24 hr 25 mg PO DAILY mirtazapine 45 mg tablet 45 mg PO DAILY Qty: 90 3RF tramadol 50 mg tablet 50 mg PO Q4H PRN Rx Instructions: Alternate between oxycodone and tramadol every 4 hours. oxycodone-acetaminophen [Percocet] 7.5-325 mg tablet 1 tab PO Q6H PRN (Reason: pain) Qty: 100 0RF dexlansoprazole [Dexilant] 30 mg capsule,biphase delayed releas 30 mg PO DAILY Qty: 60 3RF tramadol 25 mg tablet 25 mg PO Q4-6H PRN (Reason: pain) 7 Days Qty: 20 0RF Rx Instructions: May take 1-2 tablets q 4 hours as needed for pain. Referrals: Gisselle Villafana DO [Primary Care Provider] - Stand Alone Forms: Patient Portal/API/Survey
[2024-07-08] MEDS: SODIUM CHLORIDE 0.9% 1,000 ML 1000 ML IV (19:35)
[2024-07-08] MEDS: ONDANSETRON 4 MG/2 ML INJ IV (19:35)
[2024-07-08] MEDS: HYDROMORPHONE 0.5 MG INJ IV (19:35)
[2024-07-08] MEDS: OXYCODONE/APAP 5/325 PREPACK 1 BOTTLE MISC (20:22)
[2024-07-08] MEDS: LACTULOSE 20 GM/30 ML SOLUTION PO (20:22)
== END 2024-07-08 20:50 | disposition home or self-care (01) ==
PROVIDERS: Emergency Provider Emergency Medicine; PCP Family Medicine
DX: R19.00 Intra-abdominal and pelvic swelling, mass and lump, unspecified site (principal); K59.00 Constipation, unspecified
CPT/HCPCS: 36415; 74177; 80053; 83690; 85025; 96361; 96374; 96375; 96376; 99284; J1171; J2405; Q9967

== ENCOUNTER 2024-08-07 11:46 | Observation (INO) | payer MEDICARE, OTHER, SELFPAY ==
[2024-07-02 03:33] VITALS: BMI 22.9
[2024-08-07] VITALS (31 sets, daily range): BP systolic 101–157; BP diastolic 54–83; PULSE 56–104; RESP 7–23; TEMP 36.6–36.7; O2SAT 93–100; BMI 21.1
--- NOTE | 2024-08-07 11:54 | DI.CT.S_ITS ---
PROCEDURE: CT ANGIO HEAD AND NECK INDICATIONS: welsh, diffuse, recent diagnosis of mass in abd. seeing yue sanderson TECHNIQUE: After the administration of intravenous contrast, 1 mm thick sections acquired from the aortic arch through the [place] of [place]. MIP reformats of the arterial vasculature were utilized. For radiation dose reduction, the following was used: automated exposure control, adjustment of mA and/or kV according to patient size. COMPARISON: None. FINDINGS: Image quality: Diagnostic. Cerebral CT Angiogram: Internal carotid arteries: No acute findings. Intracranial ICA are patent with no significant stenosis. No occlusion. No aneurysm. Anterior cerebral arteries: Unremarkable. No significant stenosis. No occlusion. No aneurysm. Middle cerebral arteries: Unremarkable. No significant stenosis. No occlusion. No aneurysm. Posterior cerebral arteries: Unremarkable. No significant stenosis. No occlusion. No aneurysm. Basilar artery: Unremarkable. No significant stenosis. No occlusion. No aneurysm. Vertebral arteries: Unremarkable as visualized. Dural venous sinuses: Unremarkable given phase of enhancement. Other: Arterial phase appearance of the brain parenchyma is unremarkable. Neck CT Angiogram: Internal carotid arteries: Unremarkable. No significant stenosis. No dissection or occlusion. Common carotid arteries: Unremarkable. No significant stenosis. No dissection or occlusion. External carotid arteries: Unremarkable. No occlusion. Vertebral arteries: Unremarkable. No significant stenosis. No dissection or occlusion. Aortic Arch and Mediastinum: Partially visualized aortic arch unremarkable without evidence of aneurysm. Origins of the great vessels unremarkable. Other: Arterial phase soft tissues of the neck and chest are unremarkable. Low- density 1.1 cm thyroid nodule IMPRESSION: No significant intracranial arterial abnormality is seen. No significant abnormality is seen within the arteries of the neck. Any quantitative measurements of stenosis were performed using NASCET criteria. Approved by: Fady Laboy M.D. on 08/07/2024 at 12:41
--- NOTE | 2024-08-07 11:54 | DI.CT.S_ITS ---
PROCEDURE: CT HEAD/BRAIN WO CON INDICATIONS: welsh, diffuse, recent diagnosis of mass in abd. rolando sanderson TECHNIQUE: Noncontrast 4.5 mm thick angled axial sections acquired from the foramen magnum to the vertex, with coronal and sagittal reformats. For radiation dose reduction, the following was used: automated exposure control, adjustment of mA and/or kV according to patient size. COMPARISON: [facility], CT, CT HEAD/BRAIN WO CON, 07/02/2024, 1:13. FINDINGS: Image quality: Diagnostic. CSF spaces: Basal cisterns are patent. No extra-axial fluid collections. The ventricles are symmetric in size and shape. Brain: No intracranial bleeds or mass effect. There is cerebral volume loss, with resultant ventricular and sulcal prominence. There are periventricular and deep white matter chronic small vessel ischemic changes. There is intracranial internal carotid artery atherosclerosis. Skull and face: Calvarium and visualized facial bones appear intact, without suspicious lesions. Sinuses: Visualized sinuses and mastoids are clear. IMPRESSION: No acute intracranial pathology. Dictated by: Ladonna Reis MD, PhD on 08/07/2024 at 12:44 Approved by: Ladonna Reis MD, PhD on 08/07/2024 at 12:46
[2024-08-07 12:06] LABS: Add Manual Diff / Slide Review NO; Basophils Absolute Auto 0 /uL (0-100); Basophils Percent Auto 0.7 % (0-2); Eosinophils Absolute Auto 100 /uL (0-450); Eosinophils Percent Auto 0.9 % (2-4); Hematocrit 41.2 % (36-46); Hemoglobin 14.2 g/dL (12.0-16.0); Lymphocytes Absolute Auto 1900 /uL (1100-4500); Lymphocytes Percent Auto 27.6 % (25-40); Mean Corpuscular HGB Conc 34.3 % (30-36); Mean Corpuscular Hemoglobin 30.2 PG (26-34); Mean Corpuscular Volume 88.1 fL (80-100); Monocytes Absolute Auto 400 /uL (0-900); Monocytes Percent Auto 6.3 % (3-14); Neutrophils Absolute Auto 4400 /uL (1500-7000); Neutrophils Percent Auto 64.5 % (50-75); Platelet Count 250 X10^3/uL (150-400); Red Blood Cell Count 4.68 X10^6/uL (4.0-5.2); Red Cell Distribution Width 13.7 % (11.6-14.8); White Blood Cell Count 6.9 X10^3/uL (4.5-11.0)
--- NOTE | 2024-08-07 12:10 | EKG_ITS ---
[address] [address] [place] [address] Test Date: 2024-08-07 Pat Name: Luz Maria Cason Department: Room: Gender: Female Bariatric Nurse: JESSI : 1950 Requested By: Order Number: [id number] Reading MD: Gurmeet Dominguez Measurements Intervals [place] Rate: 70 P: 28 [place]: 148 QRS: 52 QRSD: 78 T: -2 QT: 414 QTc: 447 Interpretive Statements Normal sinus rhythm ST & T wave abnormality, consider anterolateral ischemia Electronically Signed On 08-09-2024 0:11:36 PDT by Gurmeet Dominguez
[2024-08-07 12:12] LABS: INR 1.3 (0.9-1.3); Prothrombin Time 15.2 SECONDS (9.4-12.5)
[2024-08-07 12:15] LABS: PTT Partial Thromboplastin Tim 45 SECONDS (25.1-36.5)
[2024-08-07 12:16] LABS: Alanine Aminotransferase 21 IU/L (<35); Albumin 4.2 g/dL (3.5-5.0); Albumin Globulin Ratio 1.6 (1.0-2.8); Alkaline Phosphatase 95 U/L (38-126); Aspartate Aminotransferase 32 IU/L (14-36); BUN Creatinine Ratio 8.6 (6-22); Bilirubin Total 0.5 mg/dL (0.2-1.3); Blood Urea Nitrogen 7 mg/dL (7-17); Calcium 9.4 mg/dL (8.4-10.2); Carbon Dioxide 21 mmol/L (22-32); Chloride 103 mmol/L (98-107); Creatine Kinase 38 U/L (30-135); Estimated Glomerular Filt Rate > 60 mL/min (>60); Ethanol (ETOH) < 10 mg/dL (<10); Globulin 2.7 g/dL (1.7-4.1); Glucose 128 mg/dL (70-99); HEMOLYSIS 24 (0-50); Potassium 3.8 mmol/L (3.4-5.1); Sodium 137 mmol/L (137-145); Total Protein 6.9 g/dL (6.3-8.2)
[2024-08-07 12:28] LABS: Troponin I < 0.012 ng/mL (0.01-0.034)
[2024-08-07 13:10] LABS: Ur Creatinine Normal (Normal); Ur Specific Gravity Normal (Normal); Urine Tetrahydrocannabinol Negative (Negative); Urine pH Normal (Normal)
[2024-08-07 13:11] LABS: UR Morphine/Opiate cutoff 300 Negative (Negative); Urine Amphetamines Negative (Negative); Urine Barbiturates Negative (Negative); Urine Benzodiazepines Negative (Negative); Urine Cocaine Negative (Negative); Urine MDMA Negative (Negative); Urine Methadone Negative (Negative); Urine Methamphetamines Negative (Negative); Urine Oxycodone Positive (Negative); Urine Phencyclidine Negative (Negative); Urine Tricyclic Antidepressant Negative (Negative)
[2024-08-07 13:18] LABS: Appearance Urine UA CLEAR; Bilirubin Urine UA NEGATIVE (NEGATIVE); Color Urine UA YELLOW; Glucose Urine UA NEGATIVE (Negative); Ketones Urine UA 1+ (NEGATIVE); Leukocyte Esterase Urine UA NEGATIVE (NEGATIVE); Nitrite Urine UA NEGATIVE (Negative); Occult Blood Urine UA TRACE-INTACT (Negative); Protein Urine UA NEGATIVE (Negative); Specific Gravity Urine UA <=1.005 (1.000-1.035); Urobilinogen Urine UA 0.2 E.U./dL (0.2)
[2024-08-07 13:19] LABS: Urine Volume 10mL (spun)
[2024-08-07 13:20] LABS: Bacteria Urine None Seen; Culture Indicated Urine Cult Not Indicated; RBC Urine None Seen (0-5/HPF); Squamous Epithelial Cell Urine None Seen (0-5/HPF); WBC Urine None Seen (0-5/HPF)
[2024-08-07] MEDS: OXYCODONE/ACETAMINOPHEN 5/325 TABLET 2 TAB PO (14:47)
--- NOTE | 2024-08-07 15:00 | ED_ITS ---
HPI - Dizziness <Esther Kendall, - Last Filed: 08/08/24 18:57> General Chief Complaint: Dizziness Stated Complaint: Vertigo, migraine Time Seen by Provider: 08/07/24 11:54 Source: patient, EMS, RN notes reviewed and old records reviewed Mode of arrival: EMS Limitations: no limitations History of Present Illness HPI Narrative: 74-year-old female history of paroxysmal atrial fibrillation on Eliquis, depression, seizures, gastric ulcer, TIA, COPD, recent pancreatic cyst and recent 2.9 cm mesenteric node versus mass on imaging with a complaint sent on dizziness while bending over. Patient states she was a really bad headache when she bends over moving her head side to side does not bother it. While evaluating the patient she bends her head all the way down to her feet to show me. She can sit up in the bed without issue. No recent fevers. She states headache is better at this time. She was not had similar symptoms in the past. 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 Patient states no chest pain or pressure. No shortness of breath. She was had some nausea and vomiting this morning with the episode. She states she was had some bowel movements last 1 was yesterday but has been constipated. No incontinence. No dysuria urgency or frequency. She denies any numbness or tingling of her extremities. Notes she has not essential tremor at baseline but has been a lot more shaky. Patient does take Eliquis daily, mirtazapine nightly, QVAR, levo albuterol, dexlansoprazole, metoprolol, is taking Percocet 10/325 3 times daily, tramadol 50 mg every 6 hours and MiraLax. Reports reactions to codeine, casein, fluoxetine, Demerol and gabapentin. Related Data Home Medications ?Medication ?Instructions ?Recorded ?Confirmed cholecalciferol (vitamin D3) 25 25 mcg PO DAILY 08/08/24 mcg (1,000 unit) capsule apixaban 5 mg tablet (Eliquis) 5 mg PO BID 10/02/20 [id number] 8 mg-folic 400 1 tab PO DAILY 11/2308/08/24 mcg-K 50 mcg-lutein 300 mcg tablet (Centrum Silver Women) lidocaine 4 % topical patch 1 patch topical DAILY PRN pain 06/16/22 08/08/24 metoprolol succinate 25 mg 25 mg PO DAILY 03/14/2402/20 tablet,extended release 24 hr polyethylene glycol 3350 17 17 g PO DAILY 07/09/2402/20 gram/dose oral powder (Miralax) Previous Rx's ?Medication ?Instructions ?Recorded inhalational spacing device #1 ea 01/03/23 mirtazapine 45 mg tablet 45 mg PO DAILY #90 tabs 02/27 08/21 levalbuterol tartrate 45 2 puff inhalation Q4-6H PRN 05/27/24 mcg/actuation aerosol inhaler shortness of breath or w heezing (Xopenex HFA) #15 grams dexlansoprazole 30 mg 30 mg PO DAILY #60 caps 06/27 11/21 capsule,biphase delayed release (Dexilant) ondansetron 4 mg disintegrating 4 mg PO DAILY PRN naus ea and 07/24/24 tablet vomiting #30 tabs oxycodone-acetaminophen 10 mg-325 1 tab PO TID PRN sarah n #60 tabs 07/24/24 mg tablet tramadol 50 mg tablet 50 mg PO Q6H PRN pain #60 ta bs 07/24/24 lorazepam 1 mg tablet 1 mg PO BID PRN severe verti go 7 08/08/24 days #14 tabs meclizine 50 mg tablet 50 mg PO BID PRN vertigo 30 days 08/08/24 #30 tabs Allergies Allergy/AdvReac Type Severity Reaction Status Date / Time fluoxetine AdvReac Severe muscle Verified 07/19/24 07:08 weakness codeine AdvReac Intermediate Painful Verified 07/19/24 07:08 Bloating lactase (From Dairy Aid) AdvReac Intermediate Gastrointestinal Verified 07/19/24 07:08 Upset meperidine (From Demerol) AdvReac Intermediate Vomiting Verified 07/19/24 07:08 prednisone AdvReac Intermediate Shakiness Verified 07/19/24 07:08 gabapentin AdvReac unknown Verified 07/19/24 07:08 Review of Systems <Esther Kendall, DO - Last Filed: 08/08/24 18:57> Review of Systems ROS Unobtainable: All systems reviewed & are unremarkable except as noted in HPI and below Patient History <Esther Kendall DO - Last Filed: 08/08/24 18:57> Medical History Abdominal mass Left foot pain Left ankle pain Paroxysmal atrial fibrillation Allergy to perfume Lung nodule seen on imaging study History of colon polyps Hyperglycemia Seborrheic keratosis Actinic keratosis Muscle weakness (generalized) GERD (gastroesophageal reflux disease) Dairy allergy (~2013) Depression (~2011) Seizures (~1989) Mumps Measles Chicken pox Retinal detachment Ovarian cyst (~1978) Gastric ulcer Skin cancer (~1989) TIA (transient ischemic attack) Emphysema of lung (~2009) Epilepsy with partial complex seizures Surgical History Anesthesia History of appendectomy History of Achilles tendon repair (~1963) History of section (~1980) History of tonsillectomy History of hysterectomy Family History Father Congestive heart failure History of heart disease Stroke Mother Cancer Mental health problem Grandmother Congestive heart failure History of heart disease Stroke Social History household members: spouse Smoking Status: Never smoker second hand exposure: Yes (ages 0-18 ) alcohol intake: former substance use type: does not use alcohol intake frequency: 0-2 drinks per day Exam <Esther Kendall DO - Last Filed: 08/08/24 18:57> Narrative Exam Narrative: GEN: well nourished, well appearing elderly, alert and oriented x 3, patient appears to be in moderate distress. Patient appears anxious HEENT: Atraumatic, pupils are equal round reactive to light, extraocular movements are intact, nares are clear, TMs are clear with no fluid, there is no conjunctival pallor. Throat is clear without any exudates, erythema, tonsillar enlargement or uvular deviation, no facial droop HEART: Regular rate and rhythm without murmur, clicks, rubs. No carotid bruits, pulses are equal in upper and lower extremities LUNGS:Lungs clear to auscultation, no wheezes, rales, crackles, chest moves symmetrically ABD:bowel sounds normal, soft, non-tender, no guarding, rebound, rigidity, no masses noted, no hepatosplenomegaly :No CVA tenderness MSCL: Non-tender, no muscle atrophy, muscles strength 5/5 upper and lower extremities, full range of motion. NEURO:CN 2-12 intact, sensation normal, reflexes 2/4 upper and lower extremities. finger nose finger test normal, heel madrigal test normal, romberg normal Initial Vital Signs Initial Vital Signs: Vital Signs Pulse Rate 76 08/07/24 11:58 Pulse Oximetry 99 08/07/24 11:58 <Bambi Samuel MD - Last Filed: 08/07/24 19:24> Initial Vital Signs Initial Vital Signs: Vital Signs Pulse Rate 76 08/07/24 11:58 Pulse Oximetry 99 08/07/24 11:58 Course <Esther Kendall DO - Last Filed: 08/08/24 18:57> Orders Ordered: Discontinued Medications Acetaminophen (Acetaminophen 325 Mg Tablet) 650 mg PO Q6H PRN PRN Reason: Fever/Mild Pain (1-3) Albuterol (Albuterol 2.5 Mg/3 Ml Neb (Adult)) 2.5 mg INH Q4H PRN PRN Reason: Wheezing Apixaban (Apixaban 5 Mg Tablet) 5 mg PO BID [facility] Last Admin: 08/08/24 08:28 Dose: 5 mg Documented By: Admin: 08/07/24 22:19 Dose: 5 mg Documented By: Hydromorphone HCl (Hydromorphone 0.5 Mg Inj) 0.5 mg IV Q2H PRN PRN Reason: Pain, Severe (7-10) Sodium Chloride (Normal Saline 0.9%) 1,000 mls @ 1,000 mls/hr IV BOLUS ONE Stop: 08/07/24 16:24 Last Infusion: 08/07/24 17:36 Dose: Infused Documented By: Admin: 08/07/24 15:39 Dose: 1,000 mls/hr Documented By: JAVIER Sodium Chloride (Normal Saline 0.9%) 1,000 mls @ 1,000 mls/hr IV BOLUS ONE Stop: 08/07/24 18:28 Last Infusion: 08/07/24 18:43 Dose: Infused Documented By: Admin: 08/07/24 17:34 Dose: 1,000 mls/hr Documented By: JAVIER Lorazepam (Lorazepam 2 Mg/Ml Inj) 0.5 mg IV NOW ONE Stop: 08/07/24 22:45 Last Admin: 08/08/24 00:07 Dose: Not Given Documented By: Lorazepam (Lorazepam 1 Mg Tablet) 1 mg PO NOW ONE Stop: 08/07/24 23:46 Last Admin: 08/08/24 04:29 Dose: 1 mg Documented By: Lorazepam (Lorazepam 0.5 Mg Tablet) 0.5 mg PO Q6HR PRN PRN Reason: Anxiety Meclizine HCl (Meclizine Hcl 12.5 Mg Tablet) 50 mg PO NOW ONE Stop: 08/07/24 17:30 Last Admin: 08/07/24 17:56 Dose: 50 mg Documented By: SUMANTH Metoprolol Succinate (Metoprolol Er 25 Mg Tablet) 25 mg PO DAILY [facility] Last Admin: 08/08/24 08:28 Dose: 25 mg Documented By: TROY Midazolam HCl (Midazolam 5 Mg/Ml Vial) 1 mg IV NOW ONE Stop: 08/07/24 15:26 Last Admin: 08/07/24 16:00 Dose: 1 mg Documented By: JAVIER Mirtazapine (Mirtazapine 15 Mg Tablet) 45 mg PO BEDTIME [facility] Last Admin: 08/07/24 22:19 Dose: 45 mg Documented By: Naloxone HCl (Naloxone 0.4 Mg/Ml Vial) 0.2 mg IV Q2MIN PRN PRN Reason: Opiate Reversal Ondansetron HCl (Ondansetron 4 Mg/2 Ml Inj) 4 mg IV NOW ONE Stop: 08/07/24 17:30 Last Admin: 08/07/24 17:34 Dose: 4 mg Documented By: JAVIER Ondansetron HCl (Ondansetron 4 Mg/2 Ml Inj) 4 mg IV NOW ONE Stop: 08/07/24 20:04 Last Admin: 08/07/24 20:10 Dose: 4 mg Documented By: JASMIN Ondansetron HCl (Ondansetron 4 Mg/2 Ml Inj) 4 mg IV Q4HR PRN PRN Reason: nausea Oxycodone HCl (Oxycodone Ir 5 Mg Tablet) 5 mg PO Q3HR PRN PRN Reason: Pain, Moderate (4-6) Last Admin: 08/08/24 04:29 Dose: 5 mg Documented By: Oxycodone HCl (Oxycodone Ir 10 Mg Tablet) 10 mg PO Q3HR PRN PRN Reason: Pain, Severe (7-10) Last Admin: 08/07/24 23:15 Dose: 10 mg Documented By: Oxycodone/Acetaminophen (Oxycodone/Acetaminophen 5/325 Tablet) 2 tab PO NOW ONE Stop: 08/07/24 14:40 Last Admin: 08/07/24 14:47 Dose: 2 tab Documented By: JAVIER Pantoprazole Sodium (Pantoprazole Dr 20 Mg Tablet) 20 mg PO 0600 [facility] Last Admin: 08/08/24 06:04 Dose: 20 mg Documented By: Prochlorperazine (Prochlorperazine 10 Mg/2 Ml Vial) 10 mg IV Q6HR PRN PRN Reason: Nausea Last Admin: 08/07/24 22:18 Dose: 10 mg Documented By: Scopolamine (Scopolamine 1 Patch) 1 patch TOP Q72H [facility] Last Admin: 08/08/24 04:29 Dose: 1 patch Documented By: Sodium Chloride (Sodium Chloride 0.9% Flush) 10 ml IV BID [facility] Last Admin: 08/08/24 08:29 Dose: 10 ml Documented By: TROY Tramadol HCl (Tramadol 50 Mg Tablet) 50 mg PO NOW ONE Stop: 08/07/24 17:53 Last Admin: 08/07/24 17:55 Dose: 50 mg Documented By: SUMANTH Vital Signs Vital signs: Vital Signs - 8 hr 08/07/24 11:58 08/07/24 12:00 08/07/24 12:03 Temperature 98.1 F Pulse Rate 76 104 H 72 Pulse Rate [Orthostatic Lying] Pulse Rate [Orthostatic Sitting] Pulse Rate [Orthostatic Standing] Respiratory Rate 20 Blood Pressure 130/63 Blood Pressure [Orthostatic Lying] Blood Pressure [Orthostatic Sitting] Blood Pressure [Orthostatic Standing] Pulse Oximetry 99 99 97 Oxygen Delivery Method Room Air 08/07/24 12:34 08/07/24 12:35 08/07/24 12:35 Temperature Pulse Rate 101 H 79 Pulse Rate [Orthostatic Lying] Pulse Rate [Orthostatic Sitting] Pulse Rate [Orthostatic Standing] Respiratory Rate 20 21 Blood Pressure 120/83 Blood Pressure [Orthostatic Lying] Blood Pressure [Orthostatic Sitting] Blood Pressure [Orthostatic Standing] Pulse Oximetry 100 99 Oxygen Delivery Method 08/07/24 12:49 08/07/24 12:49 08/07/24 13:00 Temperature Pulse Rate 75 67 Pulse Rate [Orthostatic Lying] Pulse Rate [Orthostatic Sitting] Pulse Rate [Orthostatic Standing] Respiratory Rate 20 Blood Pressure 139/63 Blood Pressure [Orthostatic Lying] Blood Pressure [Orthostatic Sitting] Blood Pressure [Orthostatic Standing] Pulse Oximetry 94 Oxygen Delivery Method 08/07/24 13:00 08/07/24 13:30 08/07/24 13:30 Temperature Pulse Rate 66 Pulse Rate [Orthostatic Lying] Pulse Rate [Orthostatic Sitting] Pulse Rate [Orthostatic Standing] Respiratory Rate 16 Blood Pressure 122/56 L 117/61 Blood Pressure [Orthostatic Lying] Blood Pressure [Orthostatic Sitting] Blood Pressure [Orthostatic Standing] Pulse Oximetry 96 Oxygen Delivery Method 08/07/24 14:00 08/07/24 14:13 08/07/24 14:13 Temperature Pulse Rate 66 66 Pulse Rate [Orthostatic Lying] Pulse Rate [Orthostatic Sitting] Pulse Rate [Orthostatic Standing] Respiratory Rate 23 Blood Pressure 126/67 Blood Pressure [Orthostatic Lying] Blood Pressure [Orthostatic Sitting] Blood Pressure [Orthostatic Standing] Pulse Oximetry 96 95 Oxygen Delivery Method 08/07/24 14:30 08/07/24 14:31 08/07/24 14:31 Temperature Pulse Rate 72 71 Pulse Rate [Orthostatic Lying] Pulse Rate [Orthostatic Sitting] Pulse Rate [Orthostatic Standing] Respiratory Rate Blood Pressure 119/65 Blood Pressure [Orthostatic Lying] Blood Pressure [Orthostatic Sitting] Blood Pressure [Orthostatic Standing] Pulse Oximetry 98 98 Oxygen Delivery Method 08/07/24 15:00 08/07/24 15:00 08/07/24 15:30 Temperature Pulse Rate 66 70 Pulse Rate [Orthostatic Lying] Pulse Rate [Orthostatic Sitting] Pulse Rate [Orthostatic Standing] Respiratory Rate 15 Blood Pressure 118/70 Blood Pressure [Orthostatic Lying] Blood Pressure [Orthostatic Sitting] Blood Pressure [Orthostatic Standing] Pulse Oximetry 98 99 Oxygen Delivery Method 08/07/24 15:30 08/07/24 16:00 08/07/24 16:00 Temperature Pulse Rate 65 Pulse Rate [Orthostatic Lying] Pulse Rate [Orthostatic Sitting] Pulse Rate [Orthostatic Standing] Respiratory Rate 14 Blood Pressure 128/73 137/64 Blood Pressure [Orthostatic Lying] Blood Pressure [Orthostatic Sitting] Blood Pressure [Orthostatic Standing] Pulse Oximetry 99 Oxygen Delivery Method 08/07/24 16:30 08/07/24 16:30 08/07/24 17:00 Temperature Pulse Rate 60 Pulse Rate [Orthostatic Lying] Pulse Rate [Orthostatic Sitting] Pulse Rate [Orthostatic Standing] Respiratory Rate 16 17 Blood Pressure 129/65 Blood Pressure [Orthostatic Lying] Blood Pressure [Orthostatic Sitting] Blood Pressure [Orthostatic Standing] Pulse Oximetry 95 97 Oxygen Delivery Method 08/07/24 17:00 08/07/24 17:22 08/07/24 17:22 Temperature Pulse Rate 65 Pulse Rate [Orthostatic Lying] Pulse Rate [Orthostatic Sitting] Pulse Rate [Orthostatic Standing] Respiratory Rate Blood Pressure 101/73 141/65 H Blood Pressure [Orthostatic Lying] Blood Pressure [Orthostatic Sitting] Blood Pressure [Orthostatic Standing] Pulse Oximetry 100 Oxygen Delivery Method 08/07/24 17:24 08/07/24 17:24 08/07/24 17:25 Temperature Pulse Rate 76 79 Pulse Rate [Orthostatic Lying] Pulse Rate [Orthostatic Sitting] Pulse Rate [Orthostatic Standing] Respiratory Rate Blood Pressure 125/61 Blood Pressure [Orthostatic Lying] Blood Pressure [Orthostatic Sitting] Blood Pressure [Orthostatic Standing] Pulse Oximetry Oxygen Delivery Method 08/07/24 17:25 08/07/24 17:27 08/07/24 17:30 Temperature Pulse Rate 67 Pulse Rate [Orthostatic Lying] 68 Pulse Rate [Orthostatic Sitting] 78 Pulse Rate [Orthostatic Standing] 79 Respiratory Rate 14 Blood Pressure 120/64 Blood Pressure [Orthostatic Lying] 141/65 H Blood Pressure [Orthostatic Sitting] 125/61 Blood Pressure [Orthostatic Standing] 120/64 Pulse Oximetry 99 Oxygen Delivery Method 08/07/24 18:00 08/07/24 18:23 08/07/24 18:23 Temperature Pulse Rate 73 66 Pulse Rate [Orthostatic Lying] Pulse Rate [Orthostatic Sitting] Pulse Rate [Orthostatic Standing] Respiratory Rate 15 Blood Pressure 157/76 H Blood Pressure [Orthostatic Lying] Blood Pressure [Orthostatic Sitting] Blood Pressure [Orthostatic Standing] Pulse Oximetry 100 99 Oxygen Delivery Method 08/07/24 18:30 08/07/24 18:30 Temperature Pulse Rate 66 Pulse Rate [Orthostatic Lying] Pulse Rate [Orthostatic Sitting] Pulse Rate [Orthostatic Standing] Respiratory Rate 14 Blood Pressure 151/73 H Blood Pressure [Orthostatic Lying] Blood Pressure [Orthostatic Sitting] Blood Pressure [Orthostatic Standing] Pulse Oximetry 98 Oxygen Delivery Method <Bambi Samuel MD - Last Filed: 08/07/24 19:24> Orders Ordered: Discontinued Medications Acetaminophen (Acetaminophen 325 Mg Tablet) 650 mg PO Q6H PRN PRN Reason: Fever/Mild Pain (1-3) Albuterol (Albuterol 2.5 Mg/3 Ml Neb (Adult)) 2.5 mg INH Q4H PRN PRN Reason: Wheezing Apixaban (Apixaban 5 Mg Tablet) 5 mg PO BID [facility] Last Admin: 08/08/24 08:28 Dose: 5 mg Documented By: Admin: 08/07/24 22:19 Dose: 5 mg Documented By: Hydromorphone HCl (Hydromorphone 0.5 Mg Inj) 0.5 mg IV Q2H PRN PRN Reason: Pain, Severe (7-10) Sodium Chloride (Normal Saline 0.9%) 1,000 mls @ 1,000 mls/hr IV BOLUS ONE Stop: 08/07/24 16:24 Last Infusion: 08/07/24 17:36 Dose: Infused Documented By: Admin: 08/07/24 15:39 Dose: 1,000 mls/hr Documented By: JAVIER Sodium Chloride (Normal Saline 0.9%) 1,000 mls @ 1,000 mls/hr IV BOLUS ONE Stop: 08/07/24 18:28 Last Infusion: 08/07/24 18:43 Dose: Infused Documented By: Admin: 08/07/24 17:34 Dose: 1,000 mls/hr Documented By: JAVIER Lorazepam (Lorazepam 2 Mg/Ml Inj) 0.5 mg IV NOW ONE Stop: 08/07/24 22:45 Last Admin: 08/08/24 00:07 Dose: Not Given Documented By: Lorazepam (Lorazepam 1 Mg Tablet) 1 mg PO NOW ONE Stop: 08/07/24 23:46 Last Admin: 08/08/24 04:29 Dose: 1 mg Documented By: Lorazepam (Lorazepam 0.5 Mg Tablet) 0.5 mg PO Q6HR PRN PRN Reason: Anxiety Meclizine HCl (Meclizine Hcl 12.5 Mg Tablet) 50 mg PO NOW ONE Stop: 08/07/24 17:30 Last Admin: 08/07/24 17:56 Dose: 50 mg Documented By: SUMANTH Metoprolol Succinate (Metoprolol Er 25 Mg Tablet) 25 mg PO DAILY [facility] Last Admin: 08/08/24 08:28 Dose: 25 mg Documented By: TROY Midazolam HCl (Midazolam 5 Mg/Ml Vial) 1 mg IV NOW ONE Stop: 08/07/24 15:26 Last Admin: 08/07/24 16:00 Dose: 1 mg Documented By: JAVIER Mirtazapine (Mirtazapine 15 Mg Tablet) 45 mg PO BEDTIME [facility] Last Admin: 08/07/24 22:19 Dose: 45 mg Documented By: Naloxone HCl (Naloxone 0.4 Mg/Ml Vial) 0.2 mg IV Q2MIN PRN PRN Reason: Opiate Reversal Ondansetron HCl (Ondansetron 4 Mg/2 Ml Inj) 4 mg IV NOW ONE Stop: 08/07/24 17:30 Last Admin: 08/07/24 17:34 Dose: 4 mg Documented By: JAVIER Ondansetron HCl (Ondansetron 4 Mg/2 Ml Inj) 4 mg IV NOW ONE Stop: 08/07/24 20:04 Last Admin: 08/07/24 20:10 Dose: 4 mg Documented By: JASMIN Ondansetron HCl (Ondansetron 4 Mg/2 Ml Inj) 4 mg IV Q4HR PRN PRN Reason: nausea Oxycodone HCl (Oxycodone Ir 5 Mg Tablet) 5 mg PO Q3HR PRN PRN Reason: Pain, Moderate (4-6) Last Admin: 08/08/24 04:29 Dose: 5 mg Documented By: Oxycodone HCl (Oxycodone Ir 10 Mg Tablet) 10 mg PO Q3HR PRN PRN Reason: Pain, Severe (7-10) Last Admin: 08/07/24 23:15 Dose: 10 mg Documented By: Oxycodone/Acetaminophen (Oxycodone/Acetaminophen 5/325 Tablet) 2 tab PO NOW ONE Stop: 08/07/24 14:40 Last Admin: 08/07/24 14:47 Dose: 2 tab Documented By: JAVIER Pantoprazole Sodium (Pantoprazole Dr 20 Mg Tablet) 20 mg PO 0600 [facility] Last Admin: 08/08/24 06:04 Dose: 20 mg Documented By: Prochlorperazine (Prochlorperazine 10 Mg/2 Ml Vial) 10 mg IV Q6HR PRN PRN Reason: Nausea Last Admin: 08/07/24 22:18 Dose: 10 mg Documented By: Scopolamine (Scopolamine 1 Patch) 1 patch TOP Q72H [facility] Last Admin: 08/08/24 04:29 Dose: 1 patch Documented By: Sodium Chloride (Sodium Chloride 0.9% Flush) 10 ml IV BID [facility] Last Admin: 08/08/24 08:29 Dose: 10 ml Documented By: TROY Tramadol HCl (Tramadol 50 Mg Tablet) 50 mg PO NOW ONE Stop: 08/07/24 17:53 Last Admin: 08/07/24 17:55 Dose: 50 mg Documented By: SUMANTH Vital Signs Vital signs: Vital Signs - 8 hr 08/07/24 11:58 08/07/24 12:00 08/07/24 12:03 Temperature 98.1 F Pulse Rate 76 104 H 72 Pulse Rate [Orthostatic Lying] Pulse Rate [Orthostatic Sitting] Pulse Rate [Orthostatic Standing] Respiratory Rate 20 Blood Pressure 130/63 Blood Pressure [Orthostatic Lying] Blood Pressure [Orthostatic Sitting] Blood Pressure [Orthostatic Standing] Pulse Oximetry 99 99 97 Oxygen Delivery Method Room Air 08/07/24 12:34 08/07/24 12:35 08/07/24 12:35 Temperature Pulse Rate 101 H 79 Pulse Rate [Orthostatic Lying] Pulse Rate [Orthostatic Sitting] Pulse Rate [Orthostatic Standing] Respiratory Rate 20 21 Blood Pressure 120/83 Blood Pressure [Orthostatic Lying] Blood Pressure [Orthostatic Sitting] Blood Pressure [Orthostatic Standing] Pulse Oximetry 100 99 Oxygen Delivery Method 08/07/24 12:49 08/07/24 12:49 08/07/24 13:00 Temperature Pulse Rate 75 67 Pulse Rate [Orthostatic Lying] Pulse Rate [Orthostatic Sitting] Pulse Rate [Orthostatic Standing] Respiratory Rate 20 Blood Pressure 139/63 Blood Pressure [Orthostatic Lying] Blood Pressure [Orthostatic Sitting] Blood Pressure [Orthostatic Standing] Pulse Oximetry 94 Oxygen Delivery Method 08/07/24 13:00 08/07/24 13:30 08/07/24 13:30 Temperature Pulse Rate 66 Pulse Rate [Orthostatic Lying] Pulse Rate [Orthostatic Sitting] Pulse Rate [Orthostatic Standing] Respiratory Rate 16 Blood Pressure 122/56 L 117/61 Blood Pressure [Orthostatic Lying] Blood Pressure [Orthostatic Sitting] Blood Pressure [Orthostatic Standing] Pulse Oximetry 96 Oxygen Delivery Method 08/07/24 14:00 08/07/24 14:13 08/07/24 14:13 Temperature Pulse Rate 66 66 Pulse Rate [Orthostatic Lying] Pulse Rate [Orthostatic Sitting] Pulse Rate [Orthostatic Standing] Respiratory Rate 23 Blood Pressure 126/67 Blood Pressure [Orthostatic Lying] Blood Pressure [Orthostatic Sitting] Blood Pressure [Orthostatic Standing] Pulse Oximetry 96 95 Oxygen Delivery Method 08/07/24 14:30 08/07/24 14:31 08/07/24 14:31 Temperature Pulse Rate 72 71 Pulse Rate [Orthostatic Lying] Pulse Rate [Orthostatic Sitting] Pulse Rate [Orthostatic Standing] Respiratory Rate Blood Pressure 119/65 Blood Pressure [Orthostatic Lying] Blood Pressure [Orthostatic Sitting] Blood Pressure [Orthostatic Standing] Pulse Oximetry 98 98 Oxygen Delivery Method 08/07/24 15:00 08/07/24 15:00 08/07/24 15:30 Temperature Pulse Rate 66 70 Pulse Rate [Orthostatic Lying] Pulse Rate [Orthostatic Sitting] Pulse Rate [Orthostatic Standing] Respiratory Rate 15 Blood Pressure 118/70 Blood Pressure [Orthostatic Lying] Blood Pressure [Orthostatic Sitting] Blood Pressure [Orthostatic Standing] Pulse Oximetry 98 99 Oxygen Delivery Method 08/07/24 15:30 08/07/24 16:00 08/07/24 16:00 Temperature Pulse Rate 65 Pulse Rate [Orthostatic Lying] Pulse Rate [Orthostatic Sitting] Pulse Rate [Orthostatic Standing] Respiratory Rate 14 Blood Pressure 128/73 137/64 Blood Pressure [Orthostatic Lying] Blood Pressure [Orthostatic Sitting] Blood Pressure [Orthostatic Standing] Pulse Oximetry 99 Oxygen Delivery Method 08/07/24 16:30 08/07/24 16:30 08/07/24 17:00 Temperature Pulse Rate 60 Pulse Rate [Orthostatic Lying] Pulse Rate [Orthostatic Sitting] Pulse Rate [Orthostatic Standing] Respiratory Rate 16 17 Blood Pressure 129/65 Blood Pressure [Orthostatic Lying] Blood Pressure [Orthostatic Sitting] Blood Pressure [Orthostatic Standing] Pulse Oximetry 95 97 Oxygen Delivery Method 08/07/24 17:00 08/07/24 17:22 08/07/24 17:22 Temperature Pulse Rate 65 Pulse Rate [Orthostatic Lying] Pulse Rate [Orthostatic Sitting] Pulse Rate [Orthostatic Standing] Respiratory Rate Blood Pressure 101/73 141/65 H Blood Pressure [Orthostatic Lying] Blood Pressure [Orthostatic Sitting] Blood Pressure [Orthostatic Standing] Pulse Oximetry 100 Oxygen Delivery Method 08/07/24 17:24 08/07/24 17:24 08/07/24 17:25 Temperature Pulse Rate 76 79 Pulse Rate [Orthostatic Lying] Pulse Rate [Orthostatic Sitting] Pulse Rate [Orthostatic Standing] Respiratory Rate Blood Pressure 125/61 Blood Pressure [Orthostatic Lying] Blood Pressure [Orthostatic Sitting] Blood Pressure [Orthostatic Standing] Pulse Oximetry Oxygen Delivery Method 08/07/24 17:25 08/07/24 17:27 08/07/24 17:30 Temperature Pulse Rate 67 Pulse Rate [Orthostatic Lying] 68 Pulse Rate [Orthostatic Sitting] 78 Pulse Rate [Orthostatic Standing] 79 Respiratory Rate 14 Blood Pressure 120/64 Blood Pressure [Orthostatic Lying] 141/65 H Blood Pressure [Orthostatic Sitting] 125/61 Blood Pressure [Orthostatic Standing] 120/64 Pulse Oximetry 99 Oxygen Delivery Method 08/07/24 18:00 08/07/24 18:23 08/07/24 18:23 Temperature Pulse Rate 73 66 Pulse Rate [Orthostatic Lying] Pulse Rate [Orthostatic Sitting] Pulse Rate [Orthostatic Standing] Respiratory Rate 15 Blood Pressure 157/76 H Blood Pressure [Orthostatic Lying] Blood Pressure [Orthostatic Sitting] Blood Pressure [Orthostatic Standing] Pulse Oximetry 100 99 Oxygen Delivery Method 08/07/24 18:30 08/07/24 18:30 Temperature Pulse Rate 66 Pulse Rate [Orthostatic Lying] Pulse Rate [Orthostatic Sitting] Pulse Rate [Orthostatic Standing] Respiratory Rate 14 Blood Pressure 151/73 H Blood Pressure [Orthostatic Lying] Blood Pressure [Orthostatic Sitting] Blood Pressure [Orthostatic Standing] Pulse Oximetry 98 Oxygen Delivery Method MDM - Dizziness <Esther Kendall, DO - Last Filed: 08/08/24 18:57> Lab Data 08/08/24 05:11 08/08/24 05:11 Labs: Lab Results 08/07/24 08/07/24 08/07/24 Range/Units 11:40 12:56 12:56 WBC 6.9 (4.5-11.0) X10^3/uL RBC 4.68 (4.0-5.2) X10^6/uL Hgb 14.2 (12.0-16.0) g/dL Hct 41.2 (36-46) % MCV 88.1 (80-100) fL MCH 30.2 (26-34) PG MCHC 34.3 (30-36) % RDW 13.7 (11.6-14.8) % Plt Count 250 (150-400) X10^3/uL Neut % (Auto) 64.5 (50-75) % Lymph % (Auto) 27.6 (25-40) % [place] % (Auto) 6.3 (3-14) % Eos % (Auto) 0.9 L (2-4) % Baso % (Auto) 0.7 (0-2) % Neut # (Auto) 4400 (9606-1270) /uL Lymph # (Auto) 1900 (4673-1149) /uL [place] # (Auto) 400 (0-900) /uL Eos # (Auto) 100 (0-450) /uL Baso # (Auto) 0 (0-100) /uL PT 15.2 H (9.4-12.5) SECONDS INR 1.3 (0.9-1.3) APTT 45 H (25.1-36.5) SECONDS Sodium 137 (137-145) mmol/L Potassium 3.8 (3.4-5.1) mmol/L Chloride 103 (98-107) mmol/L Carbon Dioxide 21 L (22-32) mmol/L BUN 7 (7-17) mg/dL Creatinine 0.81 (0.52-1.04) mg/dL Estimated GFR > 60 (>60) mL/min BUN/Creatinine Ratio 8.6 (6-22) Glucose 128 H (70-99) mg/dL Calcium 9.4 (8.4-10.2) mg/dL Total Bilirubin 0.5 (0.2-1.3) mg/dL AST 32 (14-36) IU/L ALT 21 (<35) IU/L Alkaline Phosphatase 95 (38-126) U/L Total Creatine Kinase 38 (30-135) U/L Troponin I < 0.012 (0.01-0.034) ng/mL Total Protein 6.9 (6.3-8.2) g/dL Albumin 4.2 (3.5-5.0) g/dL Globulin 2.7 (1.7-4.1) g/dL Albumin/Globulin Ratio 1.6 (1.0-2.8) Urine Color Yellow Urine Appearance Clear Urine pH 6.0 Normal (4.5-8.0) Ur Specific [place] <=1.005 (1.000-1.035) Urine Protein Negative (Negative) Urine Glucose (UA) Negative (Negative) g/dL Urine Ketones 1+ H (NEGATIVE) Urine Occult Blood Trace-intact (Negative) Urine Nitrate Negative (Negative) Urine Bilirubin Negative (NEGATIVE) Urine Urobilinogen 0.2 (0.2) E.U./dL Ur Leukocyte Esterase Negative (NEGATIVE) Urine RBC None seen (0-5/HPF) Urine WBC None seen (0-5/HPF) Ur Squamous Epith Cells None seen (0-5/HPF) Urine Bacteria None seen (None) Ur Culture Indicated? Cult not indicated Vol Urine Centrifuged 10ml (spun) U Opiates 300ng/mL cut Negative (Negative) Ur Oxycodone Screen Positive H (Negative) Urine Methadone Screen Negative (Negative) Ur Barbiturates Screen Negative (Negative) U Tricyclic Antidepress Negative (Negative) Ur Phencyclidine Scrn Negative (Negative) Ur Amphetamines Screen Negative (Negative) U Methamphetamines Scrn Negative (Negative) Ur MDMA Scrn (Ecstasy) Negative (Negative) U Benzodiazepines Scrn Negative (Negative) Urine Cocaine Screen Negative (Negative) U Marijuana (THC) Screen Negative (Negative) Urine Specific [place] Normal (Normal) Ethyl Alcohol < 10 (<10) mg/dL Ur Creatinine Normal (Normal) SARS-CoV-2 (PCR) (Negative) 08/07/24 Range/Units 13:19 WBC (4.5-11.0) X10^3/uL RBC (4.0-5.2) X10^6/uL Hgb (12.0-16.0) g/dL Hct (36-46) % MCV (80-100) fL MCH (26-34) PG MCHC (30-36) % RDW (11.6-14.8) % Plt Count (150-400) X10^3/uL Neut % (Auto) (50-75) % Lymph % (Auto) (25-40) % [place] % (Auto) (3-14) % Eos % (Auto) (2-4) % Baso % (Auto) (0-2) % Neut # (Auto) (1283-5764) /uL Lymph # (Auto) (3525-5384) /uL [place] # (Auto) (0-900) /uL Eos # (Auto) (0-450) /uL Baso # (Auto) (0-100) /uL PT (9.4-12.5) SECONDS INR (0.9-1.3) APTT (25.1-36.5) SECONDS Sodium (137-145) mmol/L Potassium (3.4-5.1) mmol/L Chloride (98-107) mmol/L Carbon Dioxide (22-32) mmol/L BUN (7-17) mg/dL Creatinine (0.52-1.04) mg/dL Estimated GFR (>60) mL/min BUN/Creatinine Ratio (6-22) Glucose (70-99) mg/dL Calcium (8.4-10.2) mg/dL Total Bilirubin (0.2-1.3) mg/dL AST (14-36) IU/L ALT (<35) IU/L Alkaline Phosphatase (38-126) U/L Total Creatine Kinase (30-135) U/L Troponin I (0.01-0.034) ng/mL Total Protein (6.3-8.2) g/dL Albumin (3.5-5.0) g/dL Globulin (1.7-4.1) g/dL Albumin/Globulin Ratio (1.0-2.8) Urine Color Urine Appearance Urine pH (4.5-8.0) Ur Specific [place] (1.000-1.035) Urine Protein (Negative) Urine Glucose (UA) (Negative) g/dL Urine Ketones (NEGATIVE) Urine Occult Blood (Negative) Urine Nitrate (Negative) Urine Bilirubin (NEGATIVE) Urine Urobilinogen (0.2) E.U./dL Ur Leukocyte Esterase (NEGATIVE) Urine RBC (0-5/HPF) Urine WBC (0-5/HPF) Ur Squamous Epith Cells (0-5/HPF) Urine Bacteria (None) Ur Culture Indicated? Vol Urine Centrifuged U Opiates 300ng/mL cut (Negative) Ur Oxycodone Screen (Negative) Urine Methadone Screen (Negative) Ur Barbiturates Screen (Negative) U Tricyclic Antidepress (Negative) Ur Phencyclidine Scrn (Negative) Ur Amphetamines Screen (Negative) U Methamphetamines Scrn (Negative) Ur MDMA Scrn (Ecstasy) (Negative) U Benzodiazepines Scrn (Negative) Urine Cocaine Screen (Negative) U Marijuana (THC) Screen (Negative) Urine Specific [place] (Normal) Ethyl Alcohol (<10) mg/dL Ur Creatinine (Normal) SARS-CoV-2 (PCR) Negative (Negative) ECG Data Attestation: I personally reviewed and interpreted this ECG as follows: Prior ECG tracings: available for review Interpretation: Sinus rhythm rate of 70 IN 148 QRS is 78 QTC of 447, no acute ST elevation, patient has some T-wave inversion V3 V4 no elevation noted. Patient has prior from 07/03/2024 which shows sinus rhythm rate 85, there some minor change but T- waves are inverted in V3 were biphasic in V4 on prior. [facility] Narrative Medical decision making narrative: EKG sinus rhythm, nonspecific change. CBC shows normal white count hemoglobin and platelets, INR is 1.3 electrolytes are appropriate CO2 is 21 BUN 7 creatinine 0.81 glucose is 128 LFTs are negative troponins less than 0.012. UA shows 1+ ketones otherwise negative. UDS is positive for oxycodone. COVID swab Head CT non-con shows no acute change. CT head and neck angio shows no acute intracranial arterial abnormality and no significant abnormality within the arteries of the neck. Patient received fluids, he was given a dose of her home pain medications, Versed. On recheck at 5:03 p.m. patient is feeling much improved. We will obtain orthostatics and ambulation trial. Patient's orthostatics have about a 15 point change, only 10 point change with the blood pressure. Patient was feeling somewhat improved but is a worsened with orthostatics attempted ambulation trial which was unsuccessful. Had spoke with the hospitalist, Dr. Dominguez prior they had asked for orthostatics re-evaluation after medications. Re-contacted at 1834 asked that we speak with night hospitalist. 720pm discussed with Dr. Thomson, hospitalist. Patient will be admitted, observation side of his for her severe vertigo with inability to ambulate and persistent orthostasis. <Bambi Samuel MD - Last Filed: 08/07/24 19:24> Lab Data Labs: Lab Results 08/07/24 08/07/24 08/07/24 Range/Units 11:40 12:56 12:56 WBC 6.9 (4.5-11.0) X10^3/uL RBC 4.68 (4.0-5.2) X10^6/uL Hgb 14.2 (12.0-16.0) g/dL Hct 41.2 (36-46) % MCV 88.1 (80-100) fL MCH 30.2 (26-34) PG MCHC 34.3 (30-36) % RDW 13.7 (11.6-14.8) % Plt Count 250 (150-400) X10^3/uL Neut % (Auto) 64.5 (50-75) % Lymph % (Auto) 27.6 (25-40) % [place] % (Auto) 6.3 (3-14) % Eos % (Auto) 0.9 L (2-4) % Baso % (Auto) 0.7 (0-2) % Neut # (Auto) 4400 (6420-5679) /uL Lymph # (Auto) 1900 (9209-1157) /uL [place] # (Auto) 400 (0-900) /uL Eos # (Auto) 100 (0-450) /uL Baso # (Auto) 0 (0-100) /uL PT 15.2 H (9.4-12.5) SECONDS INR 1.3 (0.9-1.3) APTT 45 H (25.1-36.5) SECONDS Sodium 137 (137-145) mmol/L Potassium 3.8 (3.4-5.1) mmol/L Chloride 103 (98-107) mmol/L Carbon Dioxide 21 L (22-32) mmol/L BUN 7 (7-17) mg/dL Creatinine 0.81 (0.52-1.04) mg/dL Estimated GFR > 60 (>60) mL/min BUN/Creatinine Ratio 8.6 (6-22) Glucose 128 H (70-99) mg/dL Calcium 9.4 (8.4-10.2) mg/dL Total Bilirubin 0.5 (0.2-1.3) mg/dL AST 32 (14-36) IU/L ALT 21 (<35) IU/L Alkaline Phosphatase 95 (38-126) U/L Total Creatine Kinase 38 (30-135) U/L Troponin I < 0.012 (0.01-0.034) ng/mL Total Protein 6.9 (6.3-8.2) g/dL Albumin 4.2 (3.5-5.0) g/dL Globulin 2.7 (1.7-4.1) g/dL Albumin/Globulin Ratio 1.6 (1.0-2.8) Urine Color Yellow Urine Appearance Clear Urine pH 6.0 Normal (4.5-8.0) Ur Specific [place] <=1.005 (1.000-1.035) Urine Protein Negative (Negative) Urine Glucose (UA) Negative (Negative) g/dL Urine Ketones 1+ H (NEGATIVE) Urine Occult Blood Trace-intact (Negative) Urine Nitrate Negative (Negative) Urine Bilirubin Negative (NEGATIVE) Urine Urobilinogen 0.2 (0.2) E.U./dL Ur Leukocyte Esterase Negative (NEGATIVE) Urine RBC None seen (0-5/HPF) Urine WBC None seen (0-5/HPF) Ur Squamous Epith Cells None seen (0-5/HPF) Urine Bacteria None seen (None) Ur Culture Indicated? Cult not indicated Vol Urine Centrifuged 10ml (spun) U Opiates 300ng/mL cut Negative (Negative) Ur Oxycodone Screen Positive H (Negative) Urine Methadone Screen Negative (Negative) Ur Barbiturates Screen Negative (Negative) U Tricyclic Antidepress Negative (Negative) Ur Phencyclidine Scrn Negative (Negative) Ur Amphetamines Screen Negative (Negative) U Methamphetamines Scrn Negative (Negative) Ur MDMA Scrn (Ecstasy) Negative (Negative) U Benzodiazepines Scrn Negative (Negative) Urine Cocaine Screen Negative (Negative) U Marijuana (THC) Screen Negative (Negative) Urine Specific [place] Normal (Normal) Ethyl Alcohol < 10 (<10) mg/dL Ur Creatinine Normal (Normal) SARS-CoV-2 (PCR) (Negative) 08/07/24 Range/Units 13:19 WBC (4.5-11.0) X10^3/uL RBC (4.0-5.2) X10^6/uL Hgb (12.0-16.0) g/dL Hct (36-46) % MCV (80-100) fL MCH (26-34) PG MCHC (30-36) % RDW (11.6-14.8) % Plt Count (150-400) X10^3/uL Neut % (Auto) (50-75) % Lymph % (Auto) (25-40) % [place] % (Auto) (3-14) % Eos % (Auto) (2-4) % Baso % (Auto) (0-2) % Neut # (Auto) (9189-5690) /uL Lymph # (Auto) (2383-1824) /uL [place] # (Auto) (0-900) /uL Eos # (Auto) (0-450) /uL Baso # (Auto) (0-100) /uL PT (9.4-12.5) SECONDS INR (0.9-1.3) APTT (25.1-36.5) SECONDS Sodium (137-145) mmol/L Potassium (3.4-5.1) mmol/L Chloride (98-107) mmol/L Carbon Dioxide (22-32) mmol/L BUN (7-17) mg/dL Creatinine (0.52-1.04) mg/dL Estimated GFR (>60) mL/min BUN/Creatinine Ratio (6-22) Glucose (70-99) mg/dL Calcium (8.4-10.2) mg/dL Total Bilirubin (0.2-1.3) mg/dL AST (14-36) IU/L ALT (<35) IU/L Alkaline Phosphatase (38-126) U/L Total Creatine Kinase (30-135) U/L Troponin I (0.01-0.034) ng/mL Total Protein (6.3-8.2) g/dL Albumin (3.5-5.0) g/dL Globulin (1.7-4.1) g/dL Albumin/Globulin Ratio (1.0-2.8) Urine Color Urine Appearance Urine pH (4.5-8.0) Ur Specific [place] (1.000-1.035) Urine Protein (Negative) Urine Glucose (UA) (Negative) g/dL Urine Ketones (NEGATIVE) Urine Occult Blood (Negative) Urine Nitrate (Negative) Urine Bilirubin (NEGATIVE) Urine Urobilinogen (0.2) E.U./dL Ur Leukocyte Esterase (NEGATIVE) Urine RBC (0-5/HPF) Urine WBC (0-5/HPF) Ur Squamous Epith Cells (0-5/HPF) Urine Bacteria (None) Ur Culture Indicated? Vol Urine Centrifuged U Opiates 300ng/mL cut (Negative) Ur Oxycodone Screen (Negative) Urine Methadone Screen (Negative) Ur Barbiturates Screen (Negative) U Tricyclic Antidepress (Negative) Ur Phencyclidine Scrn (Negative) Ur Amphetamines Screen (Negative) U Methamphetamines Scrn (Negative) Ur MDMA Scrn (Ecstasy) (Negative) U Benzodiazepines Scrn (Negative) Urine Cocaine Screen (Negative) U Marijuana (THC) Screen (Negative) Urine Specific [place] (Normal) Ethyl Alcohol (<10) mg/dL Ur Creatinine (Normal) SARS-CoV-2 (PCR) Negative (Negative) MDM Narrative Medical decision making narrative: EKG sinus rhythm, nonspecific change. CBC shows normal white count hemoglobin and platelets, INR is 1.3 electrolytes are appropriate CO2 is 21 BUN 7 creatinine 0.81 glucose is 128 LFTs are negative troponins less than 0.012. UA shows 1+ ketones otherwise negative. UDS is positive for oxycodone. COVID swab Head CT non-con shows no acute change. CT head and neck angio shows no acute intracranial arterial abnormality and no significant abnormality within the arteries of the neck. Patient received fluids, he was given a dose of her home pain medications, Versed. On recheck at 5:03 p.m. patient is feeling much improved. We will obtain orthostatics and ambulation trial. Patient's orthostatics have about a 15 point change, only 10 point change with the blood pressure. Patient was feeling somewhat improved but is a worsened with orthostatics attempted ambulation trial which was unsuccessful. Had spoke with the hospitalist prior they had asked for orthostatics re- evaluation after medications. Re-contacted at [address] Thomson, hospitalist. Patient will be admitted, observation side of his for her severe vertigo with inability to ambulate and persistent orthostasis. Discharge Plan Departure Patient Disposition: Admitted as Observation Clinical Impression: Vertigo Admit Date/Time: 08/07/24 19:25 Admit Provider: Jayy Boogie
[2024-08-07] MEDS: SODIUM CHLORIDE 0.9% 1,000 ML 1000 ML IV ×2 (15:39→17:34)
[2024-08-07] MEDS: MIDAZOLAM 5 MG/ML VIAL 1 MG IV (16:00)
[2024-08-07 16:43] LABS: COVID19 -Nasal RAPID Negative (Negative)
[2024-08-07] MEDS: ONDANSETRON 4 MG/2 ML INJ IV ×2 (17:34→20:10)
[2024-08-07] MEDS: TRAMADOL 50 MG TABLET PO (17:55)
[2024-08-07] MEDS: MECLIZINE HCL 12.5 MG TABLET 50 MG PO (17:56)
[2024-08-07] MEDS: PROCHLORPERAZINE 10 MG/2 ML VIAL IV (22:18)
[2024-08-07] MEDS: MIRTAZAPINE 15 MG TABLET 45 MG PO (22:19)
[2024-08-07] MEDS: APIXABAN 5 MG TABLET PO (22:19)
[2024-08-07] MEDS: OXYCODONE IR 10 MG TABLET PO (23:15)
[2024-08-08] VITALS: BP 118/63; PULSE 61; RESP 12; TEMP 36.4; O2SAT 98
--- NOTE | 2024-08-08 02:37 | PM.HP.1 ---
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 ED course: EKG sinus rhythm, nonspecific change. CBC shows normal white count hemoglobin and platelets, INR is 1.3 electrolytes are appropriate CO2 is 21 BUN 7 creatinine 0.81 glucose is 128 LFTs are negative troponins less than 0.012. UA shows 1+ ketones otherwise negative. UDS is positive for oxycodone. COVID swab Head CT non-con shows no acute change. CT head and neck angio shows no acute intracranial arterial abnormality and no significant abnormality within the arteries of the neck. Patient received fluids, he was given a dose of her home pain medications, Versed. On recheck at 5:03 p.m. patient is feeling much improved. We will obtain orthostatics and ambulation trial. Patient's orthostatics have about a 15 point change, only 10 point change with the blood pressure. Patient was feeling somewhat improved but is a worsened with orthostatics attempted ambulation trial which was unsuccessful. On admission to floor complains on back pain, headache, she can hardly talk and appears very anxious. [facility] Medical History Abdominal mass Left foot pain Left ankle pain Paroxysmal atrial fibrillation Allergy to perfume Lung nodule seen on imaging study History of colon polyps Hyperglycemia Seborrheic keratosis Actinic keratosis Muscle weakness (generalized) GERD (gastroesophageal reflux disease) Dairy allergy (~2013) Depression (~2011) Seizures (~1989) Mumps Measles Chicken pox Retinal detachment Ovarian cyst (~1978) Gastric ulcer Skin cancer (~1989) TIA (transient ischemic attack) Emphysema of lung (~2009) Epilepsy with partial complex seizures Surgical History Anesthesia History of appendectomy History of Achilles tendon repair (~1963) History of section (~1980) History of tonsillectomy History of hysterectomy Family History Father Congestive heart failure History of heart disease Stroke Mother Cancer Mental health problem Grandmother Congestive heart failure History of heart disease Stroke Social History household members: spouse Smoking Status: Never smoker second hand exposure: Yes (ages 0-18 ) alcohol intake: former substance use type: does not use Meds Home Medications and Allergies Home Medications ?Medication ?Instructions ?Recorded ?Confirmed ?Type cholecalciferol (vitamin D3) 25 25 mcg PO DAILY 06/02/20 07/19/24 History mcg (1,000 unit) capsule apixaban 5 mg tablet (Eliquis) 5 mg PO BID 10/02/20 07/19/24 History omvibrnb-lnsf-bxzw 8 mg-folic 400 1 tab PO DAILY 11/23/20 07/19/24 History mcg-K 50 mcg-lutein 300 mcg tablet (Centrum Silver Women) lidocaine 4 % topical patch 1 patch topical DAILY PRN 06/16/22 07/19/24 History inhalational spacing device #1 ea 01/03/23 07/19/24 Rx metoprolol succinate 25 mg 25 mg PO DAILY 03/14/24 07/19/24 History tablet,extended release 24 hr mirtazapine 45 mg tablet 45 mg PO DAILY #90 tabs 03/14/24 07/19/24 Rx levalbuterol tartrate 45 2 puff inhalation Q4-6H PRN 05/27/24 07/19/24 Rx mcg/actuation aerosol inhaler shortness of breath or wheezing (Xopenex HFA) #15 grams polyethylene glycol 3350 17 17 g PO DAILY 07/09/24 07/19/24 History gram/dose oral powder (Miralax) dexlansoprazole 30 mg 30 mg PO DAILY #60 caps 07/15/24 07/19/24 Rx capsule,biphase delayed release (Dexilant) ondansetron 4 mg disintegrating 4 mg PO DAILY PRN nausea and 07/24/24 Rx tablet vomiting #30 tabs oxycodone-acetaminophen 10 mg-325 1 tab PO TID PRN pain #60 tabs 07/24/24 Rx mg tablet tramadol 50 mg tablet 50 mg PO Q6H PRN pain #60 tabs 07/24/24 Rx Allergies Allergy/AdvReac Type Severity Reaction Status Date / Time fluoxetine AdvReac Severe muscle Verified 07/19/24 07:08 weakness codeine AdvReac Intermediate Painful Verified 07/19/24 07:08 Bloating lactase (From Dairy Aid) AdvReac Intermediate Gastrointestinal Verified 07/19/24 07:08 Upset meperidine (From Demerol) AdvReac Intermediate Vomiting Verified 07/19/24 07:08 prednisone AdvReac Intermediate Shakiness Verified 07/19/24 07:08 gabapentin AdvReac unknown Verified 07/19/24 07:08 Review of Systems Review of Systems Narrative: Unobtainable - couldn't talk b/o pain and anxiety Exam Vital Signs (past 8 hours): - 08/07/24 19:00 08/07/24 19:00 08/07/24 19:30 Temperature Pulse Rate 58 L 56 L Respiratory Rate 12 14 Blood Pressure 137/60 Pulse Oximetry 94 93 Oxygen Delivery Method Room Air Room Air Oxygen Flow Rate 08/07/24 19:30 08/07/24 20:00 08/07/24 20:00 Temperature Pulse Rate 58 L Respiratory Rate 11 L Blood Pressure 105/54 L 113/59 L Pulse Oximetry 96 Oxygen Delivery Method Room Air Oxygen Flow Rate 08/07/24 20:30 08/07/24 20:30 08/07/24 20:55 Temperature 97.9 F Pulse Rate 57 L 67 Respiratory Rate 7 L 18 Blood Pressure 119/58 L 136/67 Pulse Oximetry 98 100 Oxygen Delivery Method Room Air Oxygen Flow Rate 0 08/07/24 22:18 08/08/24 00:00 Temperature 97.5 F L Pulse Rate 67 61 Respiratory Rate 12 Blood Pressure 136/67 118/63 Pulse Oximetry 98 Oxygen Delivery Method Oxygen Flow Rate 0 Oxygen Delivery Method Room Air Oxygen Flow Rate 0 Narrative Exam Narrative: General - in distress, from pain Psych - anxiety CVS - RRR RS - normal respiratory effort Neuro - w/o focal weakness Objective ECG Impression: NSR 70 Imaging CTH / CTA Head&Neck: Radiologist's impression: CTH - No acute intracranial abnormality. CTA - No significant intracranial arterial abnormality is seen. No significant abnormality is seen within the arteries of the neck. Labs 08/07/24 11:40 08/07/24 11:40 Labs: Laboratory Results - last 24 hr 08/07/24 08/07/24 08/07/24 11:40 12:56 12:56 WBC 6.9 RBC 4.68 Hgb 14.2 Hct 41.2 MCV 88.1 MCH 30.2 MCHC 34.3 RDW 13.7 Plt Count 250 Neut % (Auto) 64.5 Lymph % (Auto) 27.6 [place] % (Auto) 6.3 Eos % (Auto) 0.9 L Baso % (Auto) 0.7 Neut # (Auto) 4400 Lymph # (Auto) 1900 [place] # (Auto) 400 Eos # (Auto) 100 Baso # (Auto) 0 PT 15.2 H INR 1.3 APTT 45 H Sodium 137 Potassium 3.8 Chloride 103 Carbon Dioxide 21 L BUN 7 Creatinine 0.81 Estimated GFR > 60 BUN/Creatinine Ratio 8.6 Glucose 128 H Calcium 9.4 Total Bilirubin 0.5 AST 32 ALT 21 Alkaline Phosphatase 95 Total Creatine Kinase 38 Troponin I < 0.012 Total Protein 6.9 Albumin 4.2 Globulin 2.7 Albumin/Globulin Ratio 1.6 Urine Color Yellow Urine Appearance Clear Urine pH 6.0 Normal Ur Specific [place] <=1.005 Urine Protein Negative Urine Glucose (UA) Negative Urine Ketones 1+ H Urine Occult Blood Trace-intact Urine Nitrate Negative Urine Bilirubin Negative Urine Urobilinogen 0.2 Ur Leukocyte Esterase Negative Urine RBC None seen Urine WBC None seen Ur Squamous Epith Cells None seen Urine Bacteria None seen Ur Culture Indicated? Cult not indicated Vol Urine Centrifuged 10ml (spun) U Opiates 300ng/mL cut Negative Ur Oxycodone Screen Positive H Urine Methadone Screen Negative Ur Barbiturates Screen Negative U Tricyclic Antidepress Negative Ur Phencyclidine Scrn Negative Ur Amphetamines Screen Negative U Methamphetamines Scrn Negative Ur MDMA Scrn (Ecstasy) Negative U Benzodiazepines Scrn Negative Urine Cocaine Screen Negative U Marijuana (THC) Screen Negative Urine Specific [place] Normal Ethyl Alcohol < 10 Ur Creatinine Normal SARS-CoV-2 (PCR) 08/07/24 13:19 WBC RBC Hgb Hct MCV MCH MCHC RDW Plt Count Neut % (Auto) Lymph % (Auto) [place] % (Auto) Eos % (Auto) Baso % (Auto) Neut # (Auto) Lymph # (Auto) [place] # (Auto) Eos # (Auto) Baso # (Auto) PT INR APTT Sodium Potassium Chloride Carbon Dioxide BUN Creatinine Estimated GFR BUN/Creatinine Ratio Glucose Calcium Total Bilirubin AST ALT Alkaline Phosphatase Total Creatine Kinase Troponin I Total Protein Albumin Globulin Albumin/Globulin Ratio Urine Color Urine Appearance Urine pH Ur Specific [place] Urine Protein Urine Glucose (UA) Urine Ketones Urine Occult Blood Urine Nitrate Urine Bilirubin Urine Urobilinogen Ur Leukocyte Esterase Urine RBC Urine WBC Ur Squamous Epith Cells Urine Bacteria Ur Culture Indicated? Vol Urine Centrifuged U Opiates 300ng/mL cut Ur Oxycodone Screen Urine Methadone Screen Ur Barbiturates Screen U Tricyclic Antidepress Ur Phencyclidine Scrn Ur Amphetamines Screen U Methamphetamines Scrn Ur MDMA Scrn (Ecstasy) U Benzodiazepines Scrn Urine Cocaine Screen U Marijuana (THC) Screen Urine Specific [place] Ethyl Alcohol Ur Creatinine SARS-CoV-2 (PCR) Negative Assessment & Plan Assessment and plan (1) Anxiety: Status: Acute (2) Depression: Status: Chronic (3) Neuroendocrine tumor: Status: Acute (4) Orthostatic dizziness: Status: Acute (5) Epilepsy with partial complex seizures: Status: Resolved (6) TIA (transient ischemic attack): Status: Acute (7) GERD (gastroesophageal reflux disease): Qualifiers: Esophagitis bleeding: without hemorrhage Esophagitis presence: with esophagitis Qualified Code(s): K21.00 - Gastro-esophageal reflux disease with esophagitis, without bleeding Status: Acute (8) COPD (chronic obstructive pulmonary disease): Status: Acute Assessment & Plan narrative: Neuroendocrine tumor - possibly causing: Nausea / Headache / Dizziness / Orthostatic Hypotension / Abdominal and Back Pain / Tremor - symptomatic treatment with antiemetics, analgesics - IVFs - oncology / GI follow up Anxiety / Depression - severe anxiety on admission - prn lorazepam - mirtazapine at home GERD - Protonix COPD - albuterol prn PAF - on admission with sinus rhythm - Eliquis, metoprolol DVT prophylaxis - therapeutic anticoagulation Patient consented to telemedicine, audio-video encounter with RN assisting during the exam. Patient located at [place], [place]. Provider located in [place]. Time-Based Coding :: [TOTAL MINUTES] spent with patient and on the chart (including review of chart, obtaining history, exam, reviewing outside data, placing orders, documenting exam and treatment plan, and counseling patient) on [DATE].
[2024-08-08 04:00] VITALS: BP 102/62; PULSE 76; RESP 12; TEMP 36.1; O2SAT 99
[2024-08-08] MEDS: LORazepam 1 MG TABLET PO (04:29)
[2024-08-08] MEDS: SCOPOLAMINE 1 PATCH TOP (04:29)
[2024-08-08] MEDS: OXYCODONE IR 5 MG TABLET PO (04:29)
[2024-08-08 05:57] LABS: Add Manual Diff / Slide Review NO; Basophils Absolute Auto 0 /uL (0-100); Basophils Percent Auto 0.8 % (0-2); Eosinophils Absolute Auto 0 /uL (0-450); Eosinophils Percent Auto 0.4 % (2-4); Hematocrit 34.8 % (36-46); Hemoglobin 11.9 g/dL (12.0-16.0); Lymphocytes Absolute Auto 700 /uL (1100-4500); Lymphocytes Percent Auto 18.8 % (25-40); Mean Corpuscular HGB Conc 34.2 % (30-36); Mean Corpuscular Hemoglobin 30.2 PG (26-34); Mean Corpuscular Volume 88.4 fL (80-100); Monocytes Absolute Auto 200 /uL (0-900); Monocytes Percent Auto 5.4 % (3-14); Neutrophils Absolute Auto 2900 /uL (1500-7000); Neutrophils Percent Auto 74.6 % (50-75); Platelet Count 166 X10^3/uL (150-400); Red Blood Cell Count 3.94 X10^6/uL (4.0-5.2); Red Cell Distribution Width 13.9 % (11.6-14.8); White Blood Cell Count 3.8 X10^3/uL (4.5-11.0)
[2024-08-08] MEDS: PANTOPRAZOLE DR 20 MG TABLET PO (06:04)
[2024-08-08 06:08] LABS: BUN Creatinine Ratio 7.6 (6-22); Blood Urea Nitrogen 6 mg/dL (7-17); Calcium 8.5 mg/dL (8.4-10.2); Carbon Dioxide 22 mmol/L (22-32); Chloride 108 mmol/L (98-107); Estimated Glomerular Filt Rate > 60 mL/min (>60); Glucose 93 mg/dL (70-99); HEMOLYSIS < 15 (0-50); Potassium 3.6 mmol/L (3.4-5.1); Sodium 138 mmol/L (137-145)
[2024-08-08 08:00] VITALS: BP 107/64; PULSE 66; RESP 17; TEMP 36.2; O2SAT 99
[2024-08-08] MEDS: APIXABAN 5 MG TABLET PO (08:28)
[2024-08-08] MEDS: METOPROLOL ER 25 MG TABLET PO (08:28)
[2024-08-08] MEDS: SODIUM CHLORIDE 0.9% FLUSH 10 ML IV (08:29)
[2024-08-08 09:15] VITALS: PULSE 61
--- NOTE | 2024-08-08 11:25 | OT.IP.EVAL ---
Current Diagnoses Other benign neuroendocrine tumors (08/07/24) Major depressive disorder, single episode, unspecified (08/07/24) Anxiety disorder, unspecified (08/07/24) Localization-related (focal) (partial) symptomatic epilepsy and epileptic syndromes with complex partial seizures, not intractable, without status epilepticus (08/07/24) Transient cerebral ischemic attack, unspecified (08/07/24) Chronic obstructive pulmonary disease, unspecified (08/07/24) Gastro-esophageal reflux disease with esophagitis, without bleeding (08/07/24) Dizziness and giddiness (08/07/24) Past Medical History (Last Reviewed 08/08/24 @ 02:45 by Jayy Thomson MD) Abdominal mass Actinic keratosis Allergy to perfume Chicken pox Dairy allergy (~2013) Depression (~2011) Emphysema of lung (~2009) Epilepsy with partial complex seizures Gastric ulcer GERD (gastroesophageal reflux disease) History of colon polyps Hyperglycemia Left ankle pain Left foot pain Lung nodule seen on imaging study Measles Mumps Muscle weakness (generalized) Ovarian cyst (~1978) Paroxysmal atrial fibrillation Retinal detachment Seborrheic keratosis Seizures (~1989) Skin cancer (~1989) TIA (transient ischemic attack) Surgical History (Last Reviewed 08/08/24 @ 02:45 by Jayy Thomson MD) Anesthesia History of Achilles tendon repair (~1963) History of appendectomy History of section (~1980) History of hysterectomy History of tonsillectomy Occupational Therapy Inpatient Evaluation/Re-Eval M1 PT/OT-IP Prior Functional Status Start: 08/08/24 11:41 Freq: NEEDED Status: Active Protocol: Document 08/08/24 12:26 [facility] (Rec: 08/08/24 12:44 [facility] Desktop) Medical Review Prior Functional Status Mobility and Gait Indep mobility, sometimes uses a walker in the home, especially in the evening when she walks laps around in the home to build/keep up her strength. Prior to June pt was able to walk a mile and formerly pt and do a lot of hiking. Now she can walk 1/2 block on a good day, and on many days she doesn't go out of the house. Activities of Daily Pt reports being indep in ADLS. usually Living and IADL's prepares meals. Pt cleans the house. Pt states cleans and does the bills still. Social History Household Members spouse Living Arrangements House Number of Floors ( One Floor Floors) Number of Stairs To 4 w/railing Enter/Railing? Home Environment Standard Height Toilet,Walk in Shower Home Equipment Four Wheel Walker,Straight Cane,Hand Held Shower Additional Social also has a roller picker walker. History Comment M2 OT-IP Current Condition Start: 08/08/24 12:26 Freq: Status: Active Protocol: Document 08/08/24 12: [facility] (Rec: 08/08/24 12:44 [facility] Desktop) Occupational Therapy Current Condition Current Condition Evaluation Date 08/08/24 Treatment Diagnosis Generalized weakness, difficulty swallowing M3 OT- IP Subjective and Pain Start: 08/08/24 12: Freq: Status: Active Protocol: Document 08/08/24 12: [facility] (Rec: 08/08/24 12:44 [facility] Desktop) OT- Subjective Occupational Therapy Visit Type Type Initial Evaluation Visit Start Time 11:25 Visit Stop Time 12:25 Occupational Therapy Visit Comments Patient Comments Pt agreed to do OT eval. Patient/Caregiver TO get better. Goals OT Pain Assessment Pain When Pain Assessed At Rest Pain Present Pain Present Denied Pain M4 OT- IP ADL's Start: 08/08/24 12:26 Freq: Status: Active Protocol: Document 08/08/24 12:26 [facility] (Rec: 08/08/24 12:44 [facility] Desktop) OT [id number] Comments OT Self-Feeding Noted pt coughing while drinking fluids and states has Comments difficulty to swallow and has to force herself to swallow at times. Educated her to sit upright when eating to take smaller sips and bites and tuck her chin to help with her swallowing. Asked for MATERIAL FLOW ANALYST orders from the hospitalist. OT ADL-Grooming Comments OT Grooming Comments NOt performed. OT ADL-Oral Care Comments Oral Care Comments Not performed. OT ADL-Toileting Comments OT Toileting Suggested pt get a BSC as at times pt states feels Comments woozy as she first gets up to use the bathroom. Also educated her to sit for a bit and stand for a bit before going to the bathroom to make sure that she is not woozy. OT ADL-Bathing Comments OT Bathing Comments Pt would benefit from a shower chair for home use. M5 OT- IP IADL's Start: 08/08/24 12:26 Freq: Status: Active Protocol: Document 08/08/24 12:26 [facility] (Rec: 08/08/24 12:44 [facility] Desktop) OT-Instrumental Activities of Daily Living Deficits IADL Deficits Deficits Identified Home Safety Awareness Awareness of Need Decreased Awareness for Assistance at Home Ability to Problem Able to Problem Solve Solve Emergency Situations Home Safety Comments Pt needing increased time for home safety answers. Medication Management Medication Caregiver Administers Management Money Management Money Management Best for her to assist at this time and having Comments difficulty calculating numbers. Pt did not remember how many seconds were in a minute. Meal Preparation Meal Preparation Caregiver Provides Assist Unit Control Worker Unit Control Worker Caregiver Provides Assist Unit Control Worker Suggested to use her 4ww at home especially if trying Comments to do any IADL needs. Driving Driving Concerns Identified Regarding Safety M6 OT- IP Functional Cognition Start: 08/08/24 12:26 Freq: Status: Active Protocol: Document 08/08/24 12:26 [facility] (Rec: 08/08/24 12:44 [facility] Desktop) Cognitive Factors Limiting Selfcare Function Cognitive Ability Level of Alertness Alert,Confusional State Patient Orientation Name,Place,Situation Attention Span Capable of Focused Attention,Capable of Sustained Ability Attention Ability to Follow Able to Follow One Step Commands with Increased Time, Commands Able to Follow One Step Commands with Repetition Memory Description Short Term Intact,Working Impaired Problem Solving Unable to Identify Errors,Needs Assist to Identify Ability Solutions Executive Function Unable to Remember Details Ability Cognitive Comments Cognitive Assessment Pt scored 273 seconds on Norco MAking Part B which Comments implies severe impairments for visual attention, speed of processing, task switching, executive functioning, and problem solving. Pt is well aware that she will not drive. Pt was very confused in how many seconds were in a minutes and states 10,30, and then eventually coming with the correct answer of 60. OT- Vision and Hearing OT- Hearing Assessment OT- Hearing WFL Assessment OT- Vision Assessment Visual Acuity Glasses All The Time Visual Attentiveness WFL Occular Pursuits WFL Visual Convergence WFL Visual Parker WFL Diplopia Absent M7 OT- IP Mobility and Balance Start: 08/08/24 12:26 Freq: Status: Active Protocol: Document 08/08/24 12:26 [facility] (Rec: 08/08/24 12:44 [facility] Desktop) OT-Transfer Assessment Sit to and From Stand Sit to and from Standby Assistance Stand Transfers Transfer Ability Contact Guard Assistance Technique Transfer Destination Chair Transfer Technique Stand Step Pivot Devices Transfer Assistive None,Gait Belt Devices Comments Mobility Comments Pt is close SBA to CGA for ambulation in the room and best at this time to use a cane or 4ww at home. Pt scored 45 which indicates borderline of safe ambulation with no device versus use of device. Best for pt to use a device at this time. OT- Balance Assessment Sitting Balance and Reactions Static Sitting Good Balance Ability Dynamic Sitting Good Balance Ability Standing Balance and Reactions Static Standing Fair Balance Ability Dynamic Standing Poor Balance Ability M8 OT- IP Objective Assessments Start: 08/08/24 12:26 Freq: Status: Active Protocol: Document 08/08/24 12:26 [facility] (Rec: 08/08/24 12:44 [facility] Desktop) OT Gross Range of Motion Upper Extremity Range of Motion Assessment Within Functional Limits OT Strength Comments Strength Comments BUE 4-/5 to 4/5 OT Sensation Assessment Comments Summary Comments INtact for sensation of light touch. M9 OT- IP Assessment and Plan Start: 08/08/24 12:26 Freq: Status: Active Protocol: Document 08/08/24 12:26 [facility] (Rec: 08/08/24 12:44 [facility] Desktop) OT Summary Assessment and Plan Potential Rehabilitation Good Potential Analytic Complexity Moderate at Evaluation Summary OT Impairments Strength,Balance,Functional Cognition,Functional Mobility,Dressing,Toileting,Bathing,Toilet Transfers, Shower Transfers,Activity Tolerance Progress Towards Slow Progress due to Medical Issues,Slow Progress due Goals to Activity Tolerance Assessment Summary Pt MOd complexity and main barriers are decreased dynamic balance and overall activity tolerance, and having difficulty with STM and problem solving. Noted on OT eval pt coughing on water and states has difficulty to swallow and requested MATERIAL FLOW ANALYST eval from hospitalist. Pt's BP sitting 102/63, standing 92/53, 107/47. Pt to go home with her when medically stable. Goals Self-Feeding Goal Independent Grooming Goal Independent Dressing Goal Independent Toileting Goal Independent Bathing Goal Independent Toilet Transfer Goal Independent Shower Transfer Goal Independent Days to Meet Goals 5 Frequency of Treatment Other frequency 5x/week Treatment Plan OT Treatment Plan ADL Training,Functional Cognition Training,Functional Mobility,Patient/Family Education,Discharge Planning Discharge Recommendations OT Discharge Home with 19/09 Assist Available,Outpatient PT Recommendations Home Equipment Needs Shower chair Transportation Needs Private Vehicle at Discharge
[2024-08-08 12:00] VITALS: BP 111/67; PULSE 62; RESP 14; TEMP 36.6; O2SAT 99
--- NOTE | 2024-08-08 12:21 | PT.IIE ---
Current Diagnoses Other benign neuroendocrine tumors (08/07/24) Major depressive disorder, single episode, unspecified (08/07/24) Anxiety disorder, unspecified (08/07/24) Localization-related (focal) (partial) symptomatic epilepsy and epileptic syndromes with complex partial seizures, not intractable, without status epilepticus (08/07/24) Transient cerebral ischemic attack, unspecified (08/07/24) Chronic obstructive pulmonary disease, unspecified (08/07/24) Gastro-esophageal reflux disease with esophagitis, without bleeding (08/07/24) Dizziness and giddiness (08/07/24) Surgical History (Last Reviewed 08/08/24 @ 02:45 by Jayy Thomson MD) Anesthesia History of Achilles tendon repair (~1963) History of appendectomy History of section (~1980) History of hysterectomy History of tonsillectomy Medical History (Last Reviewed 08/08/24 @ 02:45 by Jayy Thomson MD) Abdominal mass Actinic keratosis Allergy to perfume Chicken pox Dairy allergy (~2013) Depression (~2011) Emphysema of lung (~2009) Epilepsy with partial complex seizures Gastric ulcer GERD (gastroesophageal reflux disease) History of colon polyps Hyperglycemia Left ankle pain Left foot pain Lung nodule seen on imaging study Measles Mumps Muscle weakness (generalized) Ovarian cyst (~1978) Paroxysmal atrial fibrillation Retinal detachment Seborrheic keratosis Seizures (~1989) Skin cancer (~1989) TIA (transient ischemic attack) Physical Therapy Inpatient Evaluation/Re-Eval M1 PT/OT-IP Prior Functional Status Start: 08/08/24 11:41 Freq: NEEDED Status: Active Protocol: Document 08/08/24 11:56 KJ (Rec: 08/08/24 12:10 KJ [id number]) Medical Review Prior Functional Status Mobility and Gait Indep mobility, sometimes uses a walker in the home, especially in the evening when she walks laps around in the home to build/keep up her strength. Prior to June pt was able to walk a mile and formerly pt and do a lot of hiking. Now she can walk 1/2 block on a good day, and on many days she doesn't go out of the house. Activities of Daily Pt reports being indep in ADLS. usually Living and IADL's prepares meals. Pt cleans the house. Social History Household Members spouse Living Arrangements House Number of Floors ( One Floor Floors) Number of Stairs To 4 w/railing Enter/Railing? Home Equipment Four Wheel Walker Additional Social also has a fish bait picker walker. History Comment M2 PT-IP Current Condition Start: 08/08/24 11:41 Freq: NEEDED Status: Active Protocol: Document 08/08/24 11:56 KJ (Rec: 08/08/24 12:10 KJ [id number]) Physical Therapy Current Condition Current Condition Evaluation Date 08/08/24 Treatment Diagnosis decreased activity tolerance Onset Date 06/27/24 M3 PT-IP Subjective Start: 08/08/24 11:41 Freq: NEEDED Status: Active Protocol: Document 08/08/24 11:56 KJ (Rec: 08/08/24 12:10 KJ [id number]) Subjective Physical Therapy Visit Type Type Initial Evaluation Visit Start Time 10:27 Visit Stop Time 11:13 Physical Therapy Visit Comments Patient Comments not feeling dizziness today, thinks she was medicated. At home will feel dizzy when lying down and turning her head, or when bending over. Pt like to lie on the floor - one time she had to get up suddenly from the floor to run to the bathroom and had an episode of dizziness/poor balance. Patient Goals To gain strength back and be more mobility M4 PT-IP Mobility and Gait Start: 08/08/24 11:41 Freq: NEEDED Status: Active Protocol: Document 08/08/24 11:56 KJ (Rec: 08/08/24 12:10 KJ [id number]) PT-Bed Mobility Assessment Rolling Type of Rolling Bilateral Level of Assist Independent Supine to Sit Supine to Sit Independent Sit to Supine Sit to Supine Independent PT-Transfer Assessment Sit to and From Stand Sit to and from Standby Assistance Stand Gait Assessment Gait Gait Assistance Contact Guard Assist Required: Distance (Feet) 25 Able to Maintain Yes Weight Bearing Status During Gait Assistive Devices Assistive Device Gait Belt Factors Limiting Gait Function Factors Limiting Poor Balance Gait Function Comments Gait Comments gait is unsteady but there is no lob. PT-Balance Assessment Sitting Balance and Reactions Static Sitting Normal Balance Ability Dynamic Sitting Normal Balance Ability Standing Balance and Reactions Static Standing Normal Balance Ability Dynamic Standing Normal Balance Ability Balance Tests Single Limb Standing impaired M5 PT-IP Objective Assessments Start: 08/08/24 11:41 Freq: NEEDED Status: Active Protocol: Document 08/08/24 11:56 KJ (Rec: 08/08/24 12:10 KJ [id number]) Orientation Orientation/Cognition Level of Alertness Alert Orientation Name,Age,Birthday,Situation Language Function No Deficits Noted Ability Safety Awareness Understands Safety Issues Memory Description No Deficits Noted Gross Range of Motion Upper Extremity ROM Assessment Within Functional Limits Lower Extremity ROM Assessment Within Functional Limits Strength Upper Extremity Strength Assessment Within Functional Limits Lower Extremity Strength Assessment Within Functional Limits Coordination Assessment Gross Coordination Gross Coordination WNL M6 PT-IP Treatment Start: 08/08/24 11:41 Freq: NEEDED Status: Active Protocol: Document 08/08/24 11:56 KJ (Rec: 08/08/24 12:10 KJ [id number]) Physical Therapy Treatment Education Education Provided Safety Other Treatments Other Treatment Educated pt and on balance mechanisms in the Performed body and how impairing one can impair balance. Discussed methods of maintaining balance when difficulties arise. Discussed value of PT for her current condition M7 PT-IP Assessment and Plan Start: 08/08/24 11:41 Freq: NEEDED Status: Active Protocol: Document 08/08/24 11:56 KJ (Rec: 08/08/24 12:10 KJ [id number]) PT Summary Assessment and Plan Potential Rehabilitation Excellent Potential Status of Condition Evolving at Evaluation Summary Impairments Balance,Activity Tolerance Assessment Summary Pt with chronic medical condition taking pain medication regularly which might impact her balance. Pt may have BPPV which is not evident at this time due to medications given in the hospital. Pt did not display orthostatic hypotension during this visit. Goals Gait Goal Independent Gait Distance 500 Other Goals Assess for vertigo, increase activity level, single leg stance 5 sec each foot Days to Meet Goals 5 Frequency of Treatment Frequency Of Once a Day Treatment Treatment Plan Physical Therapy Gait Training,Balance Retraining Treatment Plan Recommendations To Nursing Amount of Assist Standby Assistance Needed Discharge Recommendations PT Discharge Outpatient PT Recommendations Transportation Needs Private Vehicle at Discharge
--- NOTE | 2024-08-08 12:30 | CM.DANOTE ---
Initial DCP Assessmement Visit Note Reviewed EMR and team rounds for pt's medical status and updates. Met with pt/spouse at bedside to introduce self and role, pt was found to be alert/oriented, and able to engage in providing home and support information. Pt lives independently at baseline with her spouse in their own home here in [place]. Pt's spouse will transport later this afternoon after pt has worked with OT. Payor: Medicare PCP: Dr. Villafana Pt is a 74 year-old F with a hx of paroximal Afib presents to the ED with c/o dizziness while bending over, and when she bends over she gets a really bad headache. PT became orthostatic with ambulation trial in the ED. Plan was made to admit to OBS due to vertigo and inability to ambulate due to persistent orthostasis. Spouse and dtr at bedside. No CM d/c assistance needs are identified at this time. Discharge Planning/Care Management CM Discharge Assessment Start: 08/07/24 20:04 Freq: Status: Active Protocol: Document 08/08/24 12:28 DPL (Rec: 08/08/24 12:30 DPL [id number]) Discharge Planning Assessment Assigned Discharge LISA Meyer Rebar Bender Advance Directives? Yes Advance Directives Yes on File History Provided By Patient,Medical Record Prior Living House Arrangements Household Members spouse Type of Relies on Others transporation used prior to admit Independent with ADL Yes: Sometimes uses a walker while doing laps around 's the house. Is patient alert and Yes oriented? Caregiver for No Another DME Already Rented / FWW / Walker Owned Patient/Family OP PT Therapy Preference Barriers to No Discharge Discharge Plan Home Transportation Spouse Arrangement Referrals Initiated None needed Whiteboard Updated Yes in Patient Room with name and ext. # of Agricultural Extension Officer Review Status In Process Please Provide Date 08/08/24 Initial DC Assessment Was Performed
--- NOTE | 2024-08-08 14:12 | PM.DS.1 ---
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 ED course: EKG sinus rhythm, nonspecific change. CBC shows normal white count hemoglobin and platelets, INR is 1.3 electrolytes are appropriate CO2 is 21 BUN 7 creatinine 0.81 glucose is 128 LFTs are negative troponins less than 0.012. UA shows 1+ ketones otherwise negative. UDS is positive for oxycodone. COVID swab Head CT non-con shows no acute change. CT head and neck angio shows no acute intracranial arterial abnormality and no significant abnormality within the arteries of the neck. Patient received fluids, he was given a dose of her home pain medications, Versed. On recheck at 5:03 p.m. patient is feeling much improved. We will obtain orthostatics and ambulation trial. Patient's orthostatics have about a 15 point change, only 10 point change with the blood pressure. Patient was feeling somewhat improved but is a worsened with orthostatics attempted ambulation trial which was unsuccessful. On admission to floor complains on back pain, headache, she can hardly talk and appears very anxious. Discharge Providers Provider Date of admission: 08/07/24 19:25 Discharge Date: 08/08/24 Primary care physician: Gisselle Villafana DO Consults: 08/08/24 10:05 Consult to Occupational Therapy Evaluate & Treat Comment: Physician Instructions: Evaluate and treat Consult to Physical Therapy Evaluate & Treat Comment: Physician Instructions: Evaluate and Treat 08/08/24 12:58 Consult to Speech Therapy Evaluate & Treat Comment: Physician Instructions: Evaluate and treat Discharge provider: Gurmeet Dominguez DO Summary Hospital Course Discharge Diagnosis: Neuroendocrine tumor - possibly causing: Nausea / Headache / Dizziness / Orthostatic Hypotension / Abdominal and Back Pain / Tremor - transient Possible BPPV Anxiety / Depression GERD COPD PAF Hospital Course: This is a 74 year old female undergoing workup for possible neuroendocrine tumor who presented after an episode with a multitude of symptoms including headache, dizziness, vertigo and tremor with abdominal and back pain. She was given meclizine, oral lorazepam with improvement in symptoms. She was admitted after the ER felt uncomfortable sending her home due to inability to ambulate. She worked with therapies whom recommended [employer]OR [employer] evaluation and outpatient PT. She had unremarkable speech therapy evaluation after. MRI was negative for an acute infarct. She was ambulating in her room without assistance the following day and had no recurrent symptoms. She was discharged home with prescription for meclizine and lorazepam in case of recurrence of symptoms. Symptoms could be consistent with BPPV, but could represent symptoms of a neuroendocrine tumor which is typically managed with symptom control. No other changes were made to her home medications. Time Spent with Patient Time spent: Greater than 30 minutes Exam Vital Signs (past 8 hours): - 08/08/24 08:00 08/08/24 09:15 08/08/24 12:00 Temperature 97.2 F L 97.8 F Pulse Rate 66 61 62 Respiratory Rate 17 14 Blood Pressure 107/64 111/67 Pulse Oximetry 99 99 Oxygen Flow Rate 0 0 Oxygen Delivery Method Room Air Oxygen Flow Rate 0 Narrative Exam Narrative: General - no acute distress, WDWN CVS - RRR RS - normal respiratory effort Neuro - w/o focal weakness Objective Labs 08/08/24 05:11 08/08/24 05:11 Labs: Laboratory Results - last 24 hr 08/07/24 08/08/24 13:19 05:11 WBC 3.8 L RBC 3.94 L Hgb 11.9 L Hct 34.8 L MCV 88.4 MCH 30.2 MCHC 34.2 RDW 13.9 Plt Count 166 Neut % (Auto) 74.6 Lymph % (Auto) 18.8 L [place] % (Auto) 5.4 Eos % (Auto) 0.4 L Baso % (Auto) 0.8 Neut # (Auto) 2900 Lymph # (Auto) 700 L [place] # (Auto) 200 Eos # (Auto) 0 Baso # (Auto) 0 Sodium 138 Potassium 3.6 Chloride 108 H Carbon Dioxide 22 BUN 6 L Creatinine 0.79 Estimated GFR > 60 BUN/Creatinine Ratio 7.6 Glucose 93 Calcium 8.5 SARS-CoV-2 (PCR) Negative [facility] Medical History Abdominal mass Left foot pain Left ankle pain Paroxysmal atrial fibrillation Allergy to perfume Lung nodule seen on imaging study History of colon polyps Hyperglycemia Seborrheic keratosis Actinic keratosis Muscle weakness (generalized) GERD (gastroesophageal reflux disease) Dairy allergy (~2013) Depression (~2011) Seizures (~1989) Mumps Measles Chicken pox Retinal detachment Ovarian cyst (~1978) Gastric ulcer Skin cancer (~1989) TIA (transient ischemic attack) Emphysema of lung (~2009) Epilepsy with partial complex seizures Surgical History Anesthesia History of appendectomy History of Achilles tendon repair (~1963) History of section (~1980) History of tonsillectomy History of hysterectomy Family History Father Congestive heart failure History of heart disease Stroke Mother Cancer Mental health problem Grandmother Congestive heart failure History of heart disease Stroke Social History household members: spouse Smoking Status: Never smoker second hand exposure: Yes (ages 0-18 ) alcohol intake: former substance use type: does not use Discharge Plan Discharge Plan Patient Disposition: Home Provider Discharge Comment: You were admitted to the hospital with vertigo. This improved with medications and time. Cleared for outpatient PT after evaluation. Follow up with PCP next week as scheduled. Discharge orders & Medications Prescriptions: New meclizine 50 mg tablet 50 mg PO BID PRN (Reason: vertigo) 30 Days Qty: 30 0RF lorazepam 1 mg tablet 1 mg PO BID PRN (Reason: severe vertigo) 7 Days Qty: 14 0RF Continued Eliquis 5 mg tablet 5 mg PO BID (DME) inhalational spacing device Spacer See Rx Instructions .Route Qty: 1 2RF Rx Instructions: Use spacer with albuterol inhaler levalbuterol tartrate [Xopenex HFA] 45 mcg/actuation HFA aerosol inhaler 2 puff inhalation Q4-6H PRN (Reason: shortness of breath or wheezing) Qty: 15 3RF polyethylene glycol 3350 [Miralax] 17 gram/dose powder 17 g PO DAILY dexlansoprazole [Dexilant] 30 mg capsule,biphase delayed releas 30 mg PO DAILY Qty: 60 3RF tramadol 50 mg tablet 50 mg PO Q6H PRN (Reason: pain) Qty: 60 0RF oxycodone-acetaminophen 10-325 mg tablet 1 tab PO TID PRN (Reason: pain) Qty: 60 0RF ondansetron 4 mg tablet,disintegrating 4 mg PO DAILY PRN (Reason: nausea and vomiting) Qty: 30 0RF cholecalciferol (vitamin D3) 25 mcg (1,000 unit) capsule 25 mcg PO DAILY Centrum Silver Women 8 mg iron-400 mcg-300 mcg tablet 1 tab PO DAILY lidocaine 4 % adhesive patch,medicated 1 patch topical DAILY PRN (Reason: pain) metoprolol succinate 25 mg tablet extended release 24 hr 25 mg PO DAILY mirtazapine 45 mg tablet 45 mg PO DAILY Qty: 90 3RF Follow up/Referrals: Gisselle Villafana DO [Primary Care Provider, Family Practice] Diet/Activity/Treatments Diet: Diet as Tolerated and Regular Activity: No restrictions Visit Report/Discharge Packet Instructions: Benign Paroxysmal Positional Vertigo Stand Alone Forms: Patient Portal/API, Stroke Signs & Symptoms Discharge Data Primary Care Provider: Gisselle Villafana Attending Provider: Jayy Boogie Admit Date/Time: 08/07/24 19:25
--- NOTE | 2024-08-08 14:46 | PC.NURSE ---
Day shift: Paperwork signed and all questions answered. Pt has all personal belongings. Encouraged to f/u w/ PCP. Spouse in room for teachings. Left unit at approx 1445 via WC. Taken By Alec FOREMAN. New MD scripts sent electronic to Pt's pharmacy. Spouse is driving them home.
--- NOTE | 2024-08-08 16:46 | ST.IPCSEOM ---
Visit Care Team Role Provider Type Gisselle Villafana DO Primary Care Provider Physician Specialty: Family Practice Address: [address] [place] [address], [address], [place], [address] Email: [email or web address] DO Emergency Provider Physician Specialty: Emergency Medicine Address: [address] [place] [address], [id number] Email: Jayy Thomson MD Admit Provider Physician Attending Provider Specialty: Internal Medicine Address: [address] [place] [address], [facility] Email: [email or web address] Diagnoses Other benign neuroendocrine tumors (08/07/24) Major depressive disorder, single episode, unspecified (08/07/24) Anxiety disorder, unspecified (08/07/24) Localization-related (focal) (partial) symptomatic epilepsy and epileptic syndromes with complex partial seizures, not intractable, without status epilepticus (08/07/24) Transient cerebral ischemic attack, unspecified (08/07/24) Chronic obstructive pulmonary disease, unspecified (08/07/24) Gastro-esophageal reflux disease with esophagitis, without bleeding (08/07/24) Dizziness and giddiness (08/07/24) Past Medical History (Last Reviewed 08/08/24 @ 02:45 by Jayy Thomson MD) Abdominal mass (Medical) Actinic keratosis (Medical) Allergy to perfume (Medical) Chicken pox (Medical) Dairy allergy (Medical ~2013) Depression (Medical ~2011) Emphysema of lung (Medical ~2009) Epilepsy with partial complex seizures (Medical) Gastric ulcer (Medical) [id number] GERD (gastroesophageal reflux disease) (Medical) History of colon polyps (Medical) Hyperglycemia (Medical) Left ankle pain (Medical) Left foot pain (Medical) Lung nodule seen on imaging study (Medical) Measles (Medical) Mumps (Medical) Muscle weakness (generalized) (Medical) Ovarian cyst (Medical ~1978) Paroxysmal atrial fibrillation (Medical) On Eliquis Retinal detachment (Medical) Both eyes, [id number] Seborrheic keratosis (Medical) Seizures (Medical ~1989) Skin cancer (Medical ~1989) Basal cell, squamous cell TIA (transient ischemic attack) (Medical) Speech-Language Pathology Swallow Evaluation CUSTOMER RELATIONS REPRESENTATIVE Clinical Swallow Evaluation Start: 08/08/24 16:21 Freq: Status: Active Protocol: Document 08/08/24 16:21 MM (Rec: 08/08/24 16:45 MM Desktop) Clinical Swallow Evaluation Session Time Visit Start Time 13:35 Visit Stop Time 14:05 Total Visit Minutes 30 Visit Information Visit Number Initial Evaluation Referral Referring Provider Dr. 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 CT head unremarkable. ST consulted for swallow evaluation d/t pt c/o difficulty /c swallowing. Subjective Pt sitting in bedside chair upon ST arrival. Pt awake, Observations alert, cooperative, and pleasant throughout initial evaluation. Pt appeared anxious re: current medical situation. Pt's present throughout ST evaluation. Reported by Patient/Caregiver Pain/Discomfort No Other Symptoms Difficulty swallowing solids,Food gets stuck Comment Pt endorsed globus sensation with solid foods, reporting compensating by chewing up solids extra well and swallowing effortfully. She reported this has been ongoing for ~1 month. However, she continues to tolerate her baseline diet of regular solids and thin liquids with use of compensatory strategies. No c/o coughing/choking or general difficulty with liquids. Of note, pt reported she is gluten and dairy free, ST followed allergy precautions during PO trials. Current Diet Regular (IDDSI 7) Baseline Feeding Independent in self-feeding Method The IDDSI Framework Protocol: IDDSI.1 Objective Assessment Mental Status Alert,Responsive,Cooperative Oral Integrity WFL Dentition Within normal limits Lip Function Within normal limits Tongue Function Within normal limits Jaw Function Within normal limits Hard/Soft Palate Within normal limits Function Respiratory Within normal limits Sufficiency Comment Oral mechanism exam revealed adequate natural dentition , oral health, and cranial nerves grossly intact bilaterally. Vocal quality appropriate for age/sex and reported to be at baseline. No baseline cough observed prior to PO trials. Pt breathing comfortably on room air. Food and Liquid Trials Position During Upright (90 degrees),In chair Assessment Liquids Trialed Thin (IDDSI 0) Solid Trials Purred (IDDSI 4),Soft & Bite-sized (IDDSI 6),Regular ( IDDSI 7) Administration Type Cup single sip,Cup consecutive sips,Straw,Self-feeding Oral Impairment Within normal limits Oral Phase Comments Pt exhibited adequate bolus retrieval from straw and spoon, oral containment, bolus manipulation, and oral clearance across PO trials. Pt observed across trials of thin liquids (3 oz water via straw), puree (apple sauce via tsp), soft and bite sized (peaches via tsp), and regular solid (turkey). Pharyngeal Phase No overt s/sx of aspiration noted. Globus sensation Comments endorsed with soft and bite sized trials and regular solid trials, however, independently cleared with multiple effortful swallows. ST cued pt to alternate bites with liquid wash/sip to facilitate clearance. Unable to determine presence of pharyngeal dysphagia in the setting of reported globus sensation without further evaluation with use of imaging via Modified Barium Swallow Study (MBSS). ST educated pt re: need for MBSS to further inform globus sensation/guide POC, however, pt politely declined obtaining an MBSS this admission. Pt reported she is tolerating her baseline diet of regular solids and thin liquids with her compensatory strategies at this time, and will possibly follow through with an MBSS in the outpatient setting. ST provided pt with information for obtaining an MBSS in the outpatient setting, pt and pt's verbalized understanding. Fatigue/Endurance Endurance WNL Strategies Attempted Effortful swallow,Other Response/Comments Multiple swallows Thorough chewing Alternate bites/sips Liquid wash The IDDSI Framework Protocol: IDDSI.1 Findings Swallowing Function Oral phase WFL, unable to exclude pharyngeal dysphagia Comments d/t globus sensation Prognosis Good Based on Cognitive status,Family support Impact on Safety and No limitations Functioning Recommendations Instrumental Yes Assessment Recommended Solids Regular (IDDSI 7) Recommended Liquids Thin (IDDSI 0) Other Based on clinical swallow evaluation and pt report, Recommendations oral phase of swallow WFL. There is no concern for safety of pharyngeal swallow. There is concern for possible pharyngeal dysphagia characterized by difficulty with swallow efficiency resulting in globus sensation. However, unable to determine presence of pharyngeal dysphagia in the setting of reported globus sensation without further evaluation with use of imaging via Modified Barium Swallow Study (MBSS). ST educated pt re: need for MBSS to further inform globus sensation/guide POC, however, pt politely declined obtaining an MBSS this admission. Pt reported she is tolerating her baseline diet of regular solids and thin liquids with her compensatory strategies at this time, and will possibly follow through with an MBSS in the outpatient setting. ST provided pt with information for obtaining an MBSS in the outpatient setting, pt and pt 's verbalized understanding. ST encouraged pt to continue to utilize compensatory strategies to reduce globus sensation and facilitate bolus clearance (small bites, alternate bites/sips, liquid wash, thoroughly chew food, multiple swallows, effortful swallows). ST to sign off given no further needs for pt from ST at this level of care at this time, please re- consult ST with any change in status. Safety Precautions/ Small bites and sips when eating,Multiple swallows, Swallowing Alternate liquids and solids Recommendations Medication As Tolerated Recommendations Discharge Home Recommendations Education Patient/Caregiver Described results of evaluation,Patient expressed Education understanding of evaluation,Family/caregivers expressed understanding of evaluation,Patient expressed understanding of feeding recommendations,Family/ caregivers expressed understanding of feeding recommendations
== END 2024-08-08 14:48 | disposition home or self-care (01) ==
LOC: ED 19:24 → AC 19:25
PROVIDERS: Admitting Provider Internal Medicine; Emergency Provider Emergency Medicine; PCP Family Medicine; Visit Provider Internal Medicine
DX: R42 Dizziness and giddiness (principal); R51.9 Headache, unspecified; R10.9 Unspecified abdominal pain; R11.0 Nausea; M54.9 Dorsalgia, unspecified; K21.00 Gastro-esophageal reflux disease with esophagitis, without bleeding; J44.9 Chronic obstructive pulmonary disease, unspecified; I48.0 Paroxysmal atrial fibrillation; R56.9 Unspecified convulsions; Z86.73 Personal history of transient ischemic attack (TIA), and cerebral infarction without residual deficits; Z79.01 Long term (current) use of anticoagulants
CPT/HCPCS: 36415; 70450; 70496; 70498; 80048; 80053; 80305; 80320; 81001; 82550; 84484; 85025; 85610; 85730; 87635; 92610; 93005; 96361; 96374; 96375; 96376; 97129; 97162; 97166; 97530; 99284; G0378; J0780; J2250; J2405; Q9967